=== PATIENT | female | born 1940 | race African-American/Black ===

== ENCOUNTER 2017-07-19 13:29 | Inpatient (IN) | payer MEDICARE, OTHER ==
[~2017-07-19] VITALS: Ht 162.6 cm; Wt 112.9 kg
[2017-07-19 13:48] VITALS: BP 125/59
[2017-07-19] MEDS ORDERED: Sodium Chloride 500ML 500 ML IV ONE (14:01)
[2017-07-19 14:57] LABS: HEMOGLOBIN 13.5 G/DL (12.0-16.0); MEAN CORPUSCULAR VOLUME 82 FL (80-99); PLATELET COUNT 135 K/UL (150-450); RED BLOOD COUNT 5.02 M/UL (4.20-5.40); RED CELL DISTRIBUTION WIDTH 13.2 % (11.6-14.8); WHITE BLOOD COUNT 14.6 K/UL (4.8-10.8)
[2017-07-19 14:58] LABS: ANION GAP 9 mmol/L (5-15); BLOOD UREA NITROGEN 19 mg/dL (7-18); CARBON DIOXIDE 28 MMOL/L (21-32); CHLORIDE 98 MMOL/L (98-107); CREATININE 1.5 MG/DL (0.55-1.30); POTASSIUM 4.4 MMOL/L (3.5-5.1); SODIUM 135 MMOL/L (136-145)
[2017-07-19 15:03] LABS: ALANINE AMINOTRANSFERASE 20 U/L (12-78); ALBUMIN 2.7 G/DL (3.4-5.0); ALBUMIN/GLOBULIN RATIO 0.8 (1.0-2.7); ALKALINE PHOSPHATASE 115 U/L (46-116); ASPARTATE AMINO TRANSFERASE 16 U/L (15-37); BILIRUBIN,TOTAL 0.9 MG/DL (0.2-1.0)
[2017-07-19 15:15] LABS: APPEARANCE,URINE SLIGHTLY CLOUDY; BILIRUBIN, URINE NEGATIVE (NEGATIVE); COLOR,URINE YELLOW; GLUCOSE, URINE (UA) 4+ (NEGATIVE); KETONES,URINE 2+ (NEGATIVE); LEUKOCYTE ESTERASE ,URINE 3+ (NEGATIVE); NITRITE,URINE NEGATIVE (NEGATIVE); PH,URINE 5 (4.5-8.0); PROTEIN,URINE 3+ (NEGATIVE); UROBILINOGEN,URINE 1 MG/DL (0.0-1.0)
[2017-07-19 15:40] VITALS: BP 128/59
--- NOTE | 2017-07-19 16:12 | Emergency Room Report ---
History of Present Illness General Chief Complaint: Generalized Weakness Source: Patient Present Illness HPI 76-year-old female presents to ED for evaluation. Complaining of abdominal pain , weakness for last 4 days. Pain is generalized, 6/10, and nonradiating. Denies chest pain or shortness of breath. Denies fevers or chills. Complaining of dizziness. No other aggravating relieving factors. Denies any other associated symptoms Allergies: Coded Allergies: HYDROMORPHONE (Verified Allergy, Severe, 02/27/15) PENICILLINS (Verified Allergy, Severe, 02/27/15) PROCAINE (Verified Allergy, Severe, 02/27/15) SHELLFISH DERIVED (Verified Allergy, Severe, 02/27/15) Uncoded Allergies: DUST, POLLEN (Allergy, Unknown, 07/19/17) Patient History Past Medical History: DM, HTN, asthma Past Surgical History: none Pertinent Family History: none Social History: Denies: smoking, alcohol use, drug use Now: No Immunizations: UTD Reviewed Nursing Documentation: PMH: Agreed, PSxH: Agreed Nursing Documentation-PMH Hx Hypertension: Yes Hx Asthma: Yes Hx Diabetes: Yes - DM type 2 Review of Systems All Other Systems: negative except mentioned in HPI Physical Exam Vital Signs Date Time Temp Pulse Resp B/P (MAP) Pulse Ox O2 Delivery O2 Flow Rate FiO2 07/19/17 13:38 99.1 116 20 125/70 95 99.1 07/19/17 13:48 Room Air Sp02 EP Interpretation: reviewed, normal General Appearance: no apparent distress, alert, GCS 15, non-toxic Head: normocephalic, atraumatic Eyes: bilateral eye normal inspection, bilateral eye PERRL ENT: hearing grossly normal, normal pharynx, no angioedema, normal voice Neck: full range of motion, supple/symm/no masses Respiratory: chest non-tender, lungs clear, normal breath sounds, speaking full sentences Cardiovascular #1: regular rate, rhythm, no edema Cardiovascular #2: 2+ carotid (R), 2+ carotid (L), 2+ radial (R), 2+ radial (L) , 2+ dorsalis pedis (R), 2+ dorsalis pedis (L) Gastrointestinal: normal bowel sounds, soft, non-distended, no guarding, no rebound, tenderness Rectal: deferred Genitourinary: normal inspection, no CVA tenderness Musculoskeletal: back normal, gait/station normal, normal range of motion, non- tender Neurologic: alert, oriented x3, responsive, motor strength/tone normal, sensory intact, speech normal Psychiatric: judgement/insight normal, memory normal, mood/affect normal, no suicidal/homicidal ideation Reflexes: 3+ bicep (R), 3+ bicep (L), 3+ tricep (R), 3+ tricep (L), 3+ knee (R) , 3+ knee (L) Skin: normal color, no rash, warm/dry, well hydrated Lymphatic: no adenopathy Medical Decision Making Diagnostic Impression: Primary Impression: Dehydration Additional Impressions: Episode of generalized weakness Pyelonephritis ER Course Hospital Course 76-year-old female resents ED complaining of weakness, lower abdominal pain, dizziness Differential diagnoses include: gastritis, dehydration, UTI Clinical course Patient placed on stretcher. After initial history and physical I ordered labs , ivfs, ekg, ct, mesd labs - marked leukocytosis noted, hb/hematocrit stable, cr 1.5, UA grossly positive CT A/P - pyelonephritis findings consistent with pyelonephritis. IV abx given Case discussed with Dr. Apple and he agreed to accept the patient to his service for further care and support Diagnosis - pyelonephritis, dehydration, weakness Admitted to floor in serious condition Labs Test 07/19/17 14:01 07/19/17 14:40 White Blood Count 14.6 K/UL (4.8-10.8) Red Blood Count 5.02 M/UL (4.20-5.40) Hemoglobin 13.5 G/DL (12.0-16.0) Hematocrit 41.0 % (37.0-47.0) Mean Corpuscular Volume 82 FL (80-99) Mean Corpuscular Hemoglobin 26.9 PG (27.0-31.0) Mean Corpuscular Hemoglobin Concent 33.0 G/DL (32.0-36.0) Red Cell Distribution Width 13.2 % (11.6-14.8) Platelet Count 135 K/UL (150-450) Mean Platelet Volume 9.6 FL (6.5-10.1) Neutrophils (%) (Auto) % (45.0-75.0) Lymphocytes (%) (Auto) % (20.0-45.0) Monocytes (%) (Auto) % (1.0-10.0) Eosinophils (%) (Auto) % (0.0-3.0) Basophils (%) (Auto) % (0.0-2.0) Differential Total Cells Counted 100 Neutrophils % (Manual) 85 % (45-75) Lymphocytes % (Manual) 4 % (20-45) Monocytes % (Manual) 8 % (1-10) Eosinophils % (Manual) 0 % (0-3) Basophils % (Manual) 0 % (0-2) Band Neutrophils 3 % (0-8) Platelet Estimate Decreased Platelet Morphology Normal Red Blood Cell Morphology Normal Anisocytosis Sodium Level 135 MMOL/L (136-145) Potassium Level 4.4 MMOL/L (3.5-5.1) Chloride Level 98 MMOL/L (98-107) Carbon Dioxide Level 28 MMOL/L (21-32) Anion Gap 9 mmol/L (5-15) Blood Urea Nitrogen 19 mg/dL (7-18) Creatinine 1.5 MG/DL (0.55-1.30) Estimat Glomerular Filtration Rate mL/min (>60) Glucose Level 351 MG/DL (74-106) Calcium Level 9.0 MG/DL (8.5-10.1) Total Bilirubin 0.9 MG/DL (0.2-1.0) Aspartate Amino Transf (AST/SGOT) 16 U/L (15-37) Alanine Aminotransferase (ALT/SGPT) 20 U/L (12-78) Alkaline Phosphatase 115 U/L (46-116) Total Protein 6.3 G/DL (6.4-8.2) Albumin 2.7 G/DL (3.4-5.0) Globulin 3.6 g/dL Albumin/Globulin Ratio 0.8 (1.0-2.7) Lipase 50 U/L (73-393) Urine Color Yellow Urine Appearance Slightly cloudy Urine pH 5 (4.5-8.0) Urine Specific [place] 1.010 (1.005-1.035) Urine Protein 3+ (NEGATIVE) Urine Glucose (UA) 4+ (NEGATIVE) Urine Ketones 2+ (NEGATIVE) Urine Occult Blood 5+ (NEGATIVE) Urine Nitrite Negative (NEGATIVE) Urine Bilirubin Negative (NEGATIVE) Urine Urobilinogen 1 MG/DL (0.0-1.0) Urine Leukocyte Esterase 3+ (NEGATIVE) Urine RBC 15-20 /HPF (0 - 2) Urine WBC 60-80 /HPF (0 - 2) Urine Squamous Epithelial Cells Few /LPF (NONE/OCC) Urine Amorphous Sediment Moderate /LPF (NONE) Urine Bacteria Moderate /HPF (NONE) EKG Diagnostic Results Rate: tachycardiac Rhythm: NSR ST Segments: no acute changes ASA given to the pt in ED: No Rhythm Strip Diag. Results EP Interpretation: yes Rhythm: NSR, no ectopy CT/MRI/US Diagnostic Results CT/MRI/US Diagnostic Results : Imaging Test Ordered: CT A/P Impression pyelonephritis Last Vital Signs Date Time Temp Pulse Resp B/P (MAP) Pulse Ox O2 Delivery O2 Flow Rate FiO2 07/19/17 13:48 99.1 120 25 125/59 94 Room Air 99.1 Status: improved Disposition: ADMITTED INPATIENT Condition: Serious Referrals: Cecil SHAY,REFERRING (PCP) SOSA STRATTON M.D. Jul 19, 2017 16:12
--- NOTE | 2017-07-19 16:18 | Diagnostic Imaging Report ---
Indication: Abdominal pain Technique: Continuous helical transaxial imaging of the abdomen and pelvis was obtained from the lung bases to the pubic symphysis. No intravenous contrast was administered. Coronal 2-D reformats were also obtained. Automatic Exposure Control was utilized. Total Dose length Product (DLP): 971.[address] Dose Index Volume (CTDIvol): 19.07 mGy Comparison: none Findings: The lung bases are clear. There is perinephric stranding noted bilaterally. There is no hydronephrosis or evidence of renal stones either at the level of the kidney or within the ureter. No abnormal fluid collections are seen. The appendix is normal. There is a small amount of air in the urinary bladder.. Uterus is not seen. Arterial calcifications are present in the aorta. There is no evidence of an aneurysm. There is narrowing of intervertebral discs and accompanying endplate osteophyte formation. Hypertrophied facet joints also demonstrated. There is a small right inguinal hernia containing fat. IMPRESSION: Perinephric stranding nonspecific in nature. Consider pyelonephritis. Please correlate clinically. Small amount of air in the urinary bladder. This is usually associated with Arriaza catheter placement. There is no history of such, urinary tract infection should be considered. A small right inguinal hernia containing fat Atherosclerotic vascular disease Normal appendix Spondylosis. The CT scanner at [facility] is accredited by the [employer] and the scans are performed using dose optimization techniques as appropriate to a performed exam including Automatic Exposure control.
[2017-07-19] MEDS ORDERED: NOVOLIN N100 UNIT/1 SUBQ (16:41)
[2017-07-19] MEDS ORDERED: ATORVASTATIN CA10 MG ORAL (16:41)
[2017-07-19] MEDS ORDERED: NOVOLIN R100 UNIT/1 SUBQ ×2 (16:45)
[2017-07-19 16:59] VITALS: BP 118/55
[2017-07-19] MEDS ORDERED: ASPIRIN EC81 MG ORAL (17:27)
[2017-07-19] MEDS ORDERED: Albuterol/Ipratropium 3ml neb HHN PRN (17:45)
[2017-07-19] MEDS ORDERED: Nitroglycerin Subl 0.4mg tab SL PRN (17:45)
[2017-07-19 17:56] VITALS: BP 125/60
[2017-07-19 18:30] VITALS: BP 156/61
[2017-07-19 20:00] VITALS: BP 155/76
[2017-07-19] MEDS ORDERED: Vancomycin 1 GM in NS 275 ML IVPB SCH (20:00)
[2017-07-19] MEDS ORDERED: Cefepime HCl 2 GM in D5W 110 ML IV SCH (21:00)
[2017-07-19] MEDS: Heparin 5000 units/ml inj SUBQ SCH (21:00)
[2017-07-19] MEDS: NovoLOG Insulin Flexpen SUBQ SCH (21:34)
[2017-07-19 22:05] LABS: APPEARANCE,URINE CLEAR; BILIRUBIN, URINE NEGATIVE (NEGATIVE); GLUCOSE, URINE (UA) 4+ (NEGATIVE); KETONES,URINE 2+ (NEGATIVE); LEUKOCYTE ESTERASE ,URINE 3+ (NEGATIVE); NITRITE,URINE POSITIVE (NEGATIVE); PH,URINE 5 (4.5-8.0); PROTEIN,URINE 3+ (NEGATIVE); UROBILINOGEN,URINE 1 MG/DL (0.0-1.0)
[2017-07-19 22:08] LABS: COLOR,URINE YELLOW
[2017-07-20] VITALS (7 sets, daily range): BP systolic 118–139; BP diastolic 58–83
[2017-07-20] MEDS: NovoLOG Insulin Flexpen SUBQ SCH ×4 (06:31→22:03)
[2017-07-20 06:51] LABS: BASOPHILS % (AUTO) 0.5 % (0.0-2.0); HEMATOCRIT 38.8 % (37.0-47.0); MEAN CORPUSCULAR VOLUME 81 FL (80-99); MONOCYTES % (AUTO) 5.9 % (1.0-10.0); NEUTROPHILS % (AUTO) 81.6 % (45.0-75.0); PLATELET COUNT 138 K/UL (150-450); RED BLOOD COUNT 4.76 M/UL (4.20-5.40); RED CELL DISTRIBUTION WIDTH 13.2 % (11.6-14.8); WHITE BLOOD COUNT 15.8 K/UL (4.8-10.8)
[2017-07-20 07:40] LABS: ALANINE AMINOTRANSFERASE 17 U/L (12-78); ALBUMIN 2.4 G/DL (3.4-5.0); ALBUMIN/GLOBULIN RATIO 0.5 (1.0-2.7); ALKALINE PHOSPHATASE 109 U/L (46-116); ANION GAP 8 mmol/L (5-15); ASPARTATE AMINO TRANSFERASE 11 U/L (15-37); BILIRUBIN,TOTAL 0.8 MG/DL (0.2-1.0); BLOOD UREA NITROGEN 22 mg/dL (7-18); CALCIUM 8.9 MG/DL (8.5-10.1); CARBON DIOXIDE 28 MMOL/L (21-32); CHLORIDE 100 MMOL/L (98-107); CREATININE 1.6 MG/DL (0.55-1.30); POTASSIUM 3.8 MMOL/L (3.5-5.1); SODIUM 136 MMOL/L (136-145)
[2017-07-20] MEDS: Heparin 5000 units/ml inj SUBQ SCH ×2 (08:20→21:00)
[2017-07-20] MEDS: Levofloxacin 250mg/D5W 50ml IVPB SCH (15:50)
--- NOTE | 2017-07-20 17:39 | History and Physical ---
History of Present Illness General Date patient seen: Jul 19, 2017 Reason for Hospitalization: Generalized Weakness Present Illness HPI 76-year-old female with hx of DM presents to ED for evaluation of abdominal pain, weakness for last 4 days. Pain is generalized, 6/10, and nonradiating. Denies chest pain or shortness of breath. Denies fevers or chills. Complaining of dizziness. No other aggravating relieving factors. Denies any other associated symptoms. Pt is admitted for further evaluation. Allergies: Coded Allergies: ACETAMINOPHEN (Verified Allergy, Severe, Shortness of Breath, 07/19/17) HYDROMORPHONE (Verified Allergy, Severe, 02/27/15) PENICILLINS (Verified Allergy, Severe, 02/27/15) PROCAINE (Verified Allergy, Severe, 02/27/15) SHELLFISH DERIVED (Verified Allergy, Severe, 02/27/15) Uncoded Allergies: DUST, POLLEN (Allergy, Unknown, 07/19/17) Medication History Scheduled Atorvastatin Calcium* (Lipitor*), 10 MG ORAL BEDTIME, (Reported) Insulin Regular, Human* (Novolin R*), 7 SUBQ DAILY, (Reported) Insulin Regular, Human* (Novolin R*), 0 SUBQ .SLIDING SCALE, (Reported) Nph, Human Insulin Isophane* (Novolin N*), 20 SUBQ DAILY, (Reported) Scheduled PRN Aspirin Ec* (Aspirin Ec*), 81 MG ORAL BID PRN for For Pain, (Reported) Patient History Healthcare decision maker Resuscitation status Full Code Advanced Directive on File Past Medical/Surgical History Past Medical/Surgical History: (1) Diabetes mellitus Review of Systems Gastrointestinal: Reports: abdominal pain, constipation Physical Exam Lines, tubes and drains: peripheral HEENT: normocephalic, atraumatic Neck: non-tender, supple Respiratory/Chest: chest wall non-tender, lungs clear Breasts: no masses Cardiovascular/Chest: normal peripheral pulses, normal rate Abdomen: normal bowel sounds, non tender, hyperactive bowel sounds Genitourinary/Rectal: normal rectal exam, normal prostate exam Extremities: normal range of motion Skin Exam: normal pigmentation Last 24 Hour Vital Signs Date Time Temp Pulse Resp B/P (MAP) Pulse Ox O2 Delivery O2 Flow Rate FiO2 07/20/17 15:57 100.2 104 19 137/65 95 100.2 07/20/17 12:00 99.3 105 20 139/83 99.3 07/20/17 08:31 97.0 100 19 125/77 94 97.0 07/20/17 04:00 97.7 86 18 124/59 93 Room Air 97.7 07/20/17 00:00 97.7 91 19 131/68 98 Room Air 97.7 07/19/17 20:00 101.5 118 21 155/76 91 Room Air 101.5 07/19/17 18:30 102.2 120 25 156/61 97 Room Air 102.2 07/19/17 18:25 98.2 112 24 125/60 95 Room Air 98.2 07/19/17 17:56 98.2 112 24 125/60 95 Room Air 98.2 Intake and Output 07/19/17 07/20/17 19:00 07:00 Intake Total 275.0 ml Balance 275.0 ml Intake IV Total 275.0 ml # Voids 2 1 Laboratory Tests Test 07/19/17 21:40 07/20/17 05:35 Urine Color Yellow Urine Appearance Clear Urine pH 5 (4.5-8.0) Urine Specific [place] 1.010 (1.005-1.035) Urine Protein 3+ (NEGATIVE) H Urine Glucose (UA) 4+ (NEGATIVE) H Urine Ketones 2+ (NEGATIVE) H Urine Occult Blood 5+ (NEGATIVE) H Urine Nitrite Positive (NEGATIVE) H Urine Bilirubin Negative (NEGATIVE) Urine Urobilinogen 1 MG/DL (0.0-1.0) H Urine Leukocyte Esterase 3+ (NEGATIVE) H Urine RBC 5-10 /HPF (0 - 2) H Urine WBC 2-4 /HPF (0 - 2) Urine Squamous Epithelial Cells Few /LPF (NONE/OCC) Urine Bacteria Few /HPF (NONE) Urine Yeast Few /HPF (NONE) H White Blood Count 15.8 K/UL (4.8-10.8) H Red Blood Count 4.76 M/UL (4.20-5.40) Hemoglobin 13.0 G/DL (12.0-16.0) Hematocrit 38.8 % (37.0-47.0) Mean Corpuscular Volume 81 FL (80-99) Mean Corpuscular Hemoglobin 27.3 PG (27.0-31.0) Mean Corpuscular Hemoglobin Concent 33.5 G/DL (32.0-36.0) Red Cell Distribution Width 13.2 % (11.6-14.8) Platelet Count 138 K/UL (150-450) L Mean Platelet Volume 10.0 FL (6.5-10.1) Neutrophils (%) (Auto) 81.6 % (45.0-75.0) H Lymphocytes (%) (Auto) 12.0 % (20.0-45.0) L Monocytes (%) (Auto) 5.9 % (1.0-10.0) Eosinophils (%) (Auto) 0.0 % (0.0-3.0) Basophils (%) (Auto) 0.5 % (0.0-2.0) Sodium Level 136 MMOL/L (136-145) Potassium Level 3.8 MMOL/L (3.5-5.1) Chloride Level 100 MMOL/L (98-107) Carbon Dioxide Level 28 MMOL/L (21-32) Anion Gap 8 mmol/L (5-15) Blood Urea Nitrogen 22 mg/dL (7-18) H Creatinine 1.6 MG/DL (0.55-1.30) H Estimat Glomerular Filtration Rate mL/min (>60) Glucose Level 318 MG/DL (74-106) H Calcium Level 8.9 MG/DL (8.5-10.1) Total Bilirubin 0.8 MG/DL (0.2-1.0) Aspartate Amino Transf (AST/SGOT) 11 U/L (15-37) L Alanine Aminotransferase (ALT/SGPT) 17 U/L (12-78) Alkaline Phosphatase 109 U/L (46-116) Total Protein 6.8 G/DL (6.4-8.2) Albumin 2.4 G/DL (3.4-5.0) L Globulin 4.4 g/dL Albumin/Globulin Ratio 0.5 (1.0-2.7) L Height (Feet): 5 Height (Inches): 4.00 Weight (Pounds): 249 Medications Current Medications Medications (Trade) Dose Ordered Sig/Gwendolyn Route PRN Reason Start Time Stop Time Status Last Admin Dose Admin Albuterol/ Ipratropium (Albuterol/ Ipratropium) 3 ml Q4H PRN HHN Shortness of Breath 07/19/17 17:45 33/18 17:44 Aspirin (ASA) 325 mg Q6H PRN ORAL FEVER 07/19/17 19:15 08/18/17 19:14 07/20/17 15:24 Dextrose (Dextrose 50%) STAT PRN IV Hypoglycemia 07/19/17 17:45 08/18/17 17:44 Diphenhydramine HCl (Benadryl) 25 mg Q6H PRN ORAL Itching 07/20/17 05:45 08/19/17 05:44 07/20/17 06:34 Heparin Sodium (Porcine) (Heparin 5000 units/ml) 5,000 units EVERY 12 HOURS SUBQ 07/19/17 21:00 08/18/17 20:59 Insulin Aspart (NovoLOG) BEFORE MEALS AND HS SUBQ 07/19/17 21:00 08/18/17 20:59 07/20/17 11:49 Levofloxacin 50 ml @ 50 mls/hr Q24H IVPB 07/20/17 16:00 07/27/17 15:59 07/20/17 15:50 Nitroglycerin (Ntg) 0.4 mg Q5M PRN SL Prn Chest Pain 07/19/17 17:45 08/18/17 17:44 Ondansetron HCl (Zofran) 4 mg Q6H PRN IVP Nausea & Vomiting 07/19/17 17:45 08/18/17 17:44 Polyethylene Glycol (Miralax) 17 gm DAILYPRN PRN ORAL Constipation 07/19/17 17:45 08/18/17 17:44 Temazepam (Restoril) 15 mg HSPRN PRN ORAL Insomnia 07/19/17 17:45 07/26/17 17:44 Vancomycin HCl (Vanco rx to dose) 1 ea DAILY PRN MISC PER RX PROTOCOL 07/19/17 18:00 08/18/17 17:59 Vancomycin HCl 1 gm/Sodium Chloride 275 ml @ 183.708 mls/hr Q24H IVPB 07/20/17 20:00 07/24/17 23:59 Assessment/Plan Problem List: (1) Pyelonephritis ICD Codes: N12 - Tubulo-interstitial nephritis, not specified as acute or chronic SNOMED: 82924680 (2) ATN (acute tubular necrosis) ICD Codes: N17.0 - Acute kidney failure with tubular necrosis SNOMED: 91858113 (3) Diabetes mellitus ICD Codes: E11.9 - Type 2 diabetes mellitus without complications SNOMED: 23587807 (4) Episode of generalized weakness ICD Codes: R53.1 - Weakness SNOMED: 86266146 Assessment/Plan murillo cultures symptomatic treatment check cultures sliding scale Iv abx renal studies TIM MELGAR Jul 20, 2017 17:39
--- NOTE | 2017-07-20 17:41 | Pulmonology Progress Note ---
Assessment/Plan Problems: (1) Pyelonephritis (2) ATN (acute tubular necrosis) (3) Diabetes mellitus (4) Episode of generalized weakness Assessment/Plan check cultures renal studies pending check renal US sliding scale diabetic diet labs in am Subjective ROS Limited/Unobtainable: No Constitutional: Reports: no symptoms Allergies: Coded Allergies: ACETAMINOPHEN (Verified Allergy, Severe, Shortness of Breath, 07/19/17) HYDROMORPHONE (Verified Allergy, Severe, 02/27/15) PENICILLINS (Verified Allergy, Severe, 02/27/15) PROCAINE (Verified Allergy, Severe, 02/27/15) SHELLFISH DERIVED (Verified Allergy, Severe, 02/27/15) Uncoded Allergies: DUST, POLLEN (Allergy, Unknown, 07/19/17) Objective Last 24 Hour Vital Signs Date Time Temp Pulse Resp B/P (MAP) Pulse Ox O2 Delivery O2 Flow Rate FiO2 07/20/17 15:57 100.2 104 19 137/65 95 100.2 07/20/17 12:00 99.3 105 20 139/83 99.3 07/20/17 08:31 97.0 100 19 125/77 94 97.0 07/20/17 04:00 97.7 86 18 124/59 93 Room Air 97.7 07/20/17 00:00 97.7 91 19 131/68 98 Room Air 97.7 07/19/17 20:00 101.5 118 21 155/76 91 Room Air 101.5 07/19/17 18:30 102.2 120 25 156/61 97 Room Air 102.2 07/19/17 18:25 98.2 112 24 125/60 95 Room Air 98.2 07/19/17 17:56 98.2 112 24 125/60 95 Room Air 98.2 Intake and Output 07/19/17 07/20/17 19:00 07:00 Intake Total 275.0 ml Balance 275.0 ml Intake IV Total 275.0 ml # Voids 2 1 General Appearance: WD/WN HEENT: normocephalic, atraumatic Respiratory/Chest: chest wall non-tender, lungs clear Breasts: no masses Cardiovascular: normal peripheral pulses Abdomen: soft, non tender, no organomegaly Genitourinary: normal external genitalia Extremities: no cyanosis Skin: no rash, no ulcers Microbiology Date/Time Source Procedure Growth Status 07/19/17 14:40 Urine,Clean Catch Urine Culture - Preliminary Gram Negative Bacillus 1 Resulted Laboratory Tests 07/19/17 21:40: Urine Color Yellow, Urine Appearance Clear, Urine pH 5, Urine Specific [place] 1.010, Urine Protein 3+H, Urine Glucose (UA) 4+H, Urine Ketones 2+H, Urine Occult Blood 5+H, Urine Nitrite PositiveH, Urine Bilirubin Negative, Urine Urobilinogen 1H, Urine Leukocyte Esterase 3+H, Urine RBC 5-10H, Urine WBC 2-4, Urine Squamous Epithelial Cells Few, Urine Bacteria Few, Urine Yeast FewH 07/20/17 05:35: White Blood Count 15.8H, Red Blood Count 4.76, Hemoglobin 13.0, Hematocrit 38.8 , Mean Corpuscular Volume 81, Mean Corpuscular Hemoglobin 27.3, Mean Corpuscular Hemoglobin Concent 33.5, Red Cell Distribution Width 13.2, Platelet Count 138L, Mean Platelet Volume 10.0, Neutrophils (%) (Auto) 81.6H, Lymphocytes (%) (Auto) 12.0L, Monocytes (%) (Auto) 5.9, Eosinophils (%) (Auto) 0.0, Basophils (%) (Auto) 0.5, Sodium Level 136, Potassium Level 3.8, Chloride Level 100, Carbon Dioxide Level 28, Anion Gap 8, Blood Urea Nitrogen 22H, Creatinine 1.6H, Estimat Glomerular Filtration Rate , Glucose Level 318H, Calcium Level 8.9, Total Bilirubin 0.8, Aspartate Amino Transf (AST/SGOT) 11L, Alanine Aminotransferase (ALT/SGPT) 17, Alkaline Phosphatase 109, Total Protein 6.8, Albumin 2.4L, Globulin 4.4, Albumin/Globulin Ratio 0.5L Current Medications Medications (Trade) Dose Ordered Sig/Gwendolyn Route PRN Reason Start Time Stop Time Status Last Admin Dose Admin Albuterol/ Ipratropium (Albuterol/ Ipratropium) 3 ml Q4H PRN HHN Shortness of Breath 07/19/17 17:45 07/24/17 17:44 Aspirin (ASA) 325 mg Q6H PRN ORAL FEVER 07/19/17 19:15 08/18/17 19:14 07/20/17 15:24 Dextrose (Dextrose 50%) STAT PRN IV Hypoglycemia 07/19/17 17:45 08/18/17 17:44 Diphenhydramine HCl (Benadryl) 25 mg Q6H PRN ORAL Itching 07/20/17 05:45 08/19/17 05:44 07/20/17 06:34 Heparin Sodium (Porcine) (Heparin 5000 units/ml) 5,000 units EVERY 12 HOURS SUBQ 07/19/17 21:00 08/18/17 20:59 Insulin Aspart (NovoLOG) BEFORE MEALS AND HS SUBQ 07/19/17 21:00 08/18/17 20:59 07/20/17 11:49 Levofloxacin 50 ml @ 50 mls/hr Q24H IVPB 07/20/17 16:00 07/27/17 15:59 07/20/17 15:50 Nitroglycerin (Ntg) 0.4 mg Q5M PRN SL Prn Chest Pain 07/19/17 17:45 08/18/17 17:44 Ondansetron HCl (Zofran) 4 mg Q6H PRN IVP Nausea & Vomiting 07/19/17 17:45 08/18/17 17:44 Polyethylene Glycol (Miralax) 17 gm DAILYPRN PRN ORAL Constipation 07/19/17 17:45 08/18/17 17:44 Temazepam (Restoril) 15 mg HSPRN PRN ORAL Insomnia 07/19/17 17:45 07/26/17 17:44 Vancomycin HCl (Vanco rx to dose) 1 ea DAILY PRN MISC PER RX PROTOCOL 07/19/17 18:00 08/18/17 17:59 Vancomycin HCl 1 gm/Sodium Chloride 275 ml @ 183.708 mls/hr Q24H IVPB 07/20/17 20:00 07/24/17 23:59 TIM MELGAR Jul 20, 2017 17:41
[2017-07-20] MEDS ORDERED: LORazepam 1mg tab ORAL PRN (18:30)
--- NOTE | 2017-07-20 18:33 | Cardiology Report ---
APPROVED REPORT EKG Measurement Heart [id number] ID [id number] Sinus tachycardia with premature atrial complexes Otherwise normal ECG
--- NOTE | 2017-07-20 18:35 | Consultation ---
History of Present Illness General Date patient seen: Jul 20, 2017 Chief Complaint: Generalized Weakness Present Illness HPI 76-year-old female presents to ED for evaluation. Complaining of abdominal pain , weakness for last 4 days. the pt pw anxiety and decrease energy.the pt is more worried at night. no si/hi/avh Allergies: Coded Allergies: ACETAMINOPHEN (Verified Allergy, Severe, Shortness of Breath, 07/19/17) HYDROMORPHONE (Verified Allergy, Severe, 02/27/15) PENICILLINS (Verified Allergy, Severe, 02/27/15) PROCAINE (Verified Allergy, Severe, 02/27/15) SHELLFISH DERIVED (Verified Allergy, Severe, 02/27/15) Uncoded Allergies: DUST, POLLEN (Allergy, Unknown, 07/19/17) Medication History Scheduled Atorvastatin Calcium* (Lipitor*), 10 MG ORAL BEDTIME, (Reported) Insulin Regular, Human* (Novolin R*), 7 SUBQ DAILY, (Reported) Insulin Regular, Human* (Novolin R*), 0 SUBQ .SLIDING SCALE, (Reported) Nph, Human Insulin Isophane* (Novolin N*), 20 SUBQ DAILY, (Reported) Scheduled PRN Aspirin Ec* (Aspirin Ec*), 81 MG ORAL BID PRN for For Pain, (Reported) Patient History History Provided By: Patient, Medical Record, PMD Healthcare decision maker Resuscitation status Full Code Advanced Directive on File Past Medical/Surgical History Past Medical/Surgical History: (1) Neck strain (2) UTI (urinary tract infection) (3) Pyelonephritis (4) Dehydration (5) Episode of generalized weakness (6) Diabetes mellitus (7) ATN (acute tubular necrosis) Review of Systems Psychiatric: Reports: prior hx, anxiety, depressed feelings, emotional problems Physical Exam General Appearance: no apparent distress, alert Neurologic: alert, oriented x 3, responsive, depressed affect Last 24 Hour Vital Signs Date Time Temp Pulse Resp B/P (MAP) Pulse Ox O2 Delivery O2 Flow Rate FiO2 07/20/17 15:57 100.2 104 19 137/65 95 100.2 07/20/17 12:00 99.3 105 20 139/83 99.3 07/20/17 08:31 97.0 100 19 125/77 94 97.0 07/20/17 04:00 97.7 86 18 124/59 93 Room Air 97.7 2/27/18 00:00 97.7 91 19 131/68 98 Room Air 97.7 07/19/17 20:00 101.5 118 21 155/76 91 Room Air 101.5 Intake and Output 07/19/17 07/20/17 19:00 07:00 Intake Total 275.0 ml Balance 275.0 ml IV Total 275.0 ml # Voids 2 1 Laboratory Tests Test 07/19/17 21:40 07/20/17 05:35 Urine Color Yellow Urine Appearance Clear Urine pH 5 (4.5-8.0) Urine Specific Bridger 1.010 (1.005-1.035) Urine Protein 3+ (NEGATIVE) H Urine Glucose (UA) 4+ (NEGATIVE) H Urine Ketones 2+ (NEGATIVE) H Urine Occult Blood 5+ (NEGATIVE) H Urine Nitrite Positive (NEGATIVE) H Urine Bilirubin Negative (NEGATIVE) Urine Urobilinogen 1 MG/DL (0.0-1.0) H Urine Leukocyte Esterase 3+ (NEGATIVE) H Urine RBC 5-10 /HPF (0 - 2) H Urine WBC 2-4 /HPF (0 - 2) Urine Squamous Epithelial Cells Few /LPF (NONE/OCC) Urine Bacteria Few /HPF (NONE) Urine Yeast Few /HPF (NONE) H White Blood Count 15.8 K/UL (4.8-10.8) H Red Blood Count 4.76 M/UL (4.20-5.40) Hemoglobin 13.0 G/DL (12.0-16.0) Hematocrit 38.8 % (37.0-47.0) Mean Corpuscular Volume 81 FL (80-99) Mean Corpuscular Hemoglobin 27.3 PG (27.0-31.0) Mean Corpuscular Hemoglobin Concent 33.5 G/DL (32.0-36.0) Red Cell Distribution Width 13.2 % (11.6-14.8) Platelet Count 138 K/UL (150-450) L Mean Platelet Volume 10.0 FL (6.5-10.1) Neutrophils (%) (Auto) 81.6 % (45.0-75.0) H Lymphocytes (%) (Auto) 12.0 % (20.0-45.0) L Monocytes (%) (Auto) 5.9 % (1.0-10.0) Eosinophils (%) (Auto) 0.0 % (0.0-3.0) Basophils (%) (Auto) 0.5 % (0.0-2.0) Sodium Level 136 MMOL/L (136-145) Potassium Level 3.8 MMOL/L (3.5-5.1) Chloride Level 100 MMOL/L (98-107) Carbon Dioxide Level 28 MMOL/L (21-32) Anion Gap 8 mmol/L (5-15) Blood Urea Nitrogen 22 mg/dL (7-18) H Creatinine 1.6 MG/DL (0.55-1.30) H Estimat Glomerular Filtration Rate mL/min (>60) Glucose Level 318 MG/DL (74-106) H Calcium Level 8.9 MG/DL (8.5-10.1) Total Bilirubin 0.8 MG/DL (0.2-1.0) Aspartate Amino Transf (AST/SGOT) 11 U/L (15-37) L Alanine Aminotransferase (ALT/SGPT) 17 U/L (12-78) Alkaline Phosphatase 109 U/L (46-116) Total Protein 6.8 G/DL (6.4-8.2) Albumin 2.4 G/DL (3.4-5.0) L Globulin 4.4 g/dL Albumin/Globulin Ratio 0.5 (1.0-2.7) L Height (Feet): 5 Height (Inches): 4.00 Weight (Pounds): 249 Medications Current Medications Medications (Trade) Dose Ordered Sig/Gwendolyn Route PRN Reason Start Time Stop Time Status Last Admin Dose Admin Albuterol/ Ipratropium (Albuterol/ Ipratropium) 3 ml Q4H PRN HHN Shortness of Breath 07/19/17 17:45 07/24/17 17:44 Aspirin (ASA) 325 mg Q6H PRN ORAL FEVER 07/19/17 19:15 08/18/17 19:14 07/20/17 15:24 Dextrose (Dextrose 50%) STAT PRN IV Hypoglycemia 07/19/17 17:45 08/18/17 17:44 Diphenhydramine HCl (Benadryl) 25 mg Q6H PRN ORAL Itching 07/20/17 05:45 08/19/17 05:44 07/20/17 06:34 Heparin Sodium (Porcine) (Heparin 5000 units/ml) 5,000 units EVERY 12 HOURS SUBQ 07/19/17 21:00 08/18/17 20:59 Insulin Aspart (NovoLOG) BEFORE MEALS AND HS SUBQ 07/19/17 21:00 08/18/17 20:59 07/20/17 17:35 Levofloxacin 50 ml @ 50 mls/hr Q24H IVPB 07/20/17 16:00 07/27/17 15:59 07/20/17 15:50 Nitroglycerin (Ntg) 0.4 mg Q5M PRN SL Prn Chest Pain 07/19/17 17:45 08/18/17 17:44 Ondansetron HCl (Zofran) 4 mg Q6H PRN IVP Nausea & Vomiting 07/19/17 17:45 08/18/17 17:44 Polyethylene Glycol (Miralax) 17 gm DAILYPRN PRN ORAL Constipation 07/19/17 17:45 08/18/17 17:44 Temazepam (Restoril) 15 mg HSPRN PRN ORAL Insomnia 07/19/17 17:45 07/26/17 17:44 Vancomycin HCl (Vanco rx to dose) 1 ea DAILY PRN MISC PER RX PROTOCOL 07/19/17 18:00 08/18/17 17:59 Vancomycin HCl 1 gm/Sodium Chloride 275 ml @ 183.708 mls/hr Q24H IVPB 07/20/17 20:00 07/24/17 23:59 Assessment/Plan Status: stable Assessment/Plan Anxiety d/o ativan 1mg o6hr prn Shira Easton M.D. Jul 20, 2017 18:35
[2017-07-20] MEDS ORDERED: Vancomycin 1 GM in NS 275 ML IVPB SCH (20:00)
--- NOTE | 2017-07-20 21:00 | Consultation ---
DATE OF CONSULTATION: 07/20/2017 HISTORY: The patient is a 76-year-old female, her name is Brittney Licona. The patient has been admitted due to weakness and general weakness and complained of abdominal pain for the last 4 days. The patient during the admission was not able to sleep last night and presented with anxiety. During the evaluation, the patient was very pleasant, cooperative and apparently had difficulty sleeping, worried about her current medical condition, also having abdominal pain last night. The patient does not endorse any depressive symptoms including depressed mood, anhedonia, worthlessness, hopelessness, and decreased energy. PAST PSYCHIATRIC HISTORY: Significant for anxiety disorder. MEDICATIONS: She is not currently on any medications. ALLERGIES: Acetaminophen, dust, pollen, hydromorphone, penicillin, procaine, and shellfish . SUBSTANCE ABUSE HISTORY: No known history of illicit drug use or alcohol. MENTAL STATUS EXAMINATION: The patient is alert and oriented times self, place, and situation she is in. Mood is neutral during the evaluation; however, was anxious last night. Thought process is linear. Thought content, no suicidal or homicidal ideation. No cognitive impairment. Insight and judgment fair. ASSESSMENT: AXIS I Anxiety disorder. AXIS II Deferred. AXIS III As above. AXIS IV Low. AXIS V Global assessment of functioning is 50. PLAN: 1. The patient will be continued on temazepam 50 mg at bedtime. The patient was told to ask for medication if she has remained anxious, also we will start the patient on Ativan p.r.n. 2. If the anxiety persists, the patient may see a psychiatrist and start low-dose of SSRI. Shira Easton M.D. DR: MITESH JOB#: [id number] CC:
[2017-07-21] MEDS: NovoLOG Insulin Flexpen SUBQ SCH ×4 (06:32→21:23)
[2017-07-21 08:09] VITALS: BP 141/80
[2017-07-21 08:12] VITALS: BP 102/64
[2017-07-21] MEDS: Heparin 5000 units/ml inj SUBQ SCH (09:00)
[2017-07-21 12:00] VITALS: BP 109/66
--- NOTE | 2017-07-21 12:54 | Consultation ---
Consult Note Consult Note ID DIC # [id number] JEFF ORDOÑEZ M.D. Jul 21, 2017 12:54
--- NOTE | 2017-07-21 15:15 | General Progress Note ---
Assessment/Plan Status: stable Assessment/Plan Covering IM for Dr Carey: (1) Pyelonephritis (2) ATN (acute tubular necrosis) (3) Diabetes mellitus (4) Episode of generalized weakness Assessment/Plan sliding scale diabetic diet labs in am agree with current management Subjective Allergies: Coded Allergies: ACETAMINOPHEN (Verified Allergy, Severe, Shortness of Breath, 07/19/17) HYDROMORPHONE (Verified Allergy, Severe, 02/27/15) PENICILLINS (Verified Allergy, Severe, 02/27/15) PROCAINE (Verified Allergy, Severe, 02/27/15) SHELLFISH DERIVED (Verified Allergy, Severe, 02/27/15) Uncoded Allergies: DUST, POLLEN (Allergy, Unknown, 07/19/17) Objective Last 24 Hour Vital Signs Date Time Temp Pulse Resp B/P (MAP) Pulse Ox O2 Delivery O2 Flow Rate FiO2 07/21/17 12:00 98.8 88 21 109/66 94 98.8 07/21/17 08:12 97.9 71 18 102/64 93 Nasal Cannula 97.9 07/21/17 08:09 98.6 93 18 141/80 98 Room Air 98.6 07/21/17 08:00 Room Air 07/20/17 23:48 98.2 88 19 118/62 99 Room Air 98.2 07/20/17 20:08 98.2 77 20 118/58 93 Room Air 98.2 07/20/17 15:57 100.2 104 19 137/65 95 100.2 Intake and Output 07/20/17 07/21/17 19:00 07:00 Intake Total 480 ml 515.000 ml Balance 480 ml 515.000 ml Intake Oral 480 ml 240 ml IV Total 275.000 ml # Voids 2 2 Height (Feet): 5 Height (Inches): 4.00 Weight (Pounds): 249 Alivia Peres MD Jul 21, 2017 15:15
[2017-07-21 16:21] VITALS: BP 130/56
[2017-07-21] MEDS: Levofloxacin 250mg/D5W 50ml IVPB SCH ×2 (16:29→16:33)
--- NOTE | 2017-07-21 16:39 | Diagnostic Imaging Report ---
. Indication: Chest pain Technique: One view of the chest Comparison: none Findings: Lungs and pleural spaces are clear. Heart size is upper limits normal Impression: No acute process
--- NOTE | 2017-07-21 17:17 | Progress Note ---
DATE: 07/21/2017 SUBJECTIVE: The patient is stable at baseline. No behavior issues. Still continues to have difficulty swallowing, which is giving her anxiety. The patient has been also complaining of itchiness, which could be related to the anxiety and received Benadryl. MENTAL STATUS EXAMINATION: The patient is alert and oriented times self, place, and situation she is in. Mood is anxious. Affect is constricted. Congruent with mood. Thought process is concrete. Thought content, no suicidal or homicidal ideations. ASSESSMENT: Anxiety disorder. PLAN: 1. We will continue the Ativan 1 mg every 6 hours p.r.n. 2. We will continue to follow. Shira Easton M.D. DR: EDUIN JOB#: [id number] CC:
[2017-07-21 19:19] VITALS: BP 129/59
[2017-07-21] MEDS: Levemir Flexpen SUBQ SCH (21:22)
--- NOTE | 2017-07-21 22:31 | Consultation ---
DATE OF CONSULTATION: 07/21/2017 INFECTIOUS DISEASES CONSULTATION CONSULTING PHYSICIAN: Baudilio Philippe M.D. REFERRING PHYSICIAN: Umu Apple M.D. REASON FOR CONSULTATION: Evaluation of the patient for fever, pneumonia, possible urinary tract infection, antibiotic management. HISTORY OF PRESENT ILLNESS: The patient is a 76-year-old female, who came to the hospital for abdominal pain, cough, and sputum production. The patient was found to be febrile. The patient's UA shows some pyuria, however, the patient does not have any urine symptoms. Infectious Diseases consultation has been requested for further evaluation of the patient's antibiotic management. PAST MEDICAL HISTORY: 1. Hypertension. 2. Asthma. 3. History of hysterectomy. 4. Diabetes. ALLERGIES: Penicillin (severe rash). SOCIAL HISTORY: Negative for alcohol, drug abuse, or smoking. FAMILY HISTORY: No history of flu symptoms in the family. REVIEW OF SYSTEMS: A 10-point review was done and except what is mentioned above has been negative.HEENT: No recent change in vision or hearing. PULMONARY: As mentioned above. CARDIOVASCULAR: No chest pain or palpitation. GASTROINTESTINAL/ABDOMEN: Mild tenderness. No nausea, vomiting, or diarrhea. GENITOURINARY: No dysuria. PHYSICAL EXAMINATION: VITAL SIGNS: Temperature 97 degrees, blood pressure 102/64, pulse 71, respiratory rate 18, and T-max 102.2 degrees. HEENT: No conjunctiva. No icterus. NECK: No lymphadenopathy. CHEST: Coarse breathing sounds. HEART: S1 and S2. ABDOMEN: Soft. Mild epigastric tenderness. No rebound. GENITOURINARY: No flank tenderness. NEUROLOGIC: Awake and alert. LABORATORY AND DIAGNOSTIC DATA: White blood cells 15, hemoglobin 13, and platelets 138. UA, 5 to 10 red blood cells and 2 to 4 white blood cells. BUN 22, creatinine 1.6. Urine culture is growing mixed organisms on the prior culture growing E. coli more than 100,[address] of the abdomen showed perinephric stranding, suggestive of severe pyelonephritis. ASSESSMENT: The patient is a 76-year-old female with: 1. Fever. 2. Leukocytosis. 3. Cough/bronchitis. 4. Urine culture is growing Escherichia coli, probable urinary tract infection. 5. CT scan shows bilateral perinephric stranding? pyelonephritis. PLAN: 1. We will continue the patient on Levaquin day #2, discontinue vancomycin. 2. Monitor CBC. 3. Monitor BMP. 4. Monitor cultures. 5. Monitor chest x-ray. 6. Based on the patient's clinical course and laboratories, we will do further recommendations. Thank you, Dr. Apple, for following me to participate in the care of this patient. I will follow the patient with you during this hospitalization. Baudilio Philippe M.D. DR: Francois JOB#: [id number] CC:
[2017-07-21 23:25] VITALS: BP 133/65
[2017-07-22 03:28] VITALS: BP 108/53
[2017-07-22] MEDS: Nateglinide 60mg tab ORAL SCH ×3 (06:14→17:19)
[2017-07-22] MEDS: NovoLOG Insulin Flexpen SUBQ SCH ×4 (06:15→21:25)
[2017-07-22 08:00] VITALS: BP 119/66
[2017-07-22] MEDS: Miralax 17gm pkt ORAL PRN (09:26)
--- NOTE | 2017-07-22 10:36 | Infectious Diseases Prog Note ---
Assessment/Plan Assessment/Plan ASSESSMENT: The patient is a 76-year-old female with: Fever. Leukocytosis Cough/bronchitis Urine culture: E. coli repeat CX : mixed organisms CT : Bl perinephric stranding, suggestive of pyelonephritis. Hypertension Asthma History of hysterectomy Diabetes PLAN: continue the patient on Levaquin day # 3 / Monitor CBC Monitor BMP Monitor cultures Monitor chest x-ray Subjective Allergies: Coded Allergies: ACETAMINOPHEN (Verified Allergy, Severe, Shortness of Breath, 07/19/17) HYDROMORPHONE (Verified Allergy, Severe, 02/27/15) PENICILLINS (Verified Allergy, Severe, 02/27/15) PROCAINE (Verified Allergy, Severe, 02/27/15) SHELLFISH DERIVED (Verified Allergy, Severe, 02/27/15) Uncoded Allergies: DUST, POLLEN (Allergy, Unknown, 07/19/17) Subjective comfortable Objective Vital Signs Last 24 Hour Vital Signs Date Time Temp Pulse Resp B/P (MAP) Pulse Ox O2 Delivery O2 Flow Rate FiO2 07/22/17 08:00 97.7 82 19 119/66 97 97.7 07/22/17 03:50 Room Air 07/22/17 03:28 98.1 79 20 108/53 95 Room Air 98.1 07/22/17 00:06 Room Air 07/21/17 23:25 98.1 87 20 133/65 95 Room Air 98.1 07/21/17 19:50 Room Air 07/21/17 19:19 98.2 97 20 129/59 94 Room Air 98.2 07/21/17 16:21 98.4 98 20 130/56 97 98.4 07/21/17 16:21 Room Air 07/21/17 12:00 98.8 88 21 109/66 94 98.8 07/21/17 12:00 Room Air Height (Feet): 5 Height (Inches): 4.00 Weight (Pounds): 249 HEENT: atraumatic Respiratory/Chest: no respiratory distress Cardiovascular: regularly irregular Abdomen: no mass Microbiology Date/Time Source Procedure Growth Status 07/20/17 05:40 Blood Blood Culture - Preliminary NO GROWTH AFTER 48 HOURS Resulted 07/20/17 05:35 Blood Blood Culture - Preliminary NO GROWTH AFTER 48 HOURS Resulted 07/19/17 21:40 Urine,Clean Catch Urine Culture - Final Mixed Gram Positive Organism Complete 07/19/17 14:40 Urine,Clean Catch Urine Culture - Final Escherichia Coli Complete Current Medications Medications (Trade) Dose Ordered Sig/Gwendolyn Route PRN Reason Start Time Stop Time Status Last Admin Dose Admin Albuterol/ Ipratropium (Albuterol/ Ipratropium) 3 ml Q4H PRN HHN Shortness of Breath 07/19/17 17:45 07/24/17 17:44 Aspirin (ASA) 325 mg Q6H PRN ORAL FEVER 07/19/17 19:15 08/18/17 19:14 07/21/17 15:47 Dextrose (Dextrose 50%) STAT PRN IV Hypoglycemia 07/21/17 17:45 08/20/17 17:44 Diphenhydramine HCl (Benadryl) 25 mg Q6H PRN ORAL Itching 07/20/17 05:45 08/19/17 05:44 07/20/17 23:44 Insulin Aspart (NovoLOG) BEFORE MEALS AND HS SUBQ 07/19/17 21:00 08/18/17 20:59 07/22/17 06:15 Insulin Detemir (Levemir) 10 units BEDTIME SUBQ 07/21/17 21:00 08/20/17 20:59 07/21/17 21:22 Levofloxacin 50 ml @ 50 mls/hr Q24H IVPB 07/20/17 16:00 07/27/17 15:59 07/21/17 16:33 Lorazepam (Ativan) 1 mg Q6H PRN ORAL For Anxiety 07/20/17 18:30 07/27/17 18:29 07/21/17 05:38 Nateglinide (Starlix) 60 mg TIAC ORAL 07/22/17 06:30 08/21/17 06:29 07/22/17 06:14 Nitroglycerin (Ntg) 0.4 mg Q5M PRN SL Prn Chest Pain 07/19/17 17:45 08/18/17 17:44 Ondansetron HCl (Zofran) 4 mg Q6H PRN IVP Nausea & Vomiting 07/19/17 17:45 08/18/17 17:44 07/22/17 09:26 Pantoprazole (Protonix) 40 mg BID ORAL 07/21/17 09:00 3/30/18 08:59 07/22/17 09:25 Polyethylene Glycol (Miralax) 17 gm DAILYPRN PRN ORAL Constipation 07/19/17 17:45 08/18/17 17:44 07/22/17 09:26 Temazepam (Restoril) 15 mg HSPRN PRN ORAL Insomnia 07/19/17 17:45 07/26/17 17:44 JEFF ORDOÑEZ M.D. Jul 22, 2017 10:36
[2017-07-22 12:00] VITALS: BP 112/54
--- NOTE | 2017-07-22 15:20 | Physician Query ---
--------- THIS DOCUMENT IS A PERMANENT PART OF THE MEDICAL RECORD --------- PLEASE COMPLETE DOCUMENT BEFORE SIGNING Dear Dr. Umu Apple Date: July [employer] Name: Aric OrtezIDALMIS [employer] / CD[employer] Phone # Exercise your independent professional judgment when responding to the query. Questions asked do not imply a particular answer is desired or expected. We greatly appreciate your clarification on this issue. CLINICAL DOCUMENTATION STATES: " Fever & Leukocytosis" documented in the assessment of Dr. Philippe. CLINICAL FINDINGS SHOW: WBC= 14.6, 15.8 Temp= 102.2, 102.2, 101.5, 101.5 AL= 116,120,118,115 RR= 25,24,20 Please clarify if you mean: [] SIRS (Systemic Inflammatory Response Syndrome) [] SIRS w/ Organ Dysfunction [] Sepsis [] Sepsis w/ Organ Dysfunction [] Septic Shock [] Not Applicable [] Other Condition Present on Admission: [] Yes [] No []Clinically Undeterminable Please also document in your Progress Notes and/or Discharge Summary and indicate if the condition was present on admission. Umu Apple MD Date/Time [facility]
--- NOTE | 2017-07-22 15:27 | Pulmonology Progress Note ---
Assessment/Plan Problems: (1) Pyelonephritis (2) ATN (acute tubular necrosis) (3) Diabetes mellitus (4) Episode of generalized weakness Assessment/Plan check cultures improving check renal US sliding scale diabetic diet dc with oral abx Subjective ROS Limited/Unobtainable: No Constitutional: Reports: no symptoms HEENT: Repors: no symptoms Respiratory: Reports: no symptoms Allergies: Coded Allergies: ACETAMINOPHEN (Verified Allergy, Severe, Shortness of Breath, 07/19/17) HYDROMORPHONE (Verified Allergy, Severe, 02/27/15) PENICILLINS (Verified Allergy, Severe, 02/27/15) PROCAINE (Verified Allergy, Severe, 02/27/15) SHELLFISH DERIVED (Verified Allergy, Severe, 02/27/15) Uncoded Allergies: DUST, POLLEN (Allergy, Unknown, 07/19/17) Objective Last 24 Hour Vital Signs Date Time Temp Pulse Resp B/P (MAP) Pulse Ox O2 Delivery O2 Flow Rate FiO2 07/22/17 12:00 97.9 81 19 112/54 92 97.9 07/22/17 08:00 97.7 82 19 119/66 97 97.7 07/22/17 03:50 Room Air 07/22/17 03:28 98.1 79 20 108/53 95 Room Air 98.1 07/22/17 00:06 Room Air 07/21/17 23:25 98.1 87 20 133/65 95 Room Air 98.1 07/21/17 19:50 Room Air 07/21/17 19:19 98.2 97 20 129/59 94 Room Air 98.2 07/21/17 16:21 98.4 98 20 130/56 97 98.4 07/21/17 16:21 Room Air Intake and Output 07/21/17 07/22/17 19:00 07:00 Intake Total 380 ml 120 ml Balance 380 ml 120 ml Intake Oral 330 ml 120 ml IV Total 50 ml # Voids 5 2 General Appearance: WD/WN HEENT: normocephalic, anicteric Respiratory/Chest: chest wall non-tender, lungs clear Breasts: no masses Cardiovascular: normal peripheral pulses Abdomen: normal bowel sounds, no organomegaly Genitourinary: normal external genitalia Extremities: no cyanosis Neurologic/Psychiatric: energy manager II-XII grossly normal, abnormal gait Lymphatic: no neck adenopathy Microbiology Date/Time Source Procedure Growth Status 07/20/17 05:40 Blood Blood Culture - Preliminary NO GROWTH AFTER 48 HOURS Resulted 07/20/17 05:35 Blood Blood Culture - Preliminary NO GROWTH AFTER 48 HOURS Resulted 07/19/17 21:40 Urine,Clean Catch Urine Culture - Final Mixed Gram Positive Organism Complete Current Medications Medications (Trade) Dose Ordered Sig/Gwendolyn Route PRN Reason Start Time Stop Time Status Last Admin Dose Admin Albuterol/ Ipratropium (Albuterol/ Ipratropium) 3 ml Q4H PRN HHN Shortness of Breath 07/19/17 17:45 07/24/17 17:44 Aspirin (ASA) 325 mg Q6H PRN ORAL FEVER 07/19/17 19:15 08/18/17 19:14 07/21/17 15:47 Dextrose (Dextrose 50%) STAT PRN IV Hypoglycemia 07/21/17 17:45 08/20/17 17:44 Diphenhydramine HCl (Benadryl) 25 mg Q6H PRN ORAL Itching 07/20/17 05:45 08/19/17 05:44 07/20/17 23:44 Insulin Aspart (NovoLOG) BEFORE MEALS AND HS SUBQ 07/19/17 21:00 08/18/17 20:59 07/22/17 11:51 Insulin Detemir (Levemir) 10 units BEDTIME SUBQ 07/21/17 21:00 08/20/17 20:59 07/21/17 21:22 Levofloxacin 50 ml @ 50 mls/hr Q24H IVPB 07/20/17 16:00 07/27/17 15:59 07/21/17 16:33 Lorazepam (Ativan) 1 mg Q6H PRN ORAL For Anxiety 07/20/17 18:30 07/27/17 18:29 07/21/17 05:38 Nateglinide (Starlix) 60 mg TIAC ORAL 07/22/17 06:30 08/21/17 06:29 07/22/17 11:40 Nitroglycerin (Ntg) 0.4 mg Q5M PRN SL Prn Chest Pain 07/19/17 17:45 08/18/17 17:44 Ondansetron HCl (Zofran) 4 mg Q6H PRN IVP Nausea & Vomiting 07/19/17 17:45 08/18/17 17:44 07/22/17 09:26 Pantoprazole (Protonix) 40 mg BID ORAL 07/21/17 09:00 08/20/17 08:59 07/22/17 09:25 Polyethylene Glycol (Miralax) 17 gm DAILYPRN PRN ORAL Constipation 07/19/17 17:45 08/18/17 17:44 07/22/17 09:26 Temazepam (Restoril) 15 mg HSPRN PRN ORAL Insomnia 07/19/17 17:45 07/26/17 17:44 TIM MELGAR Jul 22, 2017 15:27
[2017-07-22] MEDS ORDERED: Tubing IV Secondary IV ONE (15:28)
[2017-07-22] MEDS ORDERED: NS 275ml ONE (15:28)
[2017-07-22 16:00] VITALS: BP 111/59
[2017-07-22] MEDS: Levemir Flexpen SUBQ SCH (21:24)
--- NOTE | 2017-07-22 22:23 | General Progress Note ---
Assessment/Plan Problem List: (1) Pyelonephritis ICD Codes: N12 - Tubulo-interstitial nephritis, not specified as acute or chronic SNOMED: 38839917 (2) Diabetes mellitus ICD Codes: E11.9 - Type 2 diabetes mellitus without complications SNOMED: 46454829 (3) ATN (acute tubular necrosis) ICD Codes: N17.0 - Acute kidney failure with tubular necrosis SNOMED: 67530176 Assessment/Plan continue Levemir 10 units qhs add Novolog 6 units ac tid continue NISS Subjective Allergies: Coded Allergies: ACETAMINOPHEN (Verified Allergy, Severe, Shortness of Breath, 07/19/17) HYDROMORPHONE (Verified Allergy, Severe, 02/27/15) PENICILLINS (Verified Allergy, Severe, 02/27/15) PROCAINE (Verified Allergy, Severe, 02/27/15) SHELLFISH DERIVED (Verified Allergy, Severe, 02/27/15) Uncoded Allergies: DUST, POLLEN (Allergy, Unknown, 07/19/17) All Systems: reviewed and negative except above Subjective patient admitted with pyelonephritis diabetes is out of control as OP her diabetes is managed by insulin N/R regimen Objective Last 24 Hour Vital Signs Date Time Temp Pulse Resp B/P (MAP) Pulse Ox O2 Delivery O2 Flow Rate FiO2 07/22/17 16:00 98.2 80 19 111/59 95 98.2 07/22/17 12:00 97.9 81 19 112/54 92 97.9 07/22/17 08:00 97.7 82 19 119/66 97 97.7 07/22/17 03:50 Room Air 07/22/17 03:28 98.1 79 20 108/53 95 Room Air 98.1 07/22/17 00:06 Room Air 07/21/17 23:25 98.1 87 20 133/65 95 Room Air 98.1 Intake and Output 07/21/17 07/22/17 19:00 07:00 Intake Total 380 ml 120 ml Balance 380 ml 120 ml Intake Oral 330 ml 120 ml IV Total 50 ml # Voids 5 2 Height (Feet): 5 Height (Inches): 4.00 Weight (Pounds): 249 General Appearance: no apparent distress Neck: normal alignment Cardiovascular: normal rate Respiratory/Chest: lungs clear Abdomen: normal bowel sounds Pelvis: normal external exam Objective Current Medications Medications (Trade) Dose Ordered Sig/Gwendolyn Route PRN Reason Start Time Stop Time Status Last Admin Dose Admin Albuterol/ Ipratropium (Albuterol/ Ipratropium) 3 ml Q4H PRN HHN Shortness of Breath 07/19/17 17:45 07/24/17 17:44 Aspirin (ASA) 325 mg Q6H PRN ORAL FEVER 07/19/17 19:15 08/18/17 19:14 07/21/17 15:47 Dextrose (Dextrose 50%) STAT PRN IV Hypoglycemia 07/21/17 17:45 08/20/17 17:44 Diphenhydramine HCl (Benadryl) 25 mg Q6H PRN ORAL Itching 07/20/17 05:45 08/19/17 05:44 07/20/17 23:44 Insulin Aspart (NovoLOG) BEFORE MEALS AND HS SUBQ 07/19/17 21:00 08/18/17 20:59 07/22/17 21:25 Insulin Detemir (Levemir) 10 units BEDTIME SUBQ 07/21/17 21:00 08/20/17 20:59 07/22/17 21:24 Levofloxacin 50 ml @ 50 mls/hr Q24H IVPB 07/20/17 16:00 07/27/17 15:59 07/21/17 16:33 Lorazepam (Ativan) 1 mg Q6H PRN ORAL For Anxiety 07/20/17 18:30 07/27/17 18:29 07/21/17 05:38 Nateglinide (Starlix) 60 mg TIAC ORAL 07/22/17 06:30 08/21/17 06:29 07/22/17 17:19 Nitroglycerin (Ntg) 0.4 mg Q5M PRN SL Prn Chest Pain 07/19/17 17:45 08/18/17 17:44 Ondansetron HCl (Zofran) 4 mg Q6H PRN IVP Nausea & Vomiting 07/19/17 17:45 08/18/17 17:44 07/22/17 09:26 Pantoprazole (Protonix) 40 mg BID ORAL 07/21/17 09:00 08/20/17 08:59 07/22/17 18:26 Polyethylene Glycol (Miralax) 17 gm DAILYPRN PRN ORAL Constipation 07/19/17 17:45 3/28/18 17:44 07/22/17 09:26 Temazepam (Restoril) 15 mg HSPRN PRN ORAL Insomnia 07/19/17 17:45 07/26/17 17:44 Item Value Date Time Bedside Blood Glucose 197 mg/dl H 07/22/17 2153 Bedside Blood Glucose 259 mg/dl H 07/22/17 1721 Bedside Blood Glucose 229 mg/dl H 07/22/17 1151 Bedside Blood Glucose 201 mg/dl H 07/22/17 0615 OLIVA ROBISON 1, 2018 22:23
--- NOTE | 2017-07-22 22:45 | Progress Note ---
DATE: 07/22/2017 SUBJECTIVE: The patient is calm in bed, no acute distress, cooperative. Appetite is adequate. MENTAL STATUS EXAMINATION: The patient is alert and oriented x3, complaining of anxiety. Mood is neutral. Affect is constricted. Thought process is linear. Thought content, no suicidal or homicidal ideation. ASSESSMENT: Anxiety disorder. PLAN: We will continue current medications. Provide the patient with supportive therapy and reality orientation. Shira Easton M.D. DR: Vladimir JOB#: [id number] CC:
[2017-07-23] VITALS: BP 135/65
[2017-07-23 04:21] VITALS: BP 109/48
[2017-07-23] MEDS: Nateglinide 60mg tab ORAL SCH ×3 (05:38→16:39)
[2017-07-23] MEDS: NovoLOG Insulin Flexpen SUBQ SCH ×7 (05:39→21:18)
[2017-07-23 08:14] VITALS: BP 95/52
[2017-07-23] MEDS: Miralax 17gm pkt ORAL PRN (09:33)
[2017-07-23 11:31] VITALS: BP 124/61
--- NOTE | 2017-07-23 12:29 | Pulmonology Progress Note ---
Assessment/Plan Assessment/Plan ASSESSMENT probably sepsis ( POA, with fever, tachycardia, leukocytosis, evidence of infection) Pyelonephritis with E coli possible ATN (acute tubular necrosis) possible CRI due to DM/diabetic nehropathy Diabetes mellitus HTN Constipation anxiety disorder asthma bronchitis proteinuria PLAN OF CARE MS floor abx ID follows CT A/P suggestive of pyelo intermittent flank pain - pain management bowel regimen, intensified BS management with Novolog , Levemir and SSI prn endo follows O2 HHN prn no evidence of asthma exacerbation a/tussive prn swallow eval monitor renal parameters, no change, no hydro on CT, probably more likely chrbci RI, possibly due to diabetic nephropathy, noted+ 3 protein renal US GI prophylaxis psych follows psych meds per psych recs dc soon case discussed and evaluated by supervising physician Subjective Allergies: Coded Allergies: ACETAMINOPHEN (Verified Allergy, Severe, Shortness of Breath, 07/19/17) HYDROMORPHONE (Verified Allergy, Severe, 02/27/15) PENICILLINS (Verified Allergy, Severe, 02/27/15) PROCAINE (Verified Allergy, Severe, 02/27/15) SHELLFISH DERIVED (Verified Allergy, Severe, 02/27/15) Uncoded Allergies: DUST, POLLEN (Allergy, Unknown, 07/19/17) Subjective c/o constipation intermittent flank pain labs pending Objective Last 24 Hour Vital Signs Date Time Temp Pulse Resp B/P (MAP) Pulse Ox O2 Delivery O2 Flow Rate FiO2 07/23/17 11:31 97.5 80 20 124/61 95 97.5 07/23/17 08:14 97.7 83 20 95/52 95 97.7 07/23/17 04:21 97.3 67 20 109/48 94 Room Air 97.3 07/23/17 04:21 94 Room Air 07/23/17 00:00 92 Room Air 07/23/17 00:00 98.2 84 17 135/65 98.2 07/22/17 16:00 98.2 80 19 111/59 95 98.2 Intake and Output 07/22/17 07/23/17 19:00 07:00 Intake Total 240 ml Balance 240 ml Intake Oral 240 ml # Voids 2 General Appearance: no acute distress, other - A/A/O x 3 AA female HEENT: normocephalic, atraumatic, anicteric, mucous membranes moist Respiratory/Chest: lungs clear - with moderate air exchange , no respiratory distress, no accessory muscle use Cardiovascular: normal rate, regular rhythm, no JVD Abdomen: normal bowel sounds - obese abdomen , other - mild epigastric tenderness, no rebound, no guarding Extremities: no edema Neurologic/Psychiatric: alert, oriented x 3, responsive Current Medications Medications (Trade) Dose Ordered Sig/Gwendolyn Route PRN Reason Start Time Stop Time Status Last Admin Dose Admin Albuterol/ Ipratropium (Albuterol/ Ipratropium) 3 ml Q4H PRN HHN Shortness of Breath 07/19/17 17:45 07/24/17 17:44 Aspirin (ASA) 325 mg Q6H PRN ORAL FEVER 07/19/17 19:15 08/18/17 19:14 07/21/17 15:47 Dextrose (Dextrose 50%) STAT PRN IV Hypoglycemia 07/21/17 17:45 08/20/17 17:44 Dextrose (Dextrose 50%) STAT PRN IV Hypoglycemia 07/22/17 22:30 08/21/17 22:29 Diphenhydramine HCl (Benadryl) 25 mg Q6H PRN ORAL Itching 07/20/17 05:45 08/19/17 05:44 07/20/17 23:44 Insulin Aspart (NovoLOG) BEFORE MEALS AND HS SUBQ 07/19/17 21:00 08/18/17 20:59 07/23/17 12:17 Insulin Aspart (NovoLOG) 6 units NOVOTIAC SUBQ 07/23/17 06:30 08/22/17 06:29 07/23/17 12:18 Insulin Detemir (Levemir) 10 units BEDTIME SUBQ 07/21/17 21:00 08/20/17 20:59 07/22/17 21:24 Levofloxacin 50 ml @ 50 mls/hr Q24H IVPB 07/20/17 16:00 07/27/17 15:59 07/21/17 16:33 Lorazepam (Ativan) 1 mg Q6H PRN ORAL For Anxiety 07/20/17 18:30 07/27/17 18:29 07/21/17 05:38 Nateglinide (Starlix) 60 mg TIAC ORAL 07/22/17 06:30 08/21/17 06:29 07/23/17 12:15 Nitroglycerin (Ntg) 0.4 mg Q5M PRN SL Prn Chest Pain 07/19/17 17:45 08/18/17 17:44 Ondansetron HCl (Zofran) 4 mg Q6H PRN IVP Nausea & Vomiting 07/19/17 17:45 08/18/17 17:44 07/22/17 09:26 Pantoprazole (Protonix) 40 mg BID ORAL 07/21/17 09:00 08/20/17 08:59 07/23/17 09:12 Polyethylene Glycol (Miralax) 17 gm DAILYPRN PRN ORAL Constipation 07/19/17 17:45 08/18/17 17:44 07/23/17 09:33 Temazepam (Restoril) 15 mg HSPRN PRN ORAL Insomnia 07/19/17 17:45 07/26/17 17:44 Marvin MercerBisi bruce NP Jul 23, 2017 12:29
[2017-07-23] MEDS ORDERED: Lactulose 20gm/30ml UDC ORAL ONE (13:30)
[2017-07-23] MEDS ORDERED: Sennosides 8.6mg ORAL PRN ×2 (13:30→15:00)
[2017-07-23 14:00] LABS: BASOPHILS % (AUTO) 1.3 % (0.0-2.0); EOSINOPHILS % (AUTO) 4.3 % (0.0-3.0); HEMATOCRIT 35.3 % (37.0-47.0); HEMOGLOBIN 11.8 G/DL (12.0-16.0); LYMPHOCYTES % (AUTO) 23.8 % (20.0-45.0); MEAN CORPUSCULAR VOLUME 80 FL (80-99); MONOCYTES % (AUTO) 10.4 % (1.0-10.0); NEUTROPHILS % (AUTO) 60.2 % (45.0-75.0); PLATELET COUNT 175 K/UL (150-450); RED BLOOD COUNT 4.39 M/UL (4.20-5.40); RED CELL DISTRIBUTION WIDTH 13.3 % (11.6-14.8); WHITE BLOOD COUNT 10.4 K/UL (4.8-10.8)
[2017-07-23 14:10] LABS: ANION GAP 3 mmol/L (5-15); BLOOD UREA NITROGEN 17 mg/dL (7-18); CALCIUM 8.5 MG/DL (8.5-10.1); CARBON DIOXIDE 30 MMOL/L (21-32); CHLORIDE 102 MMOL/L (98-107); CREATININE 1.3 MG/DL (0.55-1.30); POTASSIUM 3.3 MMOL/L (3.5-5.1); SODIUM 135 MMOL/L (136-145)
--- NOTE | 2017-07-23 14:11 | Infectious Diseases Prog Note ---
Assessment/Plan Assessment/Plan ASSESSMENT: The patient is a 76-year-old female with: Fever, SP Leukocytosis, SP Cough/bronchitis Urine culture: E. coli repeat CX : mixed organisms CT : Bl perinephric stranding, suggestive of pyelonephritis. Hypertension Asthma History of hysterectomy Diabetes PLAN: continue the patient on Levaquin day # 4 / 7 Monitor CBC Monitor BMP Monitor cultures Monitor chest x-ray Subjective Allergies: Coded Allergies: ACETAMINOPHEN (Verified Allergy, Severe, Shortness of Breath, 07/19/17) HYDROMORPHONE (Verified Allergy, Severe, 02/27/15) PENICILLINS (Verified Allergy, Severe, 02/27/15) PROCAINE (Verified Allergy, Severe, 02/27/15) SHELLFISH DERIVED (Verified Allergy, Severe, 02/27/15) Uncoded Allergies: DUST, POLLEN (Allergy, Unknown, 07/19/17) Subjective comfortable Objective Vital Signs Last 24 Hour Vital Signs Date Time Temp Pulse Resp B/P (MAP) Pulse Ox O2 Delivery O2 Flow Rate FiO2 07/23/17 11:31 97.5 80 20 124/61 95 97.5 07/23/17 08:14 97.7 83 20 95/52 95 97.7 07/23/17 04:21 97.3 67 20 109/48 94 Room Air 97.3 07/23/17 04:21 94 Room Air 07/23/17 00:00 92 Room Air 07/23/17 00:00 98.2 84 17 135/65 98.2 07/22/17 16:00 98.2 80 19 111/59 95 98.2 Height (Feet): 5 Height (Inches): 4.00 Weight (Pounds): 249 HEENT: anicteric Respiratory/Chest: no respiratory distress Cardiovascular: regular rhythm Abdomen: no organomegaly Laboratory Tests Test 07/23/17 13:40 White Blood Count 10.4 K/UL (4.8-10.8) Red Blood Count 4.39 M/UL (4.20-5.40) Hemoglobin 11.8 G/DL (12.0-16.0) L Hematocrit 35.3 % (37.0-47.0) L Mean Corpuscular Volume 80 FL (80-99) Mean Corpuscular Hemoglobin 26.8 PG (27.0-31.0) L Mean Corpuscular Hemoglobin Concent 33.3 G/DL (32.0-36.0) Red Cell Distribution Width 13.3 % (11.6-14.8) Platelet Count 175 K/UL (150-450) Mean Platelet Volume 9.0 FL (6.5-10.1) Neutrophils (%) (Auto) 60.2 % (45.0-75.0) Lymphocytes (%) (Auto) 23.8 % (20.0-45.0) Monocytes (%) (Auto) 10.4 % (1.0-10.0) H Eosinophils (%) (Auto) 4.3 % (0.0-3.0) H Basophils (%) (Auto) 1.3 % (0.0-2.0) Sodium Level Pending Potassium Level Pending Chloride Level Pending Carbon Dioxide Level Pending Blood Urea Nitrogen Pending Creatinine Pending Estimat Glomerular Filtration Rate Pending Glucose Level Pending Calcium Level Pending Current Medications Medications (Trade) Dose Ordered Sig/Gwendolyn Route PRN Reason Start Time Stop Time Status Last Admin Dose Admin Albuterol/ Ipratropium (Albuterol/ Ipratropium) 3 ml Q4H PRN HHN Shortness of Breath 07/19/17 17:45 07/24/17 17:44 Aspirin (ASA) 325 mg Q6H PRN ORAL FEVER 07/19/17 19:15 08/18/17 19:14 07/21/17 15:47 Dextrose (Dextrose 50%) STAT PRN IV Hypoglycemia 07/21/17 17:45 08/20/17 17:44 Dextrose (Dextrose 50%) STAT PRN IV Hypoglycemia 07/22/17 22:30 08/21/17 22:29 Diphenhydramine HCl (Benadryl) 25 mg Q6H PRN ORAL Itching 07/20/17 05:45 08/19/17 05:44 07/20/17 23:44 Insulin Aspart (NovoLOG) BEFORE MEALS AND HS SUBQ 07/19/17 21:00 08/18/17 20:59 07/23/17 12:17 Insulin Aspart (NovoLOG) 6 units NOVOTIAC SUBQ 07/23/17 06:30 08/22/17 06:29 07/23/17 12:18 Insulin Detemir (Levemir) 10 units BEDTIME SUBQ 07/21/17 21:00 08/20/17 20:59 07/22/17 21:24 Levofloxacin 50 ml @ 50 mls/hr Q24H IVPB 07/20/17 16:00 07/27/17 15:59 07/21/17 16:33 Lorazepam (Ativan) 1 mg Q6H PRN ORAL For Anxiety 07/20/17 18:30 07/27/17 18:29 07/21/17 05:38 Nateglinide (Starlix) 60 mg TIAC ORAL 07/22/17 06:30 08/21/17 06:29 07/23/17 12:15 Nitroglycerin (Ntg) 0.4 mg Q5M PRN SL Prn Chest Pain 07/19/17 17:45 08/18/17 17:44 Ondansetron HCl (Zofran) 4 mg Q6H PRN IVP Nausea & Vomiting 07/19/17 17:45 08/18/17 17:44 07/22/17 09:26 Pantoprazole (Protonix) 40 mg BID ORAL 07/21/17 09:00 08/20/17 08:59 07/23/17 09:12 Polyethylene Glycol (Miralax) 17 gm DAILYPRN PRN ORAL Constipation 07/19/17 17:45 08/18/17 17:44 07/23/17 09:33 Sennosides (Senokot) 1 tab DAILY PRN ORAL Constipation 07/23/17 13:30 08/22/17 13:29 Temazepam (Restoril) 15 mg HSPRN PRN ORAL Insomnia 07/19/17 17:45 07/26/17 17:44 JEFF ORDOÑEZ M.D. Jul 23, 2017 14:11
--- NOTE | 2017-07-23 15:18 | Diagnostic Imaging Report ---
Indication: Dysphasia Procedure and findings: Real-time fluoroscopic imaging performed in a lateral projection in conjunction with the speech pathologist evaluation. Variable consistencies of barium given per mouth. Findings: Significant abnormalities of both oral and pharyngeal phases of swallowing are demonstrated. Total fluoroscopic time 210 seconds. No definite penetration or aspiration identified. Abnormal video swallow. Please refer to speech pathology evaluation for more information.
--- NOTE | 2017-07-23 15:55 | General Progress Note ---
Assessment/Plan Problem List: (1) Pyelonephritis ICD Codes: N12 - Tubulo-interstitial nephritis, not specified as acute or chronic SNOMED: 42697095 (2) Diabetes mellitus ICD Codes: E11.9 - Type 2 diabetes mellitus without complications SNOMED: 34181988 (3) ATN (acute tubular necrosis) ICD Codes: N17.0 - Acute kidney failure with tubular necrosis SNOMED: 84502400 Assessment/Plan increase Levemir to 20 units qhs increase Novolog to 12 units ac tid continue Starlix 60 mg ac tid continue NISS Subjective Allergies: Coded Allergies: ACETAMINOPHEN (Verified Allergy, Severe, Shortness of Breath, 07/19/17) HYDROMORPHONE (Verified Allergy, Severe, 02/27/15) PENICILLINS (Verified Allergy, Severe, 02/27/15) PROCAINE (Verified Allergy, Severe, 02/27/15) SHELLFISH DERIVED (Verified Allergy, Severe, 02/27/15) Uncoded Allergies: DUST, POLLEN (Allergy, Unknown, 07/19/17) All Systems: reviewed and negative except above Subjective events noted - interval notes reviewed BG values still elevated Objective Last 24 Hour Vital Signs Date Time Temp Pulse Resp B/P (MAP) Pulse Ox O2 Delivery O2 Flow Rate FiO2 07/23/17 11:31 97.5 80 20 124/61 95 97.5 07/23/17 08:14 97.7 83 20 95/52 95 97.7 07/23/17 04:21 97.3 67 20 109/48 94 Room Air 97.3 07/23/17 04:21 94 Room Air 07/23/17 00:00 92 Room Air 07/23/17 00:00 98.2 84 17 135/65 98.2 07/22/17 16:00 98.2 80 19 111/59 95 98.2 Intake and Output 07/22/17 07/23/17 19:00 07:00 Intake Total 240 ml Balance 240 ml Intake Oral 240 ml # Voids 2 Laboratory Tests 07/23/17 13:40: White Blood Count 10.4, Red Blood Count 4.39, Hemoglobin 11.8L, Hematocrit 35.3L , Mean Corpuscular Volume 80, Mean Corpuscular Hemoglobin 26.8L, Mean Corpuscular Hemoglobin Concent 33.3, Red Cell Distribution Width 13.3, Platelet Count 175, Mean Platelet Volume 9.0, Neutrophils (%) (Auto) 60.2, Lymphocytes (% ) (Auto) 23.8, Monocytes (%) (Auto) 10.4H, Eosinophils (%) (Auto) 4.3H, Basophils (%) (Auto) 1.3, Sodium Level 135L, Potassium Level 3.3L, Chloride Level 102, Carbon Dioxide Level 30, Anion Gap 3L, Blood Urea Nitrogen 17, Creatinine 1.3, Estimat Glomerular Filtration Rate , Glucose Level 243H, Calcium Level 8.5 Height (Feet): 5 Height (Inches): 4.00 Weight (Pounds): 249 Objective Current Medications Medications (Trade) Dose Ordered Sig/Gwendolyn Route PRN Reason Start Time Stop Time Status Last Admin Dose Admin Albuterol/ Ipratropium (Albuterol/ Ipratropium) 3 ml Q4H PRN HHN Shortness of Breath 07/19/17 17:45 07/24/17 17:44 Aspirin (ASA) 325 mg Q6H PRN ORAL FEVER 07/19/17 19:15 08/18/17 19:14 07/21/17 15:47 Dextrose (Dextrose 50%) STAT PRN IV Hypoglycemia 07/21/17 17:45 08/20/17 17:44 Dextrose (Dextrose 50%) STAT PRN IV Hypoglycemia 07/22/17 22:30 08/21/17 22:29 Diphenhydramine HCl (Benadryl) 25 mg Q6H PRN ORAL Itching 07/20/17 05:45 08/19/17 05:44 07/20/17 23:44 Insulin Aspart (NovoLOG) BEFORE MEALS AND HS SUBQ 07/19/17 21:00 08/18/17 20:59 07/23/17 12:17 Insulin Aspart (NovoLOG) 6 units NOVOTIAC SUBQ 07/23/17 06:30 08/22/17 06:29 07/23/17 12:18 Insulin Detemir (Levemir) 10 units BEDTIME SUBQ 07/21/17 21:00 08/20/17 20:59 07/22/17 21:24 Levofloxacin 50 ml @ 50 mls/hr Q24H IVPB 07/20/17 16:00 07/27/17 15:59 07/21/17 16:33 Lorazepam (Ativan) 1 mg Q6H PRN ORAL For Anxiety 07/20/17 18:30 07/27/17 18:29 07/21/17 05:38 Nateglinide (Starlix) 60 mg TIAC ORAL 07/22/17 06:30 08/21/17 06:29 07/23/17 12:15 Nitroglycerin (Ntg) 0.4 mg Q5M PRN SL Prn Chest Pain 07/19/17 17:45 08/18/17 17:44 Ondansetron HCl (Zofran) 4 mg Q6H PRN IVP Nausea & Vomiting 07/19/17 17:45 08/18/17 17:44 07/22/17 09:26 Pantoprazole (Protonix) 40 mg BID ORAL 07/21/17 09:00 08/20/17 08:59 07/23/17 09:12 Polyethylene Glycol (Miralax) 17 gm DAILYPRN PRN ORAL Constipation 07/19/17 17:45 08/18/17 17:44 07/23/17 09:33 Sennosides (Senokot) 1 tab DAILY PRN ORAL Constipation 07/23/17 15:00 08/22/17 14:59 Temazepam (Restoril) 15 mg HSPRN PRN ORAL Insomnia 07/19/17 17:45 07/26/17 17:44 Item Value Date Time Bedside Blood Glucose 238 mg/dl H 07/23/17 1218 Bedside Blood Glucose 322 mg/dl H 07/23/17 0601 Bedside Blood Glucose 197 mg/dl H 07/22/17 2153 Bedside Blood Glucose 259 mg/dl H 07/22/17 1721 Bedside Blood Glucose 229 mg/dl H 07/22/17 1151 OLIVA ROBISON 2, 2018 15:55
[2017-07-23 16:00] VITALS: BP 141/70
[2017-07-23] MEDS: Levofloxacin 250mg/D5W 50ml IVPB SCH (16:25)
--- NOTE | 2017-07-23 16:48 | Consultation ---
Consult Note Consult Note asked to eval for electrolyte imbalance . Assessment/Plan Pyelonephritis with E coli possible ATN (acute tubular necrosis) Previous dehydration Diabetes mellitus / Nephropathy HTN Constipation anxiety disorder asthma bronchitis proteinuria Plan; K and Na supplement per orders IRLANDA LIN Jul 23, 2017 16:48
[2017-07-23] MEDS ORDERED: NS 250 ML IVPB ONE (17:00)
[2017-07-23 20:00] VITALS: BP 118/60
--- NOTE | 2017-07-23 21:00 | Progress Note ---
DATE: 07/23/2017 SUBJECTIVE: The patient is calm, cooperative, in no acute distress. Complained of anxiety and mild depressed mood. Compliant with medication. No behavior issues. MENTAL STATUS EXAMINATION: The patient is alert, oriented times self, place, and situation she is in. Mood is anxious. Affect is constricted, congruent with mood. Thought process is concrete. Thought content, no suicidal or homicidal ideations. ASSESSMENT: 1. Depression. 2. Anxiety. PLAN: 1. We will continue current medications. 2. Provide the patient with supportive therapy and reality orientation. Shira Easton M.D. DR: Romy JOB#: [id number] CC:
[2017-07-23] MEDS: Levemir Flexpen SUBQ SCH (21:19)
[2017-07-24] VITALS: BP 118/52
[2017-07-24 04:00] VITALS: BP 107/49
[2017-07-24] MEDS: Nateglinide 60mg tab ORAL SCH ×3 (05:51→16:58)
[2017-07-24] MEDS: NovoLOG Insulin Flexpen SUBQ SCH ×7 (05:53→21:01)
[2017-07-24 07:27] LABS: BASOPHILS % (AUTO) 0.7 % (0.0-2.0); EOSINOPHILS % (AUTO) 3.5 % (0.0-3.0); HEMATOCRIT 36.9 % (37.0-47.0); HEMOGLOBIN 12.2 G/DL (12.0-16.0); LYMPHOCYTES % (AUTO) 26.7 % (20.0-45.0); MEAN CORPUSCULAR VOLUME 82 FL (80-99); MONOCYTES % (AUTO) 8.6 % (1.0-10.0); NEUTROPHILS % (AUTO) 60.6 % (45.0-75.0); PLATELET COUNT 199 K/UL (150-450); RED BLOOD COUNT 4.51 M/UL (4.20-5.40); RED CELL DISTRIBUTION WIDTH 13.5 % (11.6-14.8); WHITE BLOOD COUNT 11.7 K/UL (4.8-10.8)
[2017-07-24 07:55] LABS: ALANINE AMINOTRANSFERASE 21 U/L (12-78); ALBUMIN 2.3 G/DL (3.4-5.0); ALBUMIN/GLOBULIN RATIO 0.6 (1.0-2.7); ALKALINE PHOSPHATASE 104 U/L (46-116); ANION GAP 5 mmol/L (5-15); ASPARTATE AMINO TRANSFERASE 19 U/L (15-37); BILIRUBIN,TOTAL 0.5 MG/DL (0.2-1.0); BLOOD UREA NITROGEN 14 mg/dL (7-18); CARBON DIOXIDE 31 MMOL/L (21-32); CHLORIDE 107 MMOL/L (98-107); CREATININE 1.3 MG/DL (0.55-1.30); SODIUM 143 MMOL/L (136-145)
[2017-07-24 08:09] LABS: PHOSPHORUS 3.3 MG/DL (2.5-4.9)
[2017-07-24 08:29] VITALS: BP 119/71
--- NOTE | 2017-07-24 08:46 | Pulmonology Progress Note ---
Assessment/Plan Assessment/Plan ASSESSMENT sepsis ( POA, with fever, tachycardia, leukocytosis, evidence of infection) with bacteremia bacteremia with GNR ( likely due to pyelo) Pyelonephritis with E coli possible ATN (acute tubular necrosis) possible CRI due to DM/diabetic nehropathy Diabetes mellitus HTN Constipation anxiety disorder asthma bronchitis proteinuria PLAN OF CARE MS floor abx ID follows CT A/P suggestive of pyelo intermittent flank pain - pain management bowel regimen, intensified BS management with Novolog , Levemir and SSI prn endo follows O2 HHN prn no evidence of asthma exacerbation a/tussive prn monitor renal parameters, no change, no hydro on CT, probably more likely chrbci RI, possibly due to diabetic nephropathy, noted+ 3 protein renal US GI prophylaxis psych follows psych meds per psych recs dc soon case discussed and evaluated by supervising physician Subjective Allergies: Coded Allergies: ACETAMINOPHEN (Verified Allergy, Severe, Shortness of Breath, 07/19/17) HYDROMORPHONE (Verified Allergy, Severe, 02/27/15) PENICILLINS (Verified Allergy, Severe, 02/27/15) PROCAINE (Verified Allergy, Severe, 02/27/15) SHELLFISH DERIVED (Verified Allergy, Severe, 02/27/15) Uncoded Allergies: DUST, POLLEN (Allergy, Unknown, 07/19/17) Subjective mild leukocytosis,afebrile had BM Objective Last 24 Hour Vital Signs Date Time Temp Pulse Resp B/P (MAP) Pulse Ox O2 Delivery O2 Flow Rate FiO2 07/24/17 08:29 97.9 82 20 119/71 100 97.9 07/24/17 04:00 94 Room Air 07/24/17 04:00 98.1 79 18 107/49 94 Room Air 98.1 07/24/17 00:00 95 Room Air 07/24/17 00:00 94 Room Air 07/24/17 00:00 98.1 90 20 118/52 94 Room Air 98.1 07/23/17 20:00 98.4 81 19 118/60 95 Room Air 98.4 07/23/17 16:00 99.1 78 20 141/70 96 99.1 07/23/17 11:31 97.5 80 20 124/61 95 97.5 Intake and Output 07/23/17 07/24/17 19:00 07:00 Intake Total 840 ml Output Total 400 ml Balance 440 ml Intake Oral 840 ml Output Urine Total 400 ml # Voids 6 4 # Bowel Movements 2 2 Objective General Appearance: no acute distress, other - A/A/O x 3 AA female HEENT: normocephalic, atraumatic, anicteric, mucous membranes moist Respiratory/Chest: lungs clear - with moderate air exchange , no respiratory distress, no accessory muscle use Cardiovascular: normal rate, regular rhythm, no JVD Abdomen: normal bowel sounds - obese abdomen , Extremities: no edema Neurologic/Psychiatric: alert, oriented x 3, responsive Laboratory Tests 07/23/17 13:40: White Blood Count 10.4, Red Blood Count 4.39, Hemoglobin 11.8L, Hematocrit 35.3L , Mean Corpuscular Volume 80, Mean Corpuscular Hemoglobin 26.8L, Mean Corpuscular Hemoglobin Concent 33.3, Red Cell Distribution Width 13.3, Platelet Count 175, Mean Platelet Volume 9.0, Neutrophils (%) (Auto) 60.2, Lymphocytes (% ) (Auto) 23.8, Monocytes (%) (Auto) 10.4H, Eosinophils (%) (Auto) 4.3H, Basophils (%) (Auto) 1.3, Sodium Level 135L, Potassium Level 3.3L, Chloride Level 102, Carbon Dioxide Level 30, Anion Gap 3L, Blood Urea Nitrogen 17, Creatinine 1.3, Estimat Glomerular Filtration Rate , Glucose Level 243H, Calcium Level 8.5, C-Reactive Protein, Quantitative 16.2H 07/24/17 05:30: White Blood Count 11.7H, Red Blood Count 4.51, Hemoglobin 12.2, Hematocrit 36.9L , Mean Corpuscular Volume 82, Mean Corpuscular Hemoglobin 27.2, Mean Corpuscular Hemoglobin Concent 33.2, Red Cell Distribution Width 13.5, Platelet Count 199, Mean Platelet Volume 8.3, Neutrophils (%) (Auto) 60.6, Lymphocytes (% ) (Auto) 26.7, Monocytes (%) (Auto) 8.6, Eosinophils (%) (Auto) 3.5H, Basophils (%) (Auto) 0.7, Sodium Level 143, Potassium Level 4.0, Chloride Level 107, Carbon Dioxide Level 31, Anion Gap 5, Blood Urea Nitrogen 14, Creatinine 1.3, Estimat Glomerular Filtration Rate , Glucose Level 162H, Calcium Level 9.0, Hemoglobin A1c 10.6H, Uric Acid 4.7, Phosphorus Level 3.3, Magnesium Level 2.2, Total Bilirubin 0.5, Aspartate Amino Transf (AST/SGOT) 19, Alanine Aminotransferase (ALT/SGPT) 21, Alkaline Phosphatase 104, Pro-B-Type Natriuretic Peptide 224H, Total Protein 6.4, Albumin 2.3L, Globulin 4.1, Albumin /Globulin Ratio 0.6L Current Medications Medications (Trade) Dose Ordered Sig/Gewndolyn Route PRN Reason Start Time Stop Time Status Last Admin Dose Admin Albuterol/ Ipratropium (Albuterol/ Ipratropium) 3 ml Q4H PRN HHN Shortness of Breath 07/19/17 17:45 07/24/17 17:44 Aspirin (ASA) 325 mg Q6H PRN ORAL FEVER 07/19/17 19:15 08/18/17 19:14 07/21/17 15:47 Dextrose (Dextrose 50%) STAT PRN IV Hypoglycemia 07/22/17 22:30 08/21/17 22:29 Diphenhydramine HCl (Benadryl) 25 mg Q6H PRN ORAL Itching 07/20/17 05:45 08/19/17 05:44 07/20/17 23:44 Insulin Aspart (NovoLOG) BEFORE MEALS AND HS SUBQ 07/19/17 21:00 08/18/17 20:59 07/24/17 05:53 Insulin Aspart (NovoLOG) 12 units NOVOTIAC SUBQ 07/23/17 16:50 08/22/17 16:49 07/24/17 05:54 Insulin Detemir (Levemir) 20 units BEDTIME SUBQ 07/23/17 21:00 08/22/17 20:59 07/23/17 21:19 Levofloxacin 50 ml @ 50 mls/hr Q24H IVPB 07/20/17 16:00 07/27/17 15:59 07/23/17 16:25 Lorazepam (Ativan) 1 mg Q6H PRN ORAL For Anxiety 07/20/17 18:30 07/27/17 18:29 07/21/17 05:38 Nateglinide (Starlix) 60 mg TIAC ORAL 07/22/17 06:30 08/21/17 06:29 07/24/17 05:51 Nitroglycerin (Ntg) 0.4 mg Q5M PRN SL Prn Chest Pain 07/19/17 17:45 08/18/17 17:44 Ondansetron HCl (Zofran) 4 mg Q6H PRN IVP Nausea & Vomiting 07/19/17 17:45 08/18/17 17:44 07/23/17 17:44 Pantoprazole (Protonix) 40 mg BID ORAL 07/21/17 09:00 08/20/17 08:59 07/23/17 18:06 Polyethylene Glycol (Miralax) 17 gm DAILYPRN PRN ORAL Constipation 07/19/17 17:45 08/18/17 17:44 07/23/17 09:33 Sennosides (Senokot) 1 tab DAILY PRN ORAL Constipation 07/23/17 15:00 08/22/17 14:59 Temazepam (Restoril) 15 mg HSPRN PRN ORAL Insomnia 07/19/17 17:45 07/26/17 17:44 Bisi Wong NP ([facility]) Jul 24, 2017 08:46
--- NOTE | 2017-07-24 11:17 | Diagnostic Imaging Report ---
Indication:Elevated Bun and Creatinine. Technique: Grayscale and duplex Doppler imaging of the kidneys performed. Comparison: None Findings: The size, contour, and echogenicity of both kidneys are within normal limits. There is no hydronephrosis. The IVC and urinary bladder are unremarkable. Left kidney is 13.4 cm. Right kidney is 11.2 cm in length. IMPRESSION: Negative ultrasound evaluation
[2017-07-24 11:35] VITALS: BP 123/77
--- NOTE | 2017-07-24 12:47 | Nephrology Progress Note ---
Assessment/Plan Problem List: (1) Diabetes mellitus (2) Pyelonephritis (3) Electrolyte disorder Assessment Pyelonephritis with E coli possible ATN (acute tubular necrosis) Previous dehydration Diabetes mellitus / Nephropathy HTN Constipation anxiety disorder asthma bronchitis proteinuria Plan Plan; per ID K and Na supplement per orders Subjective ROS Limited/Unobtainable: No Constitutional: Reports: malaise Objective Objective Last 24 Hour Vital Signs Date Time Temp Pulse Resp B/P (MAP) Pulse Ox O2 Delivery O2 Flow Rate FiO2 07/24/17 11:35 98.1 74 21 123/77 98 98.1 07/24/17 08:29 97.9 82 20 119/71 100 97.9 07/24/17 04:00 94 Room Air 07/24/17 04:00 98.1 79 18 107/49 94 Room Air 98.1 07/24/17 00:00 95 Room Air 07/24/17 00:00 94 Room Air 07/24/17 00:00 98.1 90 20 118/52 94 Room Air 98.1 07/23/17 20:00 98.4 81 19 118/60 95 Room Air 98.4 07/23/17 16:00 99.1 78 20 141/70 96 99.1 Intake and Output 07/23/17 07/24/17 19:00 07:00 Intake Total 840 ml Output Total 400 ml Balance 440 ml Intake Oral 840 ml Output Urine Total 400 ml # Voids 6 4 # Bowel Movements 2 2 Laboratory Tests 07/23/17 13:40: White Blood Count 10.4, Red Blood Count 4.39, Hemoglobin 11.8L, Hematocrit 35.3L , Mean Corpuscular Volume 80, Mean Corpuscular Hemoglobin 26.8L, Mean Corpuscular Hemoglobin Concent 33.3, Red Cell Distribution Width 13.3, Platelet Count 175, Mean Platelet Volume 9.0, Neutrophils (%) (Auto) 60.2, Lymphocytes (% ) (Auto) 23.8, Monocytes (%) (Auto) 10.4H, Eosinophils (%) (Auto) 4.3H, Basophils (%) (Auto) 1.3, Sodium Level 135L, Potassium Level 3.3L, Chloride Level 102, Carbon Dioxide Level 30, Anion Gap 3L, Blood Urea Nitrogen 17, Creatinine 1.3, Estimat Glomerular Filtration Rate , Glucose Level 243H, Calcium Level 8.5, C-Reactive Protein, Quantitative 16.2H 07/24/17 05:30: White Blood Count 11.7H, Red Blood Count 4.51, Hemoglobin 12.2, Hematocrit 36.9L , Mean Corpuscular Volume 82, Mean Corpuscular Hemoglobin 27.2, Mean Corpuscular Hemoglobin Concent 33.2, Red Cell Distribution Width 13.5, Platelet Count 199, Mean Platelet Volume 8.3, Neutrophils (%) (Auto) 60.6, Lymphocytes (% ) (Auto) 26.7, Monocytes (%) (Auto) 8.6, Eosinophils (%) (Auto) 3.5H, Basophils (%) (Auto) 0.7, Sodium Level 143, Potassium Level 4.0, Chloride Level 107, Carbon Dioxide Level 31, Anion Gap 5, Blood Urea Nitrogen 14, Creatinine 1.3, Estimat Glomerular Filtration Rate , Glucose Level 162H, Calcium Level 9.0, Hemoglobin A1c 10.6H, Uric Acid 4.7, Phosphorus Level 3.3, Magnesium Level 2.2, Total Bilirubin 0.5, Aspartate Amino Transf (AST/SGOT) 19, Alanine Aminotransferase (ALT/SGPT) 21, Alkaline Phosphatase 104, Pro-B-Type Natriuretic Peptide 224H, Total Protein 6.4, Albumin 2.3L, Globulin 4.1, Albumin /Globulin Ratio 0.6L Height (Feet): 5 Height (Inches): 4.00 Weight (Pounds): 249 General Appearance: no apparent distress Objective no change IRLANDA LIN Jul 24, 2017 12:47
[2017-07-24 13:16] LABS: CHOLESTEROL 106 MG/DL (< 200); HDL CHOLESTEROL 20 MG/DL (40-60); TRIGLYCERIDES 98 MG/DL (30-150)
[2017-07-24] MEDS: Levofloxacin 250mg/D5W 50ml IVPB SCH (15:32)
[2017-07-24 15:56] VITALS: BP 120/76
[2017-07-24 20:00] VITALS: BP 119/66
[2017-07-24] MEDS: Levemir Flexpen SUBQ SCH (21:00)
[2017-07-25 00:35] VITALS: BP 111/60
[2017-07-25 04:00] VITALS: BP 129/53
[2017-07-25] MEDS: Nateglinide 60mg tab ORAL SCH ×3 (06:11→16:56)
[2017-07-25] MEDS: NovoLOG Insulin Flexpen SUBQ SCH ×7 (06:11→20:59)
--- NOTE | 2017-07-25 07:58 | General Progress Note ---
Assessment/Plan Problem List: (1) Pyelonephritis ICD Codes: N12 - Tubulo-interstitial nephritis, not specified as acute or chronic SNOMED: 90279656 (2) Diabetes mellitus ICD Codes: E11.9 - Type 2 diabetes mellitus without complications SNOMED: 10701822 (3) ATN (acute tubular necrosis) ICD Codes: N17.0 - Acute kidney failure with tubular necrosis SNOMED: 98380916 Assessment/Plan continue Levemir 20 units qhs continue Novolog 12 units ac tid continue Starlix 60 mg ac tid continue NISS Subjective Allergies: Coded Allergies: ACETAMINOPHEN (Verified Allergy, Severe, Shortness of Breath, 07/19/17) HYDROMORPHONE (Verified Allergy, Severe, 02/27/15) PENICILLINS (Verified Allergy, Severe, 02/27/15) PROCAINE (Verified Allergy, Severe, 02/27/15) SHELLFISH DERIVED (Verified Allergy, Severe, 02/27/15) Uncoded Allergies: DUST, POLLEN (Allergy, Unknown, 07/19/17) All Systems: reviewed and negative except above Subjective events noted - interval notes reviewed BG values improved after insulin dose adjustment Objective Last 24 Hour Vital Signs Date Time Temp Pulse Resp B/P (MAP) Pulse Ox O2 Delivery O2 Flow Rate FiO2 07/25/17 04:00 98.1 85 18 129/53 95 Room Air 98.1 07/25/17 00:35 98.1 85 20 111/60 99 98.1 07/24/17 20:00 98.2 83 20 119/66 97 98.2 07/24/17 15:56 97.7 86 20 120/76 100 97.7 07/24/17 11:35 98.1 74 21 123/77 98 98.1 07/24/17 08:29 97.9 82 20 119/71 100 97.9 Intake and Output 07/24/17 07/25/17 19:00 07:00 Intake Total 865 ml 240 ml Balance 865 ml 240 ml Intake Oral 865 ml 240 ml # Voids 2 1 Height (Feet): 5 Height (Inches): 4.00 Weight (Pounds): 249 General Appearance: no apparent distress EENT: pale conjunctivae Neck: normal alignment Cardiovascular: normal rate Respiratory/Chest: lungs clear Abdomen: normal bowel sounds Edema: 1+ Arm (L), 1+ Arm (R), 1+ Leg (L), 1+ Leg (R), 1+ Pedal (L), 1+ Pedal ( R), 1+ Generalized Objective Current Medications Medications (Trade) Dose Ordered Sig/Gwendolyn Route PRN Reason Start Time Stop Time Status Last Admin Dose Admin Aspirin (ASA) 325 mg Q6H PRN ORAL FEVER 07/19/17 19:15 08/18/17 19:14 07/21/17 15:47 Dextrose (Dextrose 50%) STAT PRN IV Hypoglycemia 07/22/17 22:30 08/21/17 22:29 Diphenhydramine HCl (Benadryl) 25 mg Q6H PRN ORAL Itching 07/20/17 05:45 08/19/17 05:44 07/20/17 23:44 Insulin Aspart (NovoLOG) BEFORE MEALS AND HS SUBQ 07/19/17 21:00 08/18/17 20:59 07/25/17 06:11 Insulin Aspart (NovoLOG) 12 units NOVOTIAC SUBQ 07/23/17 16:50 08/22/17 16:49 07/24/17 16:52 Insulin Detemir (Levemir) 20 units BEDTIME SUBQ 07/23/17 21:00 08/22/17 20:59 07/24/17 21:00 Levofloxacin 50 ml @ 50 mls/hr Q24H IVPB 07/20/17 16:00 07/27/17 15:59 07/24/17 15:32 Lorazepam (Ativan) 1 mg Q6H PRN ORAL For Anxiety 07/20/17 18:30 07/27/17 18:29 07/21/17 05:38 Nateglinide (Starlix) 60 mg TIAC ORAL 07/22/17 06:30 08/21/17 06:29 07/25/17 06:11 Nitroglycerin (Ntg) 0.4 mg Q5M PRN SL Prn Chest Pain 07/19/17 17:45 08/18/17 17:44 Ondansetron HCl (Zofran) 4 mg Q6H PRN IVP Nausea & Vomiting 07/19/17 17:45 08/18/17 17:44 07/23/17 17:44 Pantoprazole (Protonix) 40 mg BID ORAL 07/21/17 09:00 08/20/17 08:59 07/24/17 16:58 Polyethylene Glycol (Miralax) 17 gm DAILYPRN PRN ORAL Constipation 07/19/17 17:45 08/18/17 17:44 07/23/17 09:33 Sennosides (Senokot) 1 tab DAILY PRN ORAL Constipation 07/23/17 15:00 08/22/17 14:59 Temazepam (Restoril) 15 mg HSPRN PRN ORAL Insomnia 07/19/17 17:45 07/26/17 17:44 Item Value Date Time Bedside Blood Glucose 187 mg/dl H 07/25/17 0611 Bedside Blood Glucose 168 mg/dl H 07/24/17 2101 Bedside Blood Glucose 199 mg/dl H 07/24/17 1652 Bedside Blood Glucose 159 mg/dl H 07/24/17 1149 OLIVA ROBISON 4, 2018 07:58
[2017-07-25 08:39] LABS: EOSINOPHILS % (AUTO) 2.6 % (0.0-3.0); HEMATOCRIT 38.9 % (37.0-47.0); HEMOGLOBIN 12.8 G/DL (12.0-16.0); LYMPHOCYTES % (AUTO) 29.6 % (20.0-45.0); MEAN CORPUSCULAR VOLUME 82 FL (80-99); MONOCYTES % (AUTO) 7.4 % (1.0-10.0); NEUTROPHILS % (AUTO) 59.3 % (45.0-75.0); PLATELET COUNT 232 K/UL (150-450); RED BLOOD COUNT 4.74 M/UL (4.20-5.40); RED CELL DISTRIBUTION WIDTH 13.6 % (11.6-14.8); WHITE BLOOD COUNT 12.1 K/UL (4.8-10.8)
[2017-07-25 08:41] VITALS: BP 125/81
[2017-07-25 09:26] LABS: ANION GAP 5 mmol/L (5-15); BLOOD UREA NITROGEN 14 mg/dL (7-18); CALCIUM 9.2 MG/DL (8.5-10.1); CARBON DIOXIDE 31 MMOL/L (21-32); CHLORIDE 105 MMOL/L (98-107); CREATININE 1.4 MG/DL (0.55-1.30); SODIUM 141 MMOL/L (136-145)
--- NOTE | 2017-07-25 10:13 | Pulmonology Progress Note ---
Assessment/Plan Assessment/Plan ASSESSMENT sepsis ( POA, with fever, tachycardia, leukocytosis, evidence of infection) with bacteremia bacteremia with E coli( likely due to pyelo) Pyelonephritis with E coli possible ATN (acute tubular necrosis) possible CRI due to DM/diabetic nehropathy Diabetes mellitus HTN Constipation anxiety disorder asthma bronchitis proteinuria PLAN OF CARE MS floor abx ID follows, bl cx+ GNB; urine cx + E coli, repeated bl cx preliminary negative CT A/P suggestive of pyelo intermittent flank pain - pain management bowel regimen, intensified BS management with Novolog , Levemir, Starlix and SSI prn endo follows, HgA1c not at goal, BS regimen optimized as per endo O2 HHN prn no evidence of asthma exacerbation a/tussive prn monitor renal parameters, no change, no hydro on CT, probably more likely chrbci RI, possibly due to diabetic nephropathy, noted+ 3 protein renal US GI prophylaxis psych follows psych meds per psych recs dc plan for am with ID recs re duration of abx therapy ADDENDUM : discussed with ID need total 7 days of abx, last day 3/5 HH for BS management case discussed and evaluated by supervising physician Subjective Allergies: Coded Allergies: ACETAMINOPHEN (Verified Allergy, Severe, Shortness of Breath, 07/19/17) HYDROMORPHONE (Verified Allergy, Severe, 02/27/15) PENICILLINS (Verified Allergy, Severe, 02/27/15) PROCAINE (Verified Allergy, Severe, 02/27/15) SHELLFISH DERIVED (Verified Allergy, Severe, 02/27/15) Uncoded Allergies: DUST, POLLEN (Allergy, Unknown, 07/19/17) Subjective mild leukocytosis,afebrile repeated blood cx prel negative Objective Last 24 Hour Vital Signs Date Time Temp Pulse Resp B/P (MAP) Pulse Ox O2 Delivery O2 Flow Rate FiO2 07/25/17 08:41 98.1 86 18 125/81 98 Room Air 98.1 07/25/17 04:00 98.1 85 18 129/53 95 Room Air 98.1 07/25/17 00:35 98.1 85 20 111/60 99 98.1 07/24/17 20:00 98.2 83 20 119/66 97 98.2 07/24/17 15:56 97.7 86 20 120/76 100 97.7 07/24/17 11:35 98.1 74 21 123/77 98 98.1 Intake and Output 07/24/17 07/25/17 19:00 07:00 Intake Total 865 ml 240 ml Balance 865 ml 240 ml Intake Oral 865 ml 240 ml # Voids 2 1 Objective General Appearance: no acute distress, A/A/O x 3 AA female HEENT: normocephalic, atraumatic, anicteric, mucous membranes moist Respiratory/Chest: lungs clear - with moderate air exchange , no respiratory distress, no accessory muscle use Cardiovascular: normal rate, regular rhythm, no JVD Abdomen: normal bowel sounds - obese abdomen , Extremities: no edema Neurologic/Psychiatric: alert, oriented x 3, responsive Laboratory Tests 07/25/17 06:36: White Blood Count 12.1H, Red Blood Count 4.74, Hemoglobin 12.8, Hematocrit 38.9 , Mean Corpuscular Volume 82, Mean Corpuscular Hemoglobin 27.0, Mean Corpuscular Hemoglobin Concent 32.9, Red Cell Distribution Width 13.6, Platelet Count 232, Mean Platelet Volume 7.4, Neutrophils (%) (Auto) 59.3, Lymphocytes (% ) (Auto) 29.6, Monocytes (%) (Auto) 7.4, Eosinophils (%) (Auto) 2.6, Basophils ( %) (Auto) 1.0, Sodium Level 141, Potassium Level 4.0, Chloride Level 105, Carbon Dioxide Level 31, Anion Gap 5, Blood Urea Nitrogen 14, Creatinine 1.4H, Estimat Glomerular Filtration Rate , Glucose Level 201H, Calcium Level 9.2 Current Medications Medications (Trade) Dose Ordered Sig/Gwendolyn Route PRN Reason Start Time Stop Time Status Last Admin Dose Admin Aspirin (ASA) 325 mg Q6H PRN ORAL FEVER 07/19/17 19:15 08/18/17 19:14 07/21/17 15:47 Dextrose (Dextrose 50%) STAT PRN IV Hypoglycemia 07/22/17 22:30 08/21/17 22:29 Diphenhydramine HCl (Benadryl) 25 mg Q6H PRN ORAL Itching 07/20/17 05:45 08/19/17 05:44 07/20/17 23:44 Insulin Aspart (NovoLOG) BEFORE MEALS AND HS SUBQ 07/19/17 21:00 08/18/17 20:59 07/25/17 06:11 Insulin Aspart (NovoLOG) 12 units NOVOTIAC SUBQ 07/23/17 16:50 08/22/17 16:49 07/25/17 08:09 Insulin Detemir (Levemir) 20 units BEDTIME SUBQ 07/23/17 21:00 08/22/17 20:59 07/24/17 21:00 Levofloxacin 50 ml @ 50 mls/hr Q24H IVPB 07/20/17 16:00 07/27/17 15:59 07/24/17 15:32 Lorazepam (Ativan) 1 mg Q6H PRN ORAL For Anxiety 07/20/17 18:30 07/27/17 18:29 07/21/17 05:38 Nateglinide (Starlix) 60 mg TIAC ORAL 07/22/17 06:30 08/21/17 06:29 07/25/17 06:11 Nitroglycerin (Ntg) 0.4 mg Q5M PRN SL Prn Chest Pain 07/19/17 17:45 08/18/17 17:44 Ondansetron HCl (Zofran) 4 mg Q6H PRN IVP Nausea & Vomiting 07/19/17 17:45 08/18/17 17:44 07/23/17 17:44 Pantoprazole (Protonix) 40 mg BID ORAL 07/21/17 09:00 08/20/17 08:59 07/25/17 08:44 Polyethylene Glycol (Miralax) 17 gm DAILYPRN PRN ORAL Constipation 07/19/17 17:45 08/18/17 17:44 07/23/17 09:33 Sennosides (Senokot) 1 tab DAILY PRN ORAL Constipation 07/23/17 15:00 08/22/17 14:59 Temazepam (Restoril) 15 mg HSPRN PRN ORAL Insomnia 07/19/17 17:45 07/26/17 17:44 Bisi Wong NP (Vanchtein) Jul 25, 2017 10:13
--- NOTE | 2017-07-25 12:43 | Nephrology Progress Note ---
Assessment/Plan Problem List: (1) Diabetes mellitus (2) Pyelonephritis (3) Electrolyte disorder Assessment Pyelonephritis with E coli possible ATN (acute tubular necrosis) Cr 1.4 Previous dehydration Diabetes mellitus / Nephropathy HTN Constipation anxiety disorder asthma bronchitis proteinuria Plan Plan; NS bollous per ID K and Na supplement per orders Subjective ROS Limited/Unobtainable: No Objective Objective Last 24 Hour Vital Signs Date Time Temp Pulse Resp B/P (MAP) Pulse Ox O2 Delivery O2 Flow Rate FiO2 07/25/17 08:41 98.1 86 18 125/81 98 Room Air 98.1 07/25/17 04:00 98.1 85 18 129/53 95 Room Air 98.1 07/25/17 00:35 98.1 85 20 111/60 99 98.1 07/24/17 20:00 98.2 83 20 119/66 97 98.2 07/24/17 15:56 97.7 86 20 120/76 100 97.7 Intake and Output 07/24/17 07/25/17 19:00 07:00 Intake Total 865 ml 240 ml Balance 865 ml 240 ml Intake Oral 865 ml 240 ml # Voids 2 1 Laboratory Tests 07/25/17 06:36: White Blood Count 12.1H, Red Blood Count 4.74, Hemoglobin 12.8, Hematocrit 38.9 , Mean Corpuscular Volume 82, Mean Corpuscular Hemoglobin 27.0, Mean Corpuscular Hemoglobin Concent 32.9, Red Cell Distribution Width 13.6, Platelet Count 232, Mean Platelet Volume 7.4, Neutrophils (%) (Auto) 59.3, Lymphocytes (% ) (Auto) 29.6, Monocytes (%) (Auto) 7.4, Eosinophils (%) (Auto) 2.6, Basophils ( %) (Auto) 1.0, Sodium Level 141, Potassium Level 4.0, Chloride Level 105, Carbon Dioxide Level 31, Anion Gap 5, Blood Urea Nitrogen 14, Creatinine 1.4H, Estimat Glomerular Filtration Rate , Glucose Level 201H, Calcium Level 9.2 Height (Feet): 5 Height (Inches): 4.00 Weight (Pounds): 249 General Appearance: no apparent distress Objective no change IRLANDA LIN 4, 2018 12:43
[2017-07-25] MEDS ORDERED: Sodium Chloride 500ML 500 ML IV ONE (12:45)
--- NOTE | 2017-07-25 12:49 | Infectious Diseases Prog Note ---
Assessment/Plan Assessment/Plan ASSESSMENT: The patient is a 76-year-old female with: Fever, SP Leukocytosis, SP Cough/bronchitis Urine culture: E. coli repeat CX : mixed organisms CT : Bl perinephric stranding, suggestive of pyelonephritis. Hypertension Asthma History of hysterectomy Diabetes PLAN: continue the patient on Levaquin day # 6 / 7 Monitor CBC Monitor BMP Monitor cultures Monitor chest x-ray Subjective Allergies: Coded Allergies: ACETAMINOPHEN (Verified Allergy, Severe, Shortness of Breath, 07/19/17) HYDROMORPHONE (Verified Allergy, Severe, 02/27/15) PENICILLINS (Verified Allergy, Severe, 02/27/15) PROCAINE (Verified Allergy, Severe, 02/27/15) SHELLFISH DERIVED (Verified Allergy, Severe, 02/27/15) Uncoded Allergies: DUST, POLLEN (Allergy, Unknown, 07/19/17) Subjective Afebrile comfortable Objective Vital Signs Last 24 Hour Vital Signs Date Time Temp Pulse Resp B/P (MAP) Pulse Ox O2 Delivery O2 Flow Rate FiO2 07/25/17 08:41 98.1 86 18 125/81 98 Room Air 98.1 07/25/17 04:00 98.1 85 18 129/53 95 Room Air 98.1 07/25/17 00:35 98.1 85 20 111/60 99 98.1 07/24/17 20:00 98.2 83 20 119/66 97 98.2 07/24/17 15:56 97.7 86 20 120/76 100 97.7 Height (Feet): 5 Height (Inches): 4.00 Weight (Pounds): 249 HEENT: anicteric Respiratory/Chest: no respiratory distress Cardiovascular: regularly irregular Abdomen: no organomegaly Laboratory Tests Test 07/25/17 06:36 White Blood Count 12.1 K/UL (4.8-10.8) H Red Blood Count 4.74 M/UL (4.20-5.40) Hemoglobin 12.8 G/DL (12.0-16.0) Hematocrit 38.9 % (37.0-47.0) Mean Corpuscular Volume 82 FL (80-99) Mean Corpuscular Hemoglobin 27.0 PG (27.0-31.0) Mean Corpuscular Hemoglobin Concent 32.9 G/DL (32.0-36.0) Red Cell Distribution Width 13.6 % (11.6-14.8) Platelet Count 232 K/UL (150-450) Mean Platelet Volume 7.4 FL (6.5-10.1) Neutrophils (%) (Auto) 59.3 % (45.0-75.0) Lymphocytes (%) (Auto) 29.6 % (20.0-45.0) Monocytes (%) (Auto) 7.4 % (1.0-10.0) Eosinophils (%) (Auto) 2.6 % (0.0-3.0) Basophils (%) (Auto) 1.0 % (0.0-2.0) Sodium Level 141 MMOL/L (136-145) Potassium Level 4.0 MMOL/L (3.5-5.1) Chloride Level 105 MMOL/L (98-107) Carbon Dioxide Level 31 MMOL/L (21-32) Anion Gap 5 mmol/L (5-15) Blood Urea Nitrogen 14 mg/dL (7-18) Creatinine 1.4 MG/DL (0.55-1.30) H Estimat Glomerular Filtration Rate mL/min (>60) Glucose Level 201 MG/DL (74-106) H Calcium Level 9.2 MG/DL (8.5-10.1) Current Medications Medications (Trade) Dose Ordered Sig/Gwendolyn Route PRN Reason Start Time Stop Time Status Last Admin Dose Admin Aspirin (ASA) 325 mg Q6H PRN ORAL FEVER 07/19/17 19:15 08/18/17 19:14 07/21/17 15:47 Dextrose (Dextrose 50%) STAT PRN IV Hypoglycemia 07/22/17 22:30 08/21/17 22:29 Diphenhydramine HCl (Benadryl) 25 mg Q6H PRN ORAL Itching 07/20/17 05:45 08/19/17 05:44 07/20/17 23:44 Insulin Aspart (NovoLOG) BEFORE MEALS AND HS SUBQ 07/19/17 21:00 08/18/17 20:59 07/25/17 12:23 Insulin Aspart (NovoLOG) 12 units NOVOTIAC SUBQ 07/23/17 16:50 08/22/17 16:49 07/25/17 08:09 Insulin Detemir (Levemir) 20 units BEDTIME SUBQ 07/23/17 21:00 08/22/17 20:59 07/24/17 21:00 Levofloxacin 50 ml @ 50 mls/hr Q24H IVPB 07/20/17 16:00 07/27/17 15:59 07/24/17 15:32 Lorazepam (Ativan) 1 mg Q6H PRN ORAL For Anxiety 07/20/17 18:30 07/27/17 18:29 07/21/17 05:38 Nateglinide (Starlix) 60 mg TIAC ORAL 07/22/17 06:30 08/21/17 06:29 07/25/17 12:18 Nitroglycerin (Ntg) 0.4 mg Q5M PRN SL Prn Chest Pain 07/19/17 17:45 08/18/17 17:44 Ondansetron HCl (Zofran) 4 mg Q6H PRN IVP Nausea & Vomiting 07/19/17 17:45 08/18/17 17:44 07/23/17 17:44 Pantoprazole (Protonix) 40 mg BID ORAL 07/21/17 09:00 08/20/17 08:59 07/25/17 08:44 Polyethylene Glycol (Miralax) 17 gm DAILYPRN PRN ORAL Constipation 07/19/17 17:45 08/18/17 17:44 07/23/17 09:33 Sennosides (Senokot) 1 tab DAILY PRN ORAL Constipation 07/23/17 15:00 08/22/17 14:59 Sodium Chloride 500 ml @ 999 mls/hr Q31M ONCE IV 07/25/17 12:45 07/25/17 13:15 Temazepam (Restoril) 15 mg HSPRN PRN ORAL Insomnia 07/25/17 21:00 08/01/17 20:59 JEFF ORDOÑEZ M.D. Jul 25, 2017 12:49
[2017-07-25 12:54] VITALS: BP 115/52
[2017-07-25] MEDS: Levofloxacin 250mg/D5W 50ml IVPB SCH (16:18)
[2017-07-25 16:21] VITALS: BP 133/52
[2017-07-25 20:06] VITALS: BP 113/55
[2017-07-25] MEDS: Levemir Flexpen SUBQ SCH (20:58)
[2017-07-26 00:34] VITALS: BP 122/55
[2017-07-26 04:11] VITALS: BP 134/70
[2017-07-26] MEDS: Nateglinide 60mg tab ORAL SCH ×2 (06:19→12:24)
[2017-07-26] MEDS: NovoLOG Insulin Flexpen SUBQ SCH ×4 (06:20→12:30)
--- NOTE | 2017-07-26 07:44 | General Progress Note ---
Assessment/Plan Problem List: (1) Pyelonephritis ICD Codes: N12 - Tubulo-interstitial nephritis, not specified as acute or chronic SNOMED: 41984081 (2) Diabetes mellitus ICD Codes: E11.9 - Type 2 diabetes mellitus without complications SNOMED: 76638092 (3) ATN (acute tubular necrosis) ICD Codes: N17.0 - Acute kidney failure with tubular necrosis SNOMED: 36275404 Assessment/Plan continue Levemir 20 units qhs continue Novolog 12 units ac tid continue Starlix 60 mg ac tid continue NISS Subjective Allergies: Coded Allergies: ACETAMINOPHEN (Verified Allergy, Severe, Shortness of Breath, 07/19/17) HYDROMORPHONE (Verified Allergy, Severe, 02/27/15) PENICILLINS (Verified Allergy, Severe, 02/27/15) PROCAINE (Verified Allergy, Severe, 02/27/15) SHELLFISH DERIVED (Verified Allergy, Severe, 02/27/15) Uncoded Allergies: DUST, POLLEN (Allergy, Unknown, 07/19/17) All Systems: reviewed and negative except above Subjective events noted - interval notes reviewed BG values in fair control Objective Last 24 Hour Vital Signs Date Time Temp Pulse Resp B/P (MAP) Pulse Ox O2 Delivery O2 Flow Rate FiO2 07/26/17 04:58 Room Air 07/26/17 04:11 97.7 84 17 134/70 98 97.7 07/26/17 00:34 98.1 79 18 122/55 99 Room Air 98.1 07/25/17 20:06 98.1 83 18 113/55 97 Room Air 98.1 07/25/17 16:21 98.2 78 20 133/52 98 Room Air 98.2 07/25/17 12:54 99.1 73 115/52 98 Room Air 99.1 07/25/17 08:41 98.1 86 18 125/81 98 Room Air 98.1 Intake and Output 07/25/17 07/26/17 19:00 07:00 Intake Total 840 ml 240 ml Balance 840 ml 240 ml Intake Oral 840 ml 240 ml # Voids 2 # Bowel Movements 1 Height (Feet): 5 Height (Inches): 4.00 Weight (Pounds): 249 General Appearance: no apparent distress Neck: normal alignment Cardiovascular: normal rate Respiratory/Chest: lungs clear Abdomen: normal bowel sounds Pelvis: normal external exam Objective Current Medications Medications (Trade) Dose Ordered Sig/Gwendolyn Route PRN Reason Start Time Stop Time Status Last Admin Dose Admin Aspirin (ASA) 325 mg Q6H PRN ORAL FEVER 07/19/17 19:15 08/18/17 19:14 07/21/17 15:47 Dextrose (Dextrose 50%) STAT PRN IV Hypoglycemia 07/22/17 22:30 08/21/17 22:29 Diphenhydramine HCl (Benadryl) 25 mg Q6H PRN ORAL Itching 07/20/17 05:45 08/19/17 05:44 07/20/17 23:44 Insulin Aspart (NovoLOG) BEFORE MEALS AND HS SUBQ 07/19/17 21:00 08/18/17 20:59 07/26/17 06:21 Insulin Aspart (NovoLOG) 12 units NOVOTIAC SUBQ 07/23/17 16:50 08/22/17 16:49 07/26/17 06:20 Insulin Detemir (Levemir) 20 units BEDTIME SUBQ 07/23/17 21:00 08/22/17 20:59 07/25/17 20:58 Levofloxacin 50 ml @ 50 mls/hr Q24H IVPB 07/20/17 16:00 07/27/17 15:59 07/25/17 16:18 Lorazepam (Ativan) 1 mg Q6H PRN ORAL For Anxiety 07/20/17 18:30 07/27/17 18:29 07/21/17 05:38 Nateglinide (Starlix) 60 mg TIAC ORAL 07/22/17 06:30 08/21/17 06:29 07/26/17 06:19 Nitroglycerin (Ntg) 0.4 mg Q5M PRN SL Prn Chest Pain 07/19/17 17:45 08/18/17 17:44 Ondansetron HCl (Zofran) 4 mg Q6H PRN IVP Nausea & Vomiting 07/19/17 17:45 08/18/17 17:44 07/23/17 17:44 Pantoprazole (Protonix) 40 mg BID ORAL 07/21/17 09:00 08/20/17 08:59 07/25/17 18:24 Polyethylene Glycol (Miralax) 17 gm DAILYPRN PRN ORAL Constipation 07/19/17 17:45 08/18/17 17:44 07/23/17 09:33 Sennosides (Senokot) 1 tab DAILY PRN ORAL Constipation 07/23/17 15:00 08/22/17 14:59 Temazepam (Restoril) 15 mg HSPRN PRN ORAL Insomnia 07/25/17 21:00 08/01/17 20:59 Item Value Date Time Bedside Blood Glucose 151 mg/dl H 07/26/17 0621 Bedside Blood Glucose 180 mg/dl H 07/25/17 2059 Bedside Blood Glucose 193 mg/dl H 07/25/17 1703 Bedside Blood Glucose 175 mg/dl H 07/25/17 1223 Bedside Blood Glucose 239 mg/dl H 07/25/17 0809 Bedside Blood Glucose 187 mg/dl H 07/25/17 0611 OLIVA ROBISON 5, 2018 07:44
[2017-07-26 08:09] LABS: BASOPHILS % (AUTO) 1.3 % (0.0-2.0); EOSINOPHILS % (AUTO) 2.3 % (0.0-3.0); HEMATOCRIT 36.3 % (37.0-47.0); HEMOGLOBIN 11.8 G/DL (12.0-16.0); LYMPHOCYTES % (AUTO) 26.5 % (20.0-45.0); MEAN CORPUSCULAR VOLUME 81 FL (80-99); MONOCYTES % (AUTO) 6.3 % (1.0-10.0); NEUTROPHILS % (AUTO) 63.7 % (45.0-75.0); PLATELET COUNT 251 K/UL (150-450); RED BLOOD COUNT 4.45 M/UL (4.20-5.40); RED CELL DISTRIBUTION WIDTH 13.6 % (11.6-14.8); WHITE BLOOD COUNT 10.5 K/UL (4.8-10.8)
[2017-07-26 08:21] VITALS: BP 103/54
[2017-07-26 08:28] LABS: ANION GAP 2 mmol/L (5-15); BLOOD UREA NITROGEN 11 mg/dL (7-18); CALCIUM 8.5 MG/DL (8.5-10.1); CARBON DIOXIDE 32 MMOL/L (21-32); CHLORIDE 109 MMOL/L (98-107); CREATININE 1.1 MG/DL (0.55-1.30); POTASSIUM 4.5 MMOL/L (3.5-5.1); SODIUM 143 MMOL/L (136-145)
[2017-07-26] MEDS ORDERED: LEVEMIR FL100 UNIT/1 SUBQ (08:34)
[2017-07-26] MEDS ORDERED: STARLIX60 MG ORAL (08:34)
[2017-07-26] MEDS ORDERED: NOVOLOG100 UNITS1 SUBQ ×2 (08:34→08:36)
[2017-07-26 12:00] VITALS: BP 118/58
--- NOTE | 2017-07-26 13:00 | Nephrology Progress Note ---
Assessment/Plan Problem List: (1) Diabetes mellitus (2) Pyelonephritis (3) Electrolyte disorder Assessment Pyelonephritis with E coli possible ATN (acute tubular necrosis) Cr now wnl Previous dehydration Diabetes mellitus / Nephropathy HTN Constipation anxiety disorder asthma bronchitis proteinuria Plan Plan; stable from renal stand per ID K and Na supplement per orders Subjective ROS Limited/Unobtainable: No Constitutional: Reports: malaise Objective Objective Last 24 Hour Vital Signs Date Time Temp Pulse Resp B/P (MAP) Pulse Ox O2 Delivery O2 Flow Rate FiO2 07/26/17 08:21 98.2 83 19 103/54 97 Room Air 98.2 07/26/17 04:58 Room Air 07/26/17 04:11 97.7 84 17 134/70 98 97.7 07/26/17 00:34 98.1 79 18 122/55 99 Room Air 98.1 07/25/17 20:06 98.1 83 18 113/55 97 Room Air 98.1 07/25/17 16:21 98.2 78 20 133/52 98 Room Air 98.2 Intake and Output 07/25/17 07/26/17 19:00 07:00 Intake Total 840 ml 240 ml Balance 840 ml 240 ml Intake Oral 840 ml 240 ml # Voids 2 # Bowel Movements 1 Laboratory Tests 07/26/17 06:10: White Blood Count 10.5, Red Blood Count 4.45, Hemoglobin 11.8L, Hematocrit 36.3L , Mean Corpuscular Volume 81, Mean Corpuscular Hemoglobin 26.5L, Mean Corpuscular Hemoglobin Concent 32.6, Red Cell Distribution Width 13.6, Platelet Count 251, Mean Platelet Volume 7.1, Neutrophils (%) (Auto) 63.7, Lymphocytes (% ) (Auto) 26.5, Monocytes (%) (Auto) 6.3, Eosinophils (%) (Auto) 2.3, Basophils ( %) (Auto) 1.3, Sodium Level 143, Potassium Level 4.5, Chloride Level 109H, Carbon Dioxide Level 32, Anion Gap 2L, Blood Urea Nitrogen 11, Creatinine 1.1, Estimat Glomerular Filtration Rate , Glucose Level 150H, Calcium Level 8.5 Height (Feet): 5 Height (Inches): 4.00 Weight (Pounds): 249 General Appearance: no apparent distress Objective no change IRLANDA LIN 5, 2018 13:00
[2017-07-26 13:54] VITALS: BP 152/91
--- NOTE | 2017-07-26 15:37 | Pulmonology Progress Note ---
Assessment/Plan Problems: (1) Pyelonephritis (2) ATN (acute tubular necrosis) (3) Diabetes mellitus (4) Episode of generalized weakness Assessment/Plan check cultures improving check renal US sliding scale diabetic diet dc home today Subjective ROS Limited/Unobtainable: No Constitutional: Reports: no symptoms Respiratory: Reports: no symptoms Allergies: Coded Allergies: ACETAMINOPHEN (Verified Allergy, Severe, Shortness of Breath, 07/19/17) HYDROMORPHONE (Verified Allergy, Severe, 02/27/15) PENICILLINS (Verified Allergy, Severe, 02/27/15) PROCAINE (Verified Allergy, Severe, 02/27/15) SHELLFISH DERIVED (Verified Allergy, Severe, 02/27/15) Uncoded Allergies: DUST, POLLEN (Allergy, Unknown, 07/19/17) Objective Last 24 Hour Vital Signs Date Time Temp Pulse Resp B/P (MAP) Pulse Ox O2 Delivery O2 Flow Rate FiO2 07/26/17 12:00 98.4 75 19 118/58 95 98.4 07/26/17 12:00 Room Air 07/26/17 08:21 98.2 83 19 103/54 97 Room Air 98.2 07/26/17 04:58 Room Air 07/26/17 04:11 97.7 84 17 134/70 98 97.7 07/26/17 00:34 98.1 79 18 122/55 99 Room Air 98.1 07/25/17 20:06 98.1 83 18 113/55 97 Room Air 98.1 07/25/17 16:21 98.2 78 20 133/52 98 Room Air 98.2 Intake and Output 07/25/17 07/26/17 19:00 07:00 Intake Total 840 ml 240 ml Balance 840 ml 240 ml Intake Oral 840 ml 240 ml # Voids 2 # Bowel Movements 1 General Appearance: WD/WN HEENT: normocephalic, atraumatic Respiratory/Chest: chest wall non-tender, normal breath sounds Abdomen: normal bowel sounds, no organomegaly Extremities: no cyanosis, no clubbing Neurologic/Psychiatric: crystal mounter II-XII grossly normal, no motor/sensory deficits Lymphatic: no neck adenopathy Microbiology Date/Time Source Procedure Growth Status 07/24/17 21:30 Sputum Gram Stain - Final Resulted 07/24/17 21:30 Sputum Sputum Culture - Preliminary NORMAL UPPER RESPIRATORY DAVID AT 24 ... Resulted Laboratory Tests 07/26/17 06:10: White Blood Count 10.5, Red Blood Count 4.45, Hemoglobin 11.8L, Hematocrit 36.3L , Mean Corpuscular Volume 81, Mean Corpuscular Hemoglobin 26.5L, Mean Corpuscular Hemoglobin Concent 32.6, Red Cell Distribution Width 13.6, Platelet Count 251, Mean Platelet Volume 7.1, Neutrophils (%) (Auto) 63.7, Lymphocytes (% ) (Auto) 26.5, Monocytes (%) (Auto) 6.3, Eosinophils (%) (Auto) 2.3, Basophils ( %) (Auto) 1.3, Sodium Level 143, Potassium Level 4.5, Chloride Level 109H, Carbon Dioxide Level 32, Anion Gap 2L, Blood Urea Nitrogen 11, Creatinine 1.1, Estimat Glomerular Filtration Rate , Glucose Level 150H, Calcium Level 8.5 Current Medications Medications (Trade) Dose Ordered Sig/Gwendolyn Route PRN Reason Start Time Stop Time Status Last Admin Dose Admin Aspirin (ASA) 325 mg Q6H PRN ORAL FEVER 07/19/17 19:15 08/18/17 19:14 07/21/17 15:47 Dextrose (Dextrose 50%) STAT PRN IV Hypoglycemia 07/22/17 22:30 08/21/17 22:29 Diphenhydramine HCl (Benadryl) 25 mg Q6H PRN ORAL Itching 07/20/17 05:45 08/19/17 05:44 07/20/17 23:44 Insulin Aspart (NovoLOG) BEFORE MEALS AND HS SUBQ 07/19/17 21:00 08/18/17 20:59 07/26/17 12:30 Insulin Aspart (NovoLOG) 12 units NOVOTIAC SUBQ 07/23/17 16:50 08/22/17 16:49 07/26/17 12:29 Insulin Detemir (Levemir) 20 units BEDTIME SUBQ 07/23/17 21:00 08/22/17 20:59 07/25/17 20:58 Levofloxacin 50 ml @ 50 mls/hr Q24H IVPB 07/20/17 16:00 07/27/17 15:59 07/25/17 16:18 Lorazepam (Ativan) 1 mg Q6H PRN ORAL For Anxiety 07/20/17 18:30 07/27/17 18:29 07/21/17 05:38 Nateglinide (Starlix) 60 mg TIAC ORAL 07/22/17 06:30 08/21/17 06:29 07/26/17 12:24 Nitroglycerin (Ntg) 0.4 mg Q5M PRN SL Prn Chest Pain 07/19/17 17:45 08/18/17 17:44 Ondansetron HCl (Zofran) 4 mg Q6H PRN IVP Nausea & Vomiting 07/19/17 17:45 08/18/17 17:44 07/23/17 17:44 Pantoprazole (Protonix) 40 mg BID ORAL 07/21/17 09:00 08/20/17 08:59 07/26/17 08:19 Polyethylene Glycol (Miralax) 17 gm DAILYPRN PRN ORAL Constipation 07/19/17 17:45 08/18/17 17:44 07/23/17 09:33 Sennosides (Senokot) 1 tab DAILY PRN ORAL Constipation 07/23/17 15:00 08/22/17 14:59 Temazepam (Restoril) 15 mg HSPRN PRN ORAL Insomnia 07/25/17 21:00 08/01/17 20:59 TIM MELGAR Jul 26, 2017 15:37
--- NOTE | 2017-07-26 22:24 | General Progress Note ---
Assessment/Plan Status: stable, progressing Assessment/Plan 1. Depression. 2. Anxiety. PLAN: 1. We will continue current medications. 2. Provide the patient with supportive therapy and reality orientation. Subjective Date patient seen: Jul 26, 2017 Neurologic/Psychiatric: Reports: anxiety, depressed, emotional problems Allergies: Coded Allergies: ACETAMINOPHEN (Verified Allergy, Severe, Shortness of Breath, 07/19/17) HYDROMORPHONE (Verified Allergy, Severe, 02/27/15) PENICILLINS (Verified Allergy, Severe, 02/27/15) PROCAINE (Verified Allergy, Severe, 02/27/15) SHELLFISH DERIVED (Verified Allergy, Severe, 02/27/15) Uncoded Allergies: DUST, POLLEN (Allergy, Unknown, 07/19/17) Objective Last 24 Hour Vital Signs Date Time Temp Pulse Resp B/P (MAP) Pulse Ox O2 Delivery O2 Flow Rate FiO2 07/26/17 12:00 98.4 75 19 118/58 95 98.4 07/26/17 12:00 Room Air 07/26/17 08:21 98.2 83 19 103/54 97 Room Air 98.2 07/26/17 04:58 Room Air 07/26/17 04:11 97.7 84 17 134/70 98 97.7 07/26/17 00:34 98.1 79 18 122/55 99 Room Air 98.1 Intake and Output 07/25/17 07/26/17 19:00 07:00 Intake Total 840 ml 240 ml Balance 840 ml 240 ml Intake Oral 840 ml 240 ml # Voids 2 # Bowel Movements 1 Laboratory Tests 07/26/17 06:10: White Blood Count 10.5, Red Blood Count 4.45, Hemoglobin 11.8L, Hematocrit 36.3L , Mean Corpuscular Volume 81, Mean Corpuscular Hemoglobin 26.5L, Mean Corpuscular Hemoglobin Concent 32.6, Red Cell Distribution Width 13.6, Platelet Count 251, Mean Platelet Volume 7.1, Neutrophils (%) (Auto) 63.7, Lymphocytes (% ) (Auto) 26.5, Monocytes (%) (Auto) 6.3, Eosinophils (%) (Auto) 2.3, Basophils ( %) (Auto) 1.3, Sodium Level 143, Potassium Level 4.5, Chloride Level 109H, Carbon Dioxide Level 32, Anion Gap 2L, Blood Urea Nitrogen 11, Creatinine 1.1, Estimat Glomerular Filtration Rate , Glucose Level 150H, Calcium Level 8.5 Height (Feet): 5 Height (Inches): 4.00 Weight (Pounds): 249 General Appearance: no apparent distress, alert Neurologic: alert, oriented x 3, responsive, depressed affect Shira Easton M.D. Jul 26, 2017 22:23
--- NOTE | 2017-07-26 22:25 | General Progress Note ---
Assessment/Plan Problem List: (1) Diabetes mellitus ICD Codes: E11.9 - Type 2 diabetes mellitus without complications SNOMED: 22825774 (2) ATN (acute tubular necrosis) ICD Codes: N17.0 - Acute kidney failure with tubular necrosis SNOMED: 63472339 (3) Neck strain ICD Codes: S16.1XXA - Strain of muscle, fascia and tendon at neck level, initial encounter SNOMED: 919001780 (4) Electrolyte disorder ICD Codes: E87.8 - Other disorders of electrolyte and fluid balance, not elsewhere classified SNOMED: 673770971 Assessment/Plan 1. Depression. 2. Anxiety. PLAN: 1. We will continue current medications. 2. Provide the patient with supportive therapy and reality orientation. Subjective Date patient seen: Jul 25, 2017 Neurologic/Psychiatric: Reports: anxiety, depressed, emotional problems Allergies: Coded Allergies: ACETAMINOPHEN (Verified Allergy, Severe, Shortness of Breath, 07/19/17) HYDROMORPHONE (Verified Allergy, Severe, 02/27/15) PENICILLINS (Verified Allergy, Severe, 02/27/15) PROCAINE (Verified Allergy, Severe, 02/27/15) SHELLFISH DERIVED (Verified Allergy, Severe, 02/27/15) Uncoded Allergies: DUST, POLLEN (Allergy, Unknown, 07/19/17) Objective Last 24 Hour Vital Signs Date Time Temp Pulse Resp B/P (MAP) Pulse Ox O2 Delivery O2 Flow Rate FiO2 07/26/17 12:00 98.4 75 19 118/58 95 98.4 07/26/17 12:00 Room Air 07/26/17 08:21 98.2 83 19 103/54 97 Room Air 98.2 07/26/17 04:58 Room Air 07/26/17 04:11 97.7 84 17 134/70 98 97.7 07/26/17 00:34 98.1 79 18 122/55 99 Room Air 98.1 Intake and Output 07/25/17 07/26/17 19:00 07:00 Intake Total 840 ml 240 ml Balance 840 ml 240 ml Intake Oral 840 ml 240 ml # Voids 2 # Bowel Movements 1 Laboratory Tests 07/26/17 06:10: White Blood Count 10.5, Red Blood Count 4.45, Hemoglobin 11.8L, Hematocrit 36.3L , Mean Corpuscular Volume 81, Mean Corpuscular Hemoglobin 26.5L, Mean Corpuscular Hemoglobin Concent 32.6, Red Cell Distribution Width 13.6, Platelet Count 251, Mean Platelet Volume 7.1, Neutrophils (%) (Auto) 63.7, Lymphocytes (% ) (Auto) 26.5, Monocytes (%) (Auto) 6.3, Eosinophils (%) (Auto) 2.3, Basophils ( %) (Auto) 1.3, Sodium Level 143, Potassium Level 4.5, Chloride Level 109H, Carbon Dioxide Level 32, Anion Gap 2L, Blood Urea Nitrogen 11, Creatinine 1.1, Estimat Glomerular Filtration Rate , Glucose Level 150H, Calcium Level 8.5 Height (Feet): 5 Height (Inches): 4.00 Weight (Pounds): 249 General Appearance: no apparent distress, alert Shira Easton M.D. Jul 26, 2017 22:25
--- NOTE | 2017-07-26 22:25 | Psych Consult Progress Note ---
Psych Consult Progress Note Consult 07/24/17 Vital Signs Last 24 Hour Vital Signs Date Time Temp Pulse Resp B/P (MAP) Pulse Ox O2 Delivery O2 Flow Rate FiO2 07/26/17 12:00 98.4 75 19 118/58 95 98.4 07/26/17 12:00 Room Air 07/26/17 08:21 98.2 83 19 103/54 97 Room Air 98.2 07/26/17 04:58 Room Air 07/26/17 04:11 97.7 84 17 134/70 98 97.7 07/26/17 00:34 98.1 79 18 122/55 99 Room Air 98.1 Labs Laboratory Tests Test 07/26/17 06:10 White Blood Count 10.5 K/UL (4.8-10.8) Red Blood Count 4.45 M/UL (4.20-5.40) Hemoglobin 11.8 G/DL (12.0-16.0) L Hematocrit 36.3 % (37.0-47.0) L Mean Corpuscular Volume 81 FL (80-99) Mean Corpuscular Hemoglobin 26.5 PG (27.0-31.0) L Mean Corpuscular Hemoglobin Concent 32.6 G/DL (32.0-36.0) Red Cell Distribution Width 13.6 % (11.6-14.8) Platelet Count 251 K/UL (150-450) Mean Platelet Volume 7.1 FL (6.5-10.1) Neutrophils (%) (Auto) 63.7 % (45.0-75.0) Lymphocytes (%) (Auto) 26.5 % (20.0-45.0) Monocytes (%) (Auto) 6.3 % (1.0-10.0) Eosinophils (%) (Auto) 2.3 % (0.0-3.0) Basophils (%) (Auto) 1.3 % (0.0-2.0) Sodium Level 143 MMOL/L (136-145) Potassium Level 4.5 MMOL/L (3.5-5.1) Chloride Level 109 MMOL/L (98-107) H Carbon Dioxide Level 32 MMOL/L (21-32) Anion Gap 2 mmol/L (5-15) L Blood Urea Nitrogen 11 mg/dL (7-18) Creatinine 1.1 MG/DL (0.55-1.30) Estimat Glomerular Filtration Rate mL/min (>60) Glucose Level 150 MG/DL (74-106) H Calcium Level 8.5 MG/DL (8.5-10.1) Problems: (1) Diabetes mellitus (2) ATN (acute tubular necrosis) (3) Neck strain Status: Acute (4) Electrolyte disorder Assessment/Plan Assessment/Plan 1. Depression. 2. Anxiety. PLAN: 1. We will continue current medications. 2. Provide the patient with supportive therapy and reality orientation. Shira Easton M.D. Jul 26, 2017 22:25
--- NOTE | 2017-07-29 08:13 | Discharge Summary ---
Discharge Summary Hospital Course Date of Admission Jul 19, 2017 at 16:29 Date of Discharge Jul 26, 2017 at 15:35 Admitting Diagnosis UTI, dehydration HPI Brittney Licona is a 76 year old female who was admitted on Jul 19, 2017 at 16: 29 for Urinary Tract Infection, Dehydration Hospital Course dc summary #[id number] Discharge Medications New Medications: Insulin Aspart (Novolog Flexpen) 100 Unit/1 Ml Insuln.pen 12 UNITS SUBQ NOVOTIAC, #1 EA Insulin Aspart (Novolog Flexpen) 100 Unit/1 Ml Insuln.pen 0 UNITS SUBQ BEFORE MEALS AND HS, #1 EA Insulin Detemir (Levemir Flexpen) 100 Unit/1 Ml Insuln.pen 20 UNITS SUBQ BEDTIME, #1 EA Nateglinide* (Starlix*) 60 Mg Tablet 60 MG ORAL TIAC, #90 TAB Continued Medications: Aspirin Ec* (Aspirin Ec*) 81 Mg Tablet.dr 81 MG ORAL BID PRN for For Pain, TAB Atorvastatin Calcium* (Lipitor*) 10 Mg Tablet 10 MG ORAL BEDTIME, TAB Discharge Condition Upon Discharge: stable Discharge Disposition Patient was discharged to Home (01) Discharge Diagnoses: [facility] ([facility])Bisi NP Jul 29, 2017 08:13
--- NOTE | 2017-07-30 01:00 | Discharge Summary 2 SIG ---
DATE OF ADMISSION: 07/19/2017 DATE OF DISCHARGE: 07/26/2017 REASON FOR ADMISSION: 76-year-old female with past medical history significant for hypertension, asthma, and diabetes, presented to emergency department for evaluation of abdominal pain and weakness for the last four days. The pain was generalized, 6/10, nonradiating. She denied fever or chills. She denied shortness of breath or chest pain, but she did complain of the dizziness and cough. Urinalysis was grossly positive for UTI. The patient showed evidence of dehydration with BUN -19 and creatinine - 1.5. Electrolytes otherwise were stable. Troponin was negative. Lipase-50. LFTs within normal limits. The patient had leukocytosis -14.6. Stable hemoglobin and hematocrit. Fever -102.2 degrees, tachycardic. CT of the abdomen and pelvis, showed perinephric stranding, nonspecific in nature. Consider pyelonephritis. The patient was admitted with diagnoses of probable sepsis, pyelonephritis, dehydration, episode of generalized weakness, diabetes mellitus, and probable acute tubular necrosis. HOSPITAL COURSE: The patient admitted. Nephrology, Infectious Diseases specialist, Endocrinology, and Psychiatry consultation were requested. The patient initially started on the IV fluids and empiric antibiotics. Urine culture grew E. coli. Blood culture grew E.coli. Repeated blood culture on 07/20/2017 were negative. The patient with cough and congestion as well. Sputum culture was negative. CXR did not show any acute cardiopulmonary pathology. Supplemental oxygen and pulmonary toilet provided as needed along with antitussive. Pulse oximetry was stable on room air. No evidence of asthma exacerbation. Repeated urine culture revealed mixed gram positive organisms. The patient completed course of antibiotic while in the hospital and Infectious Diseases doctor cleared for discharge off antibiotics. Leukocytosis resolved, prior to discharge WBC- 10.8. Afebrile.The patient also initially demonstrated elevated inflammatory markers. CRP -16.2. With IV hydration, BUN and creatinine down to normal, BUN down to 11 and creatinine down to 1.1. Pipe Out Worker closely followed. Renal ultrasound revealed normal bilateral kidney echogenicity and no hydronephrosis. Electrolytes were corrected as needed. Nephrotoxics were avoided. The patient also showed +3 protein in the urine. Hemoglobin A1c-10.6, not at goal. Delivery Man optimized regimen for blood sugar management with long-acting Levemir, short-acting premeal NovoLog, Starlix and and sliding scale of insulin as needed. The patient was counseled on the new regimen of anti-glycemic. The patient verbalized understanding. The patient was able to self inject with insulin, previously was using NPH insulin, Pain management was addressed. Bowel regimen was instituted since the patient complained of the constipation. The patient had a bowel movement. GI prophylaxis provided. Psychiatrist followed. Psychiatrist optimized medication for anxiety. Leukocytosis resolved, fever resolved, patient clinically improved. The patient was stable for discharge. FINAL DIAGNOSES: 1. Sepsis with bacteremia with Escherichia coli. 2. Pyelonephritis with Escherichia coli. 3. Dehydration 3. Probable acute tubular necrosis. 4. Possible chronic renal insufficiency due to the diabetes/diabetic nephropathy. 4. Diabetes mellitus, out of control. 5. Hypertension. 6. Constipation. 7. Anxiety disorder. 8. Asthma. 9. Bronchitis. 10. Proteinuria. DISCHARGE MEDICATIONS: See medication reconciliation list. DISCHARGE INSTRUCTIONS: The patient discharged home with home health to follow for blood sugar management. Umu Apple M.D. Bisi MartinezRye Psychiatric Hospital CenterShruti N.PMyron DR: Gary JOB#: [id number] CC: CEE
== END 2017-07-26 15:35 | disposition home or self-care (01) | DRG 871 ==
LOC: EMR 14:50 → 4W 16:29 → EDBEDREQ 17:45 → 4W 22:46
DX: A41.51 Sepsis due to Escherichia coli [E. coli] (principal); N17.0 Acute kidney failure with tubular necrosis; N10 Acute pyelonephritis; E11.22 Type 2 diabetes mellitus with diabetic chronic kidney disease; E86.0 Dehydration; E87.8 Other disorders of electrolyte and fluid balance, not elsewhere classified; J20.9 Acute bronchitis, unspecified; I10 Essential (primary) hypertension; J45.909 Unspecified asthma, uncomplicated; J40 Bronchitis, not specified as acute or chronic; K59.00 Constipation, unspecified; F41.9 Anxiety disorder, unspecified; Z88.8 Allergy status to other drugs, medicaments and biological substances; Z88.6 Allergy status to analgesic agent; Z88.0 Allergy status to penicillin; Z91.013 Allergy to seafood; Z90.710 Acquired absence of both cervix and uterus; S16.1XXA Strain of muscle, fascia and tendon at neck level, initial encounter; X58.XXXA Exposure to other specified factors, initial encounter; R53.1 Weakness; I12.9 Hypertensive chronic kidney disease with stage 1 through stage 4 chronic kidney disease, or unspecified chronic kidney disease; N18.9 Chronic kidney disease, unspecified; E11.21 Type 2 diabetes mellitus with diabetic nephropathy
CPT/HCPCS: 36415; 71045; 74176; 74230; 76770; 80048; 80053; 80061; 81001; 81003; 82962; 83036; 83690; 83735; 83880; 84100; 84443; 84484; 84550; 85007; 85025; 86140; 87040; 87070; 87086; 87181; 87205; 93005; 99285; J1815; J2405; J8499; S5561

== ENCOUNTER 2017-11-25 20:26 | Emergency (ER) | payer MEDICARE, OTHER ==
[~2017-11-25] VITALS: Ht 167.6 cm; Wt 110.7 kg
[~2017-11-25 20:26] MED LIST: ASPIRIN EC81 MG ORAL; ATORVASTATIN CA10 MG ORAL; LEVEMIR FL100 UNIT/1 SUBQ; NOVOLIN N100 UNIT/1 SUBQ; NOVOLIN R100 UNIT/1 SUBQ; NOVOLOG100 UNITS1 SUBQ; STARLIX60 MG ORAL
[2017-11-25 20:48] VITALS: BP 162/76
[2017-11-25] MEDS ORDERED: POLYTRIM OP SOL10 ML OPHTHALM (21:12)
--- NOTE | 2017-11-25 21:13 | Emergency Room Report ---
History of Present Illness General Chief Complaint: Eye Problems Source: Patient Present Illness HPI This is a 77-year-old female with history of diabetes and high blood pressure. She presents with chief complaint of eye discharge. His been on and off for the last 2-3 weeks. No fever chills but no nausea no vomiting. She had blocked tear ducts in the past required surgery. 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 Foreign body sensation. Worse with rubbing her eyes. Better with flushing with water. No other complaint. Allergies: Coded Allergies: ACETAMINOPHEN (Verified Allergy, Severe, Shortness of Breath, 11/25/17) HYDROMORPHONE (Verified Allergy, Severe, 11/25/17) PENICILLINS (Verified Allergy, Severe, 11/25/17) PROCAINE (Verified Allergy, Severe, 11/25/17) SHELLFISH DERIVED (Verified Allergy, Severe, 11/25/17) CODEINE (Verified Allergy, Unknown, 11/25/17) Cantaloupe (Verified Allergy, Unknown, 11/25/17) STRAWBERRY (Verified Allergy, Unknown, 11/25/17) Uncoded Allergies: DUST, POLLEN (Allergy, Unknown, 07/19/17) Patient History Past Medical History: see triage record, old chart reviewed, DM, HTN Past Surgical History: other Pertinent Family History: none Social History: Denies: smoking Last Menstrual Period: unk Now: No Immunizations: other Reviewed Nursing Documentation: PMH: Agreed; PSxH: Agreed Nursing Documentation-PMH Hx Hypertension: Yes Hx Asthma: Yes Hx Diabetes: Yes - DM type 2 Review of Systems Eye: Reports: discharge; Denies: eye pain, blurred vision ENT: Denies: ear pain, nose congestion, throat swelling Respiratory: Denies: cough, shortness of breath Cardiovascular: Denies: chest pain, palpitations Gastrointestinal: Denies: abdominal pain, diarrhea, nausea, vomiting Musculoskeletal: Denies: back pain, joint pain Skin: Denies: rash Neurological: Denies: headache, numbness Endocrine: Denies: increased thirst, increased urine Hematologic/Lymphatic: Denies: easy bruising All Other Systems: negative except mentioned in HPI Physical Exam Vital Signs Date Time Temp Pulse Resp B/P (MAP) Pulse Ox O2 Delivery O2 Flow Rate FiO2 11/25/17 20:32 98.5 100 16 162/76 92 Room Air 98.4 vitals normal except for high blood pressure Sp02 EP Interpretation: reviewed, normal General Appearance: well appearing, no apparent distress, alert Head: normocephalic, atraumatic Eyes: bilateral eye PERRL, bilateral eye EOMI, bilateral eye other - Conjunctival injected. There is discharge mostly on the left side. No foreign body. No corneal abrasion. ENT: hearing grossly normal, normal pharynx Neck: full range of motion, supple, no meningismus Respiratory: chest non-tender, lungs clear, normal breath sounds Cardiovascular #1: regular rate, rhythm, no murmur Gastrointestinal: normal bowel sounds, non tender, no mass, no organomegaly, no bruit, non-distended Musculoskeletal: back normal, gait/station normal, normal range of motion Psychiatric: mood/affect normal Skin: warm/dry Medical Decision Making Diagnostic Impression: Primary Impression: Conjunctivitis Qualified Codes: H10.33 - Unspecified acute conjunctivitis, bilateral ER Course Patient with bilateral conjunctivitis. This may be a viral versus bacterial infection. Could be secondary to blocked tear duct. We'll discharge home with ophthalmology follow-up. Last Vital Signs Date Time Temp Pulse Resp B/P (MAP) Pulse Ox O2 Delivery O2 Flow Rate FiO2 11/25/17 20:48 98.4 100 16 162/76 92 Room Air 98.4 Status: unchanged Disposition: HOME, SELF-CARE Condition: Stable Scripts Polymyxin/Trimethoprim (Polytrim Eye Drops) 10 Ml Drops 2 DROP OPHTHALM THREE TIMES A DAY, #1 EA Instill in affected eye for 7 days Prov: SALENA OCAMPO M.D. 11/25/17 Patient Instructions: Bacterial Conjunctivitis, [id number] Additional Instructions: Clean eyelids and eyelashes with baby shampoo. Try not to rub your eyes. Follow-up with your doctor for referral to see a specialist within a week. Return if worse. SALENA OCAMPO M.D. Nov 25, 2017 21:13
[2017-11-25 21:19] VITALS: BP 162/76
== END 2017-11-25 21:20 | disposition home or self-care (01) ==
LOC: EMR 21:19
DX: H10.13 Acute atopic conjunctivitis, bilateral (principal); I10 Essential (primary) hypertension; E11.9 Type 2 diabetes mellitus without complications; J45.909 Unspecified asthma, uncomplicated; Z88.6 Allergy status to analgesic agent; Z88.5 Allergy status to narcotic agent; Z88.0 Allergy status to penicillin; Z91.013 Allergy to seafood; Z91.018 Allergy to other foods; Z91.048 Other nonmedicinal substance allergy status
CPT/HCPCS: 99283

== ENCOUNTER 2018-03-31 07:51 | Emergency (ER) | payer OTHER ==
[~2018-03-31] VITALS: Ht 162.6 cm; Wt 113.9 kg
[~2018-03-31 07:51] MED LIST changes: +POLYTRIM OP SOL10 ML OPHTHALM
[2018-03-31 08:10] VITALS: BP 146/85
[2018-03-31] MEDS ORDERED: PREDNISONE20 MG ORAL (09:16)
[2018-03-31] MEDS ORDERED: BENADRYL25 M3 PO (09:17)
--- NOTE | 2018-03-31 09:18 | Emergency Room Report ---
History of Present Illness General Chief Complaint: Skin Rash/Abscess Source: Patient Present Illness HPI 77F with multiple allergies c/o itchy/rash all over about a month, worse so finally came in. Has not tried any medicine. There is no new medication/topical/ detergent/pet in her life. No sob, no cp, no coughing, no wheezing. Allergies: Coded Allergies: ACETAMINOPHEN (Verified Allergy, Severe, Shortness of Breath, 11/25/17) HYDROMORPHONE (Verified Allergy, Severe, 11/25/17) PENICILLINS (Verified Allergy, Severe, 11/25/17) PROCAINE (Verified Allergy, Severe, 11/25/17) SHELLFISH DERIVED (Verified Allergy, Severe, 11/25/17) CODEINE (Verified Allergy, Unknown, 11/25/17) Cantaloupe (Verified Allergy, Unknown, 11/25/17) STRAWBERRY (Verified Allergy, Unknown, 11/25/17) Uncoded Allergies: DUST, POLLEN (Allergy, Unknown, 07/19/17) Nursing Documentation-[facility] Past Medical History: No History, Except For Hx Hypertension: Yes Hx Asthma: Yes Hx Diabetes: Yes - DM type 2 Review of Systems Constitutional: Reports: no symptoms Eye: Reports: no symptoms ENT: Reports: no symptoms Respiratory: Reports: no symptoms Cardiovascular: Reports: no symptoms Gastrointestinal: Reports: no symptoms Genitourinary: Reports: no symptoms Musculoskeletal: Reports: no symptoms Skin: Reports: rash Psychiatric: Reports: no symptoms Neurological: Reports: no symptoms Endocrine: Reports: no symptoms Hematologic/Lymphatic: Reports: no symptoms Allergic: Reports: no symptoms All Other Systems: negative except mentioned in HPI Physical Exam Vital Signs Date Time Temp Pulse Resp B/P (MAP) Pulse Ox O2 Delivery O2 Flow Rate FiO2 03/31/18 07:55 98.2 102 19 127/71 97 Room Air Sp02 EP Interpretation: reviewed, normal General Appearance: normal inspection, well appearing, no apparent distress, alert, GCS 15, non-toxic, other - morbid obese Head: normocephalic, atraumatic Eyes: bilateral eye normal inspection, bilateral eye PERRL, bilateral eye EOMI ENT: normal ENT inspection, hearing grossly normal, normal pharynx, no angioedema, normal voice, moist mucus membranes Neck: normal inspection, full range of motion, supple, no meningismus, no bony tend Respiratory: normal inspection, lungs clear, normal breath sounds, no rhonchi, no respiratory distress, no retraction, no accessory muscle use, no wheezing Cardiovascular #1: normal inspection, regular rate, rhythm, no edema Gastrointestinal: normal inspection, normal bowel sounds, non tender, soft, no mass, non-distended Musculoskeletal: gait/station normal, normal range of motion Neurologic: normal inspection, alert, oriented x3, responsive, motor strength/ tone normal Psychiatric: normal inspection, judgement/insight normal, memory normal Suicide Risk Assessment: Suicidal Ideation: No Had intent to initiate attempt: No Pt's plan for suicide attempt: No Has means to complete attempt: No Skin: normal color, warm/dry, other - urticaria extremities Medical Decision Making Diagnostic Impression: Primary Impression: Urticaria ER Course pt.understands to take prednisone for 2-3 days only; remainder is extra b/c likely to recur at some point Last Vital Signs Date Time Temp Pulse Resp B/P (MAP) Pulse Ox O2 Delivery O2 Flow Rate FiO2 03/31/18 08:10 97.8 95 18 146/85 95 Room Air Disposition: HOME, SELF-CARE Scripts Diphenhydramine HCl (Benadryl) 25 Mg Capsule 25 MG PO TID, #30 CAP 2 Refills Prov: Josr Jo M.D. 03/31/18 Prednisone* (PREDNISONE*) 20 Mg Tablet 40 MG ORAL DAILY, #10 TAB Prov: Josr Jo M.D. 03/31/18 Referrals: Cecil SHAYREFERRING (PCP) Patient Instructions: Josr Grace M.D. Mar 31, 2018 09:18
[2018-03-31 09:30] VITALS: BP 122/74
== END 2018-03-31 09:24 | disposition home or self-care (01) ==
LOC: EMR 08:35
DX: L50.9 Urticaria, unspecified (principal); E11.9 Type 2 diabetes mellitus without complications; J45.909 Unspecified asthma, uncomplicated; I10 Essential (primary) hypertension; Z88.6 Allergy status to analgesic agent; Z88.0 Allergy status to penicillin; Z91.013 Allergy to seafood; Z91.018 Allergy to other foods
CPT/HCPCS: 99283; J7512

== ENCOUNTER 2020-05-02 10:31 | Inpatient (IN) | payer MEDICARE, OTHER ==
[~2020-05-02] VITALS: Ht 165.1 cm; Wt 117.9 kg
[~2020-05-02 10:31] MED LIST changes: +BENADRYL25 M3 PO; +PREDNISONE20 MG ORAL
[2020-05-02] MEDS ORDERED: Omnipaque-300 100ml vial INJ PRN (10:45)
[2020-05-02 10:50] VITALS: BP 139/72
[2020-05-02 11:09] LABS: HEMATOCRIT 33.3 % (37.0-47.0); HEMOGLOBIN 10.9 G/DL (12.0-16.0); MEAN CORPUSCULAR VOLUME 76 FL (80-99); PLATELET COUNT 391 K/UL (150-450); RED BLOOD COUNT 4.39 M/UL (4.20-5.40); RED CELL DISTRIBUTION WIDTH 16.8 % (11.6-14.8)
[2020-05-02 11:26] LABS: WHITE BLOOD COUNT 39.3 K/UL (4.8-10.8)
[2020-05-02 11:55] LABS: CALCIUM 7.9 MG/DL (8.5-10.1); CREATININE 4.5 MG/DL (0.55-1.30)
[2020-05-02 11:59] LABS: ALBUMIN/GLOBULIN RATIO 0.5 (1.0-2.7)
[2020-05-02] MEDS ORDERED: Ketorolac 30mg Inj IV ONE (12:00)
[2020-05-02] MEDS ORDERED: Cefepime HCl 1 GM in D5W 55 ML IVPB ONE (13:00)
--- NOTE | 2020-05-02 13:14 | Emergency Room Report ---
History of Present Illness General Chief Complaint: Abdominal Pain Source: Patient Present Illness HPI 79-year-old female with history of diabetes here with lower abdominal pain. Patient says that the abdominal pain has been on and off for the past 10 days but acutely worsened over the past 24 hours. Sharp in nature, located in the suprapubic region and radiates to the bilateral lower quadrants. Also has mild right-sided back pain as well. Has not taken any medications for the pain. She takes insulin for her diabetes but no other medications. Denies headache, vision change, fevers, chills, chest pain, shortness of breath, dysuria. Says that she has had multiple episodes of diarrhea over the past 2 days. Has also felt intermittently nauseous and has vomited several times nonbilious nonbloody. Allergies: Coded Allergies: ACETAMINOPHEN (Verified Allergy, Severe, Shortness of Breath, 11/25/17) HYDROMORPHONE (Verified Allergy, Severe, 11/25/17) PENICILLINS (Verified Allergy, Severe, 11/25/17) PROCAINE (Verified Allergy, Severe, 11/25/17) SHELLFISH DERIVED (Verified Allergy, Severe, 11/25/17) CODEINE (Verified Allergy, Unknown, 11/25/17) Cantaloupe (Verified Allergy, Unknown, 11/25/17) STRAWBERRY (Verified Allergy, Unknown, 11/25/17) Uncoded Allergies: DUST, POLLEN (Allergy, Unknown, 07/19/17) COVID-19 Screening Contact w/high risk pt: No Experienced COVID-19 symptoms?: Yes COVID-19 Testing performed WHISTLE PUNK: No Nursing Documentation-PMH Past Medical History: No History, Except For Hx Hypertension: Yes Hx Asthma: Yes Hx Diabetes: Yes - DM type 2 Review of Systems All Other Systems: negative except mentioned in HPI Physical Exam Vital Signs Date Time Temp Pulse Resp B/P (MAP) Pulse Ox O2 Delivery O2 Flow Rate FiO2 05/02/20 10:37 98.2 97 20 142/75 (97) 95 Room Air 05/02/20 10:50 99 Sp02 EP Interpretation: reviewed, normal General Appearance: no apparent distress, alert, non-toxic Head: normocephalic, atraumatic Eyes: bilateral eye normal inspection, bilateral eye PERRL ENT: hearing grossly normal, normal pharynx, no angioedema, normal voice Neck: full range of motion, supple/symm/no masses Respiratory: chest non-tender, lungs clear, normal breath sounds, speaking full sentences Cardiovascular #1: regular rate, rhythm, no edema Cardiovascular #2: 2+ carotid (R), 2+ carotid (L), 2+ radial (R), 2+ radial (L), 2+ dorsalis pedis (R), 2+ dorsalis pedis (L) Gastrointestinal: normal bowel sounds, soft, non-distended, no rebound, other - Diffuse abdominal tenderness on palpation worse in the lower abdominal quadrants bilaterally. No CVA tenderness Rectal: deferred Genitourinary: normal inspection, no CVA tenderness Musculoskeletal: back normal, normal range of motion, gait/station normal, non- tender Neurologic: alert, motor strength/tone normal, oriented x3, sensory intact, responsive, speech normal Psychiatric: judgement/insight normal, memory normal, mood/affect normal, no suicidal/homicidal ideation Reflexes: 3+ bicep (R), 3+ bicep (L), 3+ tricep (R), 3+ tricep (L), 3+ knee (R), 3+ knee (L) Lymphatic: no adenopathy Medical Decision Making Diagnostic Impression: Primary Impression: UTI (urinary tract infection) Additional Impressions: JARET (acute kidney injury) Sepsis ER Course Total critical care time: Approximately 35 minutes Due to a high probability of clinically significant, life threatening deterioration, the patient required the highest level of preparedness to intervene emergently and I personally spent this critical care time directly and personally managing the patient. This critical care time included obtaining a history, examining the patient, pulse oximetry, ordering and reviewing studies, ordering treatments, evaluating response to treatment and updating management plan as needed, frequent reassessment and discussion with other providers as well as arranging for ultimate disposition. This critical to care time was performed to assess and manage the high probability of life-threatening deterioration that could result in multiorgan failure. This critical care time is separate from the separately billable procedures and treating other patients. Laboratory Tests Test 05/02/20 11:00 05/02/20 13:40 White Blood Count 39.3 K/UL (4.8-10.8) *H Red Blood Count 4.39 M/UL (4.20-5.40) Hemoglobin 10.9 G/DL (12.0-16.0) L Hematocrit 33.3 % (37.0-47.0) L Mean Corpuscular Volume 76 FL (80-99) L Mean Corpuscular Hemoglobin 24.9 PG (27.0-31.0) L Mean Corpuscular Hemoglobin Concent 32.8 G/DL (32.0-36.0) Red Cell Distribution Width 16.8 % (11.6-14.8) H Platelet Count 391 K/UL (150-450) Mean Platelet Volume 6.7 FL (6.5-10.1) Neutrophils (%) (Auto) % (45.0-75.0) Lymphocytes (%) (Auto) % (20.0-45.0) Monocytes (%) (Auto) % (1.0-10.0) Eosinophils (%) (Auto) % (0.0-3.0) Basophils (%) (Auto) % (0.0-2.0) Differential Total Cells Counted 100 Neutrophils % (Manual) 76 % (45-75) H Lymphocytes % (Manual) 18 % (20-45) L Monocytes % (Manual) 3 % (1-10) Eosinophils % (Manual) 0 % (0-3) Basophils % (Manual) 2 % (0-2) Band Neutrophils 1 % (0-8) Platelet Estimate Adequate Platelet Morphology Normal Anisocytosis 1+ Sodium Level 130 MMOL/L (136-145) L Potassium Level 4.0 MMOL/L (3.5-5.1) Chloride Level 95 MMOL/L (98-107) L Carbon Dioxide Level 23 MMOL/L (21-32) Anion Gap 12 mmol/L (5-15) Blood Urea Nitrogen 52 mg/dL (7-18) H Creatinine 4.5 MG/DL (0.55-1.30) H Estimated Glomerular Filtration Rate 11.4 mL/min (>60) Glucose Level 217 MG/DL (74-106) H Calcium Level 7.9 MG/DL (8.5-10.1) L Total Bilirubin 1.0 MG/DL (0.2-1.0) Aspartate Amino Transferase (AST) 22 U/L (15-37) Alanine Aminotransferase (ALT) 17 U/L (12-78) Alkaline Phosphatase 169 U/L (46-116) H Troponin I 0.000 ng/mL (0.000-0.056) Total Protein 5.9 G/DL (6.4-8.2) L Albumin 2.0 G/DL (3.4-5.0) L Globulin 3.9 g/dL Albumin/Globulin Ratio 0.5 (1.0-2.7) L Lipase 190 U/L (73-393) Lactic Acid Level Pending CT abdomen pelvis: IMPRESSION: 1. Hyperdensities along the course of the distal ureter are felt more likely to represent ovarian calcifications as opposed to distal ureteral calculus given lack of associated hydronephrosis. 2. Peripheral patchy ground glass opacities in the visualized lung bases, which are nonspecific and may be related to infectious/inflammatory airways disease but atypical/viral pneumonia should also be considered. 79-year-old female here with lower abdominal pain, nausea, vomiting. Patient appeared dehydrated on physical examination. Patient was unable to provide a urine sample in a timely fashion emergency department. However the small sample that she did give appeared to be thick purulent white fluid. Suspect UTI at this time. Patient given a dose of cefepime. CT abdomen pelvis showed densities at the lung bases. Covid testing currently pending at this time. Patient also given dose of azithromycin. Labs showed evidence of elevated white blood cell count of 39. CMP revealed severe acute kidney injury with BUN 52 and creatinine 4.5. Patient had lab test performed several months ago which showed a normal renal function at that time. Patient given 2 L of IV normal saline in the emergency department. Possible JARET from severe dehydration in the setting of urinary tract infection. Patient to be admitted to telemetry. Signed out to oncoming physician. Last Vital Signs Date Time Temp Pulse Resp B/P (MAP) Pulse Ox O2 Delivery O2 Flow Rate FiO2 05/02/20 10:50 98 19 Room Air 99 05/02/20 10:50 98.2 139/72 98 Referrals: Cecil SHAY,REFERRING (PCP) Mejia He M.D. May 02, 2020 13:14
--- NOTE | 2020-05-02 13:20 | Diagnostic Imaging Report ---
CT ABDOMEN AND PELVIS WITHOUT CONTRAST INDICATION: Abdominal pain TECHNIQUE: Continuous helical transaxial imaging of the abdomen and pelvis was obtained from the lung bases to the pubic symphysis. Coronal 2-D reformats were also obtained. Study obtained in a Siemens sensation [address] Automatic Exposure Control was utilized. Total Dose length Product (DLP): 1310.[address] Dose Index Volume (CTDIvol): 25.7 mGy COMPARISON: CT abdomen and pelvis dated to 07/19/2017 FINDINGS: Lower chest:: Bibasilar subsegmental atelectasis. There are peripheral patchy ground glass opacities. Hepatobiliary:: Unremarkable. Genitourinary:: Uterus is not visualized and may be surgically absent. Redemonstration of bilateral perinephric fat stranding. No hydronephrosis. Urinary bladder is under distended, limiting evaluation. Calcifications are noted in the right ovary along the course of the distal ureter. Adrenals:: Nonspecific bilateral adrenal gland thickening. Pancreas:: Mild pancreatic parenchymal atrophy. Gastrointestinal:: Appendix is normal. No evidence of obstruction. Spleen: : Unremarkable. Peritoneum:: No free air or free fluid. Moderate broad-based fat-containing umbilical hernia. Bones and soft tissues:: There are multilevel discogenic degenerative changes of the visualized spine. IMPRESSION: 1. Hyperdensities along the course of the distal ureter are felt more likely to represent ovarian calcifications as opposed to distal ureteral calculus given lack of associated hydronephrosis. 2. Peripheral patchy ground glass opacities in the visualized lung bases, which are nonspecific and may be related to infectious/inflammatory airways disease but atypical/viral pneumonia should also be considered. The CT scanner at [facility] is accredited by the [employer] and the scans are performed using protocols designed to limit radiation exposure to as low as reasonably achievable to attain images of sufficient resolution adequate for diagnostic evaluation
[2020-05-02 13:26] VITALS: BP 136/75
[2020-05-02] MEDS ORDERED: Albuterol/Ipratropium 3ml neb HHN PRN (14:45)
[2020-05-02] MEDS ORDERED: Miralax 17gm pkt ORAL PRN (14:45)
[2020-05-02 15:08] LABS: APPEARANCE,URINE SLIGHTLY CLOUDY; BILIRUBIN, URINE NEGATIVE (NEGATIVE); GLUCOSE, URINE (UA) NEGATIVE (NEGATIVE); KETONES,URINE NEGATIVE (NEGATIVE); LEUKOCYTE ESTERASE ,URINE 3+ (NEGATIVE); NITRITE,URINE NEGATIVE (NEGATIVE); PH,URINE 5 (4.5-8.0); PROTEIN,URINE 2+ (NEGATIVE); UROBILINOGEN,URINE 1 MG/DL (0.0-1.0)
[2020-05-02 15:15] LABS: COLOR,URINE YELLOW
--- NOTE | 2020-05-02 15:20 | Diagnostic Imaging Report ---
Indication: Reason For Exam: COUGH Technique: Single AP view of the chest. Comparison: Chest radiograph Dated 07/21/2017 Findings: The cardiomediastinal silhouette is unchanged in appearance. Interval increase in left midlung streaky airspace opacity and right mid lung streaky airspace opacity. New right basilar streaky airspace process. No pneumothorax. No pleural effusion. No acute osseous abnormality. IMPRESSION: Left mid lung and right midlung/right basilar airspace opacities which likely represent atelectasis, but pneumonia should be excluded clinically.
[2020-05-02 15:33] VITALS: BP 132/70
[2020-05-02 17:20] VITALS: BP 128/71
[2020-05-02] MEDS: NovoLOG Insulin Flexpen SUBQ SCH (19:01)
[2020-05-02 19:15] VITALS: BP 133/68
[2020-05-02] MEDS ORDERED: Vancomycin 1.5gm/300ml Premix IVPB ONE (20:00)
[2020-05-02] MEDS ORDERED: Cefepime HCl 2 GM in D5W 110 ML IV SCH (21:00)
[2020-05-02 21:30] VITALS: BP 128/65
--- NOTE | 2020-05-02 22:54 | History & Physical ---
History and Physical History & Physicial -[id number] Daron Batres MD May 02, 2020 22:54
[2020-05-03] MEDS ORDERED: Vancomycin 1 GM in D5W 275 ML IV SCH (00:30)
[2020-05-03] MEDS: Heparin 5000 units/ml inj SUBQ SCH ×3 (00:35→20:45)
[2020-05-03] MEDS: NovoLOG Insulin Flexpen SUBQ SCH ×5 (00:59→20:46)
[2020-05-03 08:00] VITALS: BP 131/55
[2020-05-03 08:04] LABS: HEMATOCRIT 27.5 % (37.0-47.0); HEMOGLOBIN 8.9 G/DL (12.0-16.0); MEAN CORPUSCULAR VOLUME 76 FL (80-99); PLATELET COUNT 334 K/UL (150-450); RED BLOOD COUNT 3.61 M/UL (4.20-5.40); RED CELL DISTRIBUTION WIDTH 16.7 % (11.6-14.8)
[2020-05-03 08:19] LABS: ALBUMIN 1.6 G/DL (3.4-5.0); ALBUMIN/GLOBULIN RATIO 0.4 (1.0-2.7); BILIRUBIN,TOTAL 0.6 MG/DL (0.2-1.0); CALCIUM 7.5 MG/DL (8.5-10.1); CREATININE 4.8 MG/DL (0.55-1.30); POTASSIUM 3.6 MMOL/L (3.5-5.1)
[2020-05-03] MEDS ORDERED: Tubing IV Secondary IV ONE (10:02)
[2020-05-03] MEDS ORDERED: NS 275ml ONE (10:02)
--- NOTE | 2020-05-03 10:56 | Consultation ---
Consult Note Consult Note I am asked to evaluate the patient at the request of Dr. Batres for renal failure Patient known to me from admission in 2018 79-year-old female with history of diabetes here with lower abdominal pain. Patient says that the abdominal pain has been on and off for the past 10 days but acutely worsened over the past 24 hours. Sharp in nature, located in the suprapubic region and radiates to the bilateral lower quadrants. Also has mild right-sided back pain as well. Has not taken any medications for the pain. She takes insulin for her diabetes but no other medications. Denies headache, vision change, fevers, chills, chest pain, shortness of breath, dysuria. Says that she has had multiple episodes of diarrhea over the past 2 days. Has also felt intermittently nauseous and has vomited several times nonbilious nonbloody. 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 GENERAL: Patient is awake and responsive, in no acute distress. HEAD AND NECK: Pupils are reactive to light. Extraocular movements are intact. Neck was supple. No JVD. LUNGS: Good air entry. No wheezing or rales. HEART: S1 and S2. Distant heart sounds. No murmur or gallops. ABDOMEN: Soft, nondistended. Tenderness on the suprapubic area on deep palpation, morbid obesity. EXTREMITIES: No cyanosis, clubbing, or edema. NEUROLOGIC: Cranial nerves II through XII are grossly intact. Motor is 5/5 in all the extremities. Gait was not assessed due to patient's status. RECTAL AND GENITOURINARY: Refused and deferred. PSYCHIATRIC: Mood and affect are intact. LABORATORY DATA: On admission, WBC of 39.3, hemoglobin of 10.9, hematocrit 33, platelets 391. Sodium 130, potassium 4.0, chloride 95, bicarb is 23, BUN 52, creatinine 4.5, GFR is 11.4, glucose is 217, lactic acid is 1.5, calcium 7.9, AST of 22, ALT of 17. First troponin 0.00, alkaline phosphate is 169, total protein is 59, lipase is 190. UA is +2 protein, +5 blood, 60 to 80 WBC, moderate bacteria. COVID-19 rapid test is negative. The patient had a CT scan of the abdomen and pelvis done, which noted to have hyperdense along the course of the distal ureters, felt more likely to represent ovarian calcification as opposed to distal ureteral calculi given the lack of associated hydronephrosis, peripheral patchy ground-glass opacity in the visualized lung base, which are nonspecific for related infectious inflammatory airway disease, but atypical viral pneumonia should be considered. . Assessment/Plan Impression: Acute renal failure Diabetes mellitus, diabetic nephropathy Hypoalbuminemia rule out nephrotic syndrome Anemia Sepsis History of hypertension History of anxiety disorder History of asthma/bronchitis Suggestions: Arriaza catheter Kidney ultrasound 2D echocardiogram Urine studies The blood pressure and blood sugar in check Avoid nephrotoxic's Antibiotics Perry Abernathy MD May 03, 2020 10:56
[2020-05-03 11:17] LABS: CREATINE KINASE 26 U/L (26-308)
--- NOTE | 2020-05-03 11:21 | Consultation ---
History of Present Illness General Date patient seen: May 03, 2020 Chief Complaint: Abdominal Pain Present Illness HPI 79-year-old female with history of diabetes, HTN presented to ER with CC of lower abdominal pain, on and off for the past 10 days but acutely worsened over the past 24 hours. Sharp in nature, located in the suprapubic region and radiates to the bilateral lower quadrants. she has had multiple episodes of diarrhea over the past 2 days. Has also felt intermittently nauseous and has vomited several times nonbilious nonbloody. she was found to be in renal failure and is admitted for further management. Allergies: Coded Allergies: ACETAMINOPHEN (Verified Allergy, Severe, Shortness of Breath, 11/25/17) HYDROMORPHONE (Verified Allergy, Severe, 11/25/17) PENICILLINS (Verified Allergy, Severe, 11/25/17) PROCAINE (Verified Allergy, Severe, 11/25/17) SHELLFISH DERIVED (Verified Allergy, Severe, 11/25/17) CODEINE (Verified Allergy, Unknown, 11/25/17) Cantaloupe (Verified Allergy, Unknown, 11/25/17) STRAWBERRY (Verified Allergy, Unknown, 11/25/17) Uncoded Allergies: DUST, POLLEN (Allergy, Unknown, 07/19/17) Medication History Scheduled Diphenhydramine HCl (Benadryl), 25 MG PO TID Insulin Regular, Human* (Novolin R*), 7 SUBQ DAILY, (Reported) Nph, Human Insulin Isophane* (Novolin N*), 20 SUBQ DAILY, (Reported) Polymyxin/Trimethoprim (Polytrim Eye Drops), 2 DROP OPHTHALM THREE TIMES A DAY Prednisone* (Prednisone*), 40 MG ORAL DAILY Scheduled PRN Aspirin Ec* (Aspirin Ec*), 81 MG ORAL BID PRN for For Pain, (Reported) Patient History Healthcare decision maker Resuscitation status Advanced Directive on File Past Medical/Surgical History Past Medical/Surgical History: (1) HTN (hypertension) (2) Diabetes mellitus Review of Systems All Other Systems: negative except mentioned in HPI Physical Exam General Appearance: WD/WN, no apparent distress Lines, tubes and drains: peripheral HEENT: normocephalic, atraumatic Neck: non-tender, normal alignment Respiratory/Chest: chest wall non-tender, lungs clear Breasts: no masses, no discharge Cardiovascular/Chest: normal peripheral pulses, normal rate Abdomen: normal bowel sounds, non tender Genitourinary/Rectal: normal genital exam, normal rectal exam Extremities: normal range of motion, non-tender Skin Exam: normal pigmentation Last 24 Hour Vital Signs Date Time Temp Pulse Resp B/P (MAP) Pulse Ox O2 Delivery O2 Flow Rate FiO2 05/03/20 04:00 82 05/03/20 00:00 81 05/02/20 23:27 Room Air 05/02/20 23:00 98.2 78 18 128/65 98 Room Air 99 05/02/20 23:00 81 05/02/20 21:30 98.2 78 18 128/65 98 Room Air 99 05/02/20 19:15 98.2 82 20 133/68 97 Room Air 05/02/20 17:20 98.2 85 21 128/71 96 Room Air 05/02/20 15:33 98.2 89 18 132/70 98 Room Air 05/02/20 13:46 98.2 05/02/20 13:26 98.2 93 16 136/75 99 Room Air Intake and Output 05/02/20 05/03/20 19:00 07:00 Intake Total 0 ml 120 ml Balance 0 ml 120 ml Intake Oral 0 ml 120 ml # Voids 1 1 # Bowel Movements 2 Laboratory Tests Test 05/02/20 13:40 05/02/20 14:40 05/03/20 06:04 05/03/20 06:35 Lactic Acid Level 1.50 mmol/L (0.4-2.0) Urine Color Yellow Urine Appearance Slightly cloudy Urine pH 5 (4.5-8.0) Urine Specific [place]ston 1.010 (1.005-1.035) Urine Protein 2+ (NEGATIVE) H Urine Glucose (UA) Negative (NEGATIVE) Urine Ketones Negative (NEGATIVE) Urine Blood 5+ (NEGATIVE) H Urine Nitrite Negative (NEGATIVE) Urine Bilirubin Negative (NEGATIVE) Urine Urobilinogen 1 MG/DL (0.0-1.0) H Urine Leukocyte Esterase 3+ (NEGATIVE) H Urine RBC 2-4 /HPF (0 - 2) H Urine WBC 60-80 /HPF (0 - 2) H Urine Squamous Epithelial Cells Few /LPF (NONE/OCC) Urine Bacteria Moderate /HPF (NONE) H POC Whole Blood Glucose 194 MG/DL (74-106) H White Blood Count 32.0 K/UL (4.8-10.8) *H Red Blood Count 3.61 M/UL (4.20-5.40) L Hemoglobin 8.9 G/DL (12.0-16.0) L Hematocrit 27.5 % (37.0-47.0) L Mean Corpuscular Volume 76 FL (80-99) L Mean Corpuscular Hemoglobin 24.8 PG (27.0-31.0) L Mean Corpuscular Hemoglobin Concent 32.5 G/DL (32.0-36.0) Red Cell Distribution Width 16.7 % (11.6-14.8) H Platelet Count 334 K/UL (150-450) Mean Platelet Volume 6.9 FL (6.5-10.1) Neutrophils (%) (Auto) % (45.0-75.0) Lymphocytes (%) (Auto) % (20.0-45.0) Monocytes (%) (Auto) % (1.0-10.0) Eosinophils (%) (Auto) % (0.0-3.0) Basophils (%) (Auto) % (0.0-2.0) Differential Total Cells Counted 100 Neutrophils % (Manual) 77 % (45-75) H Lymphocytes % (Manual) 17 % (20-45) L Monocytes % (Manual) 5 % (1-10) Eosinophils % (Manual) 1 % (0-3) Basophils % (Manual) 0 % (0-2) Band Neutrophils 0 % (0-8) Platelet Estimate Adequate Platelet Morphology Normal Hypochromasia 1+ Anisocytosis 1+ Microcytosis 1+ Sodium Level 131 MMOL/L (136-145) L Potassium Level 3.6 MMOL/L (3.5-5.1) Chloride Level 99 MMOL/L (98-107) Carbon Dioxide Level 22 MMOL/L (21-32) Anion Gap 10 mmol/L (5-15) Blood Urea Nitrogen 58 mg/dL (7-18) H Creatinine 4.8 MG/DL (0.55-1.30) H Estimat Glomerular Filtration Rate 10.7 mL/min (>60) Glucose Level 187 MG/DL (74-106) H Hemoglobin A1c Pending Uric Acid Pending Calcium Level 7.5 MG/DL (8.5-10.1) L Phosphorus Level Pending Magnesium Level Pending Total Bilirubin 0.6 MG/DL (0.2-1.0) Aspartate Amino Transf (AST/SGOT) 15 U/L (15-37) Alanine Aminotransferase (ALT/SGPT) 15 U/L (12-78) Alkaline Phosphatase 138 U/L (46-116) H Total Creatine Kinase Pending Total Protein 5.6 G/DL (6.4-8.2) L Albumin 1.6 G/DL (3.4-5.0) L Globulin 4.0 g/dL Albumin/Globulin Ratio 0.4 (1.0-2.7) L Microbiology Date/Time Source Procedure Growth Status 05/02/20 14:40 Urine,Clean Catch Urine Culture - Preliminary Gram Negative Luis Resulted 05/02/20 13:40 Nasopharynx SARS-CoV-2 RdRp Gene Assay - Final Complete Height (Feet): 5 Height (Inches): 5.00 Weight (Pounds): 260 Medications Current Medications Medications (Trade) Dose Ordered Sig/Gwendolyn Route PRN Reason Start Time Stop Time Status Last Admin Dose Admin Albuterol/ Ipratropium (Albuterol/ Ipratropium) 3 ml Q4H PRN HHN Shortness of Breath 05/02/20 14:45 05/07/20 14:44 Cefepime HCl 1 gm/ Sodium Chloride 55 ml @ 110 mls/hr Q24H IVPB 05/03/20 13:00 05/10/20 12:59 Dextrose (Dextrose 50%) 25 ml Q30M PRN IV Hypoglycemia 05/02/20 14:45 07/31/20 14:44 Dextrose (Dextrose 50%) 50 ml Q30M PRN IV Hypoglycemia 05/02/20 14:45 07/31/20 14:44 Docusate Sodium (Colace) 100 mg THREE TIMES A DAY ORAL 05/03/20 13:00 06/02/20 12:59 Heparin Sodium (Porcine) (Heparin 5000 units/ml) 5,000 units EVERY 12 HOURS SUBQ 05/02/20 21:00 06/16/20 20:59 05/03/20 09:25 Insulin Aspart (NovoLOG) BEFORE MEALS AND HS SUBQ 05/02/20 17:56 07/31/20 17:55 05/03/20 06:10 Iohexol (OMNIPAQUE-300 100ml) 100 ml NOW PRN INJ Radiology Procedure 05/02/20 10:45 05/04/20 10:44 Ondansetron HCl (Zofran) 4 mg Q6H PRN IVP Nausea & Vomiting 05/02/20 14:45 06/01/20 14:44 05/03/20 02:36 Pantoprazole (Protonix) 40 mg EVERY 12 HOURS ORAL 05/03/20 11:00 06/02/20 10:59 Polyethylene Glycol (Miralax) 17 gm DAILYPRN PRN ORAL Constipation 05/02/20 14:45 06/01/20 14:44 Sodium Chloride 1,000 ml @ 50 mls/hr Q20H IV 05/03/20 11:15 06/02/20 11:14 Temazepam (Restoril) 15 mg HSPRN PRN ORAL Insomnia 05/02/20 14:45 05/09/20 14:44 Vancomycin HCl (Vanco pharmacy to dose) 1 ea DAILY PRN MISC PER RX PROTOCOL 05/02/20 18:30 06/01/20 18:29 Assessment/Plan Problem List: (1) Sepsis ICD Codes: A41.9 - Sepsis, unspecified organism SNOMED: 21551603 (2) ATN (acute tubular necrosis) ICD Codes: N17.0 - Acute kidney failure with tubular necrosis SNOMED: 57056150 (3) HTN (hypertension) ICD Codes: I10 - Essential (primary) hypertension SNOMED: 70065630 (4) Diabetes mellitus ICD Codes: E11.9 - Type 2 diabetes mellitus without complications SNOMED: 71845825 (5) JARET (acute kidney injury) ICD Codes: N17.9 - Acute kidney failure, unspecified SNOMED: 43442545, 3381325 (6) Anemia ICD Codes: D64.9 - Anemia, unspecified SNOMED: 888359974 Assessment/Plan: murillo culture iv abx iv fluids renal US nephrology to see sliding scale diabetic diet dvt prophylaxis. Umu Apple MD May 03, 2020 11:21
[2020-05-03 12:00] VITALS: BP 108/58
[2020-05-03 12:06] LABS: LACTATE DEHYDROGENASE 288 U/L (81-234)
[2020-05-03 12:33] LABS: % IRON SATURATION 18 % (15-50); IRON 25 ug/dL (50-175); TOTAL IRON BINDING CAPACITY 139 ug/dL (250-450)
--- NOTE | 2020-05-03 12:44 | Consultation ---
History of Present Illness General Date patient seen: May 03, 2020 Time patient seen: 12:40 Chief Complaint: Abdominal Pain Referring physician: Dr. 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 Pain is sharp, in suprapubic region and radiates to BL lower quadrants. Also w/ R sided back pain. Also w/ diarrhea and N/V recently. In house, pt has been AF, HDS on RA, but w/ leukocytosis to 39, now improving to 32. 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 now feeling slightly improved, just with R lower back pain. ROS neg for fevers/chills, no more diarrhea, no abd pain, no dysuria, no cough or resp complaints. PMH: DM2 on insulin Allergies: Coded Allergies: ACETAMINOPHEN (Verified Allergy, Severe, Shortness of Breath, 11/25/17) HYDROMORPHONE (Verified Allergy, Severe, 11/25/17) PENICILLINS (Verified Allergy, Severe, 11/25/17) PROCAINE (Verified Allergy, Severe, 11/25/17) SHELLFISH DERIVED (Verified Allergy, Severe, 11/25/17) CODEINE (Verified Allergy, Unknown, 11/25/17) Cantaloupe (Verified Allergy, Unknown, 11/25/17) STRAWBERRY (Verified Allergy, Unknown, 11/25/17) Uncoded Allergies: DUST, POLLEN (Allergy, Unknown, 07/19/17) Medication History Scheduled Diphenhydramine HCl (Benadryl), 25 MG PO TID Insulin Regular, Human* (Novolin R*), 7 SUBQ DAILY, (Reported) Nph, Human Insulin Isophane* (Novolin N*), 20 SUBQ DAILY, (Reported) Polymyxin/Trimethoprim (Polytrim Eye Drops), 2 DROP OPHTHALM THREE TIMES A DAY Prednisone* (Prednisone*), 40 MG ORAL DAILY Scheduled PRN Aspirin Ec* (Aspirin Ec*), 81 MG ORAL BID PRN for For Pain, (Reported) Patient History Healthcare decision maker Resuscitation status Advanced Directive on File Review of Systems ROS Narrative 10-point ROS neg except as noted in HPI Physical Exam Physical Exam Narrative Gen: NAD HEENT: NCAT, EOMI, PERRL CV: RRR Pulm: CTAB Abd: Soft, NTND, +R CVAT Ext: No c/c/e Neuro: Awake, alert, interactive Last 24 Hour Vital Signs Date Time Temp Pulse Resp B/P (MAP) Pulse Ox O2 Delivery O2 Flow Rate FiO2 05/03/20 08:00 98.0 81 20 131/55 (80) 98 05/03/20 08:00 81 05/03/20 04:00 82 05/03/20 00:00 81 05/02/20 23:27 Room Air 05/02/20 23:00 98.2 78 18 128/65 98 Room Air 99 05/02/20 23:00 81 05/02/20 21:30 98.2 78 18 128/65 98 Room Air 99 05/02/20 19:15 98.2 82 20 133/68 97 Room Air 05/02/20 17:20 98.2 85 21 128/71 96 Room Air 05/02/20 15:33 98.2 89 18 132/70 98 Room Air 05/02/20 13:46 98.2 05/02/20 13:26 98.2 93 16 136/75 99 Room Air Intake and Output 05/02/20 05/03/20 19:00 07:00 Intake Total 0 ml 120 ml Balance 0 ml 120 ml Intake Oral 0 ml 120 ml # Voids 1 1 # Bowel Movements 2 Laboratory Tests Test 05/02/20 13:40 05/02/20 14:40 05/03/20 06:04 05/03/20 06:35 Lactic Acid Level 1.50 mmol/L (0.4-2.0) Urine Color Yellow Urine Appearance Slightly cloudy Urine pH 5 (4.5-8.0) Urine Specific [place] 1.010 (1.005-1.035) Urine Protein 2+ (NEGATIVE) H Urine Glucose (UA) Negative (NEGATIVE) Urine Ketones Negative (NEGATIVE) Urine Blood 5+ (NEGATIVE) H Urine Nitrite Negative (NEGATIVE) Urine Bilirubin Negative (NEGATIVE) Urine Urobilinogen 1 MG/DL (0.0-1.0) H Urine Leukocyte Esterase 3+ (NEGATIVE) H Urine RBC 2-4 /HPF (0 - 2) H Urine WBC 60-80 /HPF (0 - 2) H Urine Squamous Epithelial Cells Few /LPF (NONE/OCC) Urine Bacteria Moderate /HPF (NONE) H POC Whole Blood Glucose 194 MG/DL (74-106) H White Blood Count 32.0 K/UL (4.8-10.8) *H Red Blood Count 3.61 M/UL (4.20-5.40) L Hemoglobin 8.9 G/DL (12.0-16.0) L Hematocrit 27.5 % (37.0-47.0) L Mean Corpuscular Volume 76 FL (80-99) L Mean Corpuscular Hemoglobin 24.8 PG (27.0-31.0) L Mean Corpuscular Hemoglobin Concent 32.5 G/DL (32.0-36.0) Red Cell Distribution Width 16.7 % (11.6-14.8) H Platelet Count 334 K/UL (150-450) Mean Platelet Volume 6.9 FL (6.5-10.1) Neutrophils (%) (Auto) % (45.0-75.0) Lymphocytes (%) (Auto) % (20.0-45.0) Monocytes (%) (Auto) % (1.0-10.0) Eosinophils (%) (Auto) % (0.0-3.0) Basophils (%) (Auto) % (0.0-2.0) Differential Total Cells Counted 100 Neutrophils % (Manual) 77 % (45-75) H Lymphocytes % (Manual) 17 % (20-45) L Monocytes % (Manual) 5 % (1-10) Eosinophils % (Manual) 1 % (0-3) Basophils % (Manual) 0 % (0-2) Band Neutrophils 0 % (0-8) Platelet Estimate Adequate Platelet Morphology Normal Hypochromasia 1+ Anisocytosis 1+ Microcytosis 1+ Erythrocyte Sedimentation Rate Pending Reticulocyte Count Pending Sodium Level 131 MMOL/L (136-145) L Potassium Level 3.6 MMOL/L (3.5-5.1) Chloride Level 99 MMOL/L (98-107) Carbon Dioxide Level 22 MMOL/L (21-32) Anion Gap 10 mmol/L (5-15) Blood Urea Nitrogen 58 mg/dL (7-18) H Creatinine 4.8 MG/DL (0.55-1.30) H Estimat Glomerular Filtration Rate 10.7 mL/min (>60) Glucose Level 187 MG/DL (74-106) H Hemoglobin A1c 8.2 % (4.3-6.0) H Uric Acid 9.4 MG/DL (2.6-7.2) H Calcium Level 7.5 MG/DL (8.5-10.1) L Phosphorus Level 4.0 MG/DL (2.5-4.9) Magnesium Level 2.5 MG/DL (1.8-2.4) H Iron Level 25 ug/dL (50-175) L Total Iron Binding Capacity 139 ug/dL (250-450) L Percent Iron Saturation 18 % (15-50) Unsaturated Iron Binding 114 ug/dL (112-346) Total Bilirubin 0.6 MG/DL (0.2-1.0) Aspartate Amino Transf (AST/SGOT) 15 U/L (15-37) Alanine Aminotransferase (ALT/SGPT) 15 U/L (12-78) Alkaline Phosphatase 138 U/L (46-116) H Lactate Dehydrogenase 288 U/L (81-234) H Total Creatine Kinase 26 U/L (26-308) Total Protein 5.6 G/DL (6.4-8.2) L Albumin 1.6 G/DL (3.4-5.0) L Globulin 4.0 g/dL Albumin/Globulin Ratio 0.4 (1.0-2.7) L Carcinoembryonic Antigen Pending Vitamin B12 Level 1061 PG/ML (193-986) H Folate 7.4 NG/ML (8.6-58.9) L Microbiology Date/Time Source Procedure Growth Status 05/02/20 14:40 Urine,Clean Catch Urine Culture - Preliminary Gram Negative Luis Resulted 05/02/20 13:40 Nasopharynx SARS-CoV-2 RdRp Gene Assay - Final Complete Height (Feet): 5 Height (Inches): 5.00 Weight (Pounds): 260 Medications Current Medications Medications (Trade) Dose Ordered Sig/Gwendolyn Route PRN Reason Start Time Stop Time Status Last Admin Dose Admin Albuterol/ Ipratropium (Albuterol/ Ipratropium) 3 ml Q4H PRN HHN Shortness of Breath 05/02/20 14:45 05/07/20 14:44 Cefepime HCl 1 gm/ Sodium Chloride 55 ml @ 110 mls/hr Q24H IVPB 05/03/20 13:00 05/10/20 12:59 Dextrose (Dextrose 50%) 25 ml Q30M PRN IV Hypoglycemia 05/02/20 14:45 07/31/20 14:44 Dextrose (Dextrose 50%) 50 ml Q30M PRN IV Hypoglycemia 05/02/20 14:45 07/31/20 14:44 Docusate Sodium (Colace) 100 mg THREE TIMES A DAY ORAL 05/03/20 13:00 06/02/20 12:59 Heparin Sodium (Porcine) (Heparin 5000 units/ml) 5,000 units EVERY 12 HOURS SUBQ 05/02/20 21:00 06/16/20 20:59 05/03/20 09:25 Insulin Aspart (NovoLOG) BEFORE MEALS AND HS SUBQ 05/02/20 17:56 07/31/20 17:55 05/03/20 11:57 Iohexol (OMNIPAQUE-300 100ml) 100 ml NOW PRN INJ Radiology Procedure 05/02/20 10:45 05/04/20 10:44 Ondansetron HCl (Zofran) 4 mg Q6H PRN IVP Nausea & Vomiting 05/02/20 14:45 06/01/20 14:44 05/03/20 02:36 Pantoprazole (Protonix) 40 mg EVERY 12 HOURS ORAL 05/03/20 11:00 06/02/20 10:59 05/03/20 11:56 Polyethylene Glycol (Miralax) 17 gm DAILYPRN PRN ORAL Constipation 05/02/20 14:45 06/01/20 14:44 Sodium Chloride 1,000 ml @ 50 mls/hr Q20H IV 05/03/20 11:15 06/02/20 11:14 05/03/20 11:56 Temazepam (Restoril) 15 mg HSPRN PRN ORAL Insomnia 05/02/20 14:45 05/09/20 14:44 Vancomycin HCl ([facility] pharmacy to dose) 1 ea DAILY PRN MISC PER RX PROTOCOL 05/02/20 18:30 06/01/20 18:29 Assessment/Plan Assessment/Plan: 79yo F with: Afebrile Leukocytosis to 39, improving Abd pain UTI, R CVAT, ?Pyelo 05/02 BCx p UCx >100k GNRs COVID rapid test neg Resp cx p CXR: Left mid lung and right midlung/right basilar airspace opacities which likely represent atelectasis, but pneumonia should be excluded clinically. CT A/P: 1. Hyperdensities along the course of the distal ureter are felt more likely to represent ovarian calcifications as opposed to distal ureteral calculus given lack of associated hydronephrosis. 2. Peripheral patchy ground glass opacities in the visualized lung bases, which are nonspecific and may be related to infectious/inflammatory airways disease but atypical/viral pneumonia should also be considered. JARET vs CKD, Cr 4.8 DM2 on insulin Allergy to PCN - causes anaphylaxis Plan: Cont empiric vanco/cefepime #2 COVID PCR given pna on imaging, though low s/f this, rapid test neg Renal US f/u results C.dif if ongoing diarrhea F/u BCx F/u Ucx +GNRs F/u resp cx Monitor CBC/CMP Monitor temp curve, hemodynamics Monitor resp status D/w RN Thank you for this consult. [facility] will continue to follow. Mala Enrique M.D. May 03, 2020 12:44
[2020-05-03] MEDS: Cefepime HCl 1 GM in NS 55 ML IVPB SCH (13:20)
[2020-05-03] MEDS: Docusate 100mg cap ORAL SCH ×2 (13:20→17:21)
--- NOTE | 2020-05-03 14:01 | Internal Med Progress Note ---
Subjective Physician Name Daron Batres Attending Physician Daron Batres MD Current Medications Medications (Trade) Dose Ordered Sig/Gwendolyn Route PRN Reason Start Time Stop Time Status Last Admin Dose Admin Albuterol/ Ipratropium (Albuterol/ Ipratropium) 3 ml Q4H PRN HHN Shortness of Breath 05/02/20 14:45 05/07/20 14:44 Cefepime HCl 1 gm/ Sodium Chloride 55 ml @ 110 mls/hr Q24H IVPB 05/03/20 13:00 05/10/20 12:59 05/03/20 13:20 Dextrose (Dextrose 50%) 25 ml Q30M PRN IV Hypoglycemia 05/02/20 14:45 07/31/20 14:44 Dextrose (Dextrose 50%) 50 ml Q30M PRN IV Hypoglycemia 05/02/20 14:45 07/31/20 14:44 Docusate Sodium (Colace) 100 mg THREE TIMES A DAY ORAL 05/03/20 13:00 06/02/20 12:59 05/03/20 13:20 Heparin Sodium (Porcine) (Heparin 5000 units/ml) 5,000 units EVERY 12 HOURS SUBQ 05/02/20 21:00 06/16/20 20:59 05/03/20 09:25 Insulin Aspart (NovoLOG) BEFORE MEALS AND HS SUBQ 05/02/20 17:56 07/31/20 17:55 05/03/20 11:57 Iohexol (OMNIPAQUE-300 100ml) 100 ml NOW PRN INJ Radiology Procedure 05/02/20 10:45 05/04/20 10:44 Ondansetron HCl (Zofran) 4 mg Q6H PRN IVP Nausea & Vomiting 05/02/20 14:45 06/01/20 14:44 05/03/20 02:36 Pantoprazole (Protonix) 40 mg EVERY 12 HOURS ORAL 05/03/20 11:00 06/02/20 10:59 05/03/20 11:56 Polyethylene Glycol (Miralax) 17 gm DAILYPRN PRN ORAL Constipation 05/02/20 14:45 06/01/20 14:44 Sodium Chloride 1,000 ml @ 50 mls/hr Q20H IV 05/03/20 11:15 06/02/20 11:14 05/03/20 11:56 Temazepam (Restoril) 15 mg HSPRN PRN ORAL Insomnia 05/02/20 14:45 05/09/20 14:44 Vancomycin HCl ([facility] pharmacy to dose) 1 ea DAILY PRN MISC PER RX PROTOCOL 05/02/20 18:30 06/01/20 18:29 Allergies: Coded Allergies: ACETAMINOPHEN (Verified Allergy, Severe, Shortness of Breath, 11/25/17) HYDROMORPHONE (Verified Allergy, Severe, 11/25/17) PENICILLINS (Verified Allergy, Severe, 11/25/17) PROCAINE (Verified Allergy, Severe, 11/25/17) SHELLFISH DERIVED (Verified Allergy, Severe, 11/25/17) CODEINE (Verified Allergy, Unknown, 11/25/17) Cantaloupe (Verified Allergy, Unknown, 11/25/17) STRAWBERRY (Verified Allergy, Unknown, 11/25/17) Uncoded Allergies: DUST, POLLEN (Allergy, Unknown, 07/19/17) Subjective awake, alert, responsive, denies any chest pain or shortness of breath, denies any nausea or vomiting, WBC 32.0. Objective Last Vital Signs Date Time Temp Pulse Resp B/P (MAP) Pulse Ox O2 Delivery O2 Flow Rate FiO2 05/03/20 12:00 79 05/03/20 09:00 Room Air 05/03/20 08:00 98.0 20 131/55 (80) 98 05/02/20 23:00 99 Laboratory Tests Test 05/02/20 14:40 05/03/20 06:04 05/03/20 06:35 Urine Color Yellow Urine Appearance Slightly cloudy Urine pH 5 (4.5-8.0) Urine Specific [place] 1.010 (1.005-1.035) Urine Protein 2+ (NEGATIVE) H Urine Glucose (UA) Negative (NEGATIVE) Urine Ketones Negative (NEGATIVE) Urine Blood 5+ (NEGATIVE) H Urine Nitrite Negative (NEGATIVE) Urine Bilirubin Negative (NEGATIVE) Urine Urobilinogen 1 MG/DL (0.0-1.0) H Urine Leukocyte Esterase 3+ (NEGATIVE) H Urine RBC 2-4 /HPF (0 - 2) H Urine WBC 60-80 /HPF (0 - 2) H Urine Squamous Epithelial Cells Few /LPF (NONE/OCC) Urine Bacteria Moderate /HPF (NONE) H POC Whole Blood Glucose 194 MG/DL (74-106) H White Blood Count 32.0 K/UL (4.8-10.8) *H Red Blood Count 3.61 M/UL (4.20-5.40) L Hemoglobin 8.9 G/DL (12.0-16.0) L Hematocrit 27.5 % (37.0-47.0) L Mean Corpuscular Volume 76 FL (80-99) L Mean Corpuscular Hemoglobin 24.8 PG (27.0-31.0) L Mean Corpuscular Hemoglobin Concent 32.5 G/DL (32.0-36.0) Red Cell Distribution Width 16.7 % (11.6-14.8) H Platelet Count 334 K/UL (150-450) Mean Platelet Volume 6.9 FL (6.5-10.1) Neutrophils (%) (Auto) % (45.0-75.0) Lymphocytes (%) (Auto) % (20.0-45.0) Monocytes (%) (Auto) % (1.0-10.0) Eosinophils (%) (Auto) % (0.0-3.0) Basophils (%) (Auto) % (0.0-2.0) Differential Total Cells Counted 100 Neutrophils % (Manual) 77 % (45-75) H Lymphocytes % (Manual) 17 % (20-45) L Monocytes % (Manual) 5 % (1-10) Eosinophils % (Manual) 1 % (0-3) Basophils % (Manual) 0 % (0-2) Band Neutrophils 0 % (0-8) Platelet Estimate Adequate Platelet Morphology Normal Hypochromasia 1+ Anisocytosis 1+ Microcytosis 1+ Erythrocyte Sedimentation Rate 81 MM/HR (0-30) H Reticulocyte Count Pending Sodium Level 131 MMOL/L (136-145) L Potassium Level 3.6 MMOL/L (3.5-5.1) Chloride Level 99 MMOL/L (98-107) Carbon Dioxide Level 22 MMOL/L (21-32) Anion Gap 10 mmol/L (5-15) Blood Urea Nitrogen 58 mg/dL (7-18) H Creatinine 4.8 MG/DL (0.55-1.30) H Estimat Glomerular Filtration Rate 10.7 mL/min (>60) Glucose Level 187 MG/DL (74-106) H Hemoglobin A1c 8.2 % (4.3-6.0) H Uric Acid 9.4 MG/DL (2.6-7.2) H Calcium Level 7.5 MG/DL (8.5-10.1) L Phosphorus Level 4.0 MG/DL (2.5-4.9) Magnesium Level 2.5 MG/DL (1.8-2.4) H Iron Level 25 ug/dL (50-175) L Total Iron Binding Capacity 139 ug/dL (250-450) L Percent Iron Saturation 18 % (15-50) Unsaturated Iron Binding 114 ug/dL (112-346) Total Bilirubin 0.6 MG/DL (0.2-1.0) Aspartate Amino Transf (AST/SGOT) 15 U/L (15-37) Alanine Aminotransferase (ALT/SGPT) 15 U/L (12-78) Alkaline Phosphatase 138 U/L (46-116) H Lactate Dehydrogenase 288 U/L (81-234) H Total Creatine Kinase 26 U/L (26-308) Total Protein 5.6 G/DL (6.4-8.2) L Albumin 1.6 G/DL (3.4-5.0) L Globulin 4.0 g/dL Albumin/Globulin Ratio 0.4 (1.0-2.7) L Carcinoembryonic Antigen Pending Vitamin B12 Level 1061 PG/ML (193-986) H Folate 7.4 NG/ML (8.6-58.9) L Microbiology Date/Time Source Procedure Growth Status 05/02/20 14:40 Urine,Clean Catch Urine Culture - Preliminary Gram Negative Luis Resulted 05/02/20 13:40 Nasopharynx SARS-CoV-2 RdRp Gene Assay - Final Complete Intake and Output 05/02/20 05/03/20 19:00 07:00 Intake Total 0 ml 120 ml Balance 0 ml 120 ml Intake Oral 0 ml 120 ml # Voids 1 1 # Bowel Movements 2 Objective General: No acute distress, awake and alert HEENT: NCAT, sclera anicteric, PERRL, EOMI. Neck: Supple, no significant jugular venous distention, Lungs: Good inspiratory effort, no accessory muscle use, clear to auscultation bilaterally, no Wheeze or Rales. Heart: Regular rate and rhythm, normal S1/S2, no murmurs/gallops Abdomen: soft, decreased lower quadrant tenderness, nondistended. Normoactive bowel sounds, morbid obesity. / Rectal: Refused and deferred. Extremities: No Cyanosis , clubbing or edema. Neuro: A&O x 3, Able to move all extremities Skin: warm, no rashes or lesions Psych: Normal mood and affect Assessment/Plan Assessment/Plan sepsis secondary to gram-negative luis UTI Acute kidney injury on chronic kidney disease Dehydration Morbid obesity Anemia of chronic disease Diabetic type II Hyperalbuminemia Anxiety disorder. Plan: Monitor blood culture and laboratory Antibiotics: Vancomycin and cefepime IV Follow up with renal ultrasound CODE STATUS: FULL CODE DVT prophylaxis: Heparin subcu PT mobility. Follow-up with infection disease, pulmonary critical care, and nephrology consultations. Daron Batres MD May 03, 2020 14:01
[2020-05-03 16:00] VITALS: BP 118/60
--- NOTE | 2020-05-03 16:31 | Diagnostic Imaging Report ---
RENAL ULTRASOUND - COMPLETE INDICATION: Renal failure. TECHNIQUE: Multiplanar ultrasound examination of the abdomen with greyscale and doppler imaging. COMPARISON: None FINDINGS: Right kidney: The kidneys are normal in size and echogenicity. There is no hydronephrosis.. Left kidney: The kidneys are normal in size and echogenicity. There is no hydronephrosis. Bladder: Grossly unremarkable. IMPRESSION: No hydronephrosis or nephrolithiasis.
--- NOTE | 2020-05-03 19:23 | General Progress Note ---
Advance Care Planning Advance Care Planning Advance Care Planning Internal Medicine Hospitalist Advanced Care Planning Note Date of Discussion: A [id number] discussion with the patient regarding the patient's advanced care planning took place during this hospitalization on the above date. The discussion included the explanation and discussion of advance directives and associated forms/documents, as well as the patient's current code status. We also discussed at length the patient's medical conditions (both acute and chronic), general prognosis, treatment options, and goals of care. The following summarizes the discussion: Advance Care Planning/Goals of Care: - Will attempt to fill out an AD and/or POLST with the patient prior to discharge, if not already completed - Continue current evaluation and management of any acute and chronic medical issues - Will continue to support the patient/family - Will continue to discuss both short- and long-term goals of care DPOA-HC/Surrogate Decision Maker: None currently appointed Code Status: Full Code Advanced Care Planning Forms/Documents Completed: Deferred until later encounter/visit A total of less than 30 minutes was spent on this discussion, including counseling, answering questions, and completing, if any, pertinent advanced care planning forms/documents. Time of note may not reflect time of encounter. Daron Batres MD May 03, 2020 19:23
[2020-05-03 20:00] VITALS: BP 116/58
[2020-05-04] VITALS: BP 131/59
--- NOTE | 2020-05-04 01:45 | History and Physical Report ---
DATE OF ADMISSION: 05/02/2020 CHIEF COMPLAINT: Lower abdominal pain associated with nausea and vomiting. HISTORY OF PRESENT ILLNESS: This is an 79-year-old very delightful female with past medical history significant for diabetes type 2, chronic kidney disease, tubal ligation, and tonsillectomy who presented to the emergency department complaining about lower abdominal pain on and off over past 10 days associated with nausea and vomiting and decreased appetite. She got progressively worsened over the past 24 hours. The pain was sharp in nature, located mostly in the suprapubic area, radiated to the bilateral lower quadrant, and she has been having multiple episodes of diarrhea over the past 2 days. She feels nauseous and had multiple episodes of vomiting, nonbilious, nonbloody. Shortly after initial evaluation in the emergency department, the patient was admitted to the hospital with sepsis secondary to urinary tract infection as well as acute kidney injury on chronic renal insufficiency with dehydration. PAST MEDICAL HISTORY AND PAST SURGICAL HISTORY: As above. History of diabetes type 2, chronic kidney disease, tubal ligation, and tonsillectomy. MEDICATIONS AT HOME: Please refer to medication reconciliation. ALLERGIES: To acetaminophen, hydromorphone, penicillin, procainamide, shellfish, codeine, strawberry, dust, and pollen. SOCIAL HISTORY: Patient denies any smoking, alcohol, or drugs. She is a ex-smoker, quit about 35 years ago. FAMILY HISTORY: Mother with stomach cancer as well as esophagus disease. REVIEW OF SYSTEMS: Mostly as above. Denies any dysuria, frequency, or hematuria. Denies any hemoptysis or hematochezia. Complaining about nausea and vomiting. Denies any bright red blood per rectum. Denies any loss of consciousness. Denies any fall or head trauma. PHYSICAL EXAMINATION: VITAL SIGNS: On admission, temperature 98.2, pulse of 97, respiratory rate 20, blood pressure 142/75. GENERAL: Patient is awake and responsive, in no acute distress. HEAD AND NECK: Pupils are reactive to light. Extraocular movements are intact. Neck was supple. No JVD. LUNGS: Good air entry. No wheezing or rales. HEART: S1 and S2. Distant heart sounds. No murmur or gallops. ABDOMEN: Soft, nondistended. Tenderness on the suprapubic area on deep palpation, morbid obesity. EXTREMITIES: No cyanosis, clubbing, or edema. NEUROLOGIC: Cranial nerves II through XII are grossly intact. Motor is 5/5 in all the extremities. Gait was not assessed due to patient's status. RECTAL AND GENITOURINARY: Refused and deferred. PSYCHIATRIC: Mood and affect are intact. LABORATORY DATA: On admission, WBC of 39.3, hemoglobin of 10.9, hematocrit 33, platelets 391. Sodium 130, potassium 4.0, chloride 95, bicarb is 23, BUN 52, creatinine 4.5, GFR is 11.4, glucose is 217, lactic acid is 1.5, calcium 7.9, AST of 22, ALT of 17. First troponin 0.00, alkaline phosphate is 169, total protein is 59, lipase is 190. UA is +2 protein, +5 blood, 60 to 80 WBC, moderate bacteria. COVID-19 rapid test is negative. The patient had a CT scan of the abdomen and pelvis done, which noted to have hyperdense along the course of the distal ureters, felt more likely to represent ovarian calcification as opposed to distal ureteral calculi given the lack of associated hydronephrosis, peripheral patchy ground-glass opacity in the visualized lung base, which are nonspecific for related infectious inflammatory airway disease, but atypical viral pneumonia should be considered. ASSESSMENT: 1. Sepsis secondary to urinary tract infection. 2. Dehydration. 3. Acute kidney injury on chronic renal insufficiency. 4. Morbid obesity. 5. Diabetes type 2. 6. Hypoalbuminemia. 7. Anxiety disorder. 8. Anemia of chronic disease. PLAN: Admit the patient to monitor unit. Start the patient on broad-spectrum antibiotic with vancomycin and cefepime. Follow up laboratory as well as culture. Discussed case with Dr. Apple, Pulmonary, Critical Care as well as from Infectious Disease, and Dr. Perry Abernathy from Nephrology. Follow up with ultrasound of kidneys. Code status is Full code. DVT prophylaxis, heparin subcutaneous. Monitor blood glucose level closely. Daron Batres M.D. DR: LESLEY/michelle JOB#: [id number] CC:
[2020-05-04 04:00] VITALS: BP 124/65
[2020-05-04 04:45] LABS: HEMATOCRIT 27.3 % (37.0-47.0); HEMOGLOBIN 9.3 G/DL (12.0-16.0); MEAN CORPUSCULAR VOLUME 75 FL (80-99); PLATELET COUNT 364 K/UL (150-450); RED BLOOD COUNT 3.62 M/UL (4.20-5.40); RED CELL DISTRIBUTION WIDTH 17.7 % (11.6-14.8)
[2020-05-04 04:48] LABS: INR 1.1 (0.9-1.1)
[2020-05-04 04:55] LABS: WHITE BLOOD COUNT 25.5 K/UL (4.8-10.8)
[2020-05-04 04:59] LABS: ALBUMIN 1.6 G/DL (3.4-5.0); ALBUMIN/GLOBULIN RATIO 0.5 (1.0-2.7); ANION GAP 12 mmol/L (5-15); BLOOD UREA NITROGEN 63 mg/dL (7-18); CALCIUM 7.1 MG/DL (8.5-10.1); CARBON DIOXIDE 21 MMOL/L (21-32); CHLORIDE 101 MMOL/L (98-107); CREATININE 5.4 MG/DL (0.55-1.30); GAMMA GLUTAMYL TRANSPEPTIDASE 85 U/L (5-85); POTASSIUM 4.3 MMOL/L (3.5-5.1); SODIUM 133 MMOL/L (136-145)
[2020-05-04 05:50] LABS: % IRON SATURATION 12 % (15-50); IRON 18 ug/dL (50-175); TOTAL IRON BINDING CAPACITY 153 ug/dL (250-450)
[2020-05-04 06:03] LABS: ALANINE AMINOTRANSFERASE 13 U/L (12-78); ALKALINE PHOSPHATASE 135 U/L (46-116); CHOLESTEROL 100 MG/DL (< 200); FERRITIN 503 NG/ML (8-388); PHOSPHORUS 4.7 MG/DL (2.5-4.9)
[2020-05-04] MEDS: NovoLOG Insulin Flexpen SUBQ SCH ×4 (06:20→20:18)
[2020-05-04 06:49] LABS: ASPARTATE AMINO TRANSFERASE 18 U/L (15-37); BILIRUBIN,TOTAL 0.5 MG/DL (0.2-1.0); CREATINE KINASE 26 U/L (26-308); HDL CHOLESTEROL 16 MG/DL (40-60); TRIGLYCERIDES 123 MG/DL (30-150)
[2020-05-04] MEDS: Docusate 100mg cap ORAL SCH ×4 (08:46→18:00)
[2020-05-04] MEDS: Heparin 5000 units/ml inj SUBQ SCH ×2 (08:47→20:17)
--- NOTE | 2020-05-04 11:57 | Nephrology Progress Note ---
Assessment/Plan Problem List: (1) JARET (acute kidney injury) (2) Diabetic nephropathy (3) Anemia (4) Morbid obesity Assessment Acute renal failure Diabetes mellitus, diabetic nephropathy Hypoalbuminemia rule out nephrotic syndrome Anemia Sepsis History of hypertension History of anxiety disorder History of asthma/bronchitis Plan May 04: Labs reviewed. Discussed with RN. Serum creatinine higher. Patient requires hemodialysis treatment for acute renal failure. Kidney ultrasound reviewed. Continue to monitor renal parameters and avoid nephrotoxic's. Patient consented for placement of temporary dialysis catheter May 03: Arriaza catheter Kidney ultrasound 2D echocardiogram Urine studies The blood pressure and blood sugar in check Avoid nephrotoxic's Antibiotics Subjective ROS Limited/Unobtainable: No Constitutional: Reports: malaise Objective Objective Last 24 Hour Vital Signs Date Time Temp Pulse Resp B/P (MAP) Pulse Ox O2 Delivery O2 Flow Rate FiO2 05/04/20 09:00 Room Air 05/04/20 08:00 75 05/04/20 04:00 80 05/04/20 04:00 97.7 85 20 124/65 (84) 98 05/04/20 00:00 88 05/04/20 00:00 97.5 85 18 131/59 (83) 99 05/03/20 21:00 Room Air 05/03/20 20:00 85 05/03/20 20:00 98.8 86 18 116/58 (77) 99 05/03/20 16:00 83 05/03/20 16:00 98.3 87 20 118/60 (79) 99 05/03/20 12:00 97.6 76 20 108/58 (75) 97 05/03/20 12:00 79 Intake and Output 05/03/20 05/04/20 19:00 07:00 Intake Total 653.33 ml 240 ml Output Total 600 ml 1300 ml Balance 53.33 ml -1060 ml Intake Oral 400 ml 240 ml IV Total 253.33 ml Output Urine Total 600 ml 1300 ml # Bowel Movements 1 1 Current Medications Medications (Trade) Dose Ordered Sig/Gwendolyn Route PRN Reason Start Time Stop Time Status Last Admin Dose Admin Albuterol/ Ipratropium (Albuterol/ Ipratropium) 3 ml Q4H PRN HHN Shortness of Breath 05/02/20 14:45 05/07/20 14:44 Cefepime HCl 1 gm/ Sodium Chloride 55 ml @ 110 mls/hr Q24H IVPB 05/03/20 13:00 05/10/20 12:59 05/03/20 13:20 Dextrose (Dextrose 50%) 25 ml Q30M PRN IV Hypoglycemia 05/02/20 14:45 07/31/20 14:44 Dextrose (Dextrose 50%) 50 ml Q30M PRN IV Hypoglycemia 05/02/20 14:45 07/31/20 14:44 Docusate Sodium (Colace) 100 mg THREE TIMES A DAY ORAL 05/03/20 13:00 06/02/20 12:59 05/04/20 08:46 Heparin Sodium (Porcine) (Heparin 5000 units/ml) 5,000 units EVERY 12 HOURS SUBQ 05/02/20 21:00 06/16/20 20:59 05/04/20 08:47 Insulin Aspart (NovoLOG) BEFORE MEALS AND HS SUBQ 05/02/20 17:56 07/31/20 17:55 05/04/20 06:20 Ondansetron HCl (Zofran) 4 mg Q6H PRN IVP Nausea & Vomiting 05/02/20 14:45 06/01/20 14:44 05/03/20 02:36 Pantoprazole (Protonix) 40 mg EVERY 12 HOURS ORAL 05/03/20 11:00 06/02/20 10:59 05/04/20 08:46 Polyethylene Glycol (Miralax) 17 gm DAILYPRN PRN ORAL Constipation 05/02/20 14:45 06/01/20 14:44 Sodium Chloride 1,000 ml @ 50 mls/hr Q20H IV 05/03/20 11:15 06/02/20 11:14 05/04/20 06:20 Temazepam (Restoril) 15 mg HSPRN PRN ORAL Insomnia 05/02/20 14:45 05/09/20 14:44 Vancomycin HCl 300 ml @ 150 mls/hr ONCE ONCE IVPB 05/04/20 12:00 05/04/20 13:59 Vancomycin HCl ([facility]anco pharmacy to dose) 1 ea DAILY PRN MISC PER RX PROTOCOL 05/02/20 18:30 06/01/20 18:29 Laboratory Tests 05/03/20 16:35: POC Whole Blood Glucose 158H 05/04/20 04:00: White Blood Count 25.5*H, Red Blood Count 3.62L, Hemoglobin 9.3L, Hematocrit 27.3L, Mean Corpuscular Volume 75L, Mean Corpuscular Hemoglobin 25.6L, Mean Corpuscular Hemoglobin Concent 34.0, Red Cell Distribution Width 17.7H, Platelet Count 364, Mean Platelet Volume 6.8, Neutrophils (%) (Auto) , Lymphocytes (%) (Auto) , Monocytes (%) (Auto) , Eosinophils (%) (Auto) , Basophils (%) (Auto) , Differential Total Cells Counted 100, Neutrophils % (Manual) 74, Lymphocytes % (Manual) 20, Monocytes % (Manual) 3, Eosinophils % (Manual) 3, Basophils % (Manual) 0, Band Neutrophils 0, Platelet Estimate Adequate, Platelet Morphology Normal, Hypochromasia 1+, Anisocytosis 1+, Microcytosis 1+, Prothrombin Time 11.8H, Prothromb Time International Ratio 1.1, Activated Partial Thromboplast Time 28, Sodium Level 133L, Potassium Level 4.3, Chloride Level 101, Carbon Dioxide Level 21, Anion Gap 12, Blood Urea Nitrogen 63H, Creatinine 5.4H, Estimat Glomerular Filtration Rate 9.2, Glucose Level 220H, Uric Acid 9.6H, Calcium Level 7.1L, Phosphorus Level 4.7, Magnesium Level 2.4, Iron Level 18L, Total Iron Binding Capacity 153L, Percent Iron Saturation 12L, Unsaturated Iron Binding 135, Ferritin 503H, Total Bilirubin 0.5, Gamma Glutamyl Transpeptidase 85, Aspartate Amino Transf (AST/SGOT) 18, Alanine Aminotransferase (ALT/SGPT) 13, Alkaline Phosphatase 135H, Total Creatine Kinase 26, C-Reactive Protein, Quantitative 20.7H, Pro-B-Type Natriuretic Peptide 823H, Total Protein 4.9L, Albumin 1.6L, Globulin 3.3, Albumin/Globulin Ratio 0.5L, Triglycerides Level 123, Cholesterol Level 100, LDL Cholesterol 59, HDL Cholesterol 16L, Cholesterol/HDL Ratio 6.3H, Vitamin B12 Level 1074H, Folate 13.1, Thyroid Stimulating Hormone (TSH) 1.017, Random Vancomycin Level 12.0 05/04/20 11:17: Urine Random Sodium 22 Height (Feet): 5 Height (Inches): 5.00 Weight (Pounds): 260 General Appearance: no apparent distress Respiratory/Chest: decreased breath sounds Abdomen: distended Fouladian,Perry MD May 04, 2020 11:57
[2020-05-04] MEDS ORDERED: Vancomycin 1.5gm/300ml Premix IVPB ONE (12:00)
--- NOTE | 2020-05-04 12:54 | Pulmonology Progress Note ---
Subjective ROS Limited/Unobtainable: No Allergies: Coded Allergies: ACETAMINOPHEN (Verified Allergy, Severe, Shortness of Breath, 11/25/17) HYDROMORPHONE (Verified Allergy, Severe, 11/25/17) PENICILLINS (Verified Allergy, Severe, 11/25/17) PROCAINE (Verified Allergy, Severe, 11/25/17) SHELLFISH DERIVED (Verified Allergy, Severe, 11/25/17) CODEINE (Verified Allergy, Unknown, 11/25/17) Cantaloupe (Verified Allergy, Unknown, 11/25/17) STRAWBERRY (Verified Allergy, Unknown, 11/25/17) Uncoded Allergies: DUST, POLLEN (Allergy, Unknown, 07/19/17) Objective Last 24 Hour Vital Signs Date Time Temp Pulse Resp B/P (MAP) Pulse Ox O2 Delivery O2 Flow Rate FiO2 05/04/20 09:00 Room Air 05/04/20 08:00 75 05/04/20 04:00 80 05/04/20 04:00 97.7 85 20 124/65 (84) 98 05/04/20 00:00 88 05/04/20 00:00 97.5 85 18 131/59 (83) 99 05/03/20 21:00 Room Air 05/03/20 20:00 85 05/03/20 20:00 98.8 86 18 116/58 (77) 99 05/03/20 16:00 83 05/03/20 16:00 98.3 87 20 118/60 (79) 99 Intake and Output 05/03/20 05/04/20 19:00 07:00 Intake Total 653.33 ml 240 ml Output Total 600 ml 1300 ml Balance 53.33 ml -1060 ml Intake Oral 400 ml 240 ml IV Total 253.33 ml Output Urine Total 600 ml 1300 ml # Bowel Movements 1 1 General Appearance: WD/WN, no acute distress HEENT: atraumatic, anicteric Respiratory: chest wall non-tender, lungs clear, normal breath sounds Cardiovascular: normal peripheral pulses, normal rate Abdomen: normal bowel sounds, soft, non tender Genitourinary: normal external genitalia Extremities: no clubbing 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 Microbiology Date/Time Source Procedure Growth Status 05/03/20 15:36 Nasopharynx Coronavirus COVID-19 PCR ([facility]) - Final Complete 05/02/20 14:40 Urine,Clean Catch Urine Culture - Preliminary Gram Negative Luis Resulted 05/02/20 13:40 Nasopharynx SARS-CoV-2 RdRp Gene Assay - Final Complete 05/02/20 13:10 Blood Blood Culture - Preliminary NO GROWTH AFTER 24 HOURS Resulted 05/02/20 12:55 Blood Blood Culture - Preliminary Resulted Laboratory Tests 05/03/20 16:35: POC Whole Blood Glucose 158H 05/04/20 04:00: White Blood Count 25.5*H, Red Blood Count 3.62L, Hemoglobin 9.3L, Hematocrit 27.3L, Mean Corpuscular Volume 75L, Mean Corpuscular Hemoglobin 25.6L, Mean Corpuscular Hemoglobin Concent 34.0, Red Cell Distribution Width 17.7H, Platelet Count 364, Mean Platelet Volume 6.8, Neutrophils (%) (Auto) , Lymphocytes (%) (Auto) , Monocytes (%) (Auto) , Eosinophils (%) (Auto) , Basophils (%) (Auto) , Differential Total Cells Counted 100, Neutrophils % (Manual) 74, Lymphocytes % (Manual) 20, Monocytes % (Manual) 3, Eosinophils % (Manual) 3, Basophils % (Manual) 0, Band Neutrophils 0, Platelet Estimate Adequate, Platelet Morphology Normal, Hypochromasia 1+, Anisocytosis 1+, Microcytosis 1+, Prothrombin Time 11.8H, Prothromb Time International Ratio 1.1, Activated Partial Thromboplast Time 28, Sodium Level 133L, Potassium Level 4.3, Chloride Level 101, Carbon Dioxide Level 21, Anion Gap 12, Blood Urea Nitrogen 63H, Creatinine 5.4H, Estimat Glomerular Filtration Rate 9.2, Glucose Level 220H, Uric Acid 9.6H, Calcium Level 7.1L, Phosphorus Level 4.7, Magnesium Level 2.4, Iron Level 18L, Total Iron Binding Capacity 153L, Percent Iron Saturation 12L, Unsaturated Iron Binding 135, Ferritin 503H, Total Bilirubin 0.5, Gamma Glutamyl Transpeptidase 85, Aspartate Amino Transf (AST/SGOT) 18, Alanine Aminotransferase (ALT/SGPT) 13, Alkaline Phosphatase 135H, Total Creatine Kinase 26, C-Reactive Protein, Quantitative 20.7H, Pro-B-Type Natriuretic Peptide 823H, Total Protein 4.9L, Albumin 1.6L, Globulin 3.3, Albumin/Globulin Ratio 0.5L, Triglycerides Level 123, Cholesterol Level 100, LDL Cholesterol 59, HDL Cholesterol 16L, Cholesterol/HDL Ratio 6.3H, Vitamin B12 Level 1074H, Folate 13.1, Thyroid Stimulating Hormone (TSH) 1.017, Random Vancomycin Level 12.0 05/04/20 11:17: Urine Random Sodium 22 05/04/20 12:14: POC Whole Blood Glucose 223H Current Medications Medications (Trade) Dose Ordered Sig/Gwendolyn Route PRN Reason Start Time Stop Time Status Last Admin Dose Admin Albuterol/ Ipratropium (Albuterol/ Ipratropium) 3 ml Q4H PRN HHN Shortness of Breath 05/02/20 14:45 05/07/20 14:44 Cefepime HCl 1 gm/ Sodium Chloride 55 ml @ 110 mls/hr Q24H IVPB 05/03/20 13:00 05/10/20 12:59 05/03/20 13:20 Dextrose (Dextrose 50%) 25 ml Q30M PRN IV Hypoglycemia 05/02/20 14:45 07/31/20 14:44 Dextrose (Dextrose 50%) 50 ml Q30M PRN IV Hypoglycemia 05/02/20 14:45 07/31/20 14:44 Docusate Sodium (Colace) 100 mg THREE TIMES A DAY ORAL 05/03/20 13:00 06/02/20 12:59 05/04/20 08:46 Docusate Sodium (Colace) 100 mg TWICE A DAY ORAL 05/04/20 18:00 06/03/20 17:59 Heparin Sodium (Porcine) (Heparin 5000 units/ml) 5,000 units EVERY 12 HOURS SUBQ 05/02/20 21:00 06/16/20 20:59 05/04/20 08:47 Insulin Aspart (NovoLOG) BEFORE MEALS AND HS SUBQ 05/02/20 17:56 07/31/20 17:55 05/04/20 12:39 Ondansetron HCl (Zofran) 4 mg Q6H PRN IVP Nausea & Vomiting 05/02/20 14:45 06/01/20 14:44 05/03/20 02:36 Pantoprazole (Protonix) 40 mg EVERY 12 HOURS ORAL 05/03/20 11:00 06/02/20 10:59 05/04/20 08:46 Polyethylene Glycol (Miralax) 17 gm DAILYPRN PRN ORAL Constipation 05/02/20 14:45 06/01/20 14:44 Temazepam (Restoril) 15 mg HSPRN PRN ORAL Insomnia 05/02/20 14:45 05/09/20 14:44 Vancomycin HCl 300 ml @ 150 mls/hr ONCE ONCE IVPB 05/04/20 12:00 05/04/20 13:59 05/04/20 12:27 Vancomycin HCl ([facility]anco pharmacy to dose) 1 ea DAILY PRN MISC PER RX PROTOCOL 05/02/20 18:30 06/01/20 18:29 Assessment/Plan Problems: (1) Sepsis (2) ATN (acute tubular necrosis) (3) HTN (hypertension) (4) Diabetes mellitus (5) JARET (acute kidney injury) (6) Anemia (7) Bacteremia (8) Morbid obesity Assessment/Plan all reviewed murillo culture iv abx iv fluids renal US nephrology to see sliding scale diabetic diet dvt prophylaxis. Umu Apple MD May 04, 2020 12:54
[2020-05-04] MEDS: Cefepime HCl 1 GM in NS 55 ML IVPB SCH (14:13)
--- NOTE | 2020-05-04 17:33 | Internal Med Progress Note ---
Subjective Date of Service: May 04, 2020 Physician Name MagaliGarett Attending Physician Daron Batres MD Current Medications Medications (Trade) Dose Ordered Sig/Gwendolyn Route PRN Reason Start Time Stop Time Status Last Admin Dose Admin Albuterol/ Ipratropium (Albuterol/ Ipratropium) 3 ml Q4H PRN HHN Shortness of Breath 05/02/20 14:45 05/07/20 14:44 Cefepime HCl 1 gm/ Sodium Chloride 55 ml @ 110 mls/hr Q24H IVPB 05/03/20 13:00 05/10/20 12:59 05/04/20 14:13 Dextrose (Dextrose 50%) 25 ml Q30M PRN IV Hypoglycemia 05/02/20 14:45 07/31/20 14:44 Dextrose (Dextrose 50%) 50 ml Q30M PRN IV Hypoglycemia 05/02/20 14:45 07/31/20 14:44 Docusate Sodium (Colace) 100 mg THREE TIMES A DAY ORAL 05/03/20 13:00 06/02/20 12:59 05/04/20 14:13 Docusate Sodium (Colace) 100 mg TWICE A DAY ORAL 05/04/20 18:00 06/03/20 17:59 Heparin Sodium (Porcine) (Heparin 5000 units/ml) 5,000 units EVERY 12 HOURS SUBQ 05/02/20 21:00 06/16/20 20:59 05/04/20 08:47 Insulin Aspart (NovoLOG) BEFORE MEALS AND HS SUBQ 05/02/20 17:56 07/31/20 17:55 05/04/20 17:25 Ondansetron HCl (Zofran) 4 mg Q6H PRN IVP Nausea & Vomiting 05/02/20 14:45 06/01/20 14:44 05/03/20 02:36 Pantoprazole (Protonix) 40 mg EVERY 12 HOURS ORAL 05/03/20 11:00 06/02/20 10:59 05/04/20 08:46 Polyethylene Glycol (Miralax) 17 gm DAILYPRN PRN ORAL Constipation 05/02/20 14:45 06/01/20 14:44 Temazepam (Restoril) 15 mg HSPRN PRN ORAL Insomnia 05/02/20 14:45 05/09/20 14:44 Vancomycin HCl ([facility] pharmacy to dose) 1 ea DAILY PRN MISC PER RX PROTOCOL 05/02/20 18:30 06/01/20 18:29 Allergies: Coded Allergies: ACETAMINOPHEN (Verified Allergy, Severe, Shortness of Breath, 11/25/17) HYDROMORPHONE (Verified Allergy, Severe, 11/25/17) PENICILLINS (Verified Allergy, Severe, 11/25/17) PROCAINE (Verified Allergy, Severe, 11/25/17) SHELLFISH DERIVED (Verified Allergy, Severe, 11/25/17) CODEINE (Verified Allergy, Unknown, 11/25/17) Cantaloupe (Verified Allergy, Unknown, 11/25/17) STRAWBERRY (Verified Allergy, Unknown, 11/25/17) Uncoded Allergies: DUST, POLLEN (Allergy, Unknown, 07/19/17) ROS Limited/Unobtainable: Yes Subjective Patient admitted with hypotension and dehydration. Now UTI and Sepsis. Cover for Int Med-Dr Batres Objective Last Vital Signs Date Time Temp Pulse Resp B/P (MAP) Pulse Ox O2 Delivery O2 Flow Rate FiO2 05/04/20 12:00 94 05/04/20 09:00 Room Air 05/04/20 04:00 97.7 20 124/65 (84) 98 05/02/20 23:00 99 Laboratory Tests Test 05/04/20 04:00 05/04/20 11:17 05/04/20 12:14 05/04/20 17:02 White Blood Count 25.5 K/UL (4.8-10.8) *H Red Blood Count 3.62 M/UL (4.20-5.40) L Hemoglobin 9.3 G/DL (12.0-16.0) L Hematocrit 27.3 % (37.0-47.0) L Mean Corpuscular Volume 75 FL (80-99) L Mean Corpuscular Hemoglobin 25.6 PG (27.0-31.0) L Mean Corpuscular Hemoglobin Concent 34.0 G/DL (32.0-36.0) Red Cell Distribution Width 17.7 % (11.6-14.8) H Platelet Count 364 K/UL (150-450) Mean Platelet Volume 6.8 FL (6.5-10.1) Neutrophils (%) (Auto) % (45.0-75.0) Lymphocytes (%) (Auto) % (20.0-45.0) Monocytes (%) (Auto) % (1.0-10.0) Eosinophils (%) (Auto) % (0.0-3.0) Basophils (%) (Auto) % (0.0-2.0) Differential Total Cells Counted 100 Neutrophils % (Manual) 74 % (45-75) Lymphocytes % (Manual) 20 % (20-45) Monocytes % (Manual) 3 % (1-10) Eosinophils % (Manual) 3 % (0-3) Basophils % (Manual) 0 % (0-2) Band Neutrophils 0 % (0-8) Platelet Estimate Adequate Platelet Morphology Normal Hypochromasia 1+ Anisocytosis 1+ Microcytosis 1+ Prothrombin Time 11.8 SEC (9.30-11.50) H Prothromb Time International Ratio 1.1 (0.9-1.1) Activated Partial Thromboplast Time 28 SEC (23-33) Sodium Level 133 MMOL/L (136-145) L Potassium Level 4.3 MMOL/L (3.5-5.1) Chloride Level 101 MMOL/L (98-107) Carbon Dioxide Level 21 MMOL/L (21-32) Anion Gap 12 mmol/L (5-15) Blood Urea Nitrogen 63 mg/dL (7-18) H Creatinine 5.4 MG/DL (0.55-1.30) H Estimat Glomerular Filtration Rate 9.2 mL/min (>60) Glucose Level 220 MG/DL (74-106) H Uric Acid 9.6 MG/DL (2.6-7.2) H Calcium Level 7.1 MG/DL (8.5-10.1) L Phosphorus Level 4.7 MG/DL (2.5-4.9) Magnesium Level 2.4 MG/DL (1.8-2.4) Iron Level 18 ug/dL (50-175) L Total Iron Binding Capacity 153 ug/dL (250-450) L Percent Iron Saturation 12 % (15-50) L Unsaturated Iron Binding 135 ug/dL (112-346) Ferritin 503 NG/ML (8-388) H Total Bilirubin 0.5 MG/DL (0.2-1.0) Gamma Glutamyl Transpeptidase 85 U/L (5-85) Aspartate Amino Transf (AST/SGOT) 18 U/L (15-37) Alanine Aminotransferase (ALT/SGPT) 13 U/L (12-78) Alkaline Phosphatase 135 U/L (46-116) H Total Creatine Kinase 26 U/L (26-308) C-Reactive Protein, Quantitative 20.7 mg/dL (0.00-0.90) H Pro-B-Type Natriuretic Peptide 823 pg/mL (0-125) H Total Protein 4.9 G/DL (6.4-8.2) L Albumin 1.6 G/DL (3.4-5.0) L Globulin 3.3 g/dL Albumin/Globulin Ratio 0.5 (1.0-2.7) L Triglycerides Level 123 MG/DL (30-150) Cholesterol Level 100 MG/DL (< 200) LDL Cholesterol 59 mg/dL (<100) HDL Cholesterol 16 MG/DL (40-60) L Cholesterol/HDL Ratio 6.3 (3.3-4.4) H Vitamin B12 Level 1074 PG/ML (193-986) H Folate 13.1 NG/ML (8.6-58.9) Thyroid Stimulating Hormone (TSH) 1.017 uiU/mL (0.358-3.740) Random Vancomycin Level 12.0 ug/mL Urine Random Sodium 22 mmol/L (20-110) POC Whole Blood Glucose 223 MG/DL (74-106) H 208 MG/DL (74-106) H Microbiology Date/Time Source Procedure Growth Status 05/03/20 15:36 Nasopharynx Coronavirus COVID-19 PCR ([facility]) - Final Complete 05/02/20 14:40 Urine,Clean Catch Urine Culture - Preliminary Gram Negative Luis Resulted 05/02/20 13:40 Nasopharynx SARS-CoV-2 RdRp Gene Assay - Final Complete 05/02/20 13:10 Blood Blood Culture - Preliminary NO GROWTH AFTER 24 HOURS Resulted 05/02/20 12:55 Blood Blood Culture - Preliminary Resulted Intake and Output 05/03/20 05/04/20 19:00 07:00 Intake Total 653.33 ml 240 ml Output Total 600 ml 1300 ml Balance 53.33 ml -1060 ml Intake Oral 400 ml 240 ml IV Total 253.33 ml Output Urine Total 600 ml 1300 ml # Bowel Movements 1 1 Objective PHYSICAL EXAMINATION: GENERAL: Patient is awake and responsive, in no acute distress. HEAD AND NECK: Pupils are reactive to light. Extraocular movements are intact. Neck was supple. No JVD. LUNGS: Good air entry. No wheezing or rales. HEART: S1 and S2. Distant heart sounds. No murmur or gallops. ABDOMEN: Soft, nondistended. Tenderness on the suprapubic area on deep palpation, morbid obesity. EXTREMITIES: No cyanosis, clubbing, or edema. NEUROLOGIC: Cranial nerves II through XII are grossly intact. Motor is 5/5 in all the extremities. Gait was not assessed due to patient's status. RECTAL AND GENITOURINARY: Refused and deferred. PSYCHIATRIC: Mood and affect are intact. Assessment/Plan Assessment/Plan ASSESSMENT: 1. Sepsis secondary. 2. Dehydration. 3. Acute kidney injury on chronic renal insufficiency. 4. Morbid obesity. 5. Diabetes type 2. 6. Hypoalbuminemia. 7. Anxiety disorder. 8. Anemia of chronic disease. 9. Urinary tract infection=gram neg luis PLAN: Admit the patient to monitor unit. Start the patient on broad-spectrum antibiotic with vancomycin and cefepime. Follow up laboratory as well as culture. Discussed case with Dr. Apple, Pulmonary, Critical Care as well as Dr. Enrique from Infectious Disease, and Dr. Perry Abernathy from Nephrology. Follow up with ultrasound of kidneys. Code status is Full code. DVT prophylaxis, heparin subcutaneous. Monitor blood glucose level closely. Garett De Los Santos MD May 04, 2020 17:33
--- NOTE | 2020-05-04 17:50 | Operative Note - PDOC ---
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 no prior HD. needs access. consent obtained from patient Description of Procedure patient made comfortable at the bedside. right groin prepped and draped in standard surgical fashion. anatomy identified. local anesthetic infiltrated. right femoral vein cannulated without complication. good venous flow noted. guidewire placed over needle and needle removed. small skin incision made and dilators used. catheter placed over guidewire and guidewire removed. all ports flushed and aspirated well. dressings applied after line sutured in placed. patient tolerated well. okay to use for HD bri Edgardo Saavedra May 04, 2020 17:50
[2020-05-05] MEDS: NovoLOG Insulin Flexpen SUBQ SCH ×4 (06:32→20:24)
[2020-05-05 08:00] VITALS: BP 136/75
[2020-05-05] MEDS: Docusate 100mg cap ORAL SCH ×5 (08:39→18:00)
[2020-05-05] MEDS: Heparin 5000 units/ml inj SUBQ SCH ×2 (08:47→20:23)
[2020-05-05 09:40] LABS: HEMOGLOBIN 9.1 G/DL (12.0-16.0); MEAN CORPUSCULAR VOLUME 75 FL (80-99); PLATELET COUNT 334 K/UL (150-450); RED BLOOD COUNT 3.58 M/UL (4.20-5.40); RED CELL DISTRIBUTION WIDTH 18.6 % (11.6-14.8); WHITE BLOOD COUNT 21.7 K/UL (4.8-10.8)
[2020-05-05 10:12] LABS: ALANINE AMINOTRANSFERASE 13 U/L (12-78); ALBUMIN 1.6 G/DL (3.4-5.0); ALBUMIN/GLOBULIN RATIO 0.4 (1.0-2.7); ALKALINE PHOSPHATASE 126 U/L (46-116); ANION GAP 13 mmol/L (5-15); ASPARTATE AMINO TRANSFERASE 19 U/L (15-37); BILIRUBIN,TOTAL 0.6 MG/DL (0.2-1.0); BLOOD UREA NITROGEN 66 mg/dL (7-18); CALCIUM 7.7 MG/DL (8.5-10.1); CARBON DIOXIDE 20 MMOL/L (21-32); CHLORIDE 101 MMOL/L (98-107); CREATINE KINASE 18 U/L (26-308); PHOSPHORUS 4.6 MG/DL (2.5-4.9); POTASSIUM 4.2 MMOL/L (3.5-5.1); SODIUM 134 MMOL/L (136-145)
--- NOTE | 2020-05-05 10:26 | Consultation ---
History of Present Illness General Date patient seen: May 05, 2020 Reason for Hospitalization: Abdominal Pain Present Illness HPI 79F admitted for abdominal pain cramping generalized pain with worsening renal function currently s/p temp hd cath insertion still c/o abd pain. surgery asked to evaluate. patient seen, chart reviewed, patient examined. no n/v/f/c. tolerating diet. feels constipated. pain cramping 4/10 generalized without radiation. +flatus. elevated lft's Allergies: Coded Allergies: ACETAMINOPHEN (Verified Allergy, Severe, Shortness of Breath, 11/25/17) HYDROMORPHONE (Verified Allergy, Severe, 11/25/17) PENICILLINS (Verified Allergy, Severe, 11/25/17) PROCAINE (Verified Allergy, Severe, 11/25/17) SHELLFISH DERIVED (Verified Allergy, Severe, 11/25/17) CODEINE (Verified Allergy, Unknown, 11/25/17) Cantaloupe (Verified Allergy, Unknown, 11/25/17) STRAWBERRY (Verified Allergy, Unknown, 11/25/17) Uncoded Allergies: DUST, POLLEN (Allergy, Unknown, 07/19/17) COVID-19 Screening Contact w/high risk pt: No Experienced COVID-19 symptoms?: Yes Coronavirus symptoms experienc: Nausea/Vomiting Medication History Scheduled Diphenhydramine HCl (Benadryl), 25 MG PO TID Insulin Regular, Human* (Novolin R*), 7 SUBQ DAILY, (Reported) Nph, Human Insulin Isophane* (Novolin N*), 20 SUBQ DAILY, (Reported) Polymyxin/Trimethoprim (Polytrim Eye Drops), 2 DROP OPHTHALM THREE TIMES A DAY Prednisone* (Prednisone*), 40 MG ORAL DAILY Scheduled PRN Aspirin Ec* (Aspirin Ec*), 81 MG ORAL BID PRN for For Pain, (Reported) Patient History History Provided By: Patient, Medical Record, PMD Healthcare decision maker Resuscitation status Advanced Directive on File Past Medical/Surgical History Past Medical/Surgical History: (1) Neck strain (2) Electrolyte disorder (3) Rash and other nonspecific skin eruption (4) UTI (urinary tract infection) (5) Diabetes mellitus (6) HTN (hypertension) (7) Sepsis (8) ATN (acute tubular necrosis) (9) JARET (acute kidney injury) (10) Anemia (11) Diabetic nephropathy (12) Morbid obesity (13) Bacteremia Review of Systems Review of Symptoms General ROS: no weight loss or fever Psychological ROS: no depression or mood changes, no memory loss Ophthalmic ROS: no visual changes or eye irritation ENT ROS: no nasal congestion, hearing loss, dizziness Allergy and Immunology ROS: no allergic symptoms or urticaria Hematological and Lymphatic ROS: no swollen glands, unusual bleeding or bruising Endocrine ROS: no polyuria, polydipsia, weight changes, temperature intolerance Respiratory ROS: no cough, shortness of breath, or wheezing Cardiovascular ROS: no chest pain or dyspnea on exertion Gastrointestinal ROS: + abdominal pain, bright red blood in stool. Musculoskeletal ROS: no myalgias or arthralgias Neurological ROS: no TIA or stroke symptoms Dermatological ROS: no new or changing skin lesions, rashes or pruritis Physical Exam Physical Exam General appearance: alert, cooperative, no distress, appears stated age Head: Normocephalic, without obvious abnormality, atraumatic Eyes: conjunctivae/corneas clear. PERRL, EOM's intact. Fundi benign Throat: Lips, mucosa, and tongue normal. Teeth and gums normal Neck: supple, symmetrical, trachea midline, no adenopathy, thyroid: not enlarged, symmetric, no tenderness/mass/nodules, no carotid bruit and no JVD Lungs: clear to auscultation bilaterally Heart: regular rate and rhythm, S1, S2 normal, no murmur, click, rub or gallop Abdomen: soft, non-tender. Bowel sounds normal. No masses, no organomegaly Extremities: extremities normal, atraumatic, no cyanosis or edema Pulses: 2+ and symmetric Skin: Skin color, texture, turgor normal. No rashes or lesions Neurologic: Grossly normal Last 24 Hour Vital Signs Date Time Temp Pulse Resp B/P (MAP) Pulse Ox O2 Delivery O2 Flow Rate FiO2 05/05/20 09:00 Room Air 05/05/20 04:00 77 05/05/20 00:00 79 05/04/20 21:00 Room Air 05/04/20 20:00 85 05/04/20 16:00 83 05/04/20 12:00 94 Intake and Output 05/04/20 05/05/20 19:00 07:00 Intake Total 250 ml Output Total 700 ml 900 ml Balance -450 ml -900 ml Intake Oral 250 ml Output Urine Total 700 ml 900 ml # Bowel Movements 1 1 Laboratory Tests Test 05/04/20 11:17 05/04/20 12:14 05/04/20 17:02 05/05/20 06:50 Urine Random Sodium 22 mmol/L (20-110) POC Whole Blood Glucose 223 MG/DL (74-106) H 208 MG/DL (74-106) H White Blood Count 21.7 K/UL (4.8-10.8) H Red Blood Count 3.58 M/UL (4.20-5.40) L Hemoglobin 9.1 G/DL (12.0-16.0) L Hematocrit 27.0 % (37.0-47.0) L Mean Corpuscular Volume 75 FL (80-99) L Mean Corpuscular Hemoglobin 25.3 PG (27.0-31.0) L Mean Corpuscular Hemoglobin Concent 33.6 G/DL (32.0-36.0) Red Cell Distribution Width 18.6 % (11.6-14.8) H Platelet Count 334 K/UL (150-450) Mean Platelet Volume 6.0 FL (6.5-10.1) L Neutrophils (%) (Auto) % (45.0-75.0) Lymphocytes (%) (Auto) % (20.0-45.0) Monocytes (%) (Auto) % (1.0-10.0) Eosinophils (%) (Auto) % (0.0-3.0) Basophils (%) (Auto) % (0.0-2.0) Neutrophils % (Manual) Pending Lymphocytes % (Manual) Pending Platelet Estimate Pending Platelet Morphology Pending Sodium Level 134 MMOL/L (136-145) L Potassium Level 4.2 MMOL/L (3.5-5.1) Chloride Level 101 MMOL/L (98-107) Carbon Dioxide Level 20 MMOL/L (21-32) L Anion Gap 13 mmol/L (5-15) Blood Urea Nitrogen 66 mg/dL (7-18) H Creatinine 6.0 MG/DL (0.55-1.30) H Estimat Glomerular Filtration Rate 8.2 mL/min (>60) Glucose Level 173 MG/DL (74-106) H Uric Acid 9.5 MG/DL (2.6-7.2) H Calcium Level 7.7 MG/DL (8.5-10.1) L Phosphorus Level 4.6 MG/DL (2.5-4.9) Magnesium Level 2.5 MG/DL (1.8-2.4) H Total Bilirubin 0.6 MG/DL (0.2-1.0) Aspartate Amino Transf (AST/SGOT) 19 U/L (15-37) Alanine Aminotransferase (ALT/SGPT) 13 U/L (12-78) Alkaline Phosphatase 126 U/L (46-116) H Total Creatine Kinase 18 U/L (26-308) L Total Protein 5.8 G/DL (6.4-8.2) L Albumin 1.6 G/DL (3.4-5.0) L Globulin 4.2 g/dL Albumin/Globulin Ratio 0.4 (1.0-2.7) L Height (Feet): 5 Height (Inches): 5.00 Weight (Pounds): 260 Medications Current Medications Medications (Trade) Dose Ordered Sig/Gwendolyn Route PRN Reason Start Time Stop Time Status Last Admin Dose Admin Albuterol/ Ipratropium (Albuterol/ Ipratropium) 3 ml Q4H PRN HHN Shortness of Breath 05/02/20 14:45 05/07/20 14:44 Cefepime HCl 1 gm/ Sodium Chloride 55 ml @ 110 mls/hr Q24H IVPB 05/03/20 13:00 05/10/20 12:59 05/04/20 14:13 Dextrose (Dextrose 50%) 25 ml Q30M PRN IV Hypoglycemia 05/02/20 14:45 07/31/20 14:44 Dextrose (Dextrose 50%) 50 ml Q30M PRN IV Hypoglycemia 05/02/20 14:45 07/31/20 14:44 Docusate Sodium (Colace) 100 mg THREE TIMES A DAY ORAL 05/03/20 13:00 06/02/20 12:59 05/05/20 08:39 Docusate Sodium (Colace) 100 mg TWICE A DAY ORAL 05/04/20 18:00 06/03/20 17:59 05/05/20 08:40 Heparin Sodium (Porcine) (Heparin 5000 units/ml) 5,000 units EVERY 12 HOURS SUBQ 05/02/20 21:00 06/16/20 20:59 05/05/20 08:47 Insulin Aspart (NovoLOG) BEFORE MEALS AND HS SUBQ 05/02/20 17:56 07/31/20 17:55 05/05/20 06:32 Ondansetron HCl (Zofran) 4 mg Q6H PRN IVP Nausea & Vomiting 05/02/20 14:45 06/01/20 14:44 05/05/20 02:11 Pantoprazole (Protonix) 40 mg EVERY 12 HOURS ORAL 05/03/20 11:00 06/02/20 10:59 05/05/20 08:39 Polyethylene Glycol (Miralax) 17 gm DAILYPRN PRN ORAL Constipation 05/02/20 14:45 06/01/20 14:44 Temazepam (Restoril) 15 mg HSPRN PRN ORAL Insomnia 05/02/20 14:45 05/09/20 14:44 Vancomycin HCl (Vanco pharmacy to dose) 1 ea DAILY PRN MISC PER RX PROTOCOL 05/02/20 18:30 06/01/20 18:29 Assessment/Plan Problem List: (1) Abdominal pain Assessment & Plan: leukocytosis anemia ct noted cramping pain likely constipated ct reviewed exam fairly benign okay for diet bowel regimen will follow with exam and recs Lower chest:: Bibasilar subsegmental atelectasis. There are peripheral patchy ground glass opacities. Hepatobiliary:: Unremarkable. Genitourinary:: Uterus is not visualized and may be surgically absent. Redemonstration of bilateral perinephric fat stranding. No hydronephrosis. Urinary bladder is under distended, limiting evaluation. Calcifications are noted in the right ovary along the course of the distal ureter. Adrenals:: Nonspecific bilateral adrenal gland thickening. Pancreas:: Mild pancreatic parenchymal atrophy. Gastrointestinal:: Appendix is normal. No evidence of obstruction. Spleen: : Unremarkable. Peritoneum:: No free air or free fluid. Moderate broad-based fat-containing umbilical hernia. Bones and soft tissues:: There are multilevel discogenic degenerative changes of the visualized spine. IMPRESSION: 1. Hyperdensities along the course of the distal ureter are felt more likely to represent ovarian calcifications as opposed to distal ureteral calculus given lack of associated hydronephrosis. 2. Peripheral patchy ground glass opacities in the visualized lung bases, which are nonspecific and may be related to infectious/inflammatory airways disease but atypical/viral pneumonia should also be considered. ICD Codes: R10.9 - Unspecified abdominal pain SNOMED: 83383684 (2) UTI (urinary tract infection) ICD Codes: N39.0 - Urinary tract infection, site not specified SNOMED: 77635128 (3) Diabetes mellitus ICD Codes: E11.9 - Type 2 diabetes mellitus without complications SNOMED: 57426577 (4) HTN (hypertension) ICD Codes: I10 - Essential (primary) hypertension SNOMED: 31984235 (5) Sepsis ICD Codes: A41.9 - Sepsis, unspecified organism SNOMED: 01459372 (6) ATN (acute tubular necrosis) ICD Codes: N17.0 - Acute kidney failure with tubular necrosis SNOMED: 10637518 (7) JARET (acute kidney injury) ICD Codes: N17.9 - Acute kidney failure, unspecified SNOMED: 41554623, 7168622 (8) Anemia ICD Codes: D64.9 - Anemia, unspecified SNOMED: 496108484 (9) Diabetic nephropathy ICD Codes: E11.21 - Type 2 diabetes mellitus with diabetic nephropathy SNOMED: 48626112, 829535871 (10) Morbid obesity ICD Codes: E66.01 - Morbid (severe) obesity due to excess calories SNOMED: 718812080 (11) Bacteremia ICD Codes: R78.81 - Bacteremia SNOMED: 3116327 (12) Rash and other nonspecific skin eruption ICD Codes: R21 - Rash and other nonspecific skin eruption SNOMED: 678458800, 991316658 (13) Electrolyte disorder ICD Codes: E87.8 - Other disorders of electrolyte and fluid balance, not elsewhere classified SNOMED: 516816115 (14) Neck strain ICD Codes: S16.1XXA - Strain of muscle, fascia and tendon at neck level, initial encounter SNOMED: 174896493 Edgardo Saavedra May 05, 2020 10:26
--- NOTE | 2020-05-05 11:36 | Infectious Diseases Prog Note ---
Assessment/Plan 79yo F with: +ve blood cx : ? Contaminant - 05/02 BCx : 1/2 GPC Afebrile Leukocytosis to 39, improving Abd pain UTI, R CVAT, ?Pyelo 05/02 BCx p UCx >100k GNRs COVID rapid test neg , COVID PCR: neg Resp cx p CXR: Left mid lung and right midlung/right basilar airspace opacities which likely represent atelectasis, but pneumonia should be excluded clinically. CT A/P: 1. Hyperdensities along the course of the distal ureter are felt more likely to represent ovarian calcifications as opposed to distal ureteral calculus given lack of associated hydronephrosis. 2. Peripheral patchy ground g lass opacities in the visualized lung bases, which are nonspecific and may be related to infectious/inflammatory airways disease but atypical/viral pneumonia should also be considered. JARET vs CKD, Cr 4.8 DM2 on insulin Allergy to PCN - causes anaphylaxis Plan: Cont cefepime # 4 Change vanco # 4 to Dapto ( in the setting of ? JARET) Renal US f/u results C.dif if ongoing diarrhea F/u BCx ( Rpt) F/u resp cx Monitor CBC/CMP Monitor temp curve, hemodynamics Monitor resp status HD as per Nephro D/w RN Thank you for this consult. [facility] will continue to follow. Subjective Allergies: Coded Allergies: ACETAMINOPHEN (Verified Allergy, Severe, Shortness of Breath, 11/25/17) HYDROMORPHONE (Verified Allergy, Severe, 11/25/17) PENICILLINS (Verified Allergy, Severe, 11/25/17) PROCAINE (Verified Allergy, Severe, 11/25/17) SHELLFISH DERIVED (Verified Allergy, Severe, 11/25/17) CODEINE (Verified Allergy, Unknown, 11/25/17) Cantaloupe (Verified Allergy, Unknown, 11/25/17) STRAWBERRY (Verified Allergy, Unknown, 11/25/17) Uncoded Allergies: DUST, POLLEN (Allergy, Unknown, 07/19/17) Afebrile started on HD Objective Last 24 Hour Vital Signs Date Time Temp Pulse Resp B/P (MAP) Pulse Ox O2 Delivery O2 Flow Rate FiO2 05/05/20 09:00 Room Air 05/05/20 08:00 75 05/05/20 04:00 77 05/05/20 00:00 79 05/04/20 21:00 Room Air 05/04/20 20:00 85 05/04/20 16:00 83 05/04/20 12:00 94 Height (Feet): 5 Height (Inches): 5.00 Weight (Pounds): 260 HEENT: atraumatic Respiratory/Chest: normal breath sounds Cardiovascular: regular rhythm Microbiology Date/Time Source Procedure Growth Status 05/03/20 15:36 Nasopharynx Coronavirus COVID-19 PCR (CH[facility]STIE) - Final Complete 05/02/20 14:40 Urine,Clean Catch Urine Culture - Final Escherichia Coli Complete 05/02/20 13:40 Nasopharynx SARS-CoV-2 RdRp Gene Assay - Final Complete 05/02/20 13:10 Blood Blood Culture - Preliminary NO GROWTH AFTER 24 HOURS Resulted 05/02/20 12:55 Blood Blood Culture - Preliminary Gram Positive Cocci Resulted Laboratory Tests Test 05/04/20 12:14 05/04/20 17:02 05/05/20 06:50 05/05/20 11:16 POC Whole Blood Glucose 223 MG/DL (74-106) H 208 MG/DL (74-106) H Pending White Blood Count 21.7 K/UL (4.8-10.8) H Red Blood Count 3.58 M/UL (4.20-5.40) L Hemoglobin 9.1 G/DL (12.0-16.0) L Hematocrit 27.0 % (37.0-47.0) L Mean Corpuscular Volume 75 FL (80-99) L Mean Corpuscular Hemoglobin 25.3 PG (27.0-31.0) L Mean Corpuscular Hemoglobin Concent 33.6 G/DL (32.0-36.0) Red Cell Distribution Width 18.6 % (11.6-14.8) H Platelet Count 334 K/UL (150-450) Mean Platelet Volume 6.0 FL (6.5-10.1) L Neutrophils (%) (Auto) % (45.0-75.0) Lymphocytes (%) (Auto) % (20.0-45.0) Monocytes (%) (Auto) % (1.0-10.0) Eosinophils (%) (Auto) % (0.0-3.0) Basophils (%) (Auto) % (0.0-2.0) Differential Total Cells Counted 100 Neutrophils % (Manual) 73 % (45-75) Lymphocytes % (Manual) 17 % (20-45) L Monocytes % (Manual) 9 % (1-10) Eosinophils % (Manual) 1 % (0-3) Basophils % (Manual) 0 % (0-2) Band Neutrophils 0 % (0-8) Platelet Estimate Adequate Platelet Morphology Normal Hypochromasia 1+ Anisocytosis 1+ Microcytosis 1+ Sodium Level 134 MMOL/L (136-145) L Potassium Level 4.2 MMOL/L (3.5-5.1) Chloride Level 101 MMOL/L (98-107) Carbon Dioxide Level 20 MMOL/L (21-32) L Anion Gap 13 mmol/L (5-15) Blood Urea Nitrogen 66 mg/dL (7-18) H Creatinine 6.0 MG/DL (0.55-1.30) H Estimat Glomerular Filtration Rate 8.2 mL/min (>60) Glucose Level 173 MG/DL (74-106) H Uric Acid 9.5 MG/DL (2.6-7.2) H Calcium Level 7.7 MG/DL (8.5-10.1) L Phosphorus Level 4.6 MG/DL (2.5-4.9) Magnesium Level 2.5 MG/DL (1.8-2.4) H Total Bilirubin 0.6 MG/DL (0.2-1.0) Aspartate Amino Transf (AST/SGOT) 19 U/L (15-37) Alanine Aminotransferase (ALT/SGPT) 13 U/L (12-78) Alkaline Phosphatase 126 U/L (46-116) H Total Creatine Kinase 18 U/L (26-308) L Total Protein 5.8 G/DL (6.4-8.2) L Albumin 1.6 G/DL (3.4-5.0) L Globulin 4.2 g/dL Albumin/Globulin Ratio 0.4 (1.0-2.7) L Hepatitis B Surface Antigen Pending Current Medications Medications (Trade) Dose Ordered Sig/Gwendolyn Route PRN Reason Start Time Stop Time Status Last Admin Dose Admin Albuterol/ Ipratropium (Albuterol/ Ipratropium) 3 ml Q4H PRN HHN Shortness of Breath 05/02/20 14:45 05/07/20 14:44 Cefepime HCl 1 gm/ Sodium Chloride 55 ml @ 110 mls/hr Q24H IVPB 05/03/20 13:00 05/10/20 12:59 05/04/20 14:13 Chlorhexidine Gluconate (Niki-Hex 2%) 1 applic DAILY@2000 TOPIC 05/05/20 20:00 08/03/20 19:59 Dextrose (Dextrose 50%) 25 ml Q30M PRN IV Hypoglycemia 05/02/20 14:45 07/31/20 14:44 Dextrose (Dextrose 50%) 50 ml Q30M PRN IV Hypoglycemia 05/02/20 14:45 07/31/20 14:44 Docusate Sodium (Colace) 100 mg THREE TIMES A DAY ORAL 05/03/20 13:00 06/02/20 12:59 05/05/20 08:39 Docusate Sodium (Colace) 100 mg TWICE A DAY ORAL 05/04/20 18:00 06/03/20 17:59 05/05/20 08:40 Heparin Sodium (Porcine) (Heparin 5000 units/ml) 5,000 units EVERY 12 HOURS SUBQ 05/02/20 21:00 06/16/20 20:59 05/05/20 08:47 Insulin Aspart (NovoLOG) BEFORE MEALS AND HS SUBQ 05/02/20 17:56 07/31/20 17:55 05/05/20 06:32 Ondansetron HCl (Zofran) 4 mg Q6H PRN IVP Nausea & Vomiting 05/02/20 14:45 06/01/20 14:44 05/05/20 02:11 Pantoprazole (Protonix) 40 mg EVERY 12 HOURS ORAL 05/03/20 11:00 06/02/20 10:59 05/05/20 08:39 Polyethylene Glycol (Miralax) 17 gm DAILYPRN PRN ORAL Constipation 05/02/20 14:45 06/01/20 14:44 Temazepam (Restoril) 15 mg HSPRN PRN ORAL Insomnia 05/02/20 14:45 05/09/20 14:44 Vancomycin HCl (Vanco pharmacy to dose) 1 ea DAILY PRN MISC PER RX PROTOCOL 05/02/20 18:30 06/01/20 18:29 Baudilio Philippe MD May 05, 2020:36
[2020-05-05 12:00] VITALS: BP 143/83
[2020-05-05] MEDS: Cefepime 500mg in D5W 55ml IV SCH (13:54)
[2020-05-05] MEDS ORDERED: DAPTOmycin 700 MG in NS 55 ML IV SCH (14:00)
--- NOTE | 2020-05-05 14:04 | Pulmonology Progress Note ---
Subjective ROS Limited/Unobtainable: No Interval Events: getting dialyzed Allergies: Coded Allergies: ACETAMINOPHEN (Verified Allergy, Severe, Shortness of Breath, 11/25/17) HYDROMORPHONE (Verified Allergy, Severe, 11/25/17) PENICILLINS (Verified Allergy, Severe, 11/25/17) PROCAINE (Verified Allergy, Severe, 11/25/17) SHELLFISH DERIVED (Verified Allergy, Severe, 11/25/17) CODEINE (Verified Allergy, Unknown, 11/25/17) Cantaloupe (Verified Allergy, Unknown, 11/25/17) STRAWBERRY (Verified Allergy, Unknown, 11/25/17) Uncoded Allergies: DUST, POLLEN (Allergy, Unknown, 07/19/17) Objective Last 24 Hour Vital Signs Date Time Temp Pulse Resp B/P (MAP) Pulse Ox O2 Delivery O2 Flow Rate FiO2 05/05/20 12:00 97.5 81 18 143/83 (103) 98 05/05/20 12:00 79 05/05/20 09:00 Room Air 05/05/20 08:00 98.2 89 18 136/75 (95) 99 05/05/20 08:00 75 05/05/20 04:00 77 05/05/20 00:00 79 05/04/20 21:00 Room Air 05/04/20 20:00 85 05/04/20 16:00 83 Intake and Output 05/04/20 05/05/20 19:00 07:00 Intake Total 250 ml Output Total 700 ml 900 ml Balance -450 ml -900 ml Intake Oral 250 ml Output Urine Total 700 ml 900 ml # Bowel Movements 1 1 General Appearance: WD/WN, no acute distress HEENT: atraumatic, anicteric Respiratory: chest wall non-tender, lungs clear, normal breath sounds Cardiovascular: normal peripheral pulses, normal rate Abdomen: normal bowel sounds, soft, non tender Genitourinary: normal external genitalia Extremities: no clubbing Neurologic: market risk analyst II-XII grossly normal Microbiology Date/Time Source Procedure Growth Status 05/03/20 15:36 Nasopharynx Coronavirus COVID-19 PCR ([facility]IE) - Final Complete 05/02/20 14:40 Urine,Clean Catch Urine Culture - Final Escherichia Coli Complete Laboratory Tests 05/04/20 17:02: POC Whole Blood Glucose 208H 05/05/20 06:50: White Blood Count 21.7H, Red Blood Count 3.58L, Hemoglobin 9.1L, Hematocrit 27.0L, Mean Corpuscular Volume 75L, Mean Corpuscular Hemoglobin 25.3L, Mean Corpuscular Hemoglobin Concent 33.6, Red Cell Distribution Width 18.6H, Platelet Count 334, Mean Platelet Volume 6.0L, Neutrophils (%) (Auto) , Lymphocytes (%) (Auto) , Monocytes (%) (Auto) , Eosinophils (%) (Auto) , Basophils (%) (Auto) , Differential Total Cells Counted 100, Neutrophils % (Manual) 73, Lymphocytes % (Manual) 17L, Monocytes % (Manual) 9, Eosinophils % (Manual) 1, Basophils % (Manual) 0, Band Neutrophils 0, Platelet Estimate Adequate, Platelet Morphology Normal, Hypochromasia 1+, Anisocytosis 1+, Microcytosis 1+, Sodium Level 134L, Potassium Level 4.2, Chloride Level 101, Carbon Dioxide Level 20L, Anion Gap 13, Blood Urea Nitrogen 66H, Creatinine 6.0H, Estimat Glomerular Filtration Rate 8.2, Glucose Level 173H, Uric Acid 9.5H, Calcium Level 7.7L, Phosphorus Level 4.6, Magnesium Level 2.5H, Total Bilirubin 0.6, Aspartate Amino Transf (AST/SGOT) 19, Alanine Aminotransferase (ALT/SGPT) 13, Alkaline Phosphatase 126H , Total Creatine Kinase 18L, Total Protein 5.8L, Albumin 1.6L, Globulin 4.2, Albumin/Globulin Ratio 0.4L, Hepatitis B Surface Antigen [Pending] 05/05/20 11:16: POC Whole Blood Glucose [Pending] Current Medications Medications (Trade) Dose Ordered Sig/Gwendolyn Route PRN Reason Start Time Stop Time Status Last Admin Dose Admin Albuterol/ Ipratropium (Albuterol/ Ipratropium) 3 ml Q4H PRN HHN Shortness of Breath 05/02/20 14:45 05/07/20 14:44 Cefepime HCl 500 mg/Dextrose 55 ml @ 110 mls/hr Q24H IV 05/05/20 13:00 05/12/20 12:59 05/05/20 13:54 Chlorhexidine Gluconate (Niki-Hex 2%) 1 applic DAILY@1999 TOPIC 05/05/20 20:00 08/03/20 19:59 Daptomycin 700 mg/ Sodium Chloride 55 ml @ 100 mls/hr Q48H IV 05/05/20 14:00 05/12/20 13:59 Dextrose (Dextrose 50%) 25 ml Q30M PRN IV Hypoglycemia 05/02/20 14:45 07/31/20 14:44 Dextrose (Dextrose 50%) 50 ml Q30M PRN IV Hypoglycemia 05/02/20 14:45 07/31/20 14:44 Docusate Sodium (Colace) 100 mg THREE TIMES A DAY ORAL 05/03/20 13:00 06/02/20 12:59 05/05/20 08:39 Docusate Sodium (Colace) 100 mg TWICE A DAY ORAL 05/04/20 18:00 06/03/20 17:59 05/05/20 08:40 Heparin Sodium (Porcine) (Heparin 5000 units/ml) 5,000 units EVERY 12 HOURS SUBQ 05/02/20 21:00 06/16/20 20:59 05/05/20 08:47 Insulin Aspart (NovoLOG) BEFORE MEALS AND HS SUBQ 05/02/20 17:56 07/31/20 17:55 05/05/20 06:32 Ondansetron HCl (Zofran) 4 mg Q6H PRN IVP Nausea & Vomiting 05/02/20 14:45 06/01/20 14:44 05/05/20 02:11 Pantoprazole (Protonix) 40 mg EVERY 12 HOURS ORAL 05/03/20 11:00 06/02/20 10:59 05/05/20 08:39 Polyethylene Glycol (Miralax) 17 gm DAILYPRN PRN ORAL Constipation 05/02/20 14:45 06/01/20 14:44 Temazepam (Restoril) 15 mg HSPRN PRN ORAL Insomnia 05/02/20 14:45 05/09/20 14:44 Assessment/Plan Problems: (1) Sepsis (2) ATN (acute tubular necrosis) (3) HTN (hypertension) (4) Diabetes mellitus (5) JARET (acute kidney injury) (6) Anemia (7) Bacteremia (8) Morbid obesity Assessment/Plan getting dialyzed all reviewed murillo culture nephrology to follow sliding scale diabetic diet dvt prophylaxis. Umu Apple MD May 05, 2020 14:04
--- NOTE | 2020-05-05 14:05 | Internal Med Progress Note ---
Subjective Date of Service: May 05, 2020 Physician Name Garett De Los Santos Attending Physician Daron Batres MD Current Medications Medications (Trade) Dose Ordered Sig/Gwendolyn Route PRN Reason Start Time Stop Time Status Last Admin Dose Admin Albuterol/ Ipratropium (Albuterol/ Ipratropium) 3 ml Q4H PRN HHN Shortness of Breath 05/02/20 14:45 05/07/20 14:44 Cefepime HCl 500 mg/Dextrose 55 ml @ 110 mls/hr Q24H IV 05/05/20 13:00 05/12/20 12:59 05/05/20 13:54 Chlorhexidine Gluconate (Niki-Hex 2%) 1 applic DAILY@2000 TOPIC 05/05/20 20:00 08/03/20 19:59 Daptomycin 700 mg/ Sodium Chloride 55 ml @ 100 mls/hr Q48H IV 05/05/20 14:00 05/12/20 13:59 Dextrose (Dextrose 50%) 25 ml Q30M PRN IV Hypoglycemia 05/02/20 14:45 07/31/20 14:44 Dextrose (Dextrose 50%) 50 ml Q30M PRN IV Hypoglycemia 05/02/20 14:45 07/31/20 14:44 Docusate Sodium (Colace) 100 mg THREE TIMES A DAY ORAL 05/03/20 13:00 06/02/20 12:59 05/05/20 08:39 Docusate Sodium (Colace) 100 mg TWICE A DAY ORAL 05/04/20 18:00 06/03/20 17:59 05/05/20 08:40 Heparin Sodium (Porcine) (Heparin 5000 units/ml) 5,000 units EVERY 12 HOURS SUBQ 05/02/20 21:00 06/16/20 20:59 05/05/20 08:47 Insulin Aspart (NovoLOG) BEFORE MEALS AND HS SUBQ 05/02/20 17:56 07/31/20 17:55 05/05/20 06:32 Ondansetron HCl (Zofran) 4 mg Q6H PRN IVP Nausea & Vomiting 05/02/20 14:45 06/01/20 14:44 05/05/20 02:11 Pantoprazole (Protonix) 40 mg EVERY 12 HOURS ORAL 05/03/20 11:00 06/02/20 10:59 05/05/20 08:39 Polyethylene Glycol (Miralax) 17 gm DAILYPRN PRN ORAL Constipation 05/02/20 14:45 06/01/20 14:44 Temazepam (Restoril) 15 mg HSPRN PRN ORAL Insomnia 05/02/20 14:45 05/09/20 14:44 Allergies: Coded Allergies: ACETAMINOPHEN (Verified Allergy, Severe, Shortness of Breath, 11/25/17) HYDROMORPHONE (Verified Allergy, Severe, 11/25/17) PENICILLINS (Verified Allergy, Severe, 11/25/17) PROCAINE (Verified Allergy, Severe, 11/25/17) SHELLFISH DERIVED (Verified Allergy, Severe, 11/25/17) CODEINE (Verified Allergy, Unknown, 11/25/17) Cantaloupe (Verified Allergy, Unknown, 11/25/17) STRAWBERRY (Verified Allergy, Unknown, 11/25/17) Uncoded Allergies: DUST, POLLEN (Allergy, Unknown, 07/19/17) ROS Limited/Unobtainable: Yes Subjective Patient admitted with hypotension and dehydration. Now UTI and Sepsis. Cover for Int Med-Dr Batres Objective Last Vital Signs Date Time Temp Pulse Resp B/P (MAP) Pulse Ox O2 Delivery O2 Flow Rate FiO2 05/05/20 12:00 97.5 81 18 143/83 (103) 98 05/05/20 09:00 Room Air 05/02/20 23:00 99 Laboratory Tests Test 05/04/20 17:02 05/05/20 06:50 05/05/20 11:16 POC Whole Blood Glucose 208 MG/DL (74-106) H Pending White Blood Count 21.7 K/UL (4.8-10.8) H Red Blood Count 3.58 M/UL (4.20-5.40) L Hemoglobin 9.1 G/DL (12.0-16.0) L Hematocrit 27.0 % (37.0-47.0) L Mean Corpuscular Volume 75 FL (80-99) L Mean Corpuscular Hemoglobin 25.3 PG (27.0-31.0) L Mean Corpuscular Hemoglobin Concent 33.6 G/DL (32.0-36.0) Red Cell Distribution Width 18.6 % (11.6-14.8) H Platelet Count 334 K/UL (150-450) Mean Platelet Volume 6.0 FL (6.5-10.1) L Neutrophils (%) (Auto) % (45.0-75.0) Lymphocytes (%) (Auto) % (20.0-45.0) Monocytes (%) (Auto) % (1.0-10.0) Eosinophils (%) (Auto) % (0.0-3.0) Basophils (%) (Auto) % (0.0-2.0) Differential Total Cells Counted 100 Neutrophils % (Manual) 73 % (45-75) Lymphocytes % (Manual) 17 % (20-45) L Monocytes % (Manual) 9 % (1-10) Eosinophils % (Manual) 1 % (0-3) Basophils % (Manual) 0 % (0-2) Band Neutrophils 0 % (0-8) Platelet Estimate Adequate Platelet Morphology Normal Hypochromasia 1+ Anisocytosis 1+ Microcytosis 1+ Sodium Level 134 MMOL/L (136-145) L Potassium Level 4.2 MMOL/L (3.5-5.1) Chloride Level 101 MMOL/L (98-107) Carbon Dioxide Level 20 MMOL/L (21-32) L Anion Gap 13 mmol/L (5-15) Blood Urea Nitrogen 66 mg/dL (7-18) H Creatinine 6.0 MG/DL (0.55-1.30) H Estimat Glomerular Filtration Rate 8.2 mL/min (>60) Glucose Level 173 MG/DL (74-106) H Uric Acid 9.5 MG/DL (2.6-7.2) H Calcium Level 7.7 MG/DL (8.5-10.1) L Phosphorus Level 4.6 MG/DL (2.5-4.9) Magnesium Level 2.5 MG/DL (1.8-2.4) H Total Bilirubin 0.6 MG/DL (0.2-1.0) Aspartate Amino Transf (AST/SGOT) 19 U/L (15-37) Alanine Aminotransferase (ALT/SGPT) 13 U/L (12-78) Alkaline Phosphatase 126 U/L (46-116) H Total Creatine Kinase 18 U/L (26-308) L Total Protein 5.8 G/DL (6.4-8.2) L Albumin 1.6 G/DL (3.4-5.0) L Globulin 4.2 g/dL Albumin/Globulin Ratio 0.4 (1.0-2.7) L Hepatitis B Surface Antigen Pending Microbiology Date/Time Source Procedure Growth Status 05/03/20 15:36 Nasopharynx Coronavirus COVID-19 PCR ([facility]) - Final Complete 05/02/20 14:40 Urine,Clean Catch Urine Culture - Final Escherichia Coli Complete Intake and Output 05/04/20 05/05/20 19:00 07:00 Intake Total 250 ml Output Total 700 ml 900 ml Balance -450 ml -900 ml Intake Oral 250 ml Output Urine Total 700 ml 900 ml # Bowel Movements 1 1 Objective PHYSICAL EXAMINATION: GENERAL: Patient is awake and responsive, in no acute distress. HEAD AND NECK: Pupils are reactive to light. Extraocular movements are intact. Neck was supple. No JVD. LUNGS: Good air entry. No wheezing or rales. HEART: S1 and S2. Distant heart sounds. No murmur or gallops. ABDOMEN: Soft, nondistended. Tenderness on the suprapubic area on deep palpation, morbid obesity. EXTREMITIES: No cyanosis, clubbing, or edema. NEUROLOGIC: Cranial nerves II through XII are grossly intact. Motor is 5/5 in all the extremities. Gait was not assessed due to patient's status. RECTAL AND GENITOURINARY: Refused and deferred. PSYCHIATRIC: Mood and affect are intact. Assessment/Plan Assessment/Plan ASSESSMENT: 1. Sepsis = gram pos cocci 2. Dehydration. 3. Acute kidney injury on chronic renal insufficiency. 4. Morbid obesity. 5. Diabetes type 2. 6. Hypoalbuminemia. 7. Anxiety disorder. 8. Anemia of chronic disease. 9. Urinary tract infection=E. Coli PLAN: 1. Admit the patient to monitor unit. 2. ABX=vancomycin, daptomycin and cefepime. 3. Dr. Apple=Pulmonary, Critical Care 4. Dr. Enrique = Infectious Disease 5. Dr. Perry Abernathy = Nephrology. Renal ultrasound of=WNL 6. Code status is Full code. 7. DVT prophylaxis= heparin subcutaneous. Garett De Los Santos MD May 05, 2020 14:04
[2020-05-05] MEDS ORDERED: Cathflo Alteplase 2mg Inj INJ ONE (15:00)
[2020-05-05 16:00] VITALS: BP 112/58
--- NOTE | 2020-05-05 18:12 | Nephrology Progress Note ---
Assessment/Plan Problem List: (1) JARET (acute kidney injury) (2) Diabetic nephropathy (3) Anemia (4) Morbid obesity Assessment Acute renal failure Diabetes mellitus, diabetic nephropathy Hypoalbuminemia rule out nephrotic syndrome Anemia Sepsis History of hypertension History of anxiety disorder History of asthma/bronchitis Plan May 05: Patient seen this morning during dialysis. Tolerating well. Continue to monitor renal parameters. May 04: Labs reviewed. Discussed with RN. Serum creatinine higher. Patient requires hemodialysis treatment for acute renal failure. Kidney ultrasound reviewed. Continue to monitor renal parameters and avoid nephrotoxic's. Patient consented for placement of temporary dialysis catheter May 03: Arriaza catheter Kidney ultrasound 2D echocardiogram Urine studies The blood pressure and blood sugar in check Avoid nephrotoxic's Antibiotics Subjective ROS Limited/Unobtainable: No Constitutional: Reports: malaise Objective Objective Last 24 Hour Vital Signs Date Time Temp Pulse Resp B/P (MAP) Pulse Ox O2 Delivery O2 Flow Rate FiO2 05/05/20 16:00 98.1 83 17 112/58 (76) 100 05/05/20 16:00 84 05/05/20 12:00 97.5 81 18 143/83 (103) 98 05/05/20 12:00 79 05/05/20 09:00 Room Air 05/05/20 08:00 98.2 89 18 136/75 (95) 99 05/05/20 08:00 75 05/05/20 04:00 77 05/05/20 00:00 79 05/04/20 21:00 Room Air 05/04/20 20:00 85 Intake and Output 05/04/20 05/05/20 19:00 07:00 Intake Total 250 ml Output Total 700 ml 900 ml Balance -450 ml -900 ml Intake Oral 250 ml Output Urine Total 700 ml 900 ml # Bowel Movements 1 1 Current Medications Medications (Trade) Dose Ordered Sig/Gwendolyn Route PRN Reason Start Time Stop Time Status Last Admin Dose Admin Albuterol/ Ipratropium (Albuterol/ Ipratropium) 3 ml Q4H PRN HHN Shortness of Breath 05/02/20 14:45 05/07/20 14:44 Cefepime HCl 500 mg/Dextrose 55 ml @ 110 mls/hr Q24H IV 05/05/20 13:00 05/12/20 12:59 05/05/20 13:54 Chlorhexidine Gluconate (Niki-Hex 2%) 1 applic DAILY@2000 TOPIC 05/05/20 20:00 08/03/20 19:59 Daptomycin 700 mg/ Sodium Chloride 55 ml @ 100 mls/hr Q48H IV 05/05/20 14:00 05/12/20 13:59 05/05/20 14:59 Dextrose (Dextrose 50%) 25 ml Q30M PRN IV Hypoglycemia 05/02/20 14:45 07/31/20 14:44 Dextrose (Dextrose 50%) 50 ml Q30M PRN IV Hypoglycemia 05/02/20 14:45 07/31/20 14:44 Docusate Sodium (Colace) 100 mg THREE TIMES A DAY ORAL 05/03/20 13:00 06/02/20 12:59 05/05/20 08:39 Docusate Sodium (Colace) 100 mg TWICE A DAY ORAL 05/04/20 18:00 06/03/20 17:59 05/05/20 08:40 Heparin Sodium (Porcine) (Heparin 5000 units/ml) 5,000 units EVERY 12 HOURS SUBQ 05/02/20 21:00 06/16/20 20:59 05/05/20 08:47 Insulin Aspart (NovoLOG) BEFORE MEALS AND HS SUBQ 05/02/20 17:56 07/31/20 17:55 05/05/20 17:09 Ondansetron HCl (Zofran) 4 mg Q6H PRN IVP Nausea & Vomiting 05/02/20 14:45 06/01/20 14:44 05/05/20 02:11 Pantoprazole (Protonix) 40 mg EVERY 12 HOURS ORAL 05/03/20 11:00 06/02/20 10:59 05/05/20 08:39 Polyethylene Glycol (Miralax) 17 gm DAILYPRN PRN ORAL Constipation 05/02/20 14:45 06/01/20 14:44 Temazepam (Restoril) 15 mg HSPRN PRN ORAL Insomnia 05/02/20 14:45 05/09/20 14:44 Laboratory Tests 05/05/20 06:50: White Blood Count 21.7H, Red Blood Count 3.58L, Hemoglobin 9.1L, Hematocrit 27.0L, Mean Corpuscular Volume 75L, Mean Corpuscular Hemoglobin 25.3L, Mean Corpuscular Hemoglobin Concent 33.6, Red Cell Distribution Width 18.6H, Platelet Count 334, Mean Platelet Volume 6.0L, Neutrophils (%) (Auto) , Lymphocytes (%) (Auto) , Monocytes (%) (Auto) , Eosinophils (%) (Auto) , Basophils (%) (Auto) , Differential Total Cells Counted 100, Neutrophils % (Manual) 73, Lymphocytes % (Manual) 17L, Monocytes % (Manual) 9, Eosinophils % (Manual) 1, Basophils % (Manual) 0, Band Neutrophils 0, Platelet Estimate Adequate, Platelet Morphology Normal, Hypochromasia 1+, Anisocytosis 1+, Microcytosis 1+, Sodium Level 134L, Potassium Level 4.2, Chloride Level 101, Carbon Dioxide Level 20L, Anion Gap 13, Blood Urea Nitrogen 66H, Creatinine 6.0H, Estimat Glomerular Filtration Rate 8.2, Glucose Level 173H, Uric Acid 9.5H, Calcium Level 7.7L, Phosphorus Level 4.6, Magnesium Level 2.5H, Total Bilirubin 0.6, Aspartate Amino Transf (AST/SGOT) 19, Alanine Aminotransferase (ALT/SGPT) 13, Alkaline Phosphatase 126H , Total Creatine Kinase 18L, Total Protein 5.8L, Albumin 1.6L, Globulin 4.2, Albumin/Globulin Ratio 0.4L, Hepatitis B Surface Antigen [Pending] 05/05/20 11:16: POC Whole Blood Glucose [Pending] 05/05/20 16:20: POC Whole Blood Glucose 175H Height (Feet): 5 Height (Inches): 5.00 Weight (Pounds): 260 Cardiovascular: normal rate Respiratory/Chest: decreased breath sounds Abdomen: soft Perry Abernathy MD May 05, 2020 18:12
[2020-05-05 20:00] VITALS: BP 112/44
[2020-05-05] MEDS: Dyna-Hex 2% Top Sol 2oz TOPIC SCH (20:24)
[2020-05-06] VITALS: BP 114/55
[2020-05-06 04:00] VITALS: BP 110/49
[2020-05-06] MEDS: NovoLOG Insulin Flexpen SUBQ SCH ×4 (06:14→20:59)
[2020-05-06 08:00] VITALS: BP 152/59
--- NOTE | 2020-05-06 08:02 | Infectious Diseases Prog Note ---
Assessment/Plan 79yo F with: Afebrile Leukocytosis to 39, improving Abd pain UTI, R CVAT, ?Pyelo Staph epi bacteremia, likely contaminant 05/02 BCx /2 +Staph epi, likely skin contaminant UCx >100k E.coli, murillo-S COVID rapid test neg, COVID PCR neg Resp cx p CXR: Left mid lung and right midlung/right basilar airspace opacities which likely represent atelectasis, but pneumonia should be excluded clinically. CT A/P: 1. Hyperdensities along the course of the distal ureter are felt more likely to represent ovarian calcifications as opposed to distal ureteral calculus given lack of associated hydronephrosis. 2. Peripheral patchy ground glass opacities in the visualized lung bases, which are nonspecific and may be related to infectious/inflammatory airways disease but atypical/viral pneumonia should also be considered. 05/03 Renal US: Unremarkable JARET vs CKD, Cr 4.8 - worsening DM2 on insulin Allergy to PCN - causes anaphylaxis Plan: Cont cefepime #5 for UTI/?pyelo, can narrow abx to CTX if WBC improving Stop dapto #1 Trend WBC F/u resp cx 05/06 SP dapto #1 05/05 SP vanco #4 Monitor CBC/CMP Monitor temp curve, hemodynamics Monitor resp status HD as per Nephro D/w RN Thank you for this consult. [facility] will continue to follow. Subjective Allergies: Coded Allergies: ACETAMINOPHEN (Verified Allergy, Severe, Shortness of Breath, 11/25/17) HYDROMORPHONE (Verified Allergy, Severe, 11/25/17) PENICILLINS (Verified Allergy, Severe, 11/25/17) PROCAINE (Verified Allergy, Severe, 11/25/17) SHELLFISH DERIVED (Verified Allergy, Severe, 11/25/17) CODEINE (Verified Allergy, Unknown, 11/25/17) Cantaloupe (Verified Allergy, Unknown, 11/25/17) STRAWBERRY (Verified Allergy, Unknown, 11/25/17) Uncoded Allergies: DUST, POLLEN (Allergy, Unknown, 07/19/17) AF On RA WBC improving to 20 and Cr down to 4.8 Reports allergies and mild cough, but back pain is improved since admission. No other complaints Objective Last 24 Hour Vital Signs Date Time Temp Pulse Resp B/P (MAP) Pulse Ox O2 Delivery O2 Flow Rate FiO2 12/14/20 04:00 97.7 88 19 110/49 (69) 96 05/06/20 04:00 87 05/06/20 00:00 97.9 81 19 114/55 (74) 96 05/06/20 00:00 87 05/05/20 21:00 Room Air 05/05/20 20:00 98.1 85 19 112/44 (66) 96 05/05/20 20:00 103 05/05/20 16:00 98.1 83 17 112/58 (76) 100 05/05/20 16:00 84 05/05/20 12:00 97.5 81 18 143/83 (103) 98 05/05/20 12:00 79 05/05/20 09:00 Room Air Height (Feet): 5 Height (Inches): 5.00 Weight (Pounds): 260 Gen: NAD in bed HEENT: NCAT, EOMI, PERRL CV: RRR Pulm: CTAB Abd: Soft, NTND Ext: No c/c/e Neuro: Awake, alert, interactive Microbiology Date/Time Source Procedure Growth Status 05/03/20 15:36 Nasopharynx Coronavirus COVID-19 PCR ([facility]) - Final Complete Laboratory Tests Test 05/05/20 11:16 05/05/20 16:20 05/05/20 20:13 05/05/20 22:00 POC Whole Blood Glucose Pending 175 MG/DL (74-106) H Pending Stool Occult Blood Pending Current Medications Medications (Trade) Dose Ordered Sig/Gwendolyn Route PRN Reason Start Time Stop Time Status Last Admin Dose Admin Albuterol/ Ipratropium (Albuterol/ Ipratropium) 3 ml Q4H PRN HHN Shortness of Breath 05/02/20 14:45 05/07/20 14:44 Cefepime HCl 500 mg/Dextrose 55 ml @ 110 mls/hr Q24H IV 05/05/20 13:00 05/12/20 12:59 05/05/20 13:54 Chlorhexidine Gluconate (Niki-Hex 2%) 1 applic DAILY@2000 TOPIC 05/05/20 20:00 08/03/20 19:59 05/05/20 20:24 Daptomycin 700 mg/ Sodium Chloride 55 ml @ 100 mls/hr Q48H IV 05/05/20 14:00 05/12/20 13:59 05/05/20 14:59 Dextrose (Dextrose 50%) 25 ml Q30M PRN IV Hypoglycemia 05/02/20 14:45 07/31/20 14:44 Dextrose (Dextrose 50%) 50 ml Q30M PRN IV Hypoglycemia 05/02/20 14:45 07/31/20 14:44 Docusate Sodium (Colace) 100 mg THREE TIMES A DAY ORAL 05/03/20 13:00 06/02/20 12:59 05/05/20 08:39 Docusate Sodium (Colace) 100 mg TWICE A DAY ORAL 05/04/20 18:00 06/03/20 17:59 05/05/20 08:40 Heparin Sodium (Porcine) (Heparin 5000 units/ml) 5,000 units EVERY 12 HOURS SUBQ 05/02/20 21:00 06/16/20 20:59 05/05/20 20:23 Insulin Aspart (NovoLOG) BEFORE MEALS AND HS SUBQ 05/02/20 17:56 07/31/20 17:55 05/06/20 06:14 Ondansetron HCl (Zofran) 4 mg Q6H PRN IVP Nausea & Vomiting 05/02/20 14:45 06/01/20 14:44 05/05/20 02:11 Pantoprazole (Protonix) 40 mg EVERY 12 HOURS ORAL 05/03/20 11:00 06/02/20 10:59 05/05/20 20:24 Polyethylene Glycol (Miralax) 17 gm DAILYPRN PRN ORAL Constipation 05/02/20 14:45 06/01/20 14:44 Temazepam (Restoril) 15 mg HSPRN PRN ORAL Insomnia 05/02/20 14:45 05/09/20 14:44 Mala Enrique M.D. May 06, 2020 08:02
[2020-05-06 08:31] LABS: HEMATOCRIT 25.7 % (37.0-47.0); HEMOGLOBIN 8.7 G/DL (12.0-16.0); MEAN CORPUSCULAR VOLUME 75 FL (80-99); PLATELET COUNT 282 K/UL (150-450); RED BLOOD COUNT 3.42 M/UL (4.20-5.40); RED CELL DISTRIBUTION WIDTH 16.6 % (11.6-14.8)
[2020-05-06] MEDS: Docusate 100mg cap ORAL SCH ×6 (09:00→17:39)
[2020-05-06] MEDS: Heparin 5000 units/ml inj SUBQ SCH ×2 (09:04→20:58)
[2020-05-06 09:08] LABS: ALBUMIN 1.7 G/DL (3.4-5.0); ALBUMIN/GLOBULIN RATIO 0.5 (1.0-2.7); BILIRUBIN,TOTAL 0.6 MG/DL (0.2-1.0); CALCIUM 7.7 MG/DL (8.5-10.1); CREATININE 4.8 MG/DL (0.55-1.30); POTASSIUM 4.4 MMOL/L (3.5-5.1)
[2020-05-06 09:39] LABS: PHOSPHORUS 4.7 MG/DL (2.5-4.9)
[2020-05-06 12:00] VITALS: BP 125/52
[2020-05-06] MEDS: Cefepime 500mg in D5W 55ml IV SCH (13:40)
[2020-05-06] MEDS ORDERED: Lidocaine 1% Plain 30 ml INJ SCH (14:00)
[2020-05-06] MEDS ORDERED: Heparin1,000 units/500ml Premix(Conc:2 units/ml) IV SCH (14:30)
[2020-05-06] MEDS ORDERED: Albuterol/Ipratropium 3ml neb HHN PRN (15:03)
--- NOTE | 2020-05-06 15:59 | Surgery Progress Note ---
Surgery Progress Note Subjective Procedure Performed right femoral temporary hemodialysis line insertion Additional Comments received HD yesterday labs noted slightly improved doing well planned IJ cath HD placement Objective Last 24 Hour Vital Signs Date Time Temp Pulse Resp B/P (MAP) Pulse Ox O2 Delivery O2 Flow Rate FiO2 05/06/20 12:00 88 05/06/20 12:00 97.6 18 125/52 (76) 99 05/06/20 09:00 Room Air 05/06/20 08:00 84 05/06/20 08:00 97.9 18 152/59 (90) 98 05/06/20 04:00 97.7 88 19 110/49 (69) 96 05/06/20 04:00 87 05/06/20 00:00 97.9 81 19 114/55 (74) 96 05/06/20 00:00 87 05/05/20 21:00 Room Air 05/05/20 20:00 98.1 85 19 112/44 (66) 96 05/05/20 20:00 103 05/05/20 16:00 98.1 83 17 112/58 (76) 100 05/05/20 16:00 84 I&O Intake and Output 05/05/20 05/06/20 19:00 07:00 Intake Total 480 ml Output Total 1000 ml 900 ml Balance -1000 ml -420 ml Intake Oral 480 ml Output Urine Total 900 ml Hemodialysis UF 1000 ml # Voids 1 # Bowel Movements 2 Dressing: saturated Cardiovascular: RSR Respiratory: decreased breath sounds Abdomen: non-tender, present bowel sounds Extremities: no edema, no tenderness, no cyanosis Laboratory Tests Test 05/05/20 16:20 05/05/20 20:13 05/05/20 22:00 05/06/20 06:32 POC Whole Blood Glucose 175 MG/DL (74-106) H Pending Stool Occult Blood Negative (NEGATIVE) White Blood Count 20.0 K/UL (4.8-10.8) H Red Blood Count 3.42 M/UL (4.20-5.40) L Hemoglobin 8.7 G/DL (12.0-16.0) L Hematocrit 25.7 % (37.0-47.0) L Mean Corpuscular Volume 75 FL (80-99) L Mean Corpuscular Hemoglobin 25.5 PG (27.0-31.0) L Mean Corpuscular Hemoglobin Concent 33.9 G/DL (32.0-36.0) Red Cell Distribution Width 16.6 % (11.6-14.8) H Platelet Count 282 K/UL (150-450) Mean Platelet Volume 6.0 FL (6.5-10.1) L Neutrophils (%) (Auto) % (45.0-75.0) Lymphocytes (%) (Auto) % (20.0-45.0) Monocytes (%) (Auto) % (1.0-10.0) Eosinophils (%) (Auto) % (0.0-3.0) Basophils (%) (Auto) % (0.0-2.0) Differential Total Cells Counted 100 Neutrophils % (Manual) 79 % (45-75) H Lymphocytes % (Manual) 13 % (20-45) L Monocytes % (Manual) 8 % (1-10) Eosinophils % (Manual) 0 % (0-3) Basophils % (Manual) 0 % (0-2) Band Neutrophils 0 % (0-8) Platelet Estimate Adequate Platelet Morphology Normal Hypochromasia 1+ Anisocytosis 1+ Microcytosis 1+ Erythrocyte Sedimentation Rate 91 MM/HR (0-30) H Prothrombin Time 11.4 SEC (9.30-11.50) Prothromb Time International Ratio 1.0 (0.9-1.1) Activated Partial Thromboplast Time 30 SEC (23-33) Sodium Level 140 MMOL/L (136-145) Potassium Level 4.4 MMOL/L (3.5-5.1) Chloride Level 104 MMOL/L (98-107) Carbon Dioxide Level 23 MMOL/L (21-32) Anion Gap 13 mmol/L (5-15) Blood Urea Nitrogen 49 mg/dL (7-18) H Creatinine 4.8 MG/DL (0.55-1.30) H Estimat Glomerular Filtration Rate 10.7 mL/min (>60) Glucose Level 153 MG/DL (74-106) H Lactic Acid Level 0.90 mmol/L (0.4-2.0) Calcium Level 7.7 MG/DL (8.5-10.1) L Phosphorus Level 4.7 MG/DL (2.5-4.9) Magnesium Level 2.3 MG/DL (1.8-2.4) Total Bilirubin 0.6 MG/DL (0.2-1.0) Aspartate Amino Transf (AST/SGOT) 23 U/L (15-37) Alanine Aminotransferase (ALT/SGPT) 19 U/L (12-78) Alkaline Phosphatase 123 U/L (46-116) H C-Reactive Protein, Quantitative 20.4 mg/dL (0.00-0.90) H Total Protein 5.0 G/DL (6.4-8.2) L Albumin 1.7 G/DL (3.4-5.0) L Globulin 3.3 g/dL Albumin/Globulin Ratio 0.5 (1.0-2.7) L Amylase Level 61 U/L (25-115) Lipase 252 U/L (73-393) Test 05/06/20 11:31 POC Whole Blood Glucose 174 MG/DL (74-106) H Plan Problems: (1) Abdominal pain Assessment & Plan: leukocytosis anemia ct noted cramping pain likely constipated ct reviewed exam fairly benign okay for diet bowel regimen will follow with exam and recs Lower chest:: Bibasilar subsegmental atelectasis. There are peripheral patchy ground glass opacities. Hepatobiliary:: Unremarkable. Genitourinary:: Uterus is not visualized and may be surgically absent. Redemonstration of bilateral perinephric fat stranding. No hydronephrosis. Urinary bladder is under distended, limiting evaluation. Calcifications are noted in the right ovary along the course of the distal ureter. Adrenals:: Nonspecific bilateral adrenal gland thickening. Pancreas:: Mild pancreatic parenchymal atrophy. Gastrointestinal:: Appendix is normal. No evidence of obstruction. Spleen: : Unremarkable. Peritoneum:: No free air or free fluid. Moderate broad-based fat-containing umbilical hernia. Bones and soft tissues:: There are multilevel discogenic degenerative changes of the visualized spine. IMPRESSION: 1. Hyperdensities along the course of the distal ureter are felt more likely to represent ovarian calcifications as opposed to distal ureteral calculus given lack of associated hydronephrosis. 2. Peripheral patchy ground glass opacities in the visualized lung bases, which are nonspecific and may be related to infectious/inflammatory airways disease but atypical/viral pneumonia should also be considered. (2) UTI (urinary tract infection) (3) Diabetes mellitus (4) HTN (hypertension) (5) Sepsis (6) ATN (acute tubular necrosis) (7) JARET (acute kidney injury) (8) Anemia (9) Diabetic nephropathy (10) Morbid obesity (11) Bacteremia (12) Rash and other nonspecific skin eruption (13) Electrolyte disorder (14) Neck strain Edgardo Saavedra May 06, 2020 15:59
[2020-05-06 16:00] VITALS: BP 126/46
--- NOTE | 2020-05-06 16:15 | Pre-Procedure Note/Attestation ---
Pre-Procedure Note/Attestation Complete Prior to Procedure Planned Procedure: not applicable Procedure Narrative: malu Indications for Procedure Pre-Operative Diagnosis: renal failure Attestation I attest that I discussed the nature of the procedure; its benefits; risks and complications; and alternatives (and the risks and benefits of such alternatives), prior to the procedure, with the patient (or the patient's legal outbound call center representative). I attest that, if there was a reasonable possibility of needing a blood tra nsfusion, the patient (or the patient's legal outbound call center representative) was given the [facility] standardized written summary, pursuant to the Elijah Jacoby Blood Safety Act ([place] Health and Safety Code # 1645, as amended). I attest that I re-evaluated the patient just prior to the surgery and that there has been no change in the patient's H&P, except as documented below: Willian Velasquez MD May 06, 2020 16:15
--- NOTE | 2020-05-06 16:16 | Brief Operative Note ---
Immediate Post Operative Note Operative Note Pre-op Diagnosis: renal failure Procedure: malu LYLESV Post-op Diagnosis: same as pre-op Anesthesia: local Specimen: none Complications: none Fluids: none Implant(s) used?: No Willian Velasquez MD May 06, 2020 16:16
--- NOTE | 2020-05-06 16:23 | Diagnostic Imaging Report ---
Indication: Reason For Exam: ABN LABS Technique: Procedure performed at bedside. Procedural timeout performed. Total sterile technique, including sterile probe cover and sterile gel, sterile gloves, hand hygiene, hat, mask, sterile gown, large sterile drape, and preparation with 2% chlorhexidine utilized. Local anesthesia with 1% lidocaine. Ultrasound reveals patent compressible right internal jugular vein. Under real-time ultrasound guidance with real-time visualization of the entry into the vein, puncture right internal jugular vein using 21-gauge needle, passage 0.018 guidewire, insertion 4 Angolan introducer, passage 0.035 guidewire, over which was passed serial dilators and then a 13 Angolan 15 cm triple-lumen temporary dialysis catheter. Guidewire was removed. Catheter ports were aspirated and flushed. The catheter was fixed to the skin. Patient tolerated procedure well. A chest x-ray was obtained, documents catheter tip position at the cavoatrial junction. Comparison: none Findings: As above Impression: Successful bedside placement of right transjugular temporary dialysis catheter, as described.
--- NOTE | 2020-05-06 17:27 | Pulmonology Progress Note ---
Subjective ROS Limited/Unobtainable: No Interval Events: getting dialyzed Allergies: Coded Allergies: ACETAMINOPHEN (Verified Allergy, Severe, Shortness of Breath, 11/25/17) HYDROMORPHONE (Verified Allergy, Severe, 11/25/17) PENICILLINS (Verified Allergy, Severe, 11/25/17) PROCAINE (Verified Allergy, Severe, 11/25/17) SHELLFISH DERIVED (Verified Allergy, Severe, 11/25/17) CODEINE (Verified Allergy, Unknown, 11/25/17) Cantaloupe (Verified Allergy, Unknown, 11/25/17) STRAWBERRY (Verified Allergy, Unknown, 11/25/17) Uncoded Allergies: DUST, POLLEN (Allergy, Unknown, 07/19/17) Objective Last 24 Hour Vital Signs Date Time Temp Pulse Resp B/P (MAP) Pulse Ox O2 Delivery O2 Flow Rate FiO2 05/06/20 16:00 86 05/06/20 16:00 98.0 16 126/46 (72) 97 05/06/20 12:00 88 05/06/20 12:00 97.6 18 125/52 (76) 99 05/06/20 09:00 Room Air 05/06/20 08:00 84 05/06/20 08:00 97.9 18 152/59 (90) 98 05/06/20 04:00 97.7 88 19 110/49 (69) 96 05/06/20 04:00 87 05/06/20 00:00 97.9 81 19 114/55 (74) 96 05/06/20 00:00 87 05/05/20 21:00 Room Air 05/05/20 20:00 98.1 85 19 112/44 (66) 96 05/05/20 20:00 103 Intake and Output 05/05/20 05/06/20 19:00 07:00 Intake Total 480 ml Output Total 1000 ml 900 ml Balance -1000 ml -420 ml Intake Oral 480 ml Output Urine Total 900 ml Hemodialysis UF 1000 ml # Voids 1 # Bowel Movements 2 General Appearance: WD/WN, no acute distress HEENT: atraumatic, anicteric Respiratory: chest wall non-tender, lungs clear, normal breath sounds Cardiovascular: normal peripheral pulses, normal rate Abdomen: normal bowel sounds, soft, non tender Genitourinary: normal external genitalia Extremities: no clubbing 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 Laboratory Tests 05/05/20 20:13: POC Whole Blood Glucose [Pending] 05/05/20 22:00: Stool Occult Blood Negative 05/06/20 06:32: White Blood Count 20.0H, Red Blood Count 3.42L, Hemoglobin 8.7L, Hematocrit 25.7L, Mean Corpuscular Volume 75L, Mean Corpuscular Hemoglobin 25.5L, Mean Corpuscular Hemoglobin Concent 33.9, Red Cell Distribution Width 16.6H, Platelet Count 282, Mean Platelet Volume 6.0L, Neutrophils (%) (Auto) , Lymphocytes (%) (Auto) , Monocytes (%) (Auto) , Eosinophils (%) (Auto) , Basophils (%) (Auto) , Differential Total Cells Counted 100, Neutrophils % (Manual) 79H, Lymphocytes % (Manual) 13L, Monocytes % (Manual) 8, Eosinophils % (Manual) 0, Basophils % (Manual) 0, Band Neutrophils 0, Platelet Estimate Adequate, Platelet Morphology Normal, Hypochromasia 1+, Anisocytosis 1+, Microcytosis 1+, Erythrocyte Sedimentation Rate 91H, Prothrombin Time 11.4, Prothromb Time International Ratio 1.0, Activated Partial Thromboplast Time 30, Sodium Level 140, Potassium Level 4.4, Chloride Level 104, Carbon Dioxide Level 23, Anion Gap 13, Blood Urea Nitrogen 49H, Creatinine 4.8H, Estimat Glomerular Filtration Rate 10.7, Glucose Level 153H, Lactic Acid Level 0.90, Calcium Level 7.7L, Phosphorus Level 4.7, Magnesium Level 2.3, Total Bilirubin 0.6, Aspartate Amino Transf (AST/SGOT) 23, Alanine Aminotransferase (ALT/SGPT) 19, Alkaline Phosphatase 123H, C-Reactive Protein, Quantitative 20.4H, Total Protein 5.0L, Albumin 1.7L, Globulin 3.3, Albumin/Globulin Ratio 0.5L, Amylase Level 61, Lipase 252 05/06/20 11:31: POC Whole Blood Glucose 174H 05/06/20 16:35: POC Whole Blood Glucose 217H Current Medications Medications (Trade) Dose Ordered Sig/Gwendolyn Route PRN Reason Start Time Stop Time Status Last Admin Dose Admin Albuterol/ Ipratropium (Albuterol/ Ipratropium) 3 ml Q4H PRN HHN Shortness of Breath 05/06/20 15:03 05/11/20 15:02 Cefepime HCl 500 mg/Dextrose 55 ml @ 110 mls/hr Q24H IV 05/05/20 13:00 05/12/20 12:59 05/06/20 13:40 Chlorhexidine Gluconate (Niki-Hex 2%) 1 applic DAILY@2000 TOPIC 05/05/20 20:00 08/03/20 19:59 05/05/20 20:24 Dextrose (Dextrose 50%) 25 ml Q30M PRN IV Hypoglycemia 05/02/20 14:45 07/31/20 14:44 Dextrose (Dextrose 50%) 50 ml Q30M PRN IV Hypoglycemia 05/02/20 14:45 07/31/20 14:44 Docusate Sodium (Colace) 100 mg THREE TIMES A DAY ORAL 05/03/20 13:00 06/02/20 12:59 05/05/20 08:39 Docusate Sodium (Colace) 100 mg TWICE A DAY ORAL 05/04/20 18:00 06/03/20 17:59 05/05/20 08:40 Heparin Sodium (Porcine) (Heparin 5000 units/ml) 5,000 units EVERY 12 HOURS SUBQ 05/02/20 21:00 06/16/20 20:59 05/06/20 09:04 Insulin Aspart (NovoLOG) BEFORE MEALS AND HS SUBQ 05/02/20 17:56 07/31/20 17:55 05/06/20 17:01 Lidocaine HCl (Xylocaine 1% 30ml) 30 ml ONCE INJ 05/06/20 14:00 05/06/20 18:00 Ondansetron HCl (Zofran) 4 mg Q6H PRN IVP Nausea & Vomiting 05/02/20 14:45 06/01/20 14:44 05/05/20 02:11 Pantoprazole (Protonix) 40 mg EVERY 12 HOURS ORAL 05/03/20 11:00 06/02/20 10:59 05/06/20 09:03 Polyethylene Glycol (Miralax) 17 gm DAILYPRN PRN ORAL Constipation 05/02/20 14:45 06/01/20 14:44 Temazepam (Restoril) 15 mg HSPRN PRN ORAL Insomnia 05/02/20 14:45 05/09/20 14:44 Assessment/Plan Problems: (1) Sepsis (2) ATN (acute tubular necrosis) (3) HTN (hypertension) (4) Diabetes mellitus (5) JARET (acute kidney injury) (6) Anemia (7) Bacteremia (8) Morbid obesity Assessment/Plan doing better all reviewed murillo culture nephrology to follow sliding scale diabetic diet dvt prophylaxis. Umu Apple MD May 06, 2020 17:27
--- NOTE | 2020-05-06 18:45 | Internal Med Progress Note ---
Subjective Date of Service: May 06, 2020 Physician Name MagaliGarett Attending Physician Daron Batres MD Current Medications Medications (Trade) Dose Ordered Sig/Gwendolyn Route PRN Reason Start Time Stop Time Status Last Admin Dose Admin Albuterol/ Ipratropium (Albuterol/ Ipratropium) 3 ml Q4H PRN HHN Shortness of Breath 05/06/20 15:03 05/11/20 15:02 Cefepime HCl 500 mg/Dextrose 55 ml @ 110 mls/hr Q24H IV 05/05/20 13:00 05/12/20 12:59 05/06/20 13:40 Chlorhexidine Gluconate (Niki-Hex 2%) 1 applic DAILY@2000 TOPIC 05/05/20 20:00 08/03/20 19:59 05/05/20 20:24 Dextrose (Dextrose 50%) 25 ml Q30M PRN IV Hypoglycemia 05/02/20 14:45 07/31/20 14:44 Dextrose (Dextrose 50%) 50 ml Q30M PRN IV Hypoglycemia 05/02/20 14:45 07/31/20 14:44 Docusate Sodium (Colace) 100 mg THREE TIMES A DAY ORAL 05/03/20 13:00 06/02/20 12:59 05/05/20 08:39 Docusate Sodium (Colace) 100 mg TWICE A DAY ORAL 05/04/20 18:00 06/03/20 17:59 05/05/20 08:40 Heparin Sodium (Porcine) (Heparin 5000 units/ml) 5,000 units EVERY 12 HOURS SUBQ 05/02/20 21:00 06/16/20 20:59 05/06/20 09:04 Insulin Aspart (NovoLOG) BEFORE MEALS AND HS SUBQ 05/02/20 17:56 07/31/20 17:55 05/06/20 17:01 Ondansetron HCl (Zofran) 4 mg Q6H PRN IVP Nausea & Vomiting 05/02/20 14:45 06/01/20 14:44 05/05/20 02:11 Pantoprazole (Protonix) 40 mg EVERY 12 HOURS ORAL 05/03/20 11:00 06/02/20 10:59 05/06/20 09:03 Polyethylene Glycol (Miralax) 17 gm DAILYPRN PRN ORAL Constipation 05/02/20 14:45 06/01/20 14:44 Temazepam (Restoril) 15 mg HSPRN PRN ORAL Insomnia 05/02/20 14:45 05/09/20 14:44 Allergies: Coded Allergies: ACETAMINOPHEN (Verified Allergy, Severe, Shortness of Breath, 11/25/17) HYDROMORPHONE (Verified Allergy, Severe, 11/25/17) PENICILLINS (Verified Allergy, Severe, 11/25/17) PROCAINE (Verified Allergy, Severe, 11/25/17) SHELLFISH DERIVED (Verified Allergy, Severe, 11/25/17) CODEINE (Verified Allergy, Unknown, 11/25/17) Cantaloupe (Verified Allergy, Unknown, 11/25/17) STRAWBERRY (Verified Allergy, Unknown, 11/25/17) Uncoded Allergies: DUST, POLLEN (Allergy, Unknown, 07/19/17) ROS Limited/Unobtainable: Yes Subjective Patient admitted with hypotension and dehydration. Now UTI and Sepsis. Cover for Int Med-Dr Batres Objective Last Vital Signs Date Time Temp Pulse Resp B/P (MAP) Pulse Ox O2 Delivery O2 Flow Rate FiO2 05/06/20 16:00 86 05/06/20 16:00 98.0 16 126/46 (72) 97 05/06/20 09:00 Room Air 05/02/20 23:00 99 Laboratory Tests Test 05/05/20 20:13 05/05/20 22:00 05/06/20 06:32 05/06/20 11:31 POC Whole Blood Glucose Pending 174 MG/DL (74-106) H Stool Occult Blood Negative (NEGATIVE) White Blood Count 20.0 K/UL (4.8-10.8) H Red Blood Count 3.42 M/UL (4.20-5.40) L Hemoglobin 8.7 G/DL (12.0-16.0) L Hematocrit 25.7 % (37.0-47.0) L Mean Corpuscular Volume 75 FL (80-99) L Mean Corpuscular Hemoglobin 25.5 PG (27.0-31.0) L Mean Corpuscular Hemoglobin Concent 33.9 G/DL (32.0-36.0) Red Cell Distribution Width 16.6 % (11.6-14.8) H Platelet Count 282 K/UL (150-450) Mean Platelet Volume 6.0 FL (6.5-10.1) L Neutrophils (%) (Auto) % (45.0-75.0) Lymphocytes (%) (Auto) % (20.0-45.0) Monocytes (%) (Auto) % (1.0-10.0) Eosinophils (%) (Auto) % (0.0-3.0) Basophils (%) (Auto) % (0.0-2.0) Differential Total Cells Counted 100 Neutrophils % (Manual) 79 % (45-75) H Lymphocytes % (Manual) 13 % (20-45) L Monocytes % (Manual) 8 % (1-10) Eosinophils % (Manual) 0 % (0-3) Basophils % (Manual) 0 % (0-2) Band Neutrophils 0 % (0-8) Platelet Estimate Adequate Platelet Morphology Normal Hypochromasia 1+ Anisocytosis 1+ Microcytosis 1+ Erythrocyte Sedimentation Rate 91 MM/HR (0-30) H Prothrombin Time 11.4 SEC (9.30-11.50) Prothromb Time International Ratio 1.0 (0.9-1.1) Activated Partial Thromboplast Time 30 SEC (23-33) Sodium Level 140 MMOL/L (136-145) Potassium Level 4.4 MMOL/L (3.5-5.1) Chloride Level 104 MMOL/L (98-107) Carbon Dioxide Level 23 MMOL/L (21-32) Anion Gap 13 mmol/L (5-15) Blood Urea Nitrogen 49 mg/dL (7-18) H Creatinine 4.8 MG/DL (0.55-1.30) H Estimat Glomerular Filtration Rate 10.7 mL/min (>60) Glucose Level 153 MG/DL (74-106) H Lactic Acid Level 0.90 mmol/L (0.4-2.0) Calcium Level 7.7 MG/DL (8.5-10.1) L Phosphorus Level 4.7 MG/DL (2.5-4.9) Magnesium Level 2.3 MG/DL (1.8-2.4) Total Bilirubin 0.6 MG/DL (0.2-1.0) Aspartate Amino Transf (AST/SGOT) 23 U/L (15-37) Alanine Aminotransferase (ALT/SGPT) 19 U/L (12-78) Alkaline Phosphatase 123 U/L (46-116) H C-Reactive Protein, Quantitative 20.4 mg/dL (0.00-0.90) H Total Protein 5.0 G/DL (6.4-8.2) L Albumin 1.7 G/DL (3.4-5.0) L Globulin 3.3 g/dL Albumin/Globulin Ratio 0.5 (1.0-2.7) L Amylase Level 61 U/L (25-115) Lipase 252 U/L (73-393) Test 05/06/20 16:35 POC Whole Blood Glucose 217 MG/DL (74-106) H Intake and Output 05/05/20 05/06/20 19:00 07:00 Intake Total 480 ml Output Total 1000 ml 900 ml Balance -1000 ml -420 ml Intake Oral 480 ml Output Urine Total 900 ml Hemodialysis UF 1000 ml # Voids 1 # Bowel Movements 2 Objective PHYSICAL EXAMINATION: GENERAL: Patient is awake and responsive, in no acute distress. HEAD AND NECK: Pupils are reactive to light. Extraocular movements are intact. Neck was supple. No JVD. LUNGS: Good air entry. No wheezing or rales. HEART: S1 and S2. Distant heart sounds. No murmur or gallops. ABDOMEN: Soft, nondistended. Tenderness on the suprapubic area on deep palpation, morbid obesity. EXTREMITIES: No cyanosis, clubbing, or edema. NEUROLOGIC: Cranial nerves II through XII are grossly intact. Motor is 5/5 in all the extremities. Gait was not assessed due to patient's status. RECTAL AND GENITOURINARY: Refused and deferred. PSYCHIATRIC: Mood and affect are intact. Assessment/Plan Assessment/Plan ASSESSMENT: 1. Sepsis = Staph epi 2. Dehydration. 3. Acute renal failure. 4. Morbid obesity. 5. Diabetes type 2. 6. Hypoalbuminemia. 7. Anxiety disorder. 8. Anemia of chronic disease. 9. Urinary tract infection=E. Coli PLAN: 1. Admit the patient to monitor unit. 2. ABX=daptomycin and cefepime. 3. Dr. Apple=Pulmonary, Critical Care 4. Dr. Enrique = Infectious Disease 5. Dr. Perry Abernathy = Nephrology. Renal ultrasound of=WNL 6. Code status is Full code. 7. DVT prophylaxis= heparin subcutaneous. 8. Hemodialysis 05/05/20 Garett De Los Santos MD May 06, 2020 18:45
[2020-05-06 20:00] VITALS: BP 124/66
[2020-05-06] MEDS: Dyna-Hex 2% Top Sol 2oz TOPIC SCH (20:57)
[2020-05-07] VITALS: BP 156/64
[2020-05-07 04:00] VITALS: BP 144/80
[2020-05-07] MEDS: NovoLOG Insulin Flexpen SUBQ SCH ×4 (06:03→20:34)
[2020-05-07 07:14] LABS: EOSINOPHILS % (AUTO) 1.9 % (0.0-3.0); HEMATOCRIT 26.2 % (37.0-47.0); HEMOGLOBIN 8.6 G/DL (12.0-16.0); LYMPHOCYTES % (AUTO) 29.7 % (20.0-45.0); MEAN CORPUSCULAR VOLUME 78 FL (80-99); MONOCYTES % (AUTO) 6.8 % (1.0-10.0); NEUTROPHILS % (AUTO) 60.5 % (45.0-75.0); PLATELET COUNT 254 K/UL (150-450); RED BLOOD COUNT 3.37 M/UL (4.20-5.40); RED CELL DISTRIBUTION WIDTH 17.1 % (11.6-14.8); WHITE BLOOD COUNT 13.2 K/UL (4.8-10.8)
--- NOTE | 2020-05-07 07:20 | Infectious Diseases Prog Note ---
Assessment/Plan 79yo F with: Afebrile Leukocytosis to 39, improving Abd pain UTI, R CVAT, ?Pyelo Staph epi bacteremia, likely contaminant 05/02 BCx 1/2 +Staph epi, likely skin contaminant UCx >100k E.coli, murillo-S COVID rapid test neg, COVID PCR neg Resp cx p CXR: Left mid lung and right midlung/right basilar airspace opacities which likely represent atelectasis, but pneumonia should be excluded clinically. CT A/P: 1. Hyperdensities along the course of the distal ureter are felt more likely to represent ovarian calcifications as opposed to distal ureteral calculus given lack of associated hydronephrosis. 2. Peripheral patchy ground glass opacities in the visualized lung bases, which are nonspecific and may be related to infectious/inflammatory airways disease but atypical/viral pneumonia should also be considered. 05/03 Renal US: Unremarkable 05/05 BCx NTD JARET vs CKD, Cr 4.8 - worsening DM2 on insulin Allergy to PCN - causes anaphylaxis Plan: Stop cefepime #6 for UTI/?pyelo Narrow abx to CTX 2g IV daily #1 for UTI/pyelo (abx day #7/14) Trend WBC 05/07 SP cefepime #6 05/06 SP dapto #1 05/05 SP vanco #4 Monitor CBC/CMP Monitor temp curve, hemodynamics Monitor resp status HD as per Nephro D/w RN Thank you for this consult. [facility] will continue to follow. Subjective Allergies: Coded Allergies: ACETAMINOPHEN (Verified Allergy, Severe, Shortness of Breath, 11/25/17) HYDROMORPHONE (Verified Allergy, Severe, 11/25/17) PENICILLINS (Verified Allergy, Severe, 11/25/17) PROCAINE (Verified Allergy, Severe, 11/25/17) SHELLFISH DERIVED (Verified Allergy, Severe, 11/25/17) CODEINE (Verified Allergy, Unknown, 11/25/17) Cantaloupe (Verified Allergy, Unknown, 11/25/17) STRAWBERRY (Verified Allergy, Unknown, 11/25/17) Uncoded Allergies: DUST, POLLEN (Allergy, Unknown, 07/19/17) AF On RA NAD Feeling about the same, overall OK WBC 13, improving Objective Last 24 Hour Vital Signs Date Time Temp Pulse Resp B/P (MAP) Pulse Ox O2 Delivery O2 Flow Rate FiO2 05/07/20 04:00 90 05/07/20 04:00 98.9 22 144/80 (101) 95 05/07/20 00:00 87 05/07/20 00:00 98.9 20 156/64 (94) 98 05/06/20 21:00 Room Air 05/06/20 20:00 99.2 22 124/66 (85) 94 05/06/20 20:00 87 05/06/20 16:00 86 05/06/20 16:00 98.0 16 126/46 (72) 97 05/06/20 12:00 88 05/06/20 12:00 97.6 18 125/52 (76) 99 05/06/20 09:00 Room Air 05/06/20 08:00 84 05/06/20 08:00 97.9 18 152/59 (90) 98 Height (Feet): 5 Height (Inches): 5.00 Weight (Pounds): 260 Gen: NAD in bed HEENT: NCAT, EOMI, PERRL CV: RRR Pulm: CTAB Abd: Soft, NTND Ext: No c/c/e Neuro: Awake, alert, interactive Lines: R IJ and R fem HD cath Microbiology Date/Time Source Procedure Growth Status 05/05/20 13:05 Blood Blood Culture - Preliminary NO GROWTH AFTER 24 HOURS Resulted 05/05/20 12:57 Blood Blood Culture - Preliminary NO GROWTH AFTER 24 HOURS Resulted Laboratory Tests Test 05/06/20 11:31 05/06/20 16:35 05/07/20 05:55 POC Whole Blood Glucose 174 MG/DL (74-106) H 217 MG/DL (74-106) H White Blood Count Pending Red Blood Count Pending Hemoglobin Pending Hematocrit Pending Mean Corpuscular Volume Pending Mean Corpuscular Hemoglobin Pending Mean Corpuscular Hemoglobin Concent Pending Red Cell Distribution Width Pending Platelet Count Pending Mean Platelet Volume Pending Neutrophils (%) (Auto) Pending Lymphocytes (%) (Auto) Pending Monocytes (%) (Auto) Pending Eosinophils (%) (Auto) Pending Basophils (%) (Auto) Pending Sodium Level Pending Potassium Level Pending Chloride Level Pending Carbon Dioxide Level Pending Blood Urea Nitrogen Pending Creatinine Pending Estimat Glomerular Filtration Rate Pending Glucose Level Pending Calcium Level Pending Phosphorus Level Pending Magnesium Level Pending Total Bilirubin Pending Aspartate Amino Transf (AST/SGOT) Pending Alanine Aminotransferase (ALT/SGPT) Pending Alkaline Phosphatase Pending Total Protein Pending Albumin Pending Globulin Pending Hepatitis B Surface Antigen Pending Hepatitis B Surface Antibody, Quant Pending Hepatitis C Antibody Pending Current Medications Medications (Trade) Dose Ordered Sig/Gwendolyn Route PRN Reason Start Time Stop Time Status Last Admin Dose Admin Albuterol/ Ipratropium (Albuterol/ Ipratropium) 3 ml Q4H PRN HHN Shortness of Breath 05/06/20 15:03 05/11/20 15:02 Cefepime HCl 500 mg/Dextrose 55 ml @ 110 mls/hr Q24H IV 05/05/20 13:00 05/12/20 12:59 05/06/20 13:40 Chlorhexidine Gluconate (Niki-Hex 2%) 1 applic DAILY@2000 TOPIC 05/05/20 20:00 08/03/20 19:59 05/06/20 20:57 Dextrose (Dextrose 50%) 25 ml Q30M PRN IV Hypoglycemia 05/02/20 14:45 07/31/20 14:44 Dextrose (Dextrose 50%) 50 ml Q30M PRN IV Hypoglycemia 05/02/20 14:45 07/31/20 14:44 Docusate Sodium (Colace) 100 mg THREE TIMES A DAY ORAL 05/03/20 13:00 06/02/20 12:59 05/05/20 08:39 Docusate Sodium (Colace) 100 mg TWICE A DAY ORAL 05/04/20 18:00 06/03/20 17:59 05/05/20 08:40 Heparin Sodium (Porcine) (Heparin 5000 units/ml) 5,000 units EVERY 12 HOURS SUBQ 05/02/20 21:00 06/16/20 20:59 05/06/20 20:58 Insulin Aspart (NovoLOG) BEFORE MEALS AND HS SUBQ 05/02/20 17:56 07/31/20 17:55 05/07/20 06:03 Ondansetron HCl (Zofran) 4 mg Q6H PRN IVP Nausea & Vomiting 05/02/20 14:45 06/01/20 14:44 05/05/20 02:11 Pantoprazole (Protonix) 40 mg EVERY 12 HOURS ORAL 05/03/20 11:00 06/02/20 10:59 05/06/20 20:57 Polyethylene Glycol (Miralax) 17 gm DAILYPRN PRN ORAL Constipation 05/02/20 14:45 06/01/20 14:44 Temazepam (Restoril) 15 mg HSPRN PRN ORAL Insomnia 05/02/20 14:45 05/09/20 14:44 Mala Enrique M.D. May 07, 2020 07:20
[2020-05-07 08:00] VITALS: BP 120/88
[2020-05-07 08:30] LABS: ALBUMIN 1.8 G/DL (3.4-5.0); ALBUMIN/GLOBULIN RATIO 0.5 (1.0-2.7); BILIRUBIN,TOTAL 0.5 MG/DL (0.2-1.0); CALCIUM 7.9 MG/DL (8.5-10.1); CREATININE 5.4 MG/DL (0.55-1.30); PHOSPHORUS 4.2 MG/DL (2.5-4.9); POTASSIUM 4.3 MMOL/L (3.5-5.1)
[2020-05-07] MEDS: Docusate 100mg cap ORAL SCH ×5 (08:44→17:45)
[2020-05-07] MEDS: Heparin 5000 units/ml inj SUBQ SCH ×2 (08:45→20:32)
--- NOTE | 2020-05-07 11:16 | Pulmonology Progress Note ---
Subjective ROS Limited/Unobtainable: Yes Interval Events: getting dialyzed HEENT: Repors: no symptoms Respiratory: Reports: no symptoms Allergies: Coded Allergies: ACETAMINOPHEN (Verified Allergy, Severe, Shortness of Breath, 11/25/17) HYDROMORPHONE (Verified Allergy, Severe, 11/25/17) PENICILLINS (Verified Allergy, Severe, 11/25/17) PROCAINE (Verified Allergy, Severe, 11/25/17) SHELLFISH DERIVED (Verified Allergy, Severe, 11/25/17) CODEINE (Verified Allergy, Unknown, 11/25/17) Cantaloupe (Verified Allergy, Unknown, 11/25/17) STRAWBERRY (Verified Allergy, Unknown, 11/25/17) Uncoded Allergies: DUST, POLLEN (Allergy, Unknown, 07/19/17) Objective Last 24 Hour Vital Signs Date Time Temp Pulse Resp B/P (MAP) Pulse Ox O2 Delivery O2 Flow Rate FiO2 05/07/20 08:00 90 05/07/20 08:00 98.3 16 120/88 (99) 100 05/07/20 04:00 90 05/07/20 04:00 98.9 22 144/80 (101) 95 05/07/20 00:00 87 05/07/20 00:00 98.9 20 156/64 (94) 98 05/06/20 21:00 Room Air 05/06/20 20:00 99.2 22 124/66 (85) 94 05/06/20 20:00 87 05/06/20 16:00 86 05/06/20 16:00 98.0 16 126/46 (72) 97 05/06/20 12:00 88 05/06/20 12:00 97.6 18 125/52 (76) 99 Intake and Output 05/06/20 05/07/20 19:00 07:00 Intake Total 1484 ml 400 ml Output Total 1600 ml 900 ml Balance -116 ml -500 ml Intake Oral 1374 ml 400 ml IV Total 110 ml Output Urine Total 1600 ml 900 ml General Appearance: WD/WN, no acute distress HEENT: atraumatic, anicteric Respiratory: chest wall non-tender, lungs clear, normal breath sounds Cardiovascular: normal peripheral pulses, normal rate Abdomen: normal bowel sounds, soft, non tender Genitourinary: normal external genitalia Extremities: no clubbing 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, normal mood/affect Lymphatic: no neck adenopathy Microbiology Date/Time Source Procedure Growth Status 05/05/20 13:05 Blood Blood Culture - Preliminary NO GROWTH AFTER 24 HOURS Resulted 05/05/20 12:57 Blood Blood Culture - Preliminary NO GROWTH AFTER 24 HOURS Resulted Laboratory Tests 05/06/20 11:31: POC Whole Blood Glucose 174H 05/06/20 16:35: POC Whole Blood Glucose 217H 05/07/20 05:55: White Blood Count 13.2H, Red Blood Count 3.37L, Hemoglobin 8.6L, Hematocrit 26.2L, Mean Corpuscular Volume 78L, Mean Corpuscular Hemoglobin 25.6L, Mean Corpuscular Hemoglobin Concent 32.9, Red Cell Distribution Width 17.1H, Platelet Count 254, Mean Platelet Volume 6.4L, Neutrophils (%) (Auto) 60.5, Lymphocytes (%) (Auto) 29.7, Monocytes (%) (Auto) 6.8, Eosinophils (%) (Auto) 1.9, Basophils (%) (Auto) 1.0, Sodium Level 138, Potassium Level 4.3, Chloride Level 103, Carbon Dioxide Level 24, Anion Gap 12, Blood Urea Nitrogen 48H, Creatinine 5.4H, Estimat Glomerular Filtration Rate 9.2, Glucose Level 169H, Calcium Level 7.9L, Phosphorus Level 4.2, Magnesium Level 2.3, Total Bilirubin 0.5, Aspartate Amino Transf (AST/SGOT) 28, Alanine Aminotransferase (ALT/SGPT) 19, Alkaline Phosphatase 114, Total Protein 5.7L, Albumin 1.8L, Globulin 3.9, Albu min/Globulin Ratio 0.5L, Hepatitis B Surface Antigen [Pending], Hepatitis B Surface Antibody, Quant [Pending], Hepatitis C Antibody [Pending] Current Medications Medications (Trade) Dose Ordered Sig/Gwendolyn Route PRN Reason Start Time Stop Time Status Last Admin Dose Admin Albuterol/ Ipratropium (Albuterol/ Ipratropium) 3 ml Q4H PRN HHN Shortness of Breath 05/06/20 15:03 05/11/20 15:02 Cefepime HCl 500 mg/Dextrose 55 ml @ 110 mls/hr Q24H IV 05/05/20 13:00 05/12/20 12:59 05/06/20 13:40 Chlorhexidine Gluconate (Niki-Hex 2%) 1 applic DAILY@1999 TOPIC 05/05/20 20:00 08/03/20 19:59 05/06/20 20:57 Dextrose (Dextrose 50%) 25 ml Q30M PRN IV Hypoglycemia 05/02/20 14:45 07/31/20 14:44 Dextrose (Dextrose 50%) 50 ml Q30M PRN IV Hypoglycemia 05/02/20 14:45 07/31/20 14:44 Docusate Sodium (Colace) 100 mg THREE TIMES A DAY ORAL 05/03/20 13:00 06/02/20 12:59 05/05/20 08:39 Docusate Sodium (Colace) 100 mg TWICE A DAY ORAL 05/04/20 18:00 06/03/20 17:59 05/05/20 08:40 Heparin Sodium (Porcine) (Heparin 5000 units/ml) 5,000 units EVERY 12 HOURS SUBQ 05/02/20 21:00 06/16/20 20:59 05/06/20 20:58 Insulin Aspart (NovoLOG) BEFORE MEALS AND HS SUBQ 05/02/20 17:56 07/31/20 17:55 05/07/20 06:03 Ondansetron HCl (Zofran) 4 mg Q6H PRN IVP Nausea & Vomiting 05/02/20 14:45 06/01/20 14:44 05/05/20 02:11 Pantoprazole (Protonix) 40 mg EVERY 12 HOURS ORAL 05/03/20 11:00 06/02/20 10:59 05/07/20 08:44 Polyethylene Glycol (Miralax) 17 gm DAILYPRN PRN ORAL Constipation 05/02/20 14:45 06/01/20 14:44 Temazepam (Restoril) 15 mg HSPRN PRN ORAL Insomnia 05/02/20 14:45 05/09/20 14:44 Assessment/Plan Problems: (1) Sepsis (2) ATN (acute tubular necrosis) (3) HTN (hypertension) (4) Diabetes mellitus (5) JARET (acute kidney injury) (6) Anemia (7) Bacteremia (8) Morbid obesity Assessment/Plan wbc lower HD today doing better all reviewed murillo culture nephrology to follow sliding scale diabetic diet dvt prophylaxis. Umu Apple MD May 07, 2020 11:16
--- NOTE | 2020-05-07 11:49 | Nephrology Progress Note ---
Assessment/Plan Problem List: (1) JARET (acute kidney injury) (2) Diabetic nephropathy (3) Anemia (4) Morbid obesity Assessment Acute renal failure Diabetes mellitus, diabetic nephropathy Hypoalbuminemia rule out nephrotic syndrome Anemia Sepsis History of hypertension History of anxiety disorder History of asthma/bronchitis Plan May 07: Due for dialysis today. Labs reviewed. Medication list reviewed. Continue per consultants. Epogen and iron ordered for anemia. May 06: Dialysis catheter is being replaced from the groin to the subclavian area today. We will attend dialysis tomorrow. Continue per consultants. May 05: Patient seen this morning during dialysis. Tolerating well. Continue to monitor renal parameters. May 04: Labs reviewed. Discussed with RN. Serum creatinine higher. Patient requires hemodialysis treatment for acute renal failure. Kidney ultrasound reviewed. Continue to monitor renal parameters and avoid nephrotoxic's. Patient consented for placement of temporary dialysis catheter May 03: Arriaza catheter Kidney ultrasound 2D echocardiogram Urine studies The blood pressure and blood sugar in check Avoid nephrotoxic's Antibiotics Subjective ROS Limited/Unobtainable: No Constitutional: Reports: malaise Objective Objective Last 24 Hour Vital Signs Date Time Temp Pulse Resp B/P (MAP) Pulse Ox O2 Delivery O2 Flow Rate FiO2 05/07/20 08:00 90 05/07/20 08:00 98.3 16 120/88 (99) 100 05/07/20 04:00 90 05/07/20 04:00 98.9 22 144/80 (101) 95 05/07/20 00:00 87 05/07/20 00:00 98.9 20 156/64 (94) 98 05/06/20 21:00 Room Air 05/06/20 20:00 99.2 22 124/66 (85) 94 05/06/20 20:00 87 05/06/20 16:00 86 05/06/20 16:00 98.0 16 126/46 (72) 97 05/06/20 12:00 88 05/06/20 12:00 97.6 18 125/52 (76) 99 Intake and Output 05/06/20 05/07/20 19:00 07:00 Intake Total 1484 ml 400 ml Output Total 1600 ml 900 ml Balance -116 ml -500 ml Intake Oral 1374 ml 400 ml IV Total 110 ml Output Urine Total 1600 ml 900 ml Current Medications Medications (Trade) Dose Ordered Sig/Gwendolyn Route PRN Reason Start Time Stop Time Status Last Admin Dose Admin Albuterol/ Ipratropium (Albuterol/ Ipratropium) 3 ml Q4H PRN HHN Shortness of Breath 05/06/20 15:03 05/11/20 15:02 Cefepime HCl 500 mg/Dextrose 55 ml @ 110 mls/hr Q24H IV 05/05/20 13:00 05/12/20 12:59 05/06/20 13:40 Chlorhexidine Gluconate (Niki-Hex 2%) 1 applic DAILY@2000 TOPIC 05/05/20 20:00 08/03/20 19:59 05/06/20 20:57 Dextrose (Dextrose 50%) 25 ml Q30M PRN IV Hypoglycemia 05/02/20 14:45 07/31/20 14:44 Dextrose (Dextrose 50%) 50 ml Q30M PRN IV Hypoglycemia 05/02/20 14:45 07/31/20 14:44 Docusate Sodium (Colace) 100 mg THREE TIMES A DAY ORAL 05/03/20 13:00 06/02/20 12:59 05/05/20 08:39 Docusate Sodium (Colace) 100 mg TWICE A DAY ORAL 05/04/20 18:00 06/03/20 17:59 05/05/20 08:40 Heparin Sodium (Porcine) (Heparin 5000 units/ml) 5,000 units EVERY 12 HOURS SUBQ 05/02/20 21:00 06/16/20 20:59 05/06/20 20:58 Insulin Aspart (NovoLOG) BEFORE MEALS AND HS SUBQ 05/02/20 17:56 07/31/20 17:55 05/07/20 06:03 Ondansetron HCl (Zofran) 4 mg Q6H PRN IVP Nausea & Vomiting 05/02/20 14:45 06/01/20 14:44 05/05/20 02:11 Pantoprazole (Protonix) 40 mg EVERY 12 HOURS ORAL 05/03/20 11:00 06/02/20 10:59 05/07/20 08:44 Polyethylene Glycol (Miralax) 17 gm DAILYPRN PRN ORAL Constipation 05/02/20 14:45 06/01/20 14:44 Temazepam (Restoril) 15 mg HSPRN PRN ORAL Insomnia 05/02/20 14:45 05/09/20 14:44 Laboratory Tests 05/06/20 16:35: POC Whole Blood Glucose 217H 05/07/20 05:55: White Blood Count 13.2H, Red Blood Count 3.37L, Hemoglobin 8.6L, Hematocrit 26.2L, Mean Corpuscular Volume 78L, Mean Corpuscular Hemoglobin 25.6L, Mean Corpuscular Hemoglobin Concent 32.9, Red Cell Distribution Width 17.1H, Platelet Count 254, Mean Platelet Volume 6.4L, Neutrophils (%) (Auto) 60.5, Lymphocytes (%) (Auto) 29.7, Monocytes (%) (Auto) 6.8, Eosinophils (%) (Auto) 1.9, Basophils (%) (Auto) 1.0, Sodium Level 138, Potassium Level 4.3, Chloride Level 103, Carbon Dioxide Level 24, Anion Gap 12, Blood Urea Nitrogen 48H, Creatinine 5.4H, Estimat Glomerular Filtration Rate 9.2, Glucose Level 169H, Calcium Level 7.9L, Phosphorus Level 4.2, Magnesium Level 2.3, Total Bilirubin 0.5, Aspartate Amino Transf (AST/SGOT) 28, Alanine Aminotransferase (ALT/SGPT) 19, Alkaline Phosphatase 114, Total Protein 5.7L, Albumin 1.8L, Globulin 3.9, Albumin/Globulin Ratio 0.5L, Hepatitis B Surface Antigen [Pending], Hepatitis B Surface Antibody, Quant [Pending], Hepatitis C Antibody [Pending] Height (Feet): 5 Height (Inches): 5.00 Weight (Pounds): 260 General Appearance: no apparent distress Cardiovascular: tachycardia - Rate early 90s Respiratory/Chest: decreased breath sounds Abdomen: soft Perry Abernathy MD May 07, 2020 11:49
[2020-05-07 12:00] VITALS: BP 156/67
--- NOTE | 2020-05-07 13:15 | Surgery Progress Note ---
Surgery Progress Note Subjective Procedure Performed right femoral temporary hemodialysis line insertion Additional Comments right IJ temp hd cath place plan to remove right fem once used for HD complete no n/v comfortable Objective Last 24 Hour Vital Signs Date Time Temp Pulse Resp B/P (MAP) Pulse Ox O2 Delivery O2 Flow Rate FiO2 05/07/20 12:00 98.4 16 156/67 (96) 98 05/07/20 09:00 Room Air 05/07/20 08:00 90 05/07/20 08:00 98.3 16 120/88 (99) 100 05/07/20 04:00 90 05/07/20 04:00 98.9 22 144/80 (101) 95 05/07/20 00:00 87 05/07/20 00:00 98.9 20 156/64 (94) 98 05/06/20 21:00 Room Air 05/06/20 20:00 99.2 22 124/66 (85) 94 05/06/20 20:00 87 05/06/20 16:00 86 05/06/20 16:00 98.0 16 126/46 (72) 97 I&O Intake and Output 05/06/20 05/07/20 19:00 07:00 Intake Total 1484 ml 400 ml Output Total 1600 ml 900 ml Balance -116 ml -500 ml Intake Oral 1374 ml 400 ml IV Total 110 ml Output Urine Total 1600 ml 900 ml Dressing: saturated Cardiovascular: RSR Respiratory: decreased breath sounds Abdomen: non-tender, present bowel sounds Extremities: no edema, no tenderness, no cyanosis Laboratory Tests Test 05/06/20 16:35 05/07/20 05:55 05/07/20 11:58 POC Whole Blood Glucose 217 MG/DL (74-106) H 156 MG/DL (74-106) H White Blood Count 13.2 K/UL (4.8-10.8) H Red Blood Count 3.37 M/UL (4.20-5.40) L Hemoglobin 8.6 G/DL (12.0-16.0) L Hematocrit 26.2 % (37.0-47.0) L Mean Corpuscular Volume 78 FL (80-99) L Mean Corpuscular Hemoglobin 25.6 PG (27.0-31.0) L Mean Corpuscular Hemoglobin Concent 32.9 G/DL (32.0-36.0) Red Cell Distribution Width 17.1 % (11.6-14.8) H Platelet Count 254 K/UL (150-450) Mean Platelet Volume 6.4 FL (6.5-10.1) L Neutrophils (%) (Auto) 60.5 % (45.0-75.0) Lymphocytes (%) (Auto) 29.7 % (20.0-45.0) Monocytes (%) (Auto) 6.8 % (1.0-10.0) Eosinophils (%) (Auto) 1.9 % (0.0-3.0) Basophils (%) (Auto) 1.0 % (0.0-2.0) Sodium Level 138 MMOL/L (136-145) Potassium Level 4.3 MMOL/L (3.5-5.1) Chloride Level 103 MMOL/L (98-107) Carbon Dioxide Level 24 MMOL/L (21-32) Anion Gap 12 mmol/L (5-15) Blood Urea Nitrogen 48 mg/dL (7-18) H Creatinine 5.4 MG/DL (0.55-1.30) H Estimat Glomerular Filtration Rate 9.2 mL/min (>60) Glucose Level 169 MG/DL (74-106) H Calcium Level 7.9 MG/DL (8.5-10.1) L Phosphorus Level 4.2 MG/DL (2.5-4.9) Magnesium Level 2.3 MG/DL (1.8-2.4) Total Bilirubin 0.5 MG/DL (0.2-1.0) Aspartate Amino Transf (AST/SGOT) 28 U/L (15-37) Alanine Aminotransferase (ALT/SGPT) 19 U/L (12-78) Alkaline Phosphatase 114 U/L (46-116) Total Protein 5.7 G/DL (6.4-8.2) L Albumin 1.8 G/DL (3.4-5.0) L Globulin 3.9 g/dL Albumin/Globulin Ratio 0.5 (1.0-2.7) L Hepatitis B Surface Antigen Pending Hepatitis B Surface Antibody, Quant Pending Hepatitis C Antibody Pending Plan Problems: (1) Abdominal pain Assessment & Plan: leukocytosis anemia ct noted cramping pain likely constipated ct reviewed exam fairly benign okay for diet bowel regimen will follow with exam and recs Lower chest:: Bibasilar subsegmental atelectasis. There are peripheral patchy ground glass opacities. Hepatobiliary:: Unremarkable. Genitourinary:: Uterus is not visualized and may be surgically absent. Redemonstration of bilateral perinephric fat stranding. No hydronephrosis. Urinary bladder is under distended, limiting evaluation. Calcifications are noted in the right ovary along the course of the distal ureter. Adrenals:: Nonspecific bilateral adrenal gland thickening. Pancreas:: Mild pancreatic parenchymal atrophy. Gastrointestinal:: Appendix is normal. No evidence of obstruction. Spleen: : Unremarkable. Peritoneum:: No free air or free fluid. Moderate broad-based fat-containing umbilical hernia. Bones and soft tissues:: There are multilevel discogenic degenerative changes of the visualized spine. IMPRESSION: 1. Hyperdensities along the course of the distal ureter are felt more likely to represent ovarian calcifications as opposed to distal ureteral calculus given lack of associated hydronephrosis. 2. Peripheral patchy ground glass opacities in the visualized lung bases, which are nonspecific and may be related to infectious/inflammatory airways disease but atypical/viral pneumonia should also be considered. (2) UTI (urinary tract infection) (3) Diabetes mellitus (4) HTN (hypertension) (5) Sepsis (6) ATN (acute tubular necrosis) (7) JARET (acute kidney injury) (8) Anemia (9) Diabetic nephropathy (10) Morbid obesity (11) Bacteremia (12) Rash and other nonspecific skin eruption (13) Electrolyte disorder (14) Neck strain Edgardo Saavedra May 07, 2020 13:15
[2020-05-07] MEDS: cefTRIAXone 2 GM in D5W 55 ML IVPB SCH (14:19)
[2020-05-07] MEDS ORDERED: Iron Sucrose 200 MG in NS 110 ML IVPB SCH (15:00)
[2020-05-07 16:00] VITALS: BP 140/65
--- NOTE | 2020-05-07 17:24 | Internal Med Progress Note ---
Subjective Date of Service: May 07, 2020 Physician Name MagaliGarett Attending Physician Daron Batres MD Current Medications Medications (Trade) Dose Ordered Sig/Gwendolyn Route PRN Reason Start Time Stop Time Status Last Admin Dose Admin Albuterol/ Ipratropium (Albuterol/ Ipratropium) 3 ml Q4H PRN HHN Shortness of Breath 05/06/20 15:03 05/11/20 15:02 Ceftriaxone Sodium 2 gm/ Dextrose 55 ml @ 110 mls/hr Q24H IVPB 05/07/20 14:00 05/14/20 13:59 05/07/20 14:19 Chlorhexidine Gluconate (Niki-Hex 2%) 1 applic DAILY@2000 TOPIC 05/05/20 20:00 08/03/20 19:59 05/06/20 20:57 Dextrose (Dextrose 50%) 25 ml Q30M PRN IV Hypoglycemia 05/02/20 14:45 07/31/20 14:44 Dextrose (Dextrose 50%) 50 ml Q30M PRN IV Hypoglycemia 05/02/20 14:45 07/31/20 14:44 Docusate Sodium (Colace) 100 mg THREE TIMES A DAY ORAL 05/03/20 13:00 06/02/20 12:59 05/05/20 08:39 Docusate Sodium (Colace) 100 mg TWICE A DAY ORAL 05/04/20 18:00 06/03/20 17:59 05/05/20 08:40 Epoetin Nicholas (Epoetin Nicholas(ESRD on dialysis)) 10,000 unit WED-WED-WED SUBQ 05/08/20 21:00 08/06/20 20:59 Heparin Sodium (Porcine) (Heparin 5000 units/ml) 5,000 units EVERY 12 HOURS SUBQ 05/02/20 21:00 06/16/20 20:59 05/06/20 20:58 Insulin Aspart (NovoLOG) BEFORE MEALS AND HS SUBQ 05/02/20 17:56 07/31/20 17:55 05/07/20 17:11 Ondansetron HCl (Zofran) 4 mg Q6H PRN IVP Nausea & Vomiting 05/02/20 14:45 06/01/20 14:44 05/05/20 02:11 Pantoprazole (Protonix) 40 mg EVERY 12 HOURS ORAL 05/03/20 11:00 06/02/20 10:59 05/07/20 08:44 Polyethylene Glycol (Miralax) 17 gm DAILYPRN PRN ORAL Constipation 05/02/20 14:45 06/01/20 14:44 Temazepam (Restoril) 15 mg HSPRN PRN ORAL Insomnia 05/02/20 14:45 05/09/20 14:44 Allergies: Coded Allergies: ACETAMINOPHEN (Verified Allergy, Severe, Shortness of Breath, 11/25/17) HYDROMORPHONE (Verified Allergy, Severe, 11/25/17) PENICILLINS (Verified Allergy, Severe, 11/25/17) PROCAINE (Verified Allergy, Severe, 11/25/17) SHELLFISH DERIVED (Verified Allergy, Severe, 11/25/17) CODEINE (Verified Allergy, Unknown, 11/25/17) Cantaloupe (Verified Allergy, Unknown, 11/25/17) STRAWBERRY (Verified Allergy, Unknown, 11/25/17) Uncoded Allergies: DUST, POLLEN (Allergy, Unknown, 07/19/17) ROS Limited/Unobtainable: No Constitutional: Reports: no symptoms HEENT: Reports: no symptoms Cardiovascular: Reports: no symptoms Respiratory: Reports: no symptoms Gastrointestinal/Abdominal: Reports: no symptoms Genitourinary: Reports: no symptoms Neurologic/Psychiatric: Reports: no symptoms Subjective Patient admitted with hypotension and dehydration. Now UTI and Sepsis. Cover for Int Stanley-Dr Batres Objective Last Vital Signs Date Time Temp Pulse Resp B/P (MAP) Pulse Ox O2 Delivery O2 Flow Rate FiO2 05/07/20 16:00 98.1 17 140/65 (90) 96 05/07/20 15:45 87 05/07/20 09:00 Room Air 05/02/20 23:00 99 Laboratory Tests Test 05/07/20 05:55 05/07/20 11:58 05/07/20 17:03 White Blood Count 13.2 K/UL (4.8-10.8) H Red Blood Count 3.37 M/UL (4.20-5.40) L Hemoglobin 8.6 G/DL (12.0-16.0) L Hematocrit 26.2 % (37.0-47.0) L Mean Corpuscular Volume 78 FL (80-99) L Mean Corpuscular Hemoglobin 25.6 PG (27.0-31.0) L Mean Corpuscular Hemoglobin Concent 32.9 G/DL (32.0-36.0) Red Cell Distribution Width 17.1 % (11.6-14.8) H Platelet Count 254 K/UL (150-450) Mean Platelet Volume 6.4 FL (6.5-10.1) L Neutrophils (%) (Auto) 60.5 % (45.0-75.0) Lymphocytes (%) (Auto) 29.7 % (20.0-45.0) Monocytes (%) (Auto) 6.8 % (1.0-10.0) Eosinophils (%) (Auto) 1.9 % (0.0-3.0) Basophils (%) (Auto) 1.0 % (0.0-2.0) Sodium Level 138 MMOL/L (136-145) Potassium Level 4.3 MMOL/L (3.5-5.1) Chloride Level 103 MMOL/L (98-107) Carbon Dioxide Level 24 MMOL/L (21-32) Anion Gap 12 mmol/L (5-15) Blood Urea Nitrogen 48 mg/dL (7-18) H Creatinine 5.4 MG/DL (0.55-1.30) H Estimat Glomerular Filtration Rate 9.2 mL/min (>60) Glucose Level 169 MG/DL (74-106) H Calcium Level 7.9 MG/DL (8.5-10.1) L Phosphorus Level 4.2 MG/DL (2.5-4.9) Magnesium Level 2.3 MG/DL (1.8-2.4) Total Bilirubin 0.5 MG/DL (0.2-1.0) Aspartate Amino Transf (AST/SGOT) 28 U/L (15-37) Alanine Aminotransferase (ALT/SGPT) 19 U/L (12-78) Alkaline Phosphatase 114 U/L (46-116) Total Protein 5.7 G/DL (6.4-8.2) L Albumin 1.8 G/DL (3.4-5.0) L Globulin 3.9 g/dL Albumin/Globulin Ratio 0.5 (1.0-2.7) L Hepatitis B Surface Antigen Pending Hepatitis B Surface Antibody, Quant Pending Hepatitis C Antibody Pending POC Whole Blood Glucose 156 MG/DL (74-106) H 167 MG/DL (74-106) H Microbiology Date/Time Source Procedure Growth Status 05/05/20 13:05 Blood Blood Culture - Preliminary NO GROWTH AFTER 24 HOURS Resulted 05/05/20 12:57 Blood Blood Culture - Preliminary NO GROWTH AFTER 24 HOURS Resulted Intake and Output 0 05/06/20 05/07/20 19:00 07:00 Intake Total 1484 ml 400 ml Output Total 1600 ml 900 ml Balance -116 ml -500 ml Intake Oral 1374 ml 400 ml IV Total 110 ml Output Urine Total 1600 ml 900 ml Objective PHYSICAL EXAMINATION: GENERAL: Patient is awake and responsive, in no acute distress. HEAD AND NECK: Pupils are reactive to light. Extraocular movements are intact. Neck was supple. No JVD. LUNGS: Good air entry. No wheezing or rales. HEART: S1 and S2. Distant heart sounds. No murmur or gallops. ABDOMEN: Soft, nondistended. Tenderness on the suprapubic area on deep palpation, morbid obesity. EXTREMITIES: No cyanosis, clubbing, or edema. NEUROLOGIC: Cranial nerves II through XII are grossly intact. Motor is 5/5 in all the extremities. Gait was not assessed due to patient's status. RECTAL AND GENITOURINARY: Refused and deferred. PSYCHIATRIC: Mood and affect are intact. Assessment/Plan Assessment/Plan ASSESSMENT: 1. Sepsis = Staph epi 2. Dehydration. 3. Acute renal failure. 4. Morbid obesity. 5. Diabetes type 2. 6. Hypoalbuminemia. 7. Anxiety disorder. 8. Anemia of chronic disease. 9. Urinary tract infection=E. Coli PLAN: 1. Admit the patient to monitor unit. 2. ABX=ceftriaxone 3. Dr. Apple=Pulmonary, Critical Care 4. Dr. Enrique = Infectious Disease 5. Dr. Perry Abernathy = Nephrology. Renal ultrasound of=WNL 6. Code status is Full code. 7. DVT prophylaxis= heparin subcutaneous. 8. Hemodialysis 05/07/20 Garett De Los Santos MD May 07, 2020 17:24
[2020-05-07 20:00] VITALS: BP 145/65
[2020-05-07] MEDS: Dyna-Hex 2% Top Sol 2oz TOPIC SCH (20:31)
[2020-05-07] MEDS ORDERED: Tubing IV Secondary IV ONE (22:30)
[2020-05-08] VITALS (7 sets, daily range): BP systolic 117–142; BP diastolic 55–78
[2020-05-08] MEDS: NovoLOG Insulin Flexpen SUBQ SCH ×4 (05:40→20:32)
--- NOTE | 2020-05-08 08:02 | Infectious Diseases Prog Note ---
Assessment/Plan 79yo F with: Afebrile Leukocytosis to 39, improving Abd pain UTI, R CVAT, ?Pyelo Staph epi bacteremia, likely contaminant 05/02 BCx 1/2 +Staph epi, likely skin contaminant UCx >100k E.coli, murillo-S COVID rapid test neg, COVID PCR neg Resp cx p CXR: Left mid lung and right midlung/right basilar airspace opacities which likely represent atelectasis, but pneumonia should be excluded clinically. CT A/P: 1. Hyperdensities along the course of the distal ureter are felt more likely to represent ovarian calcifications as opposed to distal ureteral calculus given lack of associated hydronephrosis. 2. Peripheral patchy ground glass opacities in the visualized lung bases, which are nonspecific and may be related to infectious/inflammatory airways disease but atypical/viral pneumonia should also be considered. 05/03 Renal US: Unremarkable 05/05 BCx NTD JARET vs CKD, Cr 4.8 - worsening DM2 on insulin Allergy to PCN - causes anaphylaxis Plan: Cont CTX 2g IV daily #2 for UTI/pyelo (abx day #01/04) On d/c can change to levofloxacin 250mg PO daily to complete rest of course Remove R fem HD cath BETHANY, infection risk Trend WBC 05/07 SP cefepime #6 05/06 SP dapto #1 05/05 SP vanco #4 Monitor CBC/CMP Monitor temp curve, hemodynamics Monitor resp status HD as per Nephro D/w RN Thank you for this consult. [facility] will continue to follow. Subjective Allergies: Coded Allergies: ACETAMINOPHEN (Verified Allergy, Severe, Shortness of Breath, 11/25/17) HYDROMORPHONE (Verified Allergy, Severe, 11/25/17) PENICILLINS (Verified Allergy, Severe, 11/25/17) PROCAINE (Verified Allergy, Severe, 11/25/17) SHELLFISH DERIVED (Verified Allergy, Severe, 11/25/17) CODEINE (Verified Allergy, Unknown, 11/25/17) Cantaloupe (Verified Allergy, Unknown, 11/25/17) STRAWBERRY (Verified Allergy, Unknown, 11/25/17) Uncoded Allergies: DUST, POLLEN (Allergy, Unknown, 07/19/17) AF On RA NAD WBC 11, improving Still has [address] Feeling fine Objective Last 24 Hour Vital Signs Date Time Temp Pulse Resp B/P (MAP) Pulse Ox O2 Delivery O2 Flow Rate FiO2 05/08/20 04:00 93 05/08/20 04:00 98.1 81 20 135/61 (85) 94 05/08/20 00:00 89 05/08/20 00:00 98.5 20 140/57 (84) 94 05/07/20 21:00 Room Air 05/07/20 20:00 82 05/07/20 20:00 97.4 24 145/65 (91) 92 05/07/20 16:00 98.1 17 140/65 (90) 96 05/07/20 15:45 87 05/07/20 12:00 89 05/07/20 12:00 98.4 16 156/67 (96) 98 05/07/20 09:00 Room Air Height (Feet): 5 Height (Inches): 5.00 Weight (Pounds): 260 Gen: NAD in bed HEENT: NCAT, EOMI, PERRL CV: RRR Pulm: CTAB Abd: Soft, NTND Ext: No c/c/e Neuro: Awake, alert, interactive Lines: R IJ and R fem HD cath Microbiology Date/Time Source Procedure Growth Status 05/05/20 13:05 Blood Blood Culture - Preliminary NO GROWTH AFTER 24 HOURS Resulted 05/05/20 12:57 Blood Blood Culture - Preliminary NO GROWTH AFTER 24 HOURS Resulted Laboratory Tests Test 05/07/20 11:58 05/07/20 17:03 POC Whole Blood Glucose 156 MG/DL (74-106) H 167 MG/DL (74-106) H Current Medications Medications (Trade) Dose Ordered Sig/Gwendolyn Route PRN Reason Start Time Stop Time Status Last Admin Dose Admin Albuterol/ Ipratropium (Albuterol/ Ipratropium) 3 ml Q4H PRN HHN Shortness of Breath 05/06/20 15:03 05/11/20 15:02 Ceftriaxone Sodium 2 gm/ Dextrose 55 ml @ 110 mls/hr Q24H IVPB 05/07/20 14:00 05/14/20 13:59 05/07/20 14:19 Chlorhexidine Gluconate (Niki-Hex 2%) 1 applic DAILY@1999 TOPIC 05/05/20 20:00 08/03/20 19:59 05/07/20 20:31 Dextrose (Dextrose 50%) 25 ml Q30M PRN IV Hypoglycemia 05/02/20 14:45 07/31/20 14:44 Dextrose (Dextrose 50%) 50 ml Q30M PRN IV Hypoglycemia 05/02/20 14:45 07/31/20 14:44 Docusate Sodium (Colace) 100 mg TWICE A DAY ORAL 05/04/20 18:00 06/03/20 17:59 05/05/20 08:40 Epoetin Nicholas (Epoetin Nicholas(ESRD on dialysis)) 10,000 unit WED-WED-WED SUBQ 05/08/20 21:00 08/06/20 20:59 Heparin Sodium (Porcine) (Heparin 5000 units/ml) 5,000 units EVERY 12 HOURS SUBQ 05/02/20 21:00 06/16/20 20:59 05/07/20 20:32 Insulin Aspart (NovoLOG) BEFORE MEALS AND HS SUBQ 05/02/20 17:56 07/31/20 17:55 05/08/20 05:40 Ondansetron HCl (Zofran) 4 mg Q6H PRN IVP Nausea & Vomiting 05/02/20 14:45 06/01/20 14:44 05/05/20 02:11 Pantoprazole (Protonix) 40 mg EVERY 12 HOURS ORAL 05/03/20 11:00 06/02/20 10:59 05/07/20 20:31 Polyethylene Glycol (Miralax) 17 gm DAILYPRN PRN ORAL Constipation 05/02/20 14:45 06/01/20 14:44 Temazepam (Restoril) 15 mg HSPRN PRN ORAL Insomnia 05/02/20 14:45 05/09/20 14:44 Mala Enrique M.D. May 08, 2020 08:02
[2020-05-08] MEDS: Docusate 100mg cap ORAL SCH ×3 (08:03→17:13)
[2020-05-08] MEDS: Heparin 5000 units/ml inj SUBQ SCH ×2 (08:04→20:23)
[2020-05-08 08:58] LABS: BASOPHILS % (AUTO) 1.4 % (0.0-2.0); EOSINOPHILS % (AUTO) 1.6 % (0.0-3.0); HEMATOCRIT 28.2 % (37.0-47.0); HEMOGLOBIN 9.3 G/DL (12.0-16.0); LYMPHOCYTES % (AUTO) 38.3 % (20.0-45.0); MEAN CORPUSCULAR VOLUME 77 FL (80-99); MONOCYTES % (AUTO) 5.4 % (1.0-10.0); NEUTROPHILS % (AUTO) 53.4 % (45.0-75.0); PLATELET COUNT 203 K/UL (150-450); RED BLOOD COUNT 3.65 M/UL (4.20-5.40); RED CELL DISTRIBUTION WIDTH 17.1 % (11.6-14.8); WHITE BLOOD COUNT 11.5 K/UL (4.8-10.8)
[2020-05-08 09:11] LABS: CALCIUM 8.3 MG/DL (8.5-10.1); POTASSIUM 4.4 MMOL/L (3.5-5.1)
--- NOTE | 2020-05-08 11:43 | Pulmonology Progress Note ---
Subjective ROS Limited/Unobtainable: No Interval Events: getting dialyzed HEENT: Repors: no symptoms Respiratory: Reports: no symptoms Allergies: Coded Allergies: ACETAMINOPHEN (Verified Allergy, Severe, Shortness of Breath, 11/25/17) HYDROMORPHONE (Verified Allergy, Severe, 11/25/17) PENICILLINS (Verified Allergy, Severe, 11/25/17) PROCAINE (Verified Allergy, Severe, 11/25/17) SHELLFISH DERIVED (Verified Allergy, Severe, 11/25/17) CODEINE (Verified Allergy, Unknown, 11/25/17) Cantaloupe (Verified Allergy, Unknown, 11/25/17) STRAWBERRY (Verified Allergy, Unknown, 11/25/17) Uncoded Allergies: DUST, POLLEN (Allergy, Unknown, 07/19/17) Objective Last 24 Hour Vital Signs Date Time Temp Pulse Resp B/P (MAP) Pulse Ox O2 Delivery O2 Flow Rate FiO2 05/08/20 09:00 Room Air 05/08/20 08:00 93 05/08/20 08:00 97.8 84 20 142/65 (90) 95 05/08/20 04:00 93 05/08/20 04:00 98.1 81 20 135/61 (85) 94 05/08/20 00:00 89 05/08/20 00:00 98.5 20 140/57 (84) 94 05/07/20 21:00 Room Air 05/07/20 20:00 82 05/07/20 20:00 97.4 24 145/65 (91) 92 05/07/20 16:00 98.1 17 140/65 (90) 96 05/07/20 15:45 87 05/07/20 12:00 89 05/07/20 12:00 98.4 16 156/67 (96) 98 Intake and Output 05/07/20 05/08/20 19:00 07:00 Intake Total 240 ml 600 ml Output Total 400 ml 1450 ml Balance -160 ml -850 ml Intake Oral 120 ml 600 ml IV Total 120 ml Output Urine Total 400 ml 1450 ml # Bowel Movements 1 General Appearance: WD/WN, no acute distress HEENT: atraumatic, anicteric Respiratory: chest wall non-tender, lungs clear, normal breath sounds Cardiovascular: normal peripheral pulses, normal rate Abdomen: normal bowel sounds, soft, non tender Genitourinary: normal external genitalia Extremities: no clubbing Neurologic: treatment supervisor II-XII grossly normal, normal mood/affect Lymphatic: no neck adenopathy Microbiology Date/Time Source Procedure Growth Status 05/05/20 13:05 Blood Blood Culture - Preliminary NO GROWTH AFTER 24 HOURS Resulted 05/05/20 12:57 Blood Blood Culture - Preliminary NO GROWTH AFTER 24 HOURS Resulted Laboratory Tests 05/07/20 11:58: POC Whole Blood Glucose 156H 05/07/20 17:03: POC Whole Blood Glucose 167H 05/08/20 07:50: White Blood Count 11.5H, Red Blood Count 3.65L, Hemoglobin 9.3L, Hematocrit 28.2L, Mean Corpuscular Volume 77L, Mean Corpuscular Hemoglobin 25.6L, Mean Corpuscular Hemoglobin Concent 33.1, Red Cell Distribution Width 17.1H, Platelet Count 203, Mean Platelet Volume 6.2L, Neutrophils (%) (Auto) 53.4, Lymphocytes (%) (Auto) 38.3, Monocytes (%) (Auto) 5.4, Eosinophils (%) (Auto) 1.6, Basophils (%) (Auto) 1.4, Sodium Level 142, Potassium Level 4.4, Chloride Level 108H, Carbon Dioxide Level 26, Anion Gap 8, Blood Urea Nitrogen 32H, Creatinine 4.0H, Estimat Glomerular Filtration Rate 13.1, Glucose Level 146H, Calcium Level 8.3L Current Medications Medications (Trade) Dose Ordered Sig/Gwendolyn Route PRN Reason Start Time Stop Time Status Last Admin Dose Admin Albuterol/ Ipratropium (Albuterol/ Ipratropium) 3 ml Q4H PRN HHN Shortness of Breath 05/06/20 15:03 05/11/20 15:02 Ceftriaxone Sodium 2 gm/ Dextrose 55 ml @ 110 mls/hr Q24H IVPB 05/07/20 14:00 05/14/20 13:59 05/07/20 14:19 Chlorhexidine Gluconate (Niki-Hex 2%) 1 applic DAILY@1999 TOPIC 05/05/20 20:00 08/03/20 19:59 05/07/20 20:31 Dextrose (Dextrose 50%) 25 ml Q30M PRN IV Hypoglycemia 05/02/20 14:45 07/31/20 14:44 Dextrose (Dextrose 50%) 50 ml Q30M PRN IV Hypoglycemia 05/02/20 14:45 07/31/20 14:44 Docusate Sodium (Colace) 100 mg TWICE A DAY ORAL 05/04/20 18:00 06/03/20 17:59 05/05/20 08:40 Epoetin Nicholas (Epoetin Nicholas(ESRD on dialysis)) 10,000 unit WED-WED-WED SUBQ 05/08/20 21:00 08/06/20 20:59 Heparin Sodium (Porcine) (Heparin 5000 units/ml) 5,000 units EVERY 12 HOURS SUBQ 05/02/20 21:00 06/16/20 20:59 05/08/20 08:04 Insulin Aspart (NovoLOG) BEFORE MEALS AND HS SUBQ 05/02/20 17:56 07/31/20 17:55 05/08/20 05:40 Ondansetron HCl (Zofran) 4 mg Q6H PRN IVP Nausea & Vomiting 05/02/20 14:45 06/01/20 14:44 05/05/20 02:11 Pantoprazole (Protonix) 40 mg EVERY 12 HOURS ORAL 05/03/20 11:00 06/02/20 10:59 05/08/20 08:04 Polyethylene Glycol (Miralax) 17 gm DAILYPRN PRN ORAL Constipation 05/02/20 14:45 06/01/20 14:44 Temazepam (Restoril) 15 mg HSPRN PRN ORAL Insomnia 05/02/20 14:45 05/09/20 14:44 Assessment/Plan Problems: (1) Sepsis (2) ATN (acute tubular necrosis) (3) JARET (acute kidney injury) (4) HTN (hypertension) (5) Diabetes mellitus (6) Anemia (7) Bacteremia (8) Morbid obesity Assessment/Plan wbc lower remove femoral line today doing better all reviewed murillo culture, on Ceftriaxone nephrology to follow sliding scale diabetic diet dvt prophylaxis. Umu Apple MD May 08, 2020 11:43
--- NOTE | 2020-05-08 11:52 | Internal Med Progress Note ---
Subjective Date of Service: May 08, 2020 Physician Name MagaliGarett Attending Physician Daron Batres MD Current Medications Medications (Trade) Dose Ordered Sig/Gwendolyn Route PRN Reason Start Time Stop Time Status Last Admin Dose Admin Albuterol/ Ipratropium (Albuterol/ Ipratropium) 3 ml Q4H PRN HHN Shortness of Breath 05/06/20 15:03 05/11/20 15:02 Ceftriaxone Sodium 2 gm/ Dextrose 55 ml @ 110 mls/hr Q24H IVPB 05/07/20 14:00 05/14/20 13:59 05/07/20 14:19 Chlorhexidine Gluconate (Niki-Hex 2%) 1 applic DAILY@2000 TOPIC 05/05/20 20:00 08/03/20 19:59 05/07/20 20:31 Dextrose (Dextrose 50%) 25 ml Q30M PRN IV Hypoglycemia 05/02/20 14:45 07/31/20 14:44 Dextrose (Dextrose 50%) 50 ml Q30M PRN IV Hypoglycemia 05/02/20 14:45 07/31/20 14:44 Docusate Sodium (Colace) 100 mg TWICE A DAY ORAL 05/04/20 18:00 06/03/20 17:59 05/05/20 08:40 Epoetin Nicholas (Epoetin Nicholas(ESRD on dialysis)) 10,000 unit WED-WED-WED SUBQ 05/08/20 21:00 08/06/20 20:59 Heparin Sodium (Porcine) (Heparin 5000 units/ml) 5,000 units EVERY 12 HOURS SUBQ 05/02/20 21:00 06/16/20 20:59 05/08/20 08:04 Insulin Aspart (NovoLOG) BEFORE MEALS AND HS SUBQ 05/02/20 17:56 07/31/20 17:55 05/08/20 05:40 Ondansetron HCl (Zofran) 4 mg Q6H PRN IVP Nausea & Vomiting 05/02/20 14:45 06/01/20 14:44 05/05/20 02:11 Pantoprazole (Protonix) 40 mg EVERY 12 HOURS ORAL 05/03/20 11:00 06/02/20 10:59 05/08/20 08:04 Polyethylene Glycol (Miralax) 17 gm DAILYPRN PRN ORAL Constipation 05/02/20 14:45 06/01/20 14:44 Temazepam (Restoril) 15 mg HSPRN PRN ORAL Insomnia 05/02/20 14:45 05/09/20 14:44 Allergies: Coded Allergies: ACETAMINOPHEN (Verified Allergy, Severe, Shortness of Breath, 11/25/17) HYDROMORPHONE (Verified Allergy, Severe, 11/25/17) PENICILLINS (Verified Allergy, Severe, 11/25/17) PROCAINE (Verified Allergy, Severe, 11/25/17) SHELLFISH DERIVED (Verified Allergy, Severe, 11/25/17) CODEINE (Verified Allergy, Unknown, 11/25/17) Cantaloupe (Verified Allergy, Unknown, 11/25/17) STRAWBERRY (Verified Allergy, Unknown, 11/25/17) Uncoded Allergies: DUST, POLLEN (Allergy, Unknown, 07/19/17) ROS Limited/Unobtainable: Yes Subjective Patient admitted with hypotension and dehydration. Now UTI and Sepsis. Cover for Int Med-Dr Batres Objective Last Vital Signs Date Time Temp Pulse Resp B/P (MAP) Pulse Ox O2 Delivery O2 Flow Rate FiO2 05/08/20 09:00 Room Air 05/08/20 08:00 93 05/08/20 08:00 97.8 20 142/65 (90) 95 05/02/20 23:00 99 Laboratory Tests Test 05/07/20 11:58 05/07/20 17:03 05/08/20 07:50 POC Whole Blood Glucose 156 MG/DL (74-106) H 167 MG/DL (74-106) H White Blood Count 11.5 K/UL (4.8-10.8) H Red Blood Count 3.65 M/UL (4.20-5.40) L Hemoglobin 9.3 G/DL (12.0-16.0) L Hematocrit 28.2 % (37.0-47.0) L Mean Corpuscular Volume 77 FL (80-99) L Mean Corpuscular Hemoglobin 25.6 PG (27.0-31.0) L Mean Corpuscular Hemoglobin Concent 33.1 G/DL (32.0-36.0) Red Cell Distribution Width 17.1 % (11.6-14.8) H Platelet Count 203 K/UL (150-450) Mean Platelet Volume 6.2 FL (6.5-10.1) L Neutrophils (%) (Auto) 53.4 % (45.0-75.0) Lymphocytes (%) (Auto) 38.3 % (20.0-45.0) Monocytes (%) (Auto) 5.4 % (1.0-10.0) Eosinophils (%) (Auto) 1.6 % (0.0-3.0) Basophils (%) (Auto) 1.4 % (0.0-2.0) Sodium Level 142 MMOL/L (136-145) Potassium Level 4.4 MMOL/L (3.5-5.1) Chloride Level 108 MMOL/L (98-107) H Carbon Dioxide Level 26 MMOL/L (21-32) Anion Gap 8 mmol/L (5-15) Blood Urea Nitrogen 32 mg/dL (7-18) H Creatinine 4.0 MG/DL (0.55-1.30) H Estimat Glomerular Filtration Rate 13.1 mL/min (>60) Glucose Level 146 MG/DL (74-106) H Calcium Level 8.3 MG/DL (8.5-10.1) L Microbiology Date/Time Source Procedure Growth Status 05/05/20 13:05 Blood Blood Culture - Preliminary NO GROWTH AFTER 24 HOURS Resulted 05/05/20 12:57 Blood Blood Culture - Preliminary NO GROWTH AFTER 24 HOURS Resulted Intake and Output 05/07/20 05/08/20 19:00 07:00 Intake Total 240 ml 600 ml Output Total 400 ml 1450 ml Balance -160 ml -850 ml Intake Oral 120 ml 600 ml IV Total 120 ml Output Urine Total 400 ml 1450 ml # Bowel Movements 1 Objective PHYSICAL EXAMINATION: GENERAL: Patient is awake and responsive, in no acute distress. HEAD AND NECK: Pupils are reactive to light. Extraocular movements are intact. Neck was supple. No JVD. LUNGS: Good air entry. No wheezing or rales. HEART: S1 and S2. Distant heart sounds. No murmur or gallops. ABDOMEN: Soft, nondistended. Tenderness on the suprapubic area on deep palpation, morbid obesity. EXTREMITIES: No cyanosis, clubbing, or edema. NEUROLOGIC: Cranial nerves II through XII are grossly intact. Motor is 5/5 in all the extremities. Gait was not assessed due to patient's status. RECTAL AND GENITOURINARY: Refused and deferred. PSYCHIATRIC: Mood and affect are intact. Assessment/Plan Assessment/Plan ASSESSMENT: 1. Sepsis = Staph epi 2. Dehydration. 3. Acute renal failure. 4. Morbid obesity. 5. Diabetes type 2. 6. Hypoalbuminemia. 7. Anxiety disorder. 8. Anemia of chronic disease. 9. Urinary tract infection=E. Coli PLAN: 1. Admit the patient to monitor unit. 2. ABX=ceftriaxone 3. Dr. Apple=Pulmonary, Critical Care 4. Dr. Enrique = Infectious Disease 5. Dr. Perry Abernathy = Nephrology. Renal ultrasound of=WNL 6. Code status is Full code. 7. DVT prophylaxis= heparin subcutaneous. 8. Hemodialysis 05/07/20 Garett De Los Santos MD May 08, 2020 11:52
[2020-05-08] MEDS: cefTRIAXone 2 GM in D5W 55 ML IVPB SCH (14:04)
--- NOTE | 2020-05-08 14:53 | Surgery Progress Note ---
Surgery Progress Note Subjective Procedure Performed right femoral temporary hemodialysis line insertion Additional Comments right temp hd fem line removed pressure held hemostatsis noted dressings applied Objective Last 24 Hour Vital Signs Date Time Temp Pulse Resp B/P (MAP) Pulse Ox O2 Delivery O2 Flow Rate FiO2 05/08/20 12:00 84 05/08/20 12:00 98.5 91 20 117/59 (78) 96 05/08/20 09:00 Room Air 05/08/20 08:00 93 05/08/20 08:00 97.8 84 20 142/65 (90) 95 05/08/20 04:00 93 05/08/20 04:00 98.1 81 20 135/61 (85) 94 05/08/20 00:00 89 05/08/20 00:00 98.5 20 140/57 (84) 94 05/07/20 21:00 Room Air 05/07/20 20:00 82 05/07/20 20:00 97.4 24 145/65 (91) 92 05/07/20 16:00 98.1 17 140/65 (90) 96 05/07/20 15:45 87 I&O Intake and Output 05/07/20 05/08/20 18:59 06:59 Intake Total 240 ml 600 ml Output Total 400 ml 1450 ml Balance -160 ml -850 ml Intake Oral 120 ml 600 ml IV Total 120 ml Output Urine Total 400 ml 1450 ml # Bowel Movements 1 Dressing: dry Wound: clean Cardiovascular: RSR Respiratory: clear Abdomen: soft, non-tender, present bowel sounds Extremities: no edema, no tenderness, no cyanosis Laboratory Tests Test 05/07/20 17:03 05/08/20 07:50 POC Whole Blood Glucose 167 MG/DL (74-106) H White Blood Count 11.5 K/UL (4.8-10.8) H Red Blood Count 3.65 M/UL (4.20-5.40) L Hemoglobin 9.3 G/DL (12.0-16.0) L Hematocrit 28.2 % (37.0-47.0) L Mean Corpuscular Volume 77 FL (80-99) L Mean Corpuscular Hemoglobin 25.6 PG (27.0-31.0) L Mean Corpuscular Hemoglobin Concent 33.1 G/DL (32.0-36.0) Red Cell Distribution Width 17.1 % (11.6-14.8) H Platelet Count 203 K/UL (150-450) Mean Platelet Volume 6.2 FL (6.5-10.1) L Neutrophils (%) (Auto) 53.4 % (45.0-75.0) Lymphocytes (%) (Auto) 38.3 % (20.0-45.0) Monocytes (%) (Auto) 5.4 % (1.0-10.0) Eosinophils (%) (Auto) 1.6 % (0.0-3.0) Basophils (%) (Auto) 1.4 % (0.0-2.0) Sodium Level 142 MMOL/L (136-145) Potassium Level 4.4 MMOL/L (3.5-5.1) Chloride Level 108 MMOL/L (98-107) H Carbon Dioxide Level 26 MMOL/L (21-32) Anion Gap 8 mmol/L (5-15) Blood Urea Nitrogen 32 mg/dL (7-18) H Creatinine 4.0 MG/DL (0.55-1.30) H Estimat Glomerular Filtration Rate 13.1 mL/min (>60) Glucose Level 146 MG/DL (74-106) H Calcium Level 8.3 MG/DL (8.5-10.1) L Plan Problems: (1) Abdominal pain Assessment & Plan: leukocytosis anemia ct noted cramping pain likely constipated ct reviewed exam fairly benign okay for diet bowel regimen will follow with exam and recs Lower chest:: Bibasilar subsegmental atelectasis. There are peripheral patchy ground glass opacities. Hepatobiliary:: Unremarkable. Genitourinary:: Uterus is not visualized and may be surgically absent. Redemonstration of bilateral perinephric fat stranding. No hydronephrosis. Urinary bladder is under distended, limiting evaluation. Calcifications are noted in the right ovary along the course of the distal ureter. Adrenals:: Nonspecific bilateral adrenal gland thickening. Pancreas:: Mild pancreatic parenchymal atrophy. Gastrointestinal:: Appendix is normal. No evidence of obstruction. Spleen: : Unremarkable. Peritoneum:: No free air or free fluid. Moderate broad-based fat-containing umbilical hernia. Bones and soft tissues:: There are multilevel discogenic degenerative changes of the visualized spine. IMPRESSION: 1. Hyperdensities along the course of the distal ureter are felt more likely to represent ovarian calcifications as opposed to distal ureteral calculus given lack of associated hydronephrosis. 2. Peripheral patchy ground glass opacities in the visualized lung bases, which are nonspecific and may be related to infectious/inflammatory airways disease but atypical/viral pneumonia should also be considered. (2) UTI (urinary tract infection) (3) Diabetes mellitus (4) HTN (hypertension) (5) Sepsis (6) ATN (acute tubular necrosis) (7) JARET (acute kidney injury) (8) Anemia (9) Diabetic nephropathy (10) Morbid obesity (11) Bacteremia (12) Rash and other nonspecific skin eruption (13) Electrolyte disorder (14) Neck strain Edgardo Saavedra May 08, 2020 14:52
--- NOTE | 2020-05-08 17:51 | Nephrology Progress Note ---
Assessment/Plan Problem List: (1) JARET (acute kidney injury) (2) Diabetic nephropathy (3) Anemia (4) Morbid obesity Assessment Acute renal failure Diabetes mellitus, diabetic nephropathy Hypoalbuminemia rule out nephrotic syndrome Anemia Sepsis History of hypertension History of anxiety disorder History of asthma/bronchitis Plan May 08: Dialyzed yesterday. Due for dialysis tomorrow. Discussed with nurse case manager. Will arrange for placement of tunneled catheter, and placement to an outpatient dialysis unit. Per orders. May 07: Due for dialysis today. Labs reviewed. Medication list reviewed. Continue per consultants. Epogen and iron ordered for anemia. May 06: Dialysis catheter is being replaced from the groin to the subclavian area today. We will attend dialysis tomorrow. Continue per consultants. May 05: Patient seen this morning during dialysis. Tolerating well. Continue to monitor renal parameters. May 04: Labs reviewed. Discussed with RN. Serum creatinine higher. Patient requires hemodialysis treatment for acute renal failure. Kidney ultrasound reviewed. Continue to monitor renal parameters and avoid nephrotoxic's. Patient consented for placement of temporary dialysis catheter May 03: Arriaza catheter Kidney ultrasound 2D echocardiogram Urine studies The blood pressure and blood sugar in check Avoid nephrotoxic's Antibiotics Subjective ROS Limited/Unobtainable: No Constitutional: Reports: malaise Objective Objective Last 24 Hour Vital Signs Date Time Temp Pulse Resp B/P (MAP) Pulse Ox O2 Delivery O2 Flow Rate FiO2 05/08/20 16:00 98.8 85 20 139/55 (83) 95 05/08/20 16:00 89 05/08/20 12:00 84 05/08/20 12:00 98.5 91 20 117/59 (78) 96 05/08/20 09:00 Room Air 05/08/20 08:00 93 05/08/20 08:00 97.8 84 20 142/65 (90) 95 05/08/20 04:00 93 05/08/20 04:00 98.1 81 20 135/61 (85) 94 05/08/20 00:00 89 05/08/20 00:00 98.5 20 140/57 (84) 94 05/07/20 21:00 Room Air 05/07/20 20:00 82 05/07/20 20:00 97.4 24 145/65 (91) 92 Intake and Output 05/07/20 05/08/20 18:59 06:59 Intake Total 240 ml 600 ml Output Total 400 ml 2450 ml Balance -160 ml -1850 ml Intake Oral 120 ml 600 ml IV Total 120 ml Output Urine Total 400 ml 1450 ml Hemodialysis UF 1000 ml # Bowel Movements 1 Current Medications Medications (Trade) Dose Ordered Sig/Gwendolyn Route PRN Reason Start Time Stop Time Status Last Admin Dose Admin Albuterol/ Ipratropium (Albuterol/ Ipratropium) 3 ml Q4H PRN HHN Shortness of Breath 05/06/20 15:03 05/11/20 15:02 Ceftriaxone Sodium 2 gm/ Dextrose 55 ml @ 110 mls/hr Q24H IVPB 05/07/20 14:00 05/14/20 13:59 05/08/20 14:04 Chlorhexidine Gluconate (Niki-Hex 2%) 1 applic DAILY@1999 TOPIC 05/05/20 20:00 08/03/20 19:59 05/07/20 20:31 Dextrose (Dextrose 50%) 25 ml Q30M PRN IV Hypoglycemia 05/02/20 14:45 07/31/20 14:44 Dextrose (Dextrose 50%) 50 ml Q30M PRN IV Hypoglycemia 05/02/20 14:45 07/31/20 14:44 Docusate Sodium (Colace) 100 mg TWICE A DAY ORAL 05/04/20 18:00 06/03/20 17:59 05/05/20 08:40 Epoetin Nicholas (Epoetin Nicholas(ESRD on dialysis)) 10,000 unit WED-WED-WED SUBQ 05/08/20 21:00 08/06/20 20:59 Heparin Sodium (Porcine) (Heparin 5000 units/ml) 5,000 units EVERY 12 HOURS SUBQ 05/02/20 21:00 06/16/20 20:59 05/08/20 08:04 Insulin Aspart (NovoLOG) BEFORE MEALS AND HS SUBQ 05/02/20 17:56 07/31/20 17:55 05/08/20 16:48 Ondansetron HCl (Zofran) 4 mg Q6H PRN IVP Nausea & Vomiting 05/02/20 14:45 06/01/20 14:44 05/05/20 02:11 Pantoprazole (Protonix) 40 mg EVERY 12 HOURS ORAL 05/03/20 11:00 06/02/20 10:59 05/08/20 08:04 Polyethylene Glycol (Miralax) 17 gm DAILYPRN PRN ORAL Constipation 05/02/20 14:45 06/01/20 14:44 Temazepam (Restoril) 15 mg HSPRN PRN ORAL Insomnia 05/02/20 14:45 05/13/20 14:44 Laboratory Tests 05/08/20 07:50: White Blood Count 11.5H, Red Blood Count 3.65L, Hemoglobin 9.3L, Hematocrit 28.2L, Mean Corpuscular Volume 77L, Mean Corpuscular Hemoglobin 25.6L, Mean Corpuscular Hemoglobin Concent 33.1, Red Cell Distribution Width 17.1H, Platelet Count 203, Mean Platelet Volume 6.2L, Neutrophils (%) (Auto) 53.4, Lymphocytes (%) (Auto) 38.3, Monocytes (%) (Auto) 5.4, Eosinophils (%) (Auto) 1.6, Basophils (%) (Auto) 1.4, Sodium Level 142, Potassium Level 4.4, Chloride Level 108H, Carbon Dioxide Level 26, Anion Gap 8, Blood Urea Nitrogen 32H, Creatinine 4.0H, Estimat Glomerular Filtration Rate 13.1, Glucose Level 146H, Calcium Level 8.3L Height (Feet): 5 Height (Inches): 5.00 Weight (Pounds): 260 Cardiovascular: normal rate Respiratory/Chest: decreased breath sounds Abdomen: soft Perry Abernathy MD May 08, 2020 17:51
[2020-05-08] MEDS: Dyna-Hex 2% Top Sol 2oz TOPIC SCH (20:28)
[2020-05-08] MEDS: Epoetin Alfa-EPBX(ESRD on dialysis)10,000 unit/ml vial SUBQ SCH (20:28)
[2020-05-09 04:00] VITALS: BP 147/72
[2020-05-09] MEDS: NovoLOG Insulin Flexpen SUBQ SCH ×4 (06:11→21:30)
[2020-05-09 08:00] VITALS: BP 153/71
--- NOTE | 2020-05-09 08:00 | Infectious Diseases Prog Note ---
Assessment/Plan 79yo F with: Afebrile Leukocytosis to 39, improving Abd pain UTI, R CVAT, ?Pyelo Staph epi bacteremia, likely contaminant 05/02 BCx 1/2 +Staph epi, likely skin contaminant UCx >100k E.coli, murillo-S COVID rapid test neg, COVID PCR neg Resp cx p CXR: Left mid lung and right midlung/right basilar airspace opacities which likely represent atelectasis, but pneumonia should be excluded clinically. CT A/P: 1. Hyperdensities along the course of the distal ureter are felt more likely to represent ovarian calcifications as opposed to distal ureteral calculus given lack of associated hydronephrosis. 2. Peripheral patchy ground glass opacities in the visualized lung bases, which are nonspecific and may be related to infectious/inflammatory airways disease but atypical/viral pneumonia should also be considered. 05/03 Renal US: Unremarkable 05/05 BCx NTD JARET vs CKD, Cr 4.8 - worsening DM2 on insulin Allergy to PCN - causes anaphylaxis Plan: Cont CTX 2g IV daily #3 for UTI/pyelo (abx day #02/04) On d/c can change to levofloxacin 250mg PO daily to complete rest of course Trend WBC 05/07 SP cefepime #6 05/06 SP dapto #1 05/05 SP vanco #4 Monitor CBC/CMP Monitor temp curve, hemodynamics Monitor resp status HD as per Nephro D/w RN Thank you for this consult. [facility] will continue to follow. Subjective Allergies: Coded Allergies: ACETAMINOPHEN (Verified Allergy, Severe, Shortness of Breath, 11/25/17) HYDROMORPHONE (Verified Allergy, Severe, 11/25/17) PENICILLINS (Verified Allergy, Severe, 11/25/17) PROCAINE (Verified Allergy, Severe, 11/25/17) SHELLFISH DERIVED (Verified Allergy, Severe, 11/25/17) CODEINE (Verified Allergy, Unknown, 11/25/17) Cantaloupe (Verified Allergy, Unknown, 11/25/17) STRAWBERRY (Verified Allergy, Unknown, 11/25/17) Uncoded Allergies: DUST, POLLEN (Allergy, Unknown, 07/19/17) AF On RA NAD Doing well R fem HD cath removed, but lots of itching from dressing/tape Objective Last 24 Hour Vital Signs Date Time Temp Pulse Resp B/P (MAP) Pulse Ox O2 Delivery O2 Flow Rate FiO2 05/09/20 04:00 97.3 94 20 147/72 (97) 95 05/08/20 23:43 97.3 83 20 137/78 (97) 97 05/08/20 21:00 Room Air 05/08/20 20:00 98.6 86 20 128/57 (80) 97 05/08/20 20:00 84 05/08/20 16:00 98.8 85 20 139/55 (83) 95 05/08/20 16:00 89 05/08/20 12:00 84 05/08/20 12:00 98.5 91 20 117/59 (78) 96 05/08/20 09:00 Room Air Height (Feet): 5 Height (Inches): 5.00 Weight (Pounds): 260 Gen: NAD in bed HEENT: NCAT, EOMI, PERRL CV: RRR Pulm: CTAB Abd: Soft, NTND Ext: No c/c/e Neuro: Awake, alert, interactive Lines: R IJ Laboratory Tests Test 05/08/20 20:16 05/09/20 06:06 POC Whole Blood Glucose Pending 147 MG/DL (74-106) H Current Medications Medications (Trade) Dose Ordered Sig/Gwendolyn Route PRN Reason Start Time Stop Time Status Last Admin Dose Admin Albuterol/ Ipratropium (Albuterol/ Ipratropium) 3 ml Q4H PRN HHN Shortness of Breath 05/06/20 15:03 05/11/20 15:02 Ceftriaxone Sodium 2 gm/ Dextrose 55 ml @ 110 mls/hr Q24H IVPB 05/07/20 14:00 05/14/20 13:59 05/08/20 14:04 Chlorhexidine Gluconate (Niki-Hex 2%) 1 applic DAILY@1999 TOPIC 05/05/20 20:00 08/03/20 19:59 05/08/20 20:28 Dextrose (Dextrose 50%) 25 ml Q30M PRN IV Hypoglycemia 05/02/20 14:45 07/31/20 14:44 Dextrose (Dextrose 50%) 50 ml Q30M PRN IV Hypoglycemia 05/02/20 14:45 07/31/20 14:44 Docusate Sodium (Colace) 100 mg TWICE A DAY ORAL 05/04/20 18:00 06/03/20 17:59 05/05/20 08:40 Epoetin Nicholas (Epoetin Nicholas(ESRD on dialysis)) 10,000 unit WED-WED-WED SUBQ 05/08/20 21:00 08/06/20 20:59 05/08/20 20:28 Heparin Sodium (Porcine) (Heparin 5000 units/ml) 5,000 units EVERY 12 HOURS SUBQ 05/02/20 21:00 06/16/20 20:59 05/08/20 08:04 Insulin Aspart (NovoLOG) BEFORE MEALS AND HS SUBQ 05/02/20 17:56 07/31/20 17:55 05/09/20 06:11 Ondansetron HCl (Zofran) 4 mg Q6H PRN IVP Nausea & Vomiting 05/02/20 14:45 06/01/20 14:44 05/05/20 02:11 Pantoprazole (Protonix) 40 mg EVERY 12 HOURS ORAL 05/03/20 11:00 06/02/20 10:59 05/08/20 20:28 Polyethylene Glycol (Miralax) 17 gm DAILYPRN PRN ORAL Constipation 05/02/20 14:45 06/01/20 14:44 Temazepam (Restoril) 15 mg HSPRN PRN ORAL Insomnia 05/02/20 14:45 05/13/20 14:44 Mala Enrique M.D. May 09, 2020 08:00
[2020-05-09] MEDS: Docusate 100mg cap ORAL SCH ×2 (08:34→17:37)
[2020-05-09] MEDS: Heparin 5000 units/ml inj SUBQ SCH ×2 (08:35→21:29)
[2020-05-09 08:45] LABS: ALBUMIN 1.9 G/DL (3.4-5.0); ALBUMIN/GLOBULIN RATIO 0.6 (1.0-2.7); BILIRUBIN,TOTAL 0.3 MG/DL (0.2-1.0); CALCIUM 7.6 MG/DL (8.5-10.1); CREATININE 4.4 MG/DL (0.55-1.30); PHOSPHORUS 4.1 MG/DL (2.5-4.9); POTASSIUM 4.9 MMOL/L (3.5-5.1)
--- NOTE | 2020-05-09 10:31 | Pulmonology Progress Note ---
Subjective ROS Limited/Unobtainable: No Interval Events: getting dialyzed HEENT: Repors: no symptoms Respiratory: Reports: no symptoms Allergies: Coded Allergies: ACETAMINOPHEN (Verified Allergy, Severe, Shortness of Breath, 11/25/17) HYDROMORPHONE (Verified Allergy, Severe, 11/25/17) PENICILLINS (Verified Allergy, Severe, 11/25/17) PROCAINE (Verified Allergy, Severe, 11/25/17) SHELLFISH DERIVED (Verified Allergy, Severe, 11/25/17) CODEINE (Verified Allergy, Unknown, 11/25/17) Cantaloupe (Verified Allergy, Unknown, 11/25/17) STRAWBERRY (Verified Allergy, Unknown, 11/25/17) Uncoded Allergies: DUST, POLLEN (Allergy, Unknown, 07/19/17) Objective Last 24 Hour Vital Signs Date Time Temp Pulse Resp B/P (MAP) Pulse Ox O2 Delivery O2 Flow Rate FiO2 05/09/20 08:00 98.2 83 20 153/71 (98) 96 05/09/20 04:00 97.3 94 20 147/72 (97) 95 05/08/20 23:43 97.3 83 20 137/78 (97) 97 05/08/20 21:00 Room Air 05/08/20 20:00 98.6 86 20 128/57 (80) 97 05/08/20 20:00 84 05/08/20 16:00 98.8 85 20 139/55 (83) 95 05/08/20 16:00 89 05/08/20 12:00 84 05/08/20 12:00 98.5 91 20 117/59 (78) 96 Intake and Output 05/08/20 05/09/20 19:00 07:00 Intake Total 1100 ml 120 ml Output Total 1200 ml 500 ml Balance -100 ml -380 ml Intake Oral 1100 ml 120 ml Output Urine Total 1200 ml 500 ml General Appearance: WD/WN, no acute distress HEENT: atraumatic, anicteric Respiratory: chest wall non-tender, lungs clear, normal breath sounds Cardiovascular: normal peripheral pulses, normal rate Abdomen: normal bowel sounds, soft, non tender Genitourinary: normal external genitalia Extremities: no clubbing Neurologic: hat measurer II-XII grossly normal, normal mood/affect Lymphatic: no neck adenopathy Laboratory Tests 05/08/20 20:16: POC Whole Blood Glucose [Pending] 05/09/20 05:48: Sodium Level 140, Potassium Level 4.9, Chloride Level 108H, Carbon Dioxide Level 25, Anion Gap 7, Blood Urea Nitrogen 35H, Creatinine 4.4H, Estimat Glomerular Filtration Rate 11.6, Glucose Level 135H, Calcium Level 7.6L, Phosphorus Level 4.1, Magnesium Level 2.1, Total Bilirubin 0.3, Aspartate Amino Transf (AST/SGOT) 38H, Alanine Aminotransferase (ALT/SGPT) 26, Alkaline Phosphatase 94, C- Reactive Protein, Quantitative 12.1H, Total Protein 5.3L, Albumin 1.9L, Globulin 3.4, Albumin/Globulin Ratio 0.6L 05/09/20 06:06: POC Whole Blood Glucose 147H Current Medications Medications (Trade) Dose Ordered Sig/Gwendolyn Route PRN Reason Start Time Stop Time Status Last Admin Dose Admin Albuterol/ Ipratropium (Albuterol/ Ipratropium) 3 ml Q4H PRN HHN Shortness of Breath 05/06/20 15:03 05/11/20 15:02 Ceftriaxone Sodium 2 gm/ Dextrose 55 ml @ 110 mls/hr Q24H IVPB 05/07/20 14:00 05/14/20 13:59 05/08/20 14:04 Chlorhexidine Gluconate (Niki-Hex 2%) 1 applic DAILY@2000 TOPIC 05/05/20 20:00 08/03/20 19:59 05/08/20 20:28 Dextrose (Dextrose 50%) 25 ml Q30M PRN IV Hypoglycemia 05/02/20 14:45 07/31/20 14:44 Dextrose (Dextrose 50%) 50 ml Q30M PRN IV Hypoglycemia 05/02/20 14:45 07/31/20 14:44 Docusate Sodium (Colace) 100 mg TWICE A DAY ORAL 05/04/20 18:00 06/03/20 17:59 05/05/20 08:40 Epoetin Nicholas (Epoetin Nicholas(ESRD on dialysis)) 10,000 unit MON-WED-WED SUBQ 05/08/20 21:00 08/06/20 20:59 05/08/20 20:28 Heparin Sodium (Porcine) (Heparin 5000 units/ml) 5,000 units EVERY 12 HOURS SUBQ 05/02/20 21:00 06/16/20 20:59 05/08/20 08:04 Insulin Aspart (NovoLOG) BEFORE MEALS AND HS SUBQ 05/02/20 17:56 07/31/20 17:55 05/09/20 06:11 Ondansetron HCl (Zofran) 4 mg Q6H PRN IVP Nausea & Vomiting 05/02/20 14:45 06/01/20 14:44 05/05/20 02:11 Pantoprazole (Protonix) 40 mg EVERY 12 HOURS ORAL 05/03/20 11:00 06/02/20 10:59 05/09/20 08:37 Polyethylene Glycol (Miralax) 17 gm DAILYPRN PRN ORAL Constipation 05/02/20 14:45 06/01/20 14:44 Temazepam (Restoril) 15 mg HSPRN PRN ORAL Insomnia 05/02/20 14:45 05/13/20 14:44 Assessment/Plan Problems: (1) Sepsis (2) ATN (acute tubular necrosis) (3) JARET (acute kidney injury) (4) HTN (hypertension) (5) Diabetes mellitus (6) Anemia (7) Bacteremia (8) Morbid obesity Assessment/Plan wbc lower again removed femoral yesterday doing better all reviewed murillo culture, on Ceftriaxone nephrology to follow sliding scale diabetic diet dvt prophylaxis. dc planning in progress Umu Apple MD May 09, 2020 10:31
[2020-05-09 12:00] VITALS: BP 159/75
[2020-05-09] MEDS: cefTRIAXone 2 GM in D5W 55 ML IVPB SCH (13:57)
--- NOTE | 2020-05-09 14:44 | Internal Med Progress Note ---
Subjective Physician Name Daron Batres Attending Physician Daron Batres MD Current Medications Medications (Trade) Dose Ordered Sig/Gwendolyn Route PRN Reason Start Time Stop Time Status Last Admin Dose Admin Albuterol/ Ipratropium (Albuterol/ Ipratropium) 3 ml Q4H PRN HHN Shortness of Breath 05/06/20 15:03 05/11/20 15:02 Ceftriaxone Sodium 2 gm/ Dextrose 55 ml @ 110 mls/hr Q24H IVPB 05/07/20 14:00 05/14/20 13:59 05/09/20 13:57 Chlorhexidine Gluconate (Niki-Hex 2%) 1 applic DAILY@2000 TOPIC 05/05/20 20:00 08/03/20 19:59 05/08/20 20:28 Dextrose (Dextrose 50%) 25 ml Q30M PRN IV Hypoglycemia 05/02/20 14:45 07/31/20 14:44 Dextrose (Dextrose 50%) 50 ml Q30M PRN IV Hypoglycemia 05/02/20 14:45 07/31/20 14:44 Docusate Sodium (Colace) 100 mg TWICE A DAY ORAL 05/04/20 18:00 06/03/20 17:59 05/05/20 08:40 Epoetin Nicholas (Epoetin Nicholas(ESRD on dialysis)) 10,000 unit WED-WED-WED SUBQ 05/08/20 21:00 08/06/20 20:59 05/08/20 20:28 Heparin Sodium (Porcine) (Heparin 5000 units/ml) 5,000 units EVERY 12 HOURS SUBQ 05/02/20 21:00 06/16/20 20:59 05/08/20 08:04 Insulin Aspart (NovoLOG) BEFORE MEALS AND HS SUBQ 05/02/20 17:56 07/31/20 17:55 05/09/20 06:11 Ondansetron HCl (Zofran) 4 mg Q6H PRN IVP Nausea & Vomiting 05/02/20 14:45 06/01/20 14:44 05/05/20 02:11 Pantoprazole (Protonix) 40 mg EVERY 12 HOURS ORAL 05/03/20 11:00 06/02/20 10:59 05/09/20 08:37 Polyethylene Glycol (Miralax) 17 gm DAILYPRN PRN ORAL Constipation 05/02/20 14:45 06/01/20 14:44 Temazepam (Restoril) 15 mg HSPRN PRN ORAL Insomnia 05/02/20 14:45 05/13/20 14:44 Allergies: Coded Allergies: ACETAMINOPHEN (Verified Allergy, Severe, Shortness of Breath, 11/25/17) HYDROMORPHONE (Verified Allergy, Severe, 11/25/17) PENICILLINS (Verified Allergy, Severe, 11/25/17) PROCAINE (Verified Allergy, Severe, 11/25/17) SHELLFISH DERIVED (Verified Allergy, Severe, 11/25/17) CODEINE (Verified Allergy, Unknown, 11/25/17) Cantaloupe (Verified Allergy, Unknown, 11/25/17) STRAWBERRY (Verified Allergy, Unknown, 11/25/17) Uncoded Allergies: DUST, POLLEN (Allergy, Unknown, 07/19/17) Subjective awake, alert, responsive, denies any chest pain or shortness of breath, denies any nausea or vomiting, WBC 12.4. Objective Last Vital Signs Date Time Temp Pulse Resp B/P (MAP) Pulse Ox O2 Delivery O2 Flow Rate FiO2 05/09/20 12:00 98.8 89 20 159/75 (103) 96 05/09/20 09:00 Room Air 05/02/20 23:00 99 Laboratory Tests Test 05/08/20 20:16 05/09/20 05:48 05/09/20 06:06 05/09/20 11:14 POC Whole Blood Glucose Pending 147 MG/DL (74-106) H 134 MG/DL (74-106) H Sodium Level 140 MMOL/L (136-145) Potassium Level 4.9 MMOL/L (3.5-5.1) Chloride Level 108 MMOL/L (98-107) H Carbon Dioxide Level 25 MMOL/L (21-32) Anion Gap 7 mmol/L (5-15) Blood Urea Nitrogen 35 mg/dL (7-18) H Creatinine 4.4 MG/DL (0.55-1.30) H Estimat Glomerular Filtration Rate 11.6 mL/min (>60) Glucose Level 135 MG/DL (74-106) H Calcium Level 7.6 MG/DL (8.5-10.1) L Phosphorus Level 4.1 MG/DL (2.5-4.9) Magnesium Level 2.1 MG/DL (1.8-2.4) Total Bilirubin 0.3 MG/DL (0.2-1.0) Aspartate Amino Transf (AST/SGOT) 38 U/L (15-37) H Alanine Aminotransferase (ALT/SGPT) 26 U/L (12-78) Alkaline Phosphatase 94 U/L (46-116) C-Reactive Protein, Quantitative 12.1 mg/dL (0.00-0.90) H Total Protein 5.3 G/DL (6.4-8.2) L Albumin 1.9 G/DL (3.4-5.0) L Globulin 3.4 g/dL Albumin/Globulin Ratio 0.6 (1.0-2.7) L Intake and Output 05/08/20 05/09/20 19:00 07:00 Intake Total 1100 ml 120 ml Output Total 1200 ml 500 ml Balance -100 ml -380 ml Intake Oral 1100 ml 120 ml Output Urine Total 1200 ml 500 ml Objective General: No acute distress, awake and alert HEENT: NCAT, sclera anicteric, PERRL, EOMI. right IJ dialysis catheter. Neck: Supple, no significant jugular venous distention, Lungs: Good inspiratory effort, no accessory muscle use, clear to auscultation bilaterally, no Wheeze or Rales. Heart: Regular rate and rhythm, normal S1/S2, no murmurs/gallops Abdomen: soft, decreased lower quadrant tenderness, nondistended. Normoactive bowel sounds, morbid obesity. / Rectal: Refused and deferred. Extremities: No Cyanosis or clubbing , right greater than left lower extremity edema. Neuro: A&O x 3, Able to move all extremities Skin: warm, no rashes or lesions Psych: Normal mood and affect Assessment/Plan Assessment/Plan sepsis secondary to E. coli UTI Acute kidney injury on chronic kidney disease on hemodialysis Dehydration Morbid obesity Anemia of chronic disease Diabetic type II Hyperalbuminemia Anxiety disorder. Plan: Monitor blood culture and laboratory Antibiotics: Rocephin IV Follow up with renal ultrasound CODE STATUS: FULL CODE DVT prophylaxis: Heparin subcu PT mobility. hemodialysis yesterday. DC planning in AM Home with home health. Daron Batres MD May 09, 2020 14:44
--- NOTE | 2020-05-09 15:34 | Nephrology Progress Note ---
Assessment/Plan Problem List: (1) JARET (acute kidney injury) (2) Diabetic nephropathy (3) Anemia (4) Morbid obesity Assessment Acute renal failure Diabetes mellitus, diabetic nephropathy Hypoalbuminemia rule out nephrotic syndrome Anemia Sepsis History of hypertension History of anxiety disorder History of asthma/bronchitis Plan May 09: Currently on dialysis. Tolerating well. Due for placement of tunneled catheter. Hepatitis panel pending. Outpatient dialysis placement in process. Continue per consultants. May 08: Dialyzed yesterday. Due for dialysis tomorrow. Discussed with case liner. Will arrange for placement of tunneled catheter, and placement to an outpatient dialysis unit. Per orders. May 07: Due for dialysis today. Labs reviewed. Medication list reviewed. Continue per consultants. Epogen and iron ordered for anemia. May 06: Dialysis catheter is being replaced from the groin to the subclavia n area today. We will attend dialysis tomorrow. Continue per consultants. May 05: Patient seen this morning during dialysis. Tolerating well. Continue to monitor renal parameters. May 04: Labs reviewed. Discussed with RN. Serum creatinine higher. Patient requires hemodialysis treatment for acute renal failure. Kidney ultrasound reviewed. Continue to monitor renal parameters and avoid nephrotoxic's. Patient consented for placement of temporary dialysis catheter May 03: Arriaza catheter Kidney ultrasound 2D echocardiogram Urine studies The blood pressure and blood sugar in check Avoid nephrotoxic's Antibiotics Subjective ROS Limited/Unobtainable: No Constitutional: Reports: malaise Objective Objective Last 24 Hour Vital Signs Date Time Temp Pulse Resp B/P (MAP) Pulse Ox O2 Delivery O2 Flow Rate FiO2 05/09/20 12:00 98.8 89 20 159/75 (103) 96 05/09/20 09:00 Room Air 05/09/20 08:00 98.2 83 20 153/71 (98) 96 05/09/20 04:00 97.3 94 20 147/72 (97) 95 05/08/20 23:43 97.3 83 20 137/78 (97) 97 05/08/20 21:00 Room Air 05/08/20 20:00 98.6 86 20 128/57 (80) 97 05/08/20 20:00 84 05/08/20 16:00 98.8 85 20 139/55 (83) 95 05/08/20 16:00 89 Intake and Output 05/08/20 05/09/20 19:00 07:00 Intake Total 1100 ml 120 ml Output Total 1200 ml 500 ml Balance -100 ml -380 ml Intake Oral 1100 ml 120 ml Output Urine Total 1200 ml 500 ml Current Medications Medications (Trade) Dose Ordered Sig/Gwendolyn Route PRN Reason Start Time Stop Time Status Last Admin Dose Admin Albuterol/ Ipratropium (Albuterol/ Ipratropium) 3 ml Q4H PRN HHN Shortness of Breath 05/06/20 15:03 05/11/20 15:02 Ceftriaxone Sodium 2 gm/ Dextrose 55 ml @ 110 mls/hr Q24H IVPB 05/07/20 14:00 05/14/20 13:59 05/09/20 13:57 Chlorhexidine Gluconate (Niki-Hex 2%) 1 applic DAILY@1999 TOPIC 05/05/20 20:00 08/03/20 19:59 05/08/20 20:28 Dextrose (Dextrose 50%) 25 ml Q30M PRN IV Hypoglycemia 05/02/20 14:45 07/31/20 14:44 Dextrose (Dextrose 50%) 50 ml Q30M PRN IV Hypoglycemia 05/02/20 14:45 07/31/20 14:44 Docusate Sodium (Colace) 100 mg TWICE A DAY ORAL 05/04/20 18:00 06/03/20 17:59 05/05/20 08:40 Epoetin Nicholas (Epoetin Nicholas(ESRD on dialysis)) 10,000 unit MON-WED-WED SUBQ 05/08/20 21:00 08/06/20 20:59 05/08/20 20:28 Heparin Sodium (Porcine) (Heparin 5000 units/ml) 5,000 units EVERY 12 HOURS SUBQ 05/02/20 21:00 06/16/20 20:59 05/08/20 08:04 Insulin Aspart (NovoLOG) BEFORE MEALS AND HS SUBQ 05/02/20 17:56 07/31/20 17:55 05/09/20 06:11 Ondansetron HCl (Zofran) 4 mg Q6H PRN IVP Nausea & Vomiting 05/02/20 14:45 06/01/20 14:44 05/05/20 02:11 Pantoprazole (Protonix) 40 mg EVERY 12 HOURS ORAL 05/03/20 11:00 06/02/20 10:59 05/09/20 08:37 Polyethylene Glycol (Miralax) 17 gm DAILYPRN PRN ORAL Constipation 05/02/20 14:45 06/01/20 14:44 Temazepam (Restoril) 15 mg HSPRN PRN ORAL Insomnia 05/02/20 14:45 05/13/20 14:44 Laboratory Tests 05/08/20 20:16: POC Whole Blood Glucose [Pending] 05/09/20 05:48: Sodium Level 140, Potassium Level 4.9, Chloride Level 108H, Carbon Dioxide Level 25, Anion Gap 7, Blood Urea Nitrogen 35H, Creatinine 4.4H, Estimat Glomerular Filtration Rate 11.6, Glucose Level 135H, Calcium Level 7.6L, Phosphorus Level 4.1, Magnesium Level 2.1, Total Bilirubin 0.3, Aspartate Amino Transf (AST/SGOT) 38H, Alanine Aminotransferase (ALT/SGPT) 26, Alkaline Phosphatase 94, C- Reactive Protein, Quantitative 12.1H, Total Protein 5.3L, Albumin 1.9L, Globulin 3.4, Albumin/Globulin Ratio 0.6L 05/09/20 06:06: POC Whole Blood Glucose 147H 05/09/20 11:14: POC Whole Blood Glucose 134H Height (Feet): 5 Height (Inches): 5.00 Weight (Pounds): 260 General Appearance: no apparent distress Cardiovascular: normal rate Respiratory/Chest: decreased breath sounds Abdomen: soft Perry Abernathy MD May 09, 2020 15:34
--- NOTE | 2020-05-09 15:38 | Surgery Progress Note ---
Surgery Progress Note Subjective Procedure Performed right femoral temporary hemodialysis line insertion Symptoms: improved, tolerating diet, passing flatus Additional Comments tunneled cath tomorrow plan d/c outpatient HD Objective Last 24 Hour Vital Signs Date Time Temp Pulse Resp B/P (MAP) Pulse Ox O2 Delivery O2 Flow Rate FiO2 05/09/20 12:00 98.8 89 20 159/75 (103) 96 05/09/20 09:00 Room Air 05/09/20 08:00 98.2 83 20 153/71 (98) 96 05/09/20 04:00 97.3 94 20 147/72 (97) 95 05/08/20 23:43 97.3 83 20 137/78 (97) 97 05/08/20 21:00 Room Air 05/08/20 20:00 98.6 86 20 128/57 (80) 97 05/08/20 20:00 84 05/08/20 16:00 98.8 85 20 139/55 (83) 95 05/08/20 16:00 89 I&O l Intake and Output 05/08/20 05/09/20 19:00 07:00 Intake Total 1100 ml 120 ml Output Total 1200 ml 500 ml Balance -100 ml -380 ml Intake Oral 1100 ml 120 ml Output Urine Total 1200 ml 500 ml Dressing: saturated Cardiovascular: RSR Respiratory: decreased breath sounds Abdomen: non-tender, present bowel sounds Extremities: no edema, no tenderness, no cyanosis Laboratory Tests Test 05/08/20 20:16 05/09/20 05:48 05/09/20 06:06 05/09/20 11:14 POC Whole Blood Glucose Pending 147 MG/DL (74-106) H 134 MG/DL (74-106) H Sodium Level 140 MMOL/L (136-145) Potassium Level 4.9 MMOL/L (3.5-5.1) Chloride Level 108 MMOL/L (98-107) H Carbon Dioxide Level 25 MMOL/L (21-32) Anion Gap 7 mmol/L (5-15) Blood Urea Nitrogen 35 mg/dL (7-18) H Creatinine 4.4 MG/DL (0.55-1.30) H Estimat Glomerular Filtration Rate 11.6 mL/min (>60) Glucose Level 135 MG/DL (74-106) H Calcium Level 7.6 MG/DL (8.5-10.1) L Phosphorus Level 4.1 MG/DL (2.5-4.9) Magnesium Level 2.1 MG/DL (1.8-2.4) Total Bilirubin 0.3 MG/DL (0.2-1.0) Aspartate Amino Transf (AST/SGOT) 38 U/L (15-37) H Alanine Aminotransferase (ALT/SGPT) 26 U/L (12-78) Alkaline Phosphatase 94 U/L (46-116) C-Reactive Protein, Quantitative 12.1 mg/dL (0.00-0.90) H Total Protein 5.3 G/DL (6.4-8.2) L Albumin 1.9 G/DL (3.4-5.0) L Globulin 3.4 g/dL Albumin/Globulin Ratio 0.6 (1.0-2.7) L Plan Problems: (1) Abdominal pain Assessment & Plan: leukocytosis anemia ct noted cramping pain likely constipated ct reviewed exam fairly benign okay for diet bowel regimen will follow with exam and recs Lower chest:: Bibasilar subsegmental atelectasis. There are peripheral patchy gr ound glass opacities. Hepatobiliary:: Unremarkable. Genitourinary:: Uterus is not visualized and may be surgically absent. Redemonstration of bilateral perinephric fat stranding. No hydronephrosis. Urinary bladder is under distended, limiting evaluation. Calcifications are noted in the right ovary along the course of the distal ureter. Adrenals:: Nonspecific bilateral adrenal gland thickening. Pancreas:: Mild pancreatic parenchymal atrophy. Gastrointestinal:: Appendix is normal. No evidence of obstruction. Spleen: : Unremarkable. Peritoneum:: No free air or free fluid. Moderate broad-based fat-containing umbilical hernia. Bones and soft tissues:: There are multilevel discogenic degenerative changes of the visualized spine. IMPRESSION: 1. Hyperdensities along the course of the distal ureter are felt more likely to represent ovarian calcifications as opposed to distal ureteral calculus given lack of associated hydronephrosis. 2. Peripheral patchy ground glass opacities in the visualized lung bases, which are nonspecific and may be related to infectious/inflammatory airways disease but atypical/viral pneumonia should also be considered. (2) UTI (urinary tract infection) (3) Diabetes mellitus (4) HTN (hypertension) (5) Sepsis (6) ATN (acute tubular necrosis) (7) JARET (acute kidney injury) (8) Anemia (9) Diabetic nephropathy (10) Morbid obesity (11) Bacteremia (12) Rash and other nonspecific skin eruption (13) Electrolyte disorder (14) Neck strain Edgardo Saavedra May 09, 2020 15:38
[2020-05-09 16:00] VITALS: BP 151/71
[2020-05-09 17:16] LABS: BASOPHILS % (AUTO) 2.8 % (0.0-2.0); EOSINOPHILS % (AUTO) 1.8 % (0.0-3.0); HEMATOCRIT 27.9 % (37.0-47.0); HEMOGLOBIN 9.1 G/DL (12.0-16.0); LYMPHOCYTES % (AUTO) 29.3 % (20.0-45.0); MEAN CORPUSCULAR VOLUME 77 FL (80-99); MONOCYTES % (AUTO) 4.9 % (1.0-10.0); NEUTROPHILS % (AUTO) 61.3 % (45.0-75.0); PLATELET COUNT 155 K/UL (150-450); RED BLOOD COUNT 3.61 M/UL (4.20-5.40); RED CELL DISTRIBUTION WIDTH 17.8 % (11.6-14.8); WHITE BLOOD COUNT 12.4 K/UL (4.8-10.8)
[2020-05-09 20:00] VITALS: BP 120/71
[2020-05-09] MEDS: Dyna-Hex 2% Top Sol 2oz TOPIC SCH (21:28)
[2020-05-10] VITALS (9 sets, daily range): BP systolic 129–143; BP diastolic 52–80
[2020-05-10 05:35] LABS: BASOPHILS % (AUTO) 1.8 % (0.0-2.0); EOSINOPHILS % (AUTO) 1.7 % (0.0-3.0); HEMATOCRIT 26.8 % (37.0-47.0); HEMOGLOBIN 8.7 G/DL (12.0-16.0); MEAN CORPUSCULAR VOLUME 78 FL (80-99); MONOCYTES % (AUTO) 4.9 % (1.0-10.0); NEUTROPHILS % (AUTO) 50.5 % (45.0-75.0); PLATELET COUNT 136 K/UL (150-450); RED BLOOD COUNT 3.44 M/UL (4.20-5.40); WHITE BLOOD COUNT 9.9 K/UL (4.8-10.8)
[2020-05-10 05:53] LABS: ALBUMIN 1.9 G/DL (3.4-5.0); ALBUMIN/GLOBULIN RATIO 0.5 (1.0-2.7); BILIRUBIN,TOTAL 0.3 MG/DL (0.2-1.0); CALCIUM 8.1 MG/DL (8.5-10.1); CREATININE 4.3 MG/DL (0.55-1.30); PHOSPHORUS 3.8 MG/DL (2.5-4.9); POTASSIUM 4.5 MMOL/L (3.5-5.1)
[2020-05-10] MEDS: NovoLOG Insulin Flexpen SUBQ SCH ×4 (06:25→21:51)
[2020-05-10] MEDS ORDERED: Lidocaine 2% 20mg/ml/Epi 0.005mg/ml 20ml vial INJ PRN (08:00)
[2020-05-10] MEDS ORDERED: Heparin1,000 units/500ml Premix(Conc:2 units/ml) IV PRN (08:00)
--- NOTE | 2020-05-10 08:14 | Infectious Diseases Prog Note ---
Assessment/Plan 79yo F with: Afebrile Leukocytosis to 39, improving Abd pain UTI, R CVAT, ?Pyelo Staph epi bacteremia, likely contaminant 05/02 BCx 1/2 +Staph epi, likely skin contaminant UCx >100k E.coli, murillo-S COVID rapid test neg, COVID PCR neg Resp cx p CXR: Left mid lung and right midlung/right basilar airspace opacities which likely represent atelectasis, but pneumonia should be excluded clinically. CT A/P: 1. Hyperdensities along the course of the distal ureter are felt more likely to represent ovarian calcifications as opposed to distal ureteral calculus given lack of associated hydronephrosis. 2. Peripheral patchy ground glass opacities in the visualized lung bases, which are nonspecific and may be related to infectious/inflammatory airways disease but atypical/viral pneumonia should also be considered. 05/03 Renal US: Unremarkable 05/05 BCx NTD JARET vs CKD, Cr 4.8 - worsening DM2 on insulin Allergy to PCN - causes anaphylaxis Plan: Cont CTX 2g IV daily #08/29 for UTI/pyelo (abx day #03/06) On d/c can change to levofloxacin 250mg PO daily to complete rest of course Trend WBC 05/07 SP cefepime #6 05/06 SP dapto #1 05/05 SP vanco #4 Monitor CBC/CMP Monitor temp curve, hemodynamics Monitor resp status HD as per Nephro D/w RN Thank you for this consult. [facility] will continue to follow. Subjective Allergies: Coded Allergies: ACETAMINOPHEN (Verified Allergy, Severe, Shortness of Breath, 11/25/17) HYDROMORPHONE (Verified Allergy, Severe, 11/25/17) PENICILLINS (Verified Allergy, Severe, 11/25/17) PROCAINE (Verified Allergy, Severe, 11/25/17) SHELLFISH DERIVED (Verified Allergy, Severe, 11/25/17) CODEINE (Verified Allergy, Unknown, 11/25/17) Cantaloupe (Verified Allergy, Unknown, 11/25/17) STRAWBERRY (Verified Allergy, Unknown, 11/25/17) Uncoded Allergies: DUST, POLLEN (Allergy, Unknown, 07/19/17) AF On RA NAD, going for Permacath this afternoon WBC improved to 9.9 Objective Last 24 Hour Vital Signs Date Time Temp Pulse Resp B/P (MAP) Pulse Ox O2 Delivery O2 Flow Rate FiO2 05/10/20 04:00 98.0 82 20 141/65 (90) 96 05/10/20 00:00 98.7 82 22 136/77 (96) 97 05/09/20 21:00 Room Air 05/09/20 20:00 98.2 90 20 120/71 (87) 96 05/09/20 16:00 97.9 85 20 151/71 (97) 96 05/09/20 12:00 98.8 89 20 159/75 (103) 96 05/09/20 09:00 Room Air Height (Feet): 5 Height (Inches): 5.00 Weight (Pounds): 260 Gen: NAD in bed HEENT: NCAT, EOMI, PERRL CV: RRR Pulm: CTAB Abd: Soft, NTND Ext: No c/c/e Neuro: Awake, alert, interactive Lines: R IJ Laboratory Tests Test 05/09/20 11:14 05/09/20 16:39 05/09/20 16:40 05/09/20 20:57 POC Whole Blood Glucose 134 MG/DL (74-106) H 171 MG/DL (74-106) H 172 MG/DL (74-106) H White Blood Count 12.4 K/UL (4.8-10.8) H Red Blood Count 3.61 M/UL (4.20-5.40) L Hemoglobin 9.1 G/DL (12.0-16.0) L Hematocrit 27.9 % (37.0-47.0) L Mean Corpuscular Volume 77 FL (80-99) L Mean Corpuscular Hemoglobin 25.3 PG (27.0-31.0) L Mean Corpuscular Hemoglobin Concent 32.8 G/DL (32.0-36.0) Red Cell Distribution Width 17.8 % (11.6-14.8) H Platelet Count 155 K/UL (150-450) Mean Platelet Volume 6.6 FL (6.5-10.1) Neutrophils (%) (Auto) 61.3 % (45.0-75.0) Lymphocytes (%) (Auto) 29.3 % (20.0-45.0) Monocytes (%) (Auto) 4.9 % (1.0-10.0) Eosinophils (%) (Auto) 1.8 % (0.0-3.0) Basophils (%) (Auto) 2.8 % (0.0-2.0) H Erythrocyte Sedimentation Rate 82 MM/HR (0-30) H Test 05/10/20 05:01 05/10/20 06:21 White Blood Count 9.9 K/UL (4.8-10.8) Red Blood Count 3.44 M/UL (4.20-5.40) L Hemoglobin 8.7 G/DL (12.0-16.0) L Hematocrit 26.8 % (37.0-47.0) L Mean Corpuscular Volume 78 FL (80-99) L Mean Corpuscular Hemoglobin 25.3 PG (27.0-31.0) L Mean Corpuscular Hemoglobin Concent 32.4 G/DL (32.0-36.0) Red Cell Distribution Width 17.0 % (11.6-14.8) H Platelet Count 136 K/UL (150-450) L Mean Platelet Volume 6.5 FL (6.5-10.1) Neutrophils (%) (Auto) 50.5 % (45.0-75.0) Lymphocytes (%) (Auto) 41.0 % (20.0-45.0) Monocytes (%) (Auto) 4.9 % (1.0-10.0) Eosinophils (%) (Auto) 1.7 % (0.0-3.0) Basophils (%) (Auto) 1.8 % (0.0-2.0) Prothrombin Time 11.4 SEC (9.30-11.50) Prothromb Time International Ratio 1.0 (0.9-1.1) Activated Partial Thromboplast Time 26 SEC (23-33) Sodium Level 141 MMOL/L (136-145) Potassium Level 4.5 MMOL/L (3.5-5.1) Chloride Level 107 MMOL/L (98-107) Carbon Dioxide Level 29 MMOL/L (21-32) Anion Gap 5 mmol/L (5-15) Blood Urea Nitrogen 34 mg/dL (7-18) H Creatinine 4.3 MG/DL (0.55-1.30) H Estimat Glomerular Filtration Rate 12.0 mL/min (>60) Glucose Level 161 MG/DL (74-106) H Calcium Level 8.1 MG/DL (8.5-10.1) L Phosphorus Level 3.8 MG/DL (2.5-4.9) Total Bilirubin 0.3 MG/DL (0.2-1.0) Aspartate Amino Transf (AST/SGOT) 30 U/L (15-37) Alanine Aminotransferase (ALT/SGPT) 22 U/L (12-78) Alkaline Phosphatase 89 U/L (46-116) Total Protein 5.9 G/DL (6.4-8.2) L Albumin 1.9 G/DL (3.4-5.0) L Globulin 4.0 g/dL Albumin/Globulin Ratio 0.5 (1.0-2.7) L POC Whole Blood Glucose 141 MG/DL (74-106) H Current Medications Medications (Trade) Dose Ordered Sig/Gwendolyn Route PRN Reason Start Time Stop Time Status Last Admin Dose Admin Albuterol/ Ipratropium (Albuterol/ Ipratropium) 3 ml Q4H PRN HHN Shortness of Breath 05/06/20 15:03 05/11/20 15:02 Ceftriaxone Sodium 2 gm/ Dextrose 55 ml @ 110 mls/hr Q24H IVPB 05/07/20 14:00 05/14/20 13:59 05/09/20 13:57 Chlorhexidine Gluconate (Niki-Hex 2%) 1 applic DAILY@2000 TOPIC 05/05/20 20:00 08/03/20 19:59 05/09/20 21:28 Dextrose (Dextrose 50%) 25 ml Q30M PRN IV Hypoglycemia 05/02/20 14:45 07/31/20 14:44 Dextrose (Dextrose 50%) 50 ml Q30M PRN IV Hypoglycemia 05/02/20 14:45 07/31/20 14:44 Docusate Sodium (Colace) 100 mg TWICE A DAY ORAL 05/04/20 18:00 06/03/20 17:59 05/05/20 08:40 Epoetin Nicholas (Epoetin Nicholas(ESRD on dialysis)) 10,000 unit WED-WED-WED SUBQ 05/08/20 21:00 08/06/20 20:59 05/08/20 20:28 Heparin Sodium (Porcine) (Heparin 5000 units/ml) 5,000 units EVERY 12 HOURS SUBQ 05/02/20 21:00 06/16/20 20:59 05/09/20 21:29 Heparin Sodium/ Sodium Chloride (Heparin 1000 units/500ml Premix) 1,000 unit ONCE PRN IV radiology procedure 05/10/20 08:00 05/12/20 07:59 Insulin Aspart (NovoLOG) BEFORE MEALS AND HS SUBQ 05/02/20 17:56 07/31/20 17:55 05/10/20 06:25 Lidocaine/ Epinephrine (Lidocaine 2%/ Epi 20ml) 40 ml ONCE PRN INJ radiology procedure 05/10/20 08:00 05/12/20 07:59 Ondansetron HCl (Zofran) 4 mg Q6H PRN IVP Nausea & Vomiting 05/02/20 14:45 06/01/20 14:44 05/10/20 04:30 Pantoprazole (Protonix) 40 mg EVERY 12 HOURS ORAL 05/03/20 11:00 06/02/20 10:59 05/09/20 21:29 Polyethylene Glycol (Miralax) 17 gm DAILYPRN PRN ORAL Constipation 05/02/20 14:45 06/01/20 14:44 Temazepam (Restoril) 15 mg HSPRN PRN ORAL Insomnia 05/02/20 14:45 05/13/20 14:44 Mala Enrique M.D. May 10, 2020 08:14
[2020-05-10] MEDS: Heparin 5000 units/ml inj SUBQ SCH ×2 (08:47→21:00)
[2020-05-10] MEDS: Docusate 100mg cap ORAL SCH ×2 (08:47→17:09)
--- NOTE | 2020-05-10 11:37 | Pulmonology Progress Note ---
Subjective ROS Limited/Unobtainable: No Interval Events: getting dialyzed HEENT: Repors: no symptoms Respiratory: Reports: no symptoms Allergies: Coded Allergies: ACETAMINOPHEN (Verified Allergy, Severe, Shortness of Breath, 11/25/17) HYDROMORPHONE (Verified Allergy, Severe, 11/25/17) PENICILLINS (Verified Allergy, Severe, 11/25/17) PROCAINE (Verified Allergy, Severe, 11/25/17) SHELLFISH DERIVED (Verified Allergy, Severe, 11/25/17) CODEINE (Verified Allergy, Unknown, 11/25/17) Cantaloupe (Verified Allergy, Unknown, 11/25/17) STRAWBERRY (Verified Allergy, Unknown, 11/25/17) Uncoded Allergies: DUST, POLLEN (Allergy, Unknown, 07/19/17) Objective Last 24 Hour Vital Signs Date Time Temp Pulse Resp B/P (MAP) Pulse Ox O2 Delivery O2 Flow Rate FiO2 05/10/20 09:00 Room Air 05/10/20 08:00 98.0 86 16 136/80 (98) 95 05/10/20 04:00 98.0 82 20 141/65 (90) 96 05/10/20 00:00 98.7 82 22 136/77 (96) 97 05/09/20 21:00 Room Air 05/09/20 20:00 98.2 90 20 120/71 (87) 96 05/09/20 16:00 97.9 85 20 151/71 (97) 96 05/09/20 12:00 98.8 89 20 159/75 (103) 96 Intake and Output 05/09/20 05/10/20 19:00 07:00 Intake Total 800 ml 240 ml Output Total 3200 ml 500 ml Balance -2400 ml -260 ml Intake Oral 800 ml 240 ml Output Urine Total 700 ml 500 ml Hemodialysis UF 2500 ml # Bowel Movements 1 General Appearance: WD/WN, no acute distress HEENT: atraumatic, anicteric Respiratory: chest wall non-tender, lungs clear, normal breath sounds Cardiovascular: normal peripheral pulses, normal rate Abdomen: normal bowel sounds, soft, non tender Genitourinary: normal external genitalia Extremities: no clubbing Neurologic: radar tester II-XII grossly normal, normal mood/affect Lymphatic: no neck adenopathy Laboratory Tests 05/09/20 16:39: POC Whole Blood Glucose 171H 05/09/20 16:40: White Blood Count 12.4H, Red Blood Count 3.61L, Hemoglobin 9.1L, Hematocrit 27.9L, Mean Corpuscular Volume 77L, Mean Corpuscular Hemoglobin 25.3L, Mean Corpuscular Hemoglobin Concent 32.8, Red Cell Distribution Width 17.8H, Platelet Count 155, Mean Platelet Volume 6.6, Neutrophils (%) (Auto) 61.3, Lymphocytes (%) (Auto) 29.3, Monocytes (%) (Auto) 4.9, Eosinophils (%) (Auto) 1.8, Basophils (%) (Auto) 2.8H, Erythrocyte Sedimentation Rate 82H 05/09/20 20:57: POC Whole Blood Glucose 172H 05/10/20 05:01: White Blood Count 9.9, Red Blood Count 3.44L, Hemoglobin 8.7L, Hematocrit 26.8L, Mean Corpuscular Volume 78L, Mean Corpuscular Hemoglobin 25.3L, Mean Corpuscular Hemoglobin Concent 32.4, Red Cell Distribution Width 17.0H, Platelet Count 136L, Mean Platelet Volume 6.5, Neutrophils (%) (Auto) 50.5, Lymphocytes (%) (Auto) 41.0, Monocytes (%) (Auto) 4.9, Eosinophils (%) (Auto) 1.7, Basophils (%) (Auto) 1.8, Prothrombin Time 11.4, Prothromb Time International Ratio 1.0, Activated Partial Thromboplast Time 26, Sodium Level 141, Potassium Level 4.5, Chloride Level 107, Carbon Dioxide Level 29, Anion Gap 5, Blood Urea Nitrogen 34H, Creatinine 4.3H, Estimat Glomerular Filtration Rate 12.0, Glucose Level 161H, Calcium Level 8.1L, Phosphorus Level 3.8, Total Bilirubin 0.3, Aspartate Amino Transf (AST/SGOT) 30, Alanine Aminotransferase (ALT/SGPT) 22, Alkaline Phosphatase 89, Total Protein 5.9L, Albumin 1.9L, Globulin 4.0, Albumin/Globulin Ratio 0.5L 05/10/20 06:21: POC Whole Blood Glucose 141H Current Medications Medications (Trade) Dose Ordered Sig/Gwendolyn Route PRN Reason Start Time Stop Time Status Last Admin Dose Admin Albuterol/ Ipratropium (Albuterol/ Ipratropium) 3 ml Q4H PRN HHN Shortness of Breath 05/06/20 15:03 05/11/20 15:02 Ceftriaxone Sodium 2 gm/ Dextrose 55 ml @ 110 mls/hr Q24H IVPB 05/07/20 14:00 05/14/20 13:59 05/09/20 13:57 Chlorhexidine Gluconate (Niki-Hex 2%) 1 applic DAILY@2000 TOPIC 05/05/20 20:00 08/03/20 19:59 05/09/20 21:28 Dextrose (Dextrose 50%) 25 ml Q30M PRN IV Hypoglycemia 05/02/20 14:45 07/31/20 14:44 Dextrose (Dextrose 50%) 50 ml Q30M PRN IV Hypoglycemia 05/02/20 14:45 07/31/20 14:44 Docusate Sodium (Colace) 100 mg TWICE A DAY ORAL 05/04/20 18:00 06/03/20 17:59 05/05/20 08:40 Epoetin Incholas (Epoetin Nicholas(ESRD on dialysis)) 10,000 unit WED-WED-WED SUBQ 05/08/20 21:00 08/06/20 20:59 05/08/20 20:28 Heparin Sodium (Porcine) (Heparin 5000 units/ml) 5,000 units EVERY 12 HOURS SUBQ 05/02/20 21:00 06/16/20 20:59 05/09/20 21:29 Heparin Sodium/ Sodium Chloride (Heparin 1000 units/500ml Premix) 1,000 unit ONCE PRN IV radiology procedure 05/10/20 08:00 05/12/20 07:59 Insulin Aspart (NovoLOG) BEFORE MEALS AND HS SUBQ 05/02/20 17:56 07/31/20 17:55 05/10/20 06:25 Lidocaine/ Epinephrine (Lidocaine 2%/ Epi 20ml) 40 ml ONCE PRN INJ radiology procedure 05/10/20 08:00 05/12/20 07:59 Ondansetron HCl (Zofran) 4 mg Q6H PRN IVP Nausea & Vomiting 05/02/20 14:45 06/01/20 14:44 05/10/20 04:30 Pantoprazole (Protonix) 40 mg EVERY 12 HOURS ORAL 05/03/20 11:00 06/02/20 10:59 05/10/20 08:44 Polyethylene Glycol (Miralax) 17 gm DAILYPRN PRN ORAL Constipation 05/02/20 14:45 06/01/20 14:44 Temazepam (Restoril) 15 mg HSPRN PRN ORAL Insomnia 05/02/20 14:45 05/13/20 14:44 Assessment/Plan Problems: (1) Sepsis (2) ATN (acute tubular necrosis) (3) JARET (acute kidney injury) (4) HTN (hypertension) (5) Diabetes mellitus (6) Anemia (7) Bacteremia (8) Morbid obesity Assessment/Plan wbc lower, normal now doing better all reviewed murillo culture, on Ceftriaxone nephrology to follow sliding scale diabetic diet dvt prophylaxis. dc planning in progress Umu Apple MD May 10, 2020 11:37
--- NOTE | 2020-05-10 13:50 | Surgery Progress Note ---
Surgery Progress Note Subjective Procedure Performed right femoral temporary hemodialysis line insertion Symptoms: improved, tolerating diet, passing flatus Objective Last 24 Hour Vital Signs Date Time Temp Pulse Resp B/P (MAP) Pulse Ox O2 Delivery O2 Flow Rate FiO2 05/10/20 12:00 97.6 84 16 143/66 (91) 95 05/10/20 09:00 Room Air 05/10/20 08:00 98.0 86 16 136/80 (98) 95 05/10/20 04:00 98.0 82 20 141/65 (90) 96 05/10/20 00:00 98.7 82 22 136/77 (96) 97 05/09/20 21:00 Room Air 05/09/20 20:00 98.2 90 20 120/71 (87) 96 05/09/20 16:00 97.9 85 20 151/71 (97) 96 I&O Intake and Output 05/09/20 05/10/20 19:00 07:00 Intake Total 800 ml 240 ml Output Total 3200 ml 500 ml Balance -2400 ml -260 ml Intake Oral 800 ml 240 ml Output Urine Total 700 ml 500 ml Hemodialysis UF 2500 ml # Bowel Movements 1 Dressing: saturated Cardiovascular: RSR Respiratory: decreased breath sounds Abdomen: non-tender, present bowel sounds Extremities: no edema, no tenderness, no cyanosis Laboratory Tests Test 05/09/20 16:39 05/09/20 16:40 05/09/20 20:57 05/10/20 05:01 POC Whole Blood Glucose 171 MG/DL (74-106) H 172 MG/DL (74-106) H White Blood Count 12.4 K/UL (4.8-10.8) H 9.9 K/UL (4.8-10.8) Red Blood Count 3.61 M/UL (4.20-5.40) L 3.44 M/UL (4.20-5.40) L Hemoglobin 9.1 G/DL (12.0-16.0) L 8.7 G/DL (12.0-16.0) L Hematocrit 27.9 % (37.0-47.0) L 26.8 % (37.0-47.0) L Mean Corpuscular Volume 77 FL (80-99) L 78 FL (80-99) L Mean Corpuscular Hemoglobin 25.3 PG (27.0-31.0) L 25.3 PG (27.0-31.0) L Mean Corpuscular Hemoglobin Concent 32.8 G/DL (32.0-36.0) 32.4 G/DL (32.0-36.0) Red Cell Distribution Width 17.8 % (11.6-14.8) H 17.0 % (11.6-14.8) H Platelet Count 155 K/UL (150-450) 136 K/UL (150-450) L Mean Platelet Volume 6.6 FL (6.5-10.1) 6.5 FL (6.5-10.1) Neutrophils (%) (Auto) 61.3 % (45.0-75.0) 50.5 % (45.0-75.0) Lymphocytes (%) (Auto) 29.3 % (20.0-45.0) 41.0 % (20.0-45.0) Monocytes (%) (Auto) 4.9 % (1.0-10.0) 4.9 % (1.0-10.0) Eosinophils (%) (Auto) 1.8 % (0.0-3.0) 1.7 % (0.0-3.0) Basophils (%) (Auto) 2.8 % (0.0-2.0) H 1.8 % (0.0-2.0) Erythrocyte Sedimentation Rate 82 MM/HR (0-30) H Prothrombin Time 11.4 SEC (9.30-11.50) Prothromb Time International Ratio 1.0 (0.9-1.1) Activated Partial Thromboplast Time 26 SEC (23-33) Sodium Level 141 MMOL/L (136-145) Potassium Level 4.5 MMOL/L (3.5-5.1) Chloride Level 107 MMOL/L (98-107) Carbon Dioxide Level 29 MMOL/L (21-32) Anion Gap 5 mmol/L (5-15) Blood Urea Nitrogen 34 mg/dL (7-18) H Creatinine 4.3 MG/DL (0.55-1.30) H Estimat Glomerular Filtration Rate 12.0 mL/min (>60) Glucose Level 161 MG/DL (74-106) H Calcium Level 8.1 MG/DL (8.5-10.1) L Phosphorus Level 3.8 MG/DL (2.5-4.9) Total Bilirubin 0.3 MG/DL (0.2-1.0) Aspartate Amino Transf (AST/SGOT) 30 U/L (15-37) Alanine Aminotransferase (ALT/SGPT) 22 U/L (12-78) Alkaline Phosphatase 89 U/L (46-116) Total Protein 5.9 G/DL (6.4-8.2) L Albumin 1.9 G/DL (3.4-5.0) L Globulin 4.0 g/dL Albumin/Globulin Ratio 0.5 (1.0-2.7) L Test 05/10/20 06:21 05/10/20 12:12 POC Whole Blood Glucose 141 MG/DL (74-106) H Pending Plan Problems: (1) Abdominal pain Assessment & Plan: leukocytosis anemia ct noted cramping pain likely constipated ct reviewed exam fairly benign okay for diet bowel regimen will follow with exam and recs Lower chest:: Bibasilar subsegmental atelectasis. There are peripheral patchy ground glass opacities. Hepatobiliary:: Unremarkable. Genitourinary:: Uterus is not visualized and may be surgically absent. Redemonstration of bilateral perinephric fat stranding. No hydronephrosis. Urinary bladder is under distended, limiting evaluation. Calcifications are noted in the right ovary along the course of the distal ureter. Adrenals:: Nonspecific bilateral adrenal gland thickening. Pancreas:: Mild pancreatic parenchymal atrophy. Gastrointestinal:: Appendix is normal. No evidence of obstruction. Spleen: : Unremarkable. Peritoneum:: No free air or free fluid. Moderate broad-based fat-containing umbilical hernia. Bones and soft tissues:: There are multilevel discogenic degenerative changes of the visualized spine. IMPRESSION: 1. Hyperdensities along the course of the distal ureter are felt more likely to represent ovarian calcifications as opposed to distal ureteral calculus given lack of associated hydronephrosis. 2. Peripheral patchy ground glass opacities in the visualized lung bases, which are nonspecific and may be related to infectious/inflammatory airways disease but atypical/viral pneumonia should also be considered. (2) UTI (urinary tract infection) (3) Diabetes mellitus (4) HTN (hypertension) (5) Sepsis (6) ATN (acute tubular necrosis) (7) JARET (acute kidney injury) (8) Anemia (9) Diabetic nephropathy (10) Morbid obesity (11) Bacteremia (12) Rash and other nonspecific skin eruption (13) Electrolyte disorder (14) Neck strain Edgardo Saavedra May 10, 2020 13:50
--- NOTE | 2020-05-10 14:08 | Internal Med Progress Note ---
Subjective Physician Name Daron Batres Attending Physician Daron Batres MD Current Medications Medications (Trade) Dose Ordered Sig/Gwendolyn Route PRN Reason Start Time Stop Time Status Last Admin Dose Admin Albuterol/ Ipratropium (Albuterol/ Ipratropium) 3 ml Q4H PRN HHN Shortness of Breath 05/06/20 15:03 05/11/20 15:02 Ceftriaxone Sodium 2 gm/ Dextrose 55 ml @ 110 mls/hr Q24H IVPB 05/07/20 14:00 05/14/20 13:59 05/09/20 13:57 Chlorhexidine Gluconate (Niki-Hex 2%) 1 applic DAILY@2000 TOPIC 05/05/20 20:00 08/03/20 19:59 05/09/20 21:28 Dextrose (Dextrose 50%) 25 ml Q30M PRN IV Hypoglycemia 05/02/20 14:45 07/31/20 14:44 Dextrose (Dextrose 50%) 50 ml Q30M PRN IV Hypoglycemia 05/02/20 14:45 07/31/20 14:44 Docusate Sodium (Colace) 100 mg TWICE A DAY ORAL 05/04/20 18:00 06/03/20 17:59 05/05/20 08:40 Epoetin Nicholas (Epoetin Nicholas(ESRD on dialysis)) 10,000 unit WED-WED-WED SUBQ 05/08/20 21:00 08/06/20 20:59 05/08/20 20:28 Heparin Sodium (Porcine) (Heparin 5000 units/ml) 5,000 units EVERY 12 HOURS SUBQ 05/02/20 21:00 06/16/20 20:59 05/09/20 21:29 Heparin Sodium/ Sodium Chloride (Heparin 1000 units/500ml Premix) 1,000 unit ONCE PRN IV radiology procedure 05/10/20 08:00 05/12/20 07:59 Insulin Aspart (NovoLOG) BEFORE MEALS AND HS SUBQ 05/02/20 17:56 07/31/20 17:55 05/10/20 12:14 Lidocaine/ Epinephrine (Lidocaine 2%/ Epi 20ml) 40 ml ONCE PRN INJ radiology procedure 05/10/20 08:00 05/12/20 07:59 Ondansetron HCl (Zofran) 4 mg Q6H PRN IVP Nausea & Vomiting 05/02/20 14:45 06/01/20 14:44 05/10/20 04:30 Pantoprazole (Protonix) 40 mg EVERY 12 HOURS ORAL 05/03/20 11:00 06/02/20 10:59 05/10/20 08:44 Polyethylene Glycol (Miralax) 17 gm DAILYPRN PRN ORAL Constipation 05/02/20 14:45 06/01/20 14:44 Temazepam (Restoril) 15 mg HSPRN PRN ORAL Insomnia 05/02/20 14:45 05/13/20 14:44 Allergies: Coded Allergies: ACETAMINOPHEN (Verified Allergy, Severe, Shortness of Breath, 11/25/17) HYDROMORPHONE (Verified Allergy, Severe, 11/25/17) PENICILLINS (Verified Allergy, Severe, 11/25/17) PROCAINE (Verified Allergy, Severe, 11/25/17) SHELLFISH DERIVED (Verified Allergy, Severe, 11/25/17) CODEINE (Verified Allergy, Unknown, 11/25/17) Cantaloupe (Verified Allergy, Unknown, 11/25/17) STRAWBERRY (Verified Allergy, Unknown, 11/25/17) Uncoded Allergies: DUST, POLLEN (Allergy, Unknown, 07/19/17) Subjective awake, alert, responsive, denies any chest pain or shortness of breath, denies any nausea or vomiting. Objective Last Vital Signs Date Time Temp Pulse Resp B/P (MAP) Pulse Ox O2 Delivery O2 Flow Rate FiO2 05/10/20 12:00 97.6 84 16 143/66 (91) 95 05/10/20 09:00 Room Air 05/02/20 23:00 99 Laboratory Tests Test 05/09/20 16:39 05/09/20 16:40 05/09/20 20:57 05/10/20 05:01 POC Whole Blood Glucose 171 MG/DL (74-106) H 172 MG/DL (74-106) H White Blood Count 12.4 K/UL (4.8-10.8) H 9.9 K/UL (4.8-10.8) Red Blood Count 3.61 M/UL (4.20-5.40) L 3.44 M/UL (4.20-5.40) L Hemoglobin 9.1 G/DL (12.0-16.0) L 8.7 G/DL (12.0-16.0) L Hematocrit 27.9 % (37.0-47.0) L 26.8 % (37.0-47.0) L Mean Corpuscular Volume 77 FL (80-99) L 78 FL (80-99) L Mean Corpuscular Hemoglobin 25.3 PG (27.0-31.0) L 25.3 PG (27.0-31.0) L Mean Corpuscular Hemoglobin Concent 32.8 G/DL (32.0-36.0) 32.4 G/DL (32.0-36.0) Red Cell Distribution Width 17.8 % (11.6-14.8) H 17.0 % (11.6-14.8) H Platelet Count 155 K/UL (150-450) 136 K/UL (150-450) L Mean Platelet Volume 6.6 FL (6.5-10.1) 6.5 FL (6.5-10.1) Neutrophils (%) (Auto) 61.3 % (45.0-75.0) 50.5 % (45.0-75.0) Lymphocytes (%) (Auto) 29.3 % (20.0-45.0) 41.0 % (20.0-45.0) Monocytes (%) (Auto) 4.9 % (1.0-10.0) 4.9 % (1.0-10.0) Eosinophils (%) (Auto) 1.8 % (0.0-3.0) 1.7 % (0.0-3.0) Basophils (%) (Auto) 2.8 % (0.0-2.0) H 1.8 % (0.0-2.0) Erythrocyte Sedimentation Rate 82 MM/HR (0-30) H Prothrombin Time 11.4 SEC (9.30-11.50) Prothromb Time International Ratio 1.0 (0.9-1.1) Activated Partial Thromboplast Time 26 SEC (23-33) Sodium Level 141 MMOL/L (136-145) Potassium Level 4.5 MMOL/L (3.5-5.1) Chloride Level 107 MMOL/L (98-107) Carbon Dioxide Level 29 MMOL/L (21-32) Anion Gap 5 mmol/L (5-15) Blood Urea Nitrogen 34 mg/dL (7-18) H Creatinine 4.3 MG/DL (0.55-1.30) H Estimat Glomerular Filtration Rate 12.0 mL/min (>60) Glucose Level 161 MG/DL (74-106) H Calcium Level 8.1 MG/DL (8.5-10.1) L Phosphorus Level 3.8 MG/DL (2.5-4.9) Total Bilirubin 0.3 MG/DL (0.2-1.0) Aspartate Amino Transf (AST/SGOT) 30 U/L (15-37) Alanine Aminotransferase (ALT/SGPT) 22 U/L (12-78) Alkaline Phosphatase 89 U/L (46-116) Total Protein 5.9 G/DL (6.4-8.2) L Albumin 1.9 G/DL (3.4-5.0) L Globulin 4.0 g/dL Albumin/Globulin Ratio 0.5 (1.0-2.7) L Test 05/10/20 06:21 05/10/20 12:12 POC Whole Blood Glucose 141 MG/DL (74-106) H Pending Intake and Output 05/09/20 05/10/20 19:00 07:00 Intake Total 800 ml 240 ml Output Total 3200 ml 500 ml Balance -2400 ml -260 ml Intake Oral 800 ml 240 ml Output Urine Total 700 ml 500 ml Hemodialysis UF 2500 ml # Bowel Movements 1 Objective General: No acute distress, awake and alert HEENT: NCAT, sclera anicteric, PERRL, EOMI. right IJ dialysis catheter. Neck: Supple, no significant jugular venous distention, Lungs: Good inspiratory effort, no accessory muscle use, clear to auscultation bilaterally, no Wheeze or Rales. Heart: Regular rate and rhythm, normal S1/S2, no murmurs/gallops Abdomen: soft, decreased lower quadrant tenderness, nondistended. Normoactive bowel sounds, morbid obesity. / Rectal: Refused and deferred. Extremities: No Cyanosis or clubbing , right greater than left lower extremity edema. Neuro: A&O x 3, Able to move all extremities Skin: warm, no rashes or lesions Psych: Normal mood and affect Assessment/Plan Assessment/Plan sepsis secondary to E. coli UTI Acute kidney injury on chronic kidney disease on hemodialysis Dehydration Morbid obesity Anemia of chronic disease Diabetic type II Hyperalbuminemia Anxiety disorder. Plan: Monitor blood culture and laboratory Antibiotics: Rocephin IV Follow up with renal ultrasound CODE STATUS: FULL CODE DVT prophylaxis: Heparin subcu PT mobility. Next hemodialysis tomorrow.. DC planning home with HH today after tunnel dialysis catheter placement. DC levofloxacin 250mg PO daily X 4 days. Daron Batres MD May 10, 2020 14:08
--- NOTE | 2020-05-10 14:34 | Pre-Procedure Note/Attestation ---
Pre-Procedure Note/Attestation Complete Prior to Procedure Planned Procedure: not applicable Procedure Narrative: permacath Indications for Procedure Pre-Operative Diagnosis: renal failure Attestation I attest that I discussed the nature of the procedure; its benefits; risks and complications; and alternatives (and the risks and benefits of such alternatives), prior to the procedure, with the patient (or the patient's legal agricultural sales representative). I attest that, if there was a reasonable possibility of needing a blood t ransfusion, the patient (or the patient's legal agricultural sales representative) was given the [facility] standardized written summary, pursuant to the Elijah Jacoby Blood Safety Act ([place] Health and Safety Code # 1645, as amended). I attest that I re-evaluated the patient just prior to the surgery and that there has been no change in the patient's H&P, except as documented below: Willian Velasquez MD May 10, 2020 14:33
--- NOTE | 2020-05-10 14:36 | Nephrology Progress Note ---
Assessment/Plan Problem List: (1) JARET (acute kidney injury) (2) Diabetic nephropathy (3) Anemia (4) Morbid obesity Assessment Acute renal failure Diabetes mellitus, diabetic nephropathy Hypoalbuminemia rule out nephrotic syndrome Anemia Sepsis History of hypertension History of anxiety disorder History of asthma/bronchitis Plan May 10: Patient due for insertion of a tunneled catheter today. Was dialyzed yesterday. DC planning and outpatient dialysis placement is in process. Next dialysis tomorrow. May 09: Currently on dialysis. Tolerating well. Due for placement of tunneled catheter. Hepatitis panel pending. Outpatient dialysis placement in process. Continue per consultants. May 08: Dialyzed yesterday. Due for dialysis tomorrow. Discussed with outpatient case manager. Will arrange for placement of tunneled catheter, and placement to an outpatient dialysis unit. Per orders. May 07: Due for dialysis today. Labs reviewed. Medication list reviewed. Continue per consultants. Epogen and iron ordered for anemia. May 06: Dialysis catheter is being replaced from the groin to the subclavian area today. We will attend dialysis tomorrow. Continue per consultants. May 05: Patient seen this morning during dialysis. Tolerating well. Continue to monitor renal parameters. May 04: Labs reviewed. Discussed with RN. Serum creatinine higher. Patient requires hemodialysis treatment for acute renal failure. Kidney ultrasound reviewed. Continue to monitor renal parameters and avoid nephrotoxic's. Patient consented for placement of temporary dialysis catheter May 03: Arriaza catheter Kidney ultrasound 2D echocardiogram Urine studies The blood pressure and blood sugar in check Avoid nephrotoxic's Antibiotics Subjective ROS Limited/Unobtainable: No Constitutional: Reports: malaise Objective Objective Last 24 Hour Vital Signs Date Time Temp Pulse Resp B/P (MAP) Pulse Ox O2 Delivery O2 Flow Rate FiO2 05/10/20 12:00 97.6 84 16 143/66 (91) 95 05/10/20 09:00 Room Air 05/10/20 08:00 98.0 86 16 136/80 (98) 95 05/10/20 04:00 98.0 82 20 141/65 (90) 96 05/10/20 00:00 98.7 82 22 136/77 (96) 97 05/09/20 21:00 Room Air 05/09/20 20:00 98.2 90 20 120/71 (87) 96 05/09/20 16:00 97.9 85 20 151/71 (97) 96 Intake and Output 05/09/20 05/10/20 19:00 07:00 Intake Total 800 ml 240 ml Output Total 3200 ml 500 ml Balance -2400 ml -260 ml Intake Oral 800 ml 240 ml Output Urine Total 700 ml 500 ml Hemodialysis UF 2500 ml # Bowel Movements 1 Current Medications Medications (Trade) Dose Ordered Sig/Gwendolyn Route PRN Reason Start Time Stop Time Status Last Admin Dose Admin Albuterol/ Ipratropium (Albuterol/ Ipratropium) 3 ml Q4H PRN HHN Shortness of Breath 05/06/20 15:03 05/11/20 15:02 Ceftriaxone Sodium 2 gm/ Dextrose 55 ml @ 110 mls/hr Q24H IVPB 05/07/20 14:00 05/14/20 13:59 05/09/20 13:57 Chlorhexidine Gluconate (Niki-Hex 2%) 1 applic DAILY@2000 TOPIC 05/05/20 20:00 08/03/20 19:59 05/09/20 21:28 Dextrose (Dextrose 50%) 25 ml Q30M PRN IV Hypoglycemia 05/02/20 14:45 07/31/20 14:44 Dextrose (Dextrose 50%) 50 ml Q30M PRN IV Hypoglycemia 05/02/20 14:45 07/31/20 14:44 Docusate Sodium (Colace) 100 mg TWICE A DAY ORAL 05/04/20 18:00 06/03/20 17:59 05/05/20 08:40 Epoetin Nicholas (Epoetin Nicholas(ESRD on dialysis)) 10,000 unit WED-WED-WED SUBQ 05/08/20 21:00 08/06/20 20:59 05/08/20 20:28 Heparin Sodium (Porcine) (Heparin 5000 units/ml) 5,000 units EVERY 12 HOURS SUBQ 05/02/20 21:00 06/16/20 20:59 05/09/20 21:29 Heparin Sodium/ Sodium Chloride (Heparin 1000 units/500ml Premix) 1,000 unit ONCE PRN IV radiology procedure 05/10/20 08:00 05/12/20 07:59 Insulin Aspart (NovoLOG) BEFORE MEALS AND HS SUBQ 05/02/20 17:56 07/31/20 17:55 05/10/20 12:14 Lidocaine/ Epinephrine (Lidocaine 2%/ Epi 20ml) 40 ml ONCE PRN INJ radiology procedure 05/10/20 08:00 05/12/20 07:59 Ondansetron HCl (Zofran) 4 mg Q6H PRN IVP Nausea & Vomiting 05/02/20 14:45 06/01/20 14:44 05/10/20 04:30 Pantoprazole (Protonix) 40 mg EVERY 12 HOURS ORAL 05/03/20 11:00 06/02/20 10:59 05/10/20 08:44 Polyethylene Glycol (Miralax) 17 gm DAILYPRN PRN ORAL Constipation 05/02/20 14:45 06/01/20 14:44 Temazepam (Restoril) 15 mg HSPRN PRN ORAL Insomnia 05/02/20 14:45 05/13/20 14:44 Laboratory Tests 05/09/20 16:39: POC Whole Blood Glucose 171H 05/09/20 16:40: White Blood Count 12.4H, Red Blood Count 3.61L, Hemoglobin 9.1L, Hematocrit 27.9L, Mean Corpuscular Volume 77L, Mean Corpuscular Hemoglobin 25.3L, Mean Corpuscular Hemoglobin Concent 32.8, Red Cell Distribution Width 17.8H, Platelet Count 155, Mean Platelet Volume 6.6, Neutrophils (%) (Auto) 61.3, Lymphocytes (%) (Auto) 29.3, Monocytes (%) (Auto) 4.9, Eosinophils (%) (Auto) 1.8, Basophils (%) (Auto) 2.8H, Erythrocyte Sedimentation Rate 82H 05/09/20 20:57: POC Whole Blood Glucose 172H 05/10/20 05:01: White Blood Count 9.9, Red Blood Count 3.44L, Hemoglobin 8.7L, Hematocrit 26.8L, Mean Corpuscular Volume 78L, Mean Corpuscular Hemoglobin 25.3L, Mean Corpuscular Hemoglobin Concent 32.4, Red Cell Distribution Width 17.0H, Platelet Count 136L, Mean Platelet Volume 6.5, Neutrophils (%) (Auto) 50.5, Lymphocytes (%) (Auto) 41.0, Monocytes (%) (Auto) 4.9, Eosinophils (%) (Auto) 1.7, Basophils (%) (Auto) 1.8, Prothrombin Time 11.4, Prothromb Time International Ratio 1.0, Activated Partial Thromboplast Time 26, Sodium Level 141, Potassium Level 4.5, Chloride Level 107, Carbon Dioxide Level 29, Anion Gap 5, Blood Urea Nitrogen 34H, Creatinine 4.3H, Estimat Glomerular Filtration Rate 12.0, Glucose Level 161H, Calcium Level 8.1L, Phosphorus Level 3.8, Total Bilirubin 0.3, Aspartate Amino Transf (AST/SGOT) 30, Alanine Aminotransferase (ALT/SGPT) 22, Alkaline Phosphatase 89, Total Protein 5.9L, Albumin 1.9L, Globulin 4.0, Albumin/Globulin Ratio 0.5L 05/10/20 06:21: POC Whole Blood Glucose 141H 05/10/20 12:12: POC Whole Blood Glucose [Pending] Height (Feet): 5 Height (Inches): 5.00 Weight (Pounds): 260 General Appearance: no apparent distress Cardiovascular: normal rate Respiratory/Chest: decreased breath sounds Abdomen: soft Perry Abernathy MD May 10, 2020 14:36
--- NOTE | 2020-05-10 14:56 | Brief Operative Note ---
Immediate Post Operative Note Operative Note Pre-op Diagnosis: renal failure Procedure: permacath R IJV Post-op Diagnosis: same as pre-op Anesthesia: local Specimen: none Complications: none Fluids: none Implant(s) used?: No Willian Velasquez MD May 10, 2020 14:56
[2020-05-10] MEDS: cefTRIAXone 2 GM in D5W 55 ML IVPB SCH (15:23)
--- NOTE | 2020-05-10 18:05 | Diagnostic Imaging Report ---
Indications: Renal failure Technique: Patient already on IV antibiotics. Total sterile technique, including sterile probe cover and sterile gel, sterile gloves, hand hygiene, hat, mask,, sterile gown, large sterile drape, and preparation with 2% chlorhexidine utilized. Local anesthesia with 1% lidocaine. Ultrasound demonstrated patent compressible right internal jugular vein. Under real-time ultrasound guidance and with real-time visualization of the needle entering the vein lumen, puncture right internal jugular vein using 21-gauge micropuncture needle, passage 0.018 guidewire, exchange for 4 Nepalese micropuncture introducer. The guidewire was used to measure the appropriate catheter length, and was removed. The sheath was left in place. The subcutaneous tract was then anesthetized with 1% lidocaine. A chest dermatotomy was made . The tunneling device was used to pull a 14.5 Nepalese 23 cm Palindrome catheter through the subcutaneous tunnel to the neck dermatotomy. A guidewire was passed through the neck introducer into the inferior vena cava, and serial dilators were passed over it, followed by the introduction of a 14.5 Nepalese AirGuard peel-away sheath. The catheter was then introduced into the sheath, the peel-away sheath was removed. Digital radiograph documents satisfactory catheter tip position in the high right atrium, no kinking at the insertion site. Both catheter ports aspirated and flushed. Catheter was fixed to the skin. Patient tolerated procedure well without immediate complication. Total fluoroscopy time 50.6 seconds. Total dose area product [id number] [id number] Total number of images-1 Comparison: None. Findings: Completion radiograph documents satisfactory position and course of the catheter, catheter tip at the high right atrium. Impression: Successful placement of right transjugular tunneled dialysis catheter, as described above
[2020-05-10] MEDS: Dyna-Hex 2% Top Sol 2oz TOPIC SCH (21:48)
[2020-05-10] MEDS: Epoetin Alfa-EPBX(ESRD on dialysis)10,000 unit/ml vial SUBQ SCH (21:50)
--- NOTE | 2020-05-12 10:55 | Discharge Summary ---
Discharge Summary Discharge Summary _ DATE OF ADMISSION: 05/02/2020 DATE OF DISCHARGE: 05/10/2020 ADMITTING MD: Dr. Daron Batres CONSULTANTS: Dr. Perry Enrique BRIEF HOSPITAL COURSE: The patient is an 79-year-old [place] -[place] female with past medical history significant for type 2 diabetes, CKD, tubal occlusion, and tonsillectomy, who presented to emergency department complaining of lower a bdominal pain on and off for past 10 days associated with nausea, vomiting and decreased appetite. She got progressively worse over the past 24 hours. The pain was sharp in nature, located mostly in the suprapubic area, radiated to bilateral lower quadrant and had multiple episodes of diarrhea for the past 3 days. She also felt nauseous and multiple episodes of vomiting, nonbloody bilious and nonbloody. Shortly after initial evaluation in the emergency department, the patient was admitted to the hospital due to sepsis secondary to UTI as well as acute kidney injury on chronic renal insufficiency with dehydration. WBC was 39. BUN 52 and creatinine 4.5. Rapid Covid test was negative. She was admitted to monitored unit. She was started on broad-spectrum antibiotic with vancomycin and cefepime. She was given Heparin for DVT prophylaxis. Electrolytes and kidney function were closely monitored. She was continued on IV hydration. Serum creatinine even went higher. Patient required hemodialysis for treatment of acute kidney failure. Kidney ultrasound showed normal kidney size and echogenicity. No hydronephrosis. On 05/04/2020, surgeon was consulted. A right femoral temporary hemodialysis catheter was inserted. She was started on hemodialysis. On 05/06, a Nic catheter was placed by IR on the right internal jugular vein. Urine culture showed growth of pansensitive E. coli. Blood culture with growth of staph epidermidis, likely skin contaminant. Antibiotic was narrowed down to ceftriaxone. The right temporal artery femoral HD line was eventually removed. Leukocytosis improved. On 05/10/2028, a permacath was inserted by IR to the right internal jugular vein. Patient was eventually cleared for discharge home with home health. To continue levofloxacin 250 mg p.o. daily x4 more days. FINAL DIAGNOSES: Sepsis secondary to E. coli UTI Acute kidney injury with initiation of hemodialysis Acute tubular necrosis Hypertension Dehydration Morbid obesity Anemia of chronic disease Diabetes type 2 Hypoalbuminemia Anxiety disorder DISPOSITION: DC home with home health. DISCHARGE MEDICATIONS: Refer to Discharge Medication List. DISCHARGE INSTRUCTIONS: Follow-up in a week. I have been assigned to complete a discharge summary on this account, I was not involved with the patient's management.--DREW Quintero Jacqueline Robles NP May 12, 2020 10:55
== END 2020-05-10 23:00 | disposition home health service (06) | DRG 871 ==
LOC: EMR 11:04 → EDBEDREQ 12:39 → 2E 12:50 → EDBEDREQ 21:19 → 2E 05-03 15:14 → 3E 05-08 23:16
PROC: 05HM33Z Insertion of Infusion Device into Right Internal Jugular Vein, Percutaneous Approach (ICD-10-PCS; principal; 2020-05-02)
PROC: 5A1D70Z Performance of Urinary Filtration, Intermittent, Less than 6 Hours Per Day (ICD-10-PCS; 2020-05-09)
PROC: 0JH63XZ Insertion of Tunneled Vascular Access Device into Chest Subcutaneous Tissue and Fascia, Percutaneous Approach (ICD-10-PCS; 2020-05-10)
PROC: 05HM33Z Insertion of Infusion Device into Right Internal Jugular Vein, Percutaneous Approach (ICD-10-PCS; 2020-05-10)
DX: A41.51 Sepsis due to Escherichia coli [E. coli] (principal); N17.0 Acute kidney failure with tubular necrosis; N39.0 Urinary tract infection, site not specified; N17.9 Acute kidney failure, unspecified; Z68.41 Body mass index [BMI] 40.0-44.9, adult; E86.0 Dehydration; E66.01 Morbid (severe) obesity due to excess calories; I12.9 Hypertensive chronic kidney disease with stage 1 through stage 4 chronic kidney disease, or unspecified chronic kidney disease; N18.9 Chronic kidney disease, unspecified; Z88.6 Allergy status to analgesic agent; Z88.0 Allergy status to penicillin; E11.22 Type 2 diabetes mellitus with diabetic chronic kidney disease; E88.09 Other disorders of plasma-protein metabolism, not elsewhere classified; F41.9 Anxiety disorder, unspecified; D63.8 Anemia in other chronic diseases classified elsewhere; S16.1XXA Strain of muscle, fascia and tendon at neck level, initial encounter; X58.XXXA Exposure to other specified factors, initial encounter
CPT/HCPCS: 36415; 36558; 36569; 71045; 74176; 76000; 76770; 76937; 80048; 80053; 80061; 80202; 81001; 82150; 82270; 82378; 82550; 82607; 82728; 82746; 82962; 82977; 83036; 83540; 83550; 83605; 83615; 83690; 83735; 83880; 84100; 84300; 84443; 84484; 84550; 85007; 85025; 85044; 85060; 85610; 85651; 85730; 86140; 86706; 86707; 86803; 87040; 87081; 87086; 87181; 93005; 93306; 96361; 96365; 96375; 99291; J1815; J2405; J7030; U0002

== ENCOUNTER 2020-06-23 11:11 | Inpatient (IN) | payer MEDICARE, OTHER ==
[~2020-06-23] VITALS: Ht 165.1 cm; Wt 108.9 kg
[2020-06-23] MEDS ORDERED: Bacitracin Oint UD TOPIC ONE (12:30)
--- NOTE | 2020-06-23 12:48 | NUR ---
ED Nurse Note: labs drawn & sent by rn. Osman subclav dressin gauze 2x2, 3 tegaderm, bacitracin, tape. no complications. dressing clean, dry, intact.
[2020-06-23 13:13] LABS: BASOPHILS % (AUTO) 1.5 % (0.0-2.0); EOSINOPHILS % (AUTO) 2.6 % (0.0-3.0); HEMATOCRIT 32.5 % (37.0-47.0); HEMOGLOBIN 9.5 G/DL (12.0-16.0); LYMPHOCYTES % (AUTO) 41.3 % (20.0-45.0); MEAN CORPUSCULAR VOLUME 82 FL (80-99); MONOCYTES % (AUTO) 5.3 % (1.0-10.0); NEUTROPHILS % (AUTO) 49.4 % (45.0-75.0); PLATELET COUNT 245 K/UL (150-450); RED BLOOD COUNT 3.97 M/UL (4.20-5.40); RED CELL DISTRIBUTION WIDTH 19.4 % (11.6-14.8); WHITE BLOOD COUNT 9.1 K/UL (4.8-10.8)
[2020-06-23 13:35] LABS: CALCIUM 8.9 MG/DL (8.5-10.1); CREATININE 4.2 MG/DL (0.55-1.30); POTASSIUM 5.3 MMOL/L (3.5-5.1)
[2020-06-23 13:36] VITALS: BP 123/76
[2020-06-23 13:48] LABS: ALBUMIN 2.5 G/DL (3.4-5.0); ALBUMIN/GLOBULIN RATIO 0.5 (1.0-2.7); BILIRUBIN,TOTAL 0.2 MG/DL (0.2-1.0)
--- NOTE | 2020-06-23 13:54 | Emergency Room Report ---
History of Present Illness General Chief Complaint: General Complaint Source: Patient Present Illness HPI Patient presents for evaluation of dialysis catheter. This was placed just prior to discharge May 10. She was supposed to have outpatient dialysis however even though she has had visiting nurses and people follow-up with her no one arrange for dialysis. She had to have dialysis 3x1 in the hospital. She was admitted for urinary tract infection and renal failure was discovered. The patient denies any orthopnea, dyspnea on exertion, chest pain, palpitations fevers or chills or drainage from around the permacath site. She still makes urine at this time. She denies any dysuria. She denies any flank pain. Patient denies any edema. This is to discharge diagnoses in April: Sepsis secondary to E. coli UTI Acute kidney injury with initiation of hemodialysis Acute tubular necrosis Hypertension Dehydration Morbid obesity Anemia of chronic disease Diabetes type 2 Hypoalbuminemia Anxiety disorder The patient denies exposure to Covid positive contacts. No sore throat, abdominal pain, joint pain, rashes, visual changes, dizziness, headache. The patient suffers from anxiety. Allergies: Coded Allergies: ACETAMINOPHEN (Verified Allergy, Severe, Shortness of Breath, 11/25/17) HYDROMORPHONE (Verified Allergy, Severe, 11/25/17) PENICILLINS (Verified Allergy, Severe, 11/25/17) PROCAINE (Verified Allergy, Severe, 11/25/17) SHELLFISH DERIVED (Verified Allergy, Severe, 11/25/17) CODEINE (Verified Allergy, Unknown, 11/25/17) Cantaloupe (Verified Allergy, Unknown, 11/25/17) STRAWBERRY (Verified Allergy, Unknown, 11/25/17) Uncoded Allergies: DUST, POLLEN (Allergy, Unknown, 07/19/17) COVID-19 Screening Contact w/high risk pt: No Experienced COVID-19 symptoms?: No COVID-19 Testing performed TELEPHOTO INSTALLER: Yes COVID-19 Screening: Negative COVID-19 COVID-19 Testing Source: april 2020 Patient History Past Medical History: see triage record, old chart reviewed Past Surgical History: other - Permacath right chest Social History: Denies: smoking, alcohol use, drug use Social History Narrative With family Now: No Reviewed Nursing Documentation: PMH: Agreed; PSxH: Agreed Nursing Documentation-PMH Past Medical History: No History, Except For Hx Cardiac Problems: No Hx Hypertension: No Hx Pacemaker: No Hx Asthma: No Hx Diabetes: Yes Hx Cancer: No Hx Gastrointestinal Problems: No Hx Dialysis: Yes History Of Psychiatric Problem: No Hx Neurological Problems: No Hx Cerebrovascular Accident: Yes - april 2020 Hx Seizures: No Review of Systems All Other Systems: negative except mentioned in HPI Physical Exam Vital Signs Date Time Temp Pulse Resp B/P (MAP) Pulse Ox O2 Delivery O2 Flow Rate FiO2 06/23/20 11:28 98.4 95 20 124/63 (83) 94 06/23/20 11:58 Room Air 95 Sp02 EP Interpretation: reviewed, normal General Appearance: well appearing, no apparent distress, GCS 15 Head: normocephalic Eyes: bilateral eye PERRL, bilateral eye EOMI, bilateral eye conjunctivae pale ENT: moist mucus membranes Neck: supple Respiratory: chest non-tender, lungs clear, normal breath sounds, other - Permacath right Cardiovascular #1: regular rate, rhythm, no edema Cardiovascular #2: 2+ radial (R) Gastrointestinal: normal inspection, normal bowel sounds, non tender, no mass, non-distended Genitourinary: no CVA tenderness Musculoskeletal: back normal, normal range of motion, no calf tenderness, gait/station normal Neurologic: alert, oriented x3, grossly normal Psychiatric: mood/affect normal Skin: no rash, warm/dry, pallor, other - Permacath site without erythema Medical Decision Making Diagnostic Impression: Primary Impression: Hyperkalemia Additional Impressions: Transient bradycardia Chronic renal failure Qualified Codes: N18.4 - Chronic kidney disease, stage 4 (severe) ER Course Patient presents with permacath questioning the possible need for dialysis. Differential includes electrolyte imbalance, acute renal failure, acute on chronic renal failure amongst others. Patient evaluated with labs. Patient denies any chest pain. A chest x-ray is obtained. Labs with elevated BUN and creatinine. Also potassium was elevated. With elevated potassium Kayexalate and calcium given after IV established. Also discussed with electro optics engineer. He states that dialysis was supposed to continue as an outpatient. Given the patient's elevated potassium and renal dysfunction he advises admission to the hospital. In addition the patient is noted to have a heart rate of 48. At that time she had no symptoms. I advised that the patient be transferred to a place where she would have cardiac monitoring and requested an EKG be performed. When EKG finally done, patient with HR = 90. NSSTTW changes. Low voltage. Patient examined by electro optics engineer in the emergency department. Patient with occasional bouts of tachycardia. Patient in no distress and denies any chest pain or dizziness. Patient admitted to monitored bed. Laboratory Tests Test 06/23/20 12:50 06/23/20 15:40 06/23/20 16:00 White Blood Count 9.1 K/UL (4.8-10.8) Red Blood Count 3.97 M/UL (4.20-5.40) L Hemoglobin 9.5 G/DL (12.0-16.0) L Hematocrit 32.5 % (37.0-47.0) L Mean Corpuscular Volume 82 FL (80-99) Mean Corpuscular Hemoglobin 24.0 PG (27.0-31.0) L Mean Corpuscular Hemoglobin Concent 29.4 G/DL (32.0-36.0) L Red Cell Distribution Width 19.4 % (11.6-14.8) H Platelet Count 245 K/UL (150-450) Mean Platelet Volume 6.5 FL (6.5-10.1) Neutrophils (%) (Auto) 49.4 % (45.0-75.0) Lymphocytes (%) (Auto) 41.3 % (20.0-45.0) Monocytes (%) (Auto) 5.3 % (1.0-10.0) Eosinophils (%) (Auto) 2.6 % (0.0-3.0) Basophils (%) (Auto) 1.5 % (0.0-2.0) Sodium Level 145 MMOL/L (136-145) Potassium Level 5.3 MMOL/L (3.5-5.1) H Chloride Level 115 MMOL/L (98-107) H Carbon Dioxide Level 21 MMOL/L (21-32) Anion Gap 9 mmol/L (5-15) Blood Urea Nitrogen 47 mg/dL (7-18) H Creatinine 4.2 MG/DL (0.55-1.30) H Estimated Glomerular Filtration Rate 12.4 mL/min (>60) Glucose Level 107 MG/DL (74-106) H Calcium Level 8.9 MG/DL (8.5-10.1) Total Bilirubin 0.2 MG/DL (0.2-1.0) Aspartate Amino Transferase (AST) 13 U/L (15-37) L Alanine Aminotransferase (ALT) 14 U/L (12-78) Alkaline Phosphatase 90 U/L (46-116) Troponin I 0.002 ng/mL (0.000-0.056) Pro-B-Type Natriuretic Peptide 685 pg/mL (0-125) H Total Protein 7.2 G/DL (6.4-8.2) Albumin 2.5 G/DL (3.4-5.0) L Globulin 4.7 g/dL Albumin/Globulin Ratio 0.5 (1.0-2.7) L Urine Color Pale yellow Urine Appearance Cloudy Urine pH 6 (4.5-8.0) Urine Specific [place] 1.010 (1.005-1.035) Urine Protein 2+ (NEGATIVE) H Urine Glucose (UA) Negative (NEGATIVE) Urine Ketones Negative (NEGATIVE) Urine Blood 2+ (NEGATIVE) H Urine Nitrite Negative (NEGATIVE) Urine Bilirubin Negative (NEGATIVE) Urine Urobilinogen Normal MG/DL (0.0-1.0) Urine Leukocyte Esterase 3+ (NEGATIVE) H Urine RBC 10-15 /HPF (0 - 2) H Urine WBC Tntc /HPF (0 - 2) H Urine Squamous Epithelial Cells Many /LPF (NONE/OCC) H Urine Bacteria Many /HPF (NONE) H Prothrombin Time 10.7 SEC (9.30-11.50) Prothrombin Time INR 1.0 (0.9-1.1) Activated Partial Thromboplast Time 25 SEC (23-33) EKG Diagnostic Results Rate: normal Rhythm: NSR ST Segments: no acute changes Rhythm Strip Diag. Results EP Interpretation: yes Rhythm: NSR, no PVC's, no ectopy Chest X-Ray Diagnostic Results Chest X-Ray Diagnostic Results : Chest X-Ray Ordered: Yes # of Views/Limited/Complete: 1 View Indication: Other EP Interpretation: Yes Interpretation: no consolidation, no effusion, no pneumothorax, other - Right permacath Impression: No acute disease Electronically Signed by: Electronically signed by Farhat Durand MD Last Vital Signs Date Time Temp Pulse Resp B/P (MAP) Pulse Ox O2 Delivery O2 Flow Rate FiO2 06/23/20 13:36 48 18 123/76 100 Room Air 06/23/20 11:58 95 06/23/20 11:28 98.4 Status: improved Disposition: ADMITTED INPATIENT Condition: Serious Referrals: NOT CHOSEN IPA/,REFERRING (PCP) Farhat Durand MD Jun 23, 2020 13:54
[2020-06-23] MEDS ORDERED: Calcium Gluconate 1gm/10ml vial IVP ONE (14:00)
[2020-06-23] MEDS ORDERED: Sodium Polystyrene Sulfonate 15gm Powder ORAL ONE (14:00)
--- NOTE | 2020-06-23 14:30 | NUR ---
denies any chest pain and shortness of breath waiting for lab results
--- NOTE | 2020-06-23 15:00 | NUR ---
admit to hospital for observation
--- NOTE | 2020-06-23 15:00 | Diagnostic Imaging Report ---
EXAM: XR Chest, 1 View CLINICAL HISTORY: CP TECHNIQUE: Frontal view of the chest. COMPARISON: Chest radiograph On 05/02/2020 FINDINGS: Hardware: Right dual-lumen central venous catheter terminates in the region of the SVC. Lungs/pleura: Similar atelectasis or scarring in the midlungs. No other focal consolidation. No pleural effusion or pneumothorax. Probable small calcified granuloma in the left upper lobe. Heart/mediastinum: Atherosclerotic calcifications in the aorta. Stable mild enlargement of the cardiac silhouette. Soft tissues: Unremarkable. Bones: No acute fracture. Degenerative changes of the shoulders and spine. Upper abdomen: Normal. IMPRESSION: 1. Right dual-lumen central venous catheter terminates in the region of the SVC. 2. Similar atelectasis or scarring in the midlungs. No other focal consolidation.
--- NOTE | 2020-06-23 15:18 | Consultation ---
Consult Note Consult Note I am asked to evaluate the patient for renal failure and dialysis treatment I received a call from ER physician that patient is in the ER to check her dialysis catheter I saw the patient last mid April 2020. Upon discharge the patient was supposed to continue dialysis treatment as an outpatient. Patient states that she never received dialysis. Patient is in emergency room with weakness, found to have hyperkalemia and bradycardia Patient is being admitted for further management Old record reviewed Medication list reviewed Previous echo: Normal left ventricular chamber size, systolic function and wall motion. Left ventricular ejection fraction estimated to be 60-65 %. No evidence of left ventricular hypertrophy. Previous kidney ultrasound: No hydronephrosis. Normal size kidneys Allergies: Coded Allergies: ACETAMINOPHEN (Verified Allergy, Severe, Shortness of Breath, 11/25/17) HYDROMORPHONE (Verified Allergy, Severe, 11/25/17) PENICILLINS (Verified Allergy, Severe, 11/25/17) PROCAINE (Verified Allergy, Severe, 11/25/17) SHELLFISH DERIVED (Verified Allergy, Severe, 11/25/17) CODEINE (Verified Allergy, Unknown, 11/25/17) Cantaloupe (Verified Allergy, Unknown, 11/25/17) STRAWBERRY (Verified Allergy, Unknown, 11/25/17) Uncoded Allergies: DUST, POLLEN (Allergy, Unknown, 07/19/17) COVID-19 Screening Contact w/high risk pt: No Experienced COVID-19 symptoms?: Yes COVID-19 Testing performed SIGN MANUFACTURER: No Past Medical History: No History, Except For Hx Hypertension: Yes Hx Asthma: Yes Hx Diabetes: Yes - DM type 2 Vital Signs Date Time Temp Pulse Resp B/P (MAP) Pulse Ox O2 Delivery O2 Flow Rate FiO2 05/02/20 10:37 98.2 97 20 142/75 (97) 95 Room Air 05/02/20 10:50 99 PHYSICAL EXAMINATION: VITAL SIGNS: Temperature 98.4, respirations 20, pulse 95, blood pressure 124/63. GENERAL: The patient is a well-developed, well-nourished obese female, in no apparent distress. HEENT: Eyes, pupils equal, responsive to light and accommodation. Extraocular movements are intact. NECK: Supple without lymphadenopathy. CHEST: Lungs are clear to auscultation bilaterally without wheezes or rales. CARDIOVASCULAR: Regular rate. S1, S2 are normal without murmurs, rubs, or gallops. ABDOMEN: Soft, nontender, nondistended. Positive bowel sounds. No evidence of hepatosplenomegaly. Currently no rebound or guarding noted. EXTREMITIES: Negative for clubbing, cyanosis, or edema. RECTAL/GENITALIA: Not performed. NEUROLOGIC: Cranial nerves II through XII are grossly intact without focal deficits. Motor strength is 5/5 bilaterally. Deep tendon reflexes are 2+ plantar. LABORATORY STUDIES: WBC 9.1, hemoglobin 9.5, hematocrit 32.5, platelets 245,000. Sodium 145, potassium 5.3, chloride 115, CO2 21, BUN 47, creatinine 4.2, glucose 107, BNP elevated at 685. Troponin 0.002. ProTime 10.7, INR 1.0, PTT 25. Urinalysis showed 2+ protein, 2+ blood, 3+ leukocyte esterase, 10-15 rbc's, and wbc's too numerous to count. . Assessment/Plan 79-year-old female presents with weakness, bradycardia, hyperkalemia Has acute on chronic kidney disease, has a right chest permacath in place Diabetic nephropathy Anemia Obesity Last dialyzed May 10 Previous medication list reviewed Admit to monitor bed Renal diet Stool softener, Ecotrin Blood sugar check Keep the blood pressure in check Per orders Dialysis as needed Perry Abernathy MD Jun 23, 2020 15:18
[2020-06-23] MEDS ORDERED: HydrALAZINE 25mg tab ORAL PRN (15:30)
[2020-06-23] MEDS ORDERED: Aspirin EC 81mg tab ORAL PRN (15:30)
--- NOTE | 2020-06-23 15:30 | NUR ---
dr healy at bedside
[2020-06-23 16:00] VITALS: BP 144/82
--- NOTE | 2020-06-23 16:00 | NUR ---
call to give report, RN not available
[2020-06-23 16:02] LABS: APPEARANCE,URINE CLOUDY; BILIRUBIN, URINE NEGATIVE (NEGATIVE); COLOR,URINE PALE YELLOW; GLUCOSE, URINE (UA) NEGATIVE (NEGATIVE); KETONES,URINE NEGATIVE (NEGATIVE); LEUKOCYTE ESTERASE ,URINE 3+ (NEGATIVE); NITRITE,URINE NEGATIVE (NEGATIVE); PH,URINE 6 (4.5-8.0); PROTEIN,URINE 2+ (NEGATIVE); UROBILINOGEN,URINE NORMAL MG/DL (0.0-1.0)
--- NOTE | 2020-06-23 16:22 | NUR ---
call for second time to give report, RN not avileble at this time
--- NOTE | 2020-06-23 17:18 | NUR ---
repoert given to naomy patient is to be transferd to room 212-2 via [facility]
--- NOTE | 2020-06-23 17:42 | NUR ---
NURSE NOTES: Patient received from ER from ELLEN Walls at 1730. Patient is awake, alert and oriented x 4, verbal and able to make needs known, skin warm and dry to touch, no SOB, bed set in lowest position with breaks engaged and alarm on, side rails up x 2, on room air, right IJ permacath in place, intact and dry. IV line on left AC patent. Skin assessment done, skin is intact and free of any wounds. All belongings completed, inventory checked. Denies any pain or discomfort at this time. Will continue to monitor for any changes. Patient was oriented to room and staff. Will continue to monitor and proceed with plan of care. Call light placed within reach. Addendum: 06/23/20 at 1827 by Christina Paulson RN Dr Batres and Dr De Los Santos both made aware or patient's arrival to unit, awaiting further admission orders.
[2020-06-23] MEDS: Docusate 100mg cap ORAL SCH (18:04)
--- NOTE | 2020-06-23 19:12 | NUR ---
NURSE HAND-OFF REPORT: Important Events on Shift:[new admission from ER, monitoring VS, I and O, safety and comfort] Patient Status: [stable] Diet: [renal] Pending Orders: [] Pending Results/Labs:[] Pending MD notification:[] Latest Vital Signs: Temperature 98.0 , Pulse 87 , B/P 144 /82 , Respiratory Rate 16 , O2 SAT 100 , Nasal Cannula, O2 Flow Rate 2.0 . Vital Sign Comment: [] EKG Rhythm: Sinus Rhythm Rhythm change?: MD Notified?: - MD Response: Latest [place] Fall Score: 20 Fall Risk: Low Risk Safety Measures: Call light , Bed Alarm , Side Rails Side Rails x2, Bed position . Fall Precautions: Report given to [ELLEN Garcia].
--- NOTE | 2020-06-23 19:51 | NUR ---
NURSE NOTES: Received report from ELLEN Vasquez. AAO x4 on RA. Able to make needs known. Permacath on RIJ intact. Code status and DVT order missing, left message Dr. Batres and awaiting for call back. Denies pain or discomfort. IV site intact and patent. No SOB or labored breathing noted. Bed locked,lowest position, alarm on, side rails up, call light within reach. Will continue to monitor.
[2020-06-23 20:00] VITALS: BP 123/66
--- NOTE | 2020-06-23 23:00 | NUR ---
NURSE NOTES: Pt feels dizzy when getting up to go to restroom. Fall education given and encouraged to use call light for help. Verbally understanding.
[2020-06-24] VITALS: BP 152/71
--- NOTE | 2020-06-24 01:00 | NUR ---
NURSE NOTES: Pt has low grade fever 99.[address] Batres. Per MD, apply cooling measure due to her renal function and allergy to acetaminophen. Received order blood culture and UA. Order entered. Made aware of PAC rhythm earlier on cardiac care nurse.
[2020-06-24 04:00] VITALS: BP 132/55
--- NOTE | 2020-06-24 06:43 | NUR ---
NURSE HAND-OFF REPORT: Important Events on Shift:cooling measure for fever, dizziness, notified PVC rhythm MD Batres Patient Status: Diet: renal Pending Orders: Pending Results/Labs: Pending MD notification: Latest Vital Signs: Temperature 98.6 , Pulse 87 , B/P 132 /55 , Respiratory Rate 18 , O2 SAT 98 , Nasal Cannula, O2 Flow Rate 2.0 . Vital Sign Comment: [] EKG Rhythm: Sinus Rhythm Rhythm change?: N MD Notified?: - MD Response: Latest [place] Fall Score: 20 Fall Risk: Low Risk Safety Measures: Call light Within Reach, Bed Alarm Zone 1, Side Rails Side Rails x2, Bed position Low and Locked. Fall Precautions: Yellow Socks Yellow Gown Door Sign Patient Fall Education Addendum: 06/24/20 at 0724 by MARTIR LINDO RN RN NURSE NOTES: Report given to Jenifer
--- NOTE | 2020-06-24 07:37 | NUR ---
CASE MANAGEMENT:REVIEW 79YR OLD FEMALE PRESENTED TO ER CC: DIALYSIS CATH EVALUATION SI: BRADYCARDIA. ESRD 98.4 95 20 124/63 94% ON RA K+5.3 BUN+47 CR+4.2 IS: IV CA GLUCONATE X1 KAYEXALATE PO X1 CHEST XRAY : TO TELEMETRY
--- NOTE | 2020-06-24 07:47 | NUR ---
NURSE NOTES: Report received from Radha HUGHES. Patient seen on rounds, awake and up in bed, AxOx4, not in distress or pain. Permacath over right IJ for dialysis access patent and intact. PIV on left AC patent and saline locked. Pt is ambulatory with standby assistance. Bed low and locked, siderails up x2, call light placed within reach and instructed to call nurse for assistance. Will continue to monitor.
[2020-06-24 07:50] LABS: APPEARANCE,URINE CLOUDY; BILIRUBIN, URINE NEGATIVE (NEGATIVE); COLOR,URINE PALE YELLOW; GLUCOSE, URINE (UA) NEGATIVE (NEGATIVE); KETONES,URINE NEGATIVE (NEGATIVE); LEUKOCYTE ESTERASE ,URINE 3+ (NEGATIVE); NITRITE,URINE NEGATIVE (NEGATIVE); PH,URINE 6 (4.5-8.0); PROTEIN,URINE 2+ (NEGATIVE); UROBILINOGEN,URINE NORMAL MG/DL (0.0-1.0)
--- NOTE | 2020-06-24 07:50 | NUR ---
NURSE NOTES: Urine specimen collected and sent to lab.
[2020-06-24 08:00] VITALS: BP 119/59
[2020-06-24] MEDS: Docusate 100mg cap ORAL SCH ×2 (08:21→17:08)
[2020-06-24] MEDS: Heparin 5000 units/ml inj SUBQ SCH ×2 (08:24→21:04)
[2020-06-24 08:51] LABS: BASOPHILS % (AUTO) 1.5 % (0.0-2.0); EOSINOPHILS % (AUTO) 3.3 % (0.0-3.0); HEMATOCRIT 29.4 % (37.0-47.0); HEMOGLOBIN 8.8 G/DL (12.0-16.0); LYMPHOCYTES % (AUTO) 36.6 % (20.0-45.0); MEAN CORPUSCULAR VOLUME 81 FL (80-99); MONOCYTES % (AUTO) 6.5 % (1.0-10.0); PLATELET COUNT 232 K/UL (150-450); RED BLOOD COUNT 3.61 M/UL (4.20-5.40); RED CELL DISTRIBUTION WIDTH 19.3 % (11.6-14.8); WHITE BLOOD COUNT 7.4 K/UL (4.8-10.8)
[2020-06-24 09:40] LABS: ALANINE AMINOTRANSFERASE 12 U/L (12-78); ALBUMIN 2.3 G/DL (3.4-5.0); ALBUMIN/GLOBULIN RATIO 0.5 (1.0-2.7); ALKALINE PHOSPHATASE 70 U/L (46-116); ANION GAP 11 mmol/L (5-15); ASPARTATE AMINO TRANSFERASE 10 U/L (15-37); BILIRUBIN,TOTAL 0.4 MG/DL (0.2-1.0); BLOOD UREA NITROGEN 43 mg/dL (7-18); CALCIUM 8.9 MG/DL (8.5-10.1); CARBON DIOXIDE 20 MMOL/L (21-32); CHLORIDE 114 MMOL/L (98-107); CHOLESTEROL 158 MG/DL (< 200); CREATININE 4.1 MG/DL (0.55-1.30); FERRITIN 363 NG/ML (8-388); GAMMA GLUTAMYL TRANSPEPTIDASE 20 U/L (5-85); HDL CHOLESTEROL 42 MG/DL (40-60); LACTATE DEHYDROGENASE 213 U/L (81-234); PHOSPHORUS 4.4 MG/DL (2.5-4.9); POTASSIUM 4.3 MMOL/L (3.5-5.1); SODIUM 145 MMOL/L (136-145); TRIGLYCERIDES 110 MG/DL (30-150)
[2020-06-24 10:02] LABS: % IRON SATURATION 26 % (15-50); IRON 53 ug/dL (50-175); TOTAL IRON BINDING CAPACITY 205 ug/dL (250-450)
[2020-06-24 12:00] VITALS: BP 133/67
--- NOTE | 2020-06-24 15:00 | NUR ---
pt has right permac catheter with ok to used by dr akers on 10/05/20.pt did not received hd since discharged hospital permac has problems with poor blood flow 30minutes hd stop hd then tpa 2mg each port by dr healy.
--- NOTE | 2020-06-24 15:50 | Nephrology Progress Note ---
Assessment/Plan Problem List: (1) Chronic renal failure (2) Hyperkalemia (3) Bradycardia (4) Diabetic nephropathy (5) Anemia (6) Obesity Assessment 79-year-old female presents with weakness, bradycardia, hyperkalemia Has acute on chronic kidney disease, has a right chest permacath in place Diabetic nephropathy Anemia Obesity Last dialyzed May 10 Plan June 24: Labs reviewed. Dialysis ordered for today. Medication list re viewed. Previous medication list reviewed Admit to monitor bed Renal diet Stool softener, Ecotrin Blood sugar check Keep the blood pressure in check Per orders Dialysis as needed Subjective ROS Limited/Unobtainable: No Constitutional: Reports: malaise Objective Objective Last 24 Hour Vital Signs Date Time Temp Pulse Resp B/P (MAP) Pulse Ox O2 Delivery O2 Flow Rate FiO2 06/24/20 12:00 99.3 80 20 133/67 (89) 100 06/24/20 12:00 92 06/24/20 09:00 Room Air 06/24/20 08:00 97.5 90 18 119/59 (79) 98 06/24/20 08:00 111 06/24/20 04:00 94 06/24/20 04:00 98.6 87 18 132/55 (80) 98 06/24/20 00:00 98.8 87 16 152/71 (98) 98 06/24/20 00:00 101 06/23/20 21:00 Room Air 06/23/20 21:00 91 06/23/20 20:00 140 06/23/20 20:00 98.2 82 22 123/66 (85) 97 06/23/20 17:49 Room Air 06/23/20 16:00 98.0 87 16 144/82 100 Nasal Cannula 2.0 Intake and Output 06/23/20 06/24/20 19:00 07:00 Intake Total 0 ml 360 ml Output Total 600 ml Balance 0 ml -240 ml Intake Oral 0 ml 360 ml Output Urine Total 600 ml # Voids 2 Current Medications Medications (Trade) Dose Ordered Sig/Gwendolyn Route PRN Reason Start Time Stop Time Status Last Admin Dose Admin Aspirin (Ecotrin) 81 mg Q12H PRN ORAL For Pain 06/23/20 15:30 08/07/20 15:29 Chlorhexidine Gluconate (Niki-Hex 2%) 1 applic DAILY@1999 TOPIC 06/24/20 20:00 5/2/21 19:59 Docusate Sodium (Colace) 100 mg TWICE A DAY ORAL 06/23/20 18:00 07/23/20 17:59 06/24/20 08:21 Heparin Sodium (Porcine) (Heparin 5000 units/ml) 5,000 units EVERY 12 HOURS SUBQ 06/24/20 09:00 08/08/20 08:59 06/24/20 08:24 Hydralazine HCl (Apresoline) 25 mg Q4H PRN ORAL Blood pressure over 160 systol 06/23/20 15:30 09/21/20 15:29 Pantoprazole (Protonix) 40 mg DAILY ORAL 06/24/20 09:00 07/24/20 08:59 06/24/20 08:21 Laboratory Tests 06/23/20 16:00: Prothrombin Time 10.7, Prothromb Time International Ratio 1.0, Activated Partial Thromboplast Time 25 06/24/20 07:43: Urine Color Pale yellow, Urine Appearance Cloudy, Urine pH 6, Urine Specific [place] 1.005, Urine Protein 2+H, Urine Glucose (UA) Negative, Urine Ketones Negative, Urine Blood 2+H, Urine Nitrite Negative, Urine Bilirubin Negative, Urine Urobilinogen Normal, Urine Leukocyte Esterase 3+H, Urine RBC 2-4H, Urine WBC 60-80H, Urine Squamous Epithelial Cells Few, Urine Bacteria ModerateH 06/24/20 08:40: White Blood Count 7.4, Red Blood Count 3.61L, Hemoglobin 8.8L, Hematocrit 29.4L, Mean Corpuscular Volume 81, Mean Corpuscular Hemoglobin 24.3L, Mean Corpuscular Hemoglobin Concent 29.8L, Red Cell Distribution Width 19.3H, Platelet Count 232, Mean Platelet Volume 6.6, Neutrophils (%) (Auto) 52.0, Lymphocytes (%) (Auto) 36.6, Monocytes (%) (Auto) 6.5, Eosinophils (%) (Auto) 3.3H, Basophils (%) (Auto) 1.5, Sodium Level 145, Potassium Level 4.3, Chloride Level 114H, Carbon Dioxide Level 20L, Anion Gap 11, Blood Urea Nitrogen 43H, Creatinine 4.1H, Est imat Glomerular Filtration Rate 12.7, Glucose Level 126H, Hemoglobin A1c 6.3H, Uric Acid 6.9, Calcium Level 8.9, Phosphorus Level 4.4, Magnesium Level 2.0, Iron Level 53, Total Iron Binding Capacity 205L, Percent Iron Saturation 26, Unsaturated Iron Binding 152, Ferritin 363, Total Bilirubin 0.4, Gamma Glutamyl Transpeptidase 20, Aspartate Amino Transf (AST/SGOT) 10L, Alanine Aminotransferase (ALT/SGPT) 12, Alkaline Phosphatase 70, Lactate Dehydrogenase 213, Troponin I 0.001, C-Reactive Protein, Quantitative 3.6H, Pro-B-Type Natriuretic Peptide 762H, Total Protein 6.5, Albumin 2.3L, Globulin 4.2, Albumi n/Globulin Ratio 0.5L, Triglycerides Level 110, Cholesterol Level 158, LDL Cholesterol 99, HDL Cholesterol 42, Cholesterol/HDL Ratio 3.8, Vitamin B12 Level 743, Folate 7.8L, Thyroid Stimulating Hormone (TSH) 1.933, Hepatitis B Surface Antigen [Pending] Height (Feet): 5 Height (Inches): 5.00 Weight (Pounds): 240 General Appearance: no apparent distress Cardiovascular: tachycardia Respiratory/Chest: decreased breath sounds Abdomen: distended Perry Abernathy MD Jun 24, 2020 15:49
[2020-06-24 16:00] VITALS: BP 125/59
[2020-06-24] MEDS ORDERED: Cathflo Alteplase 2mg Inj INJ ONE (16:00)
--- NOTE | 2020-06-24 19:15 | NUR ---
NURSE HAND-OFF REPORT: Important Events on Shift: Dialysis stopped due to flow issues per dialysis nurse, received orders to administer Alteplase per Dr. Abernathy, dialysis nurse will attempt to re-access and dialyze tomorrow Patient Status: Stable Diet: Renal Pending Orders: N Pending Results/Labs: N Pending MD notification: N Latest Vital Signs: Temperature 99.1 , Pulse 106 , B/P 125 /59 , Respiratory Rate 20 , O2 SAT 98 , Nasal Cannula, O2 Flow Rate 2.0 . Vital Sign Comment: EKG Rhythm: Sinus Tachycardia Rhythm change?: N MD Notified?: - MD Response: Latest [place] Fall Score: 35 Fall Risk: Medium Risk Safety Measures: Call light Within Reach, Bed Alarm Zone 1, Side Rails Side Rails x2, Bed position Low and Locked. Fall Precautions: Yellow Socks Yellow Gown Door Sign Patient Fall Education Report given to Sushil HUGHES.
--- NOTE | 2020-06-24 19:20 | History & Physical ---
History and Physical History & Physicial Dictated for Int med-DR Batres no. [id number] Garett De Los Santos MD Jun 24, 2020 19:20
--- NOTE | 2020-06-24 19:27 | NUR ---
NURSE NOTES: Pt. received from ELLEN Burgess. Pt. AAOx4, on room air, breathing even and unlabored, no indications of respiratory distress, no complaints of pain at this time. IV noted L AC 20g saline locked. Endorsed pt. was receiving dialysis 06/24, stopped early by [employer] administrator, and will attempt to complete dialysis 06/25; endorsed [employer] administrator notified Dr. Abernathy. Bed low and locked, side rails x3 up, bed alarm active, and call light in reach.
[2020-06-24 20:00] VITALS: BP 104/50
--- NOTE | 2020-06-24 20:14 | History and Physical Report ---
DATE OF ADMISSION: 06/23/2020 CHIEF COMPLAINT: The patient is an 79-year-old female who presents with a chief complaint of hemodialysis catheter evaluation. HISTORY OF PRESENT ILLNESS: The patient was admitted to [facility] on May 02, 2020 through May 10, 2020. The patient had a PermCath placed in the right chest during that hospitalization. The patient presented to [place] [facility]. The patient apparently has not had dialysis since discharge on May 10, 2020. The patient presented for hemodialysis catheter evaluation. The patient was found to have urinary tract infection. The patient is admitted with malfunction of hemodialysis catheter and urinary tract infection to rule out sepsis. REVIEW OF SYSTEMS: Unable to assess secondary to the patient's mental status. PAST MEDICAL HISTORY: Significant for: 1. End-stage renal disease, on hemodialysis. 2. Hypertension. 3. Diabetes type 2. PAST SURGICAL HISTORY: Significant for: 1. Hemodialysis catheter placement in the right chest as above. 2. Bilateral tubal ligation. 3. Tonsillectomy. CURRENT MEDICATIONS: 1. Aspirin 81 mg 1 tablet p.o. daily. 2. Regular insulin 7 units subcutaneously 3 times daily. 3. NPH insulin 20 units subcutaneously daily. ALLERGIES: 1. Acetaminophen. 2. Codeine. 3. Cantaloupe. 4. Dust. 5. Pollen. 6. Hydromorphone. 7. Penicillin. 8. Procaine. 9. Shellfish. 10. Strawberries. SOCIAL HISTORY: The patient is single and lives with family members. The patient denies tobacco use having quit 35 years ago. The patient denies alcohol use. PHYSICAL EXAMINATION: VITAL SIGNS: Temperature 98.4, respirations 20, pulse 95, blood pressure 124/63. GENERAL: The patient is a well-developed, well-nourished obese female, in no apparent distress. HEENT: Eyes, pupils equal, responsive to light and accommodation. Extraocular movements are intact. NECK: Supple without lymphadenopathy. CHEST: Lungs are clear to auscultation bilaterally without wheezes or rales. CARDIOVASCULAR: Regular rate. S1, S2 are normal without murmurs, rubs, or gallops. ABDOMEN: Soft, nontender, nondistended. Positive bowel sounds. No evidence of hepatosplenomegaly. Currently no rebound or guarding noted. EXTREMITIES: Negative for clubbing, cyanosis, or edema. RECTAL/GENITALIA: Not performed. NEUROLOGIC: Cranial nerves II through XII are grossly intact without focal deficits. Motor strength is 5/5 bilaterally. Deep tendon reflexes are 2+ plantar. LABORATORY STUDIES: WBC 9.1, hemoglobin 9.5, hematocrit 32.5, platelets 245,000. Sodium 145, potassium 5.3, chloride 115, CO2 21, BUN 47, creatinine 4.2, glucose 107, BNP elevated at 685. Troponin 0.002. ProTime 10.7, INR 1.0, PTT 25. Urinalysis showed 2+ protein, 2+ blood, 3+ leukocyte esterase, 10-15 rbc's, and wbc's too numerous to count. ASSESSMENT: This is an 79-year-old female. 1. Hemodialysis catheter malfunction. 2. End-stage renal disease, on hemodialysis. 3. Urinary tract infection. 4. Hypertension. 5. Diabetes type 2. TREATMENT: 1. Hemodialysis catheter malfunction/end-stage renal disease. A nephrology consultation has been obtained with Dr. Perry Abernathy. The patient is scheduled for dialysis on June 24, 2020. Follow recommendations of Nephrology. 2. Hypertension. The patient is currently hypotensive. 3. Diabetes type 2. NovoLog sliding scale has been instituted. Garett De Los Santos M.D. DR: CARMELITA JOB#: [id number] CC:
[2020-06-24] MEDS: Epoetin Alfa-EPBX(ESRD on dialysis)10,000 unit/ml vial SUBQ SCH (21:00)
[2020-06-24] MEDS: Dyna-Hex 2% Top Sol 2oz TOPIC SCH (21:00)
--- NOTE | 2020-06-24 23:48 | NUR ---
NURSE HAND-OFF REPORT: Important Events on Shift:[pt. ambulatory] Patient Status: stable, sleeping Diet: renal Pending Orders: na Pending Results/Labs:na Pending MD notification:na Latest Vital Signs: Temperature 98.2 , Pulse 89 , B/P 104 /50 , Respiratory Rate 21 , O2 SAT 100 , Nasal Cannula, O2 Flow Rate 2.0 . Vital Sign Comment: stable EKG Rhythm: Sinus Rhythm Rhythm change?: N MD Notified?: - MD Response: Latest [place] Fall Score: 35 Fall Risk: Medium Risk Safety Measures: Call light Within Reach, Bed Alarm Zone 1, Side Rails Side Rails x3, Bed position Low and Locked. Fall Precautions: Patient Fall Education Report given to ELLEN Diane.
[2020-06-25] VITALS: BP 126/50
[2020-06-25 04:00] VITALS: BP 131/59
--- NOTE | 2020-06-25 07:30 | NUR ---
NURSE NOTES: Received patient in bed. Awake, A/O x4. On room air, respirations unlabored. Patient denies pain. IV in the left AC, site intact. Right upper chest permacath, site intact. Bed low and locked, side rails up x2, call light within reach with return demonstration.
--- NOTE | 2020-06-25 07:31 | NUR ---
NURSE HAND-OFF REPORT: Important Events on Shift:[NA] Patient Status: [Full code] Diet: [Renal] Pending Orders: [] Pending Results/Labs:[] Pending MD notification:[] Latest Vital Signs: Temperature 97.0 , Pulse 89 , B/P 131 /59 , Respiratory Rate 20 , O2 SAT 98 , Nasal Cannula, O2 Flow Rate 2.0 . Vital Sign Comment: [] EKG Rhythm: Sinus Rhythm Rhythm change?: N MD Notified?: - MD Response: Latest [place] Fall Score: 35 Fall Risk: Medium Risk Safety Measures: Call light Within Reach, Bed Alarm Zone 1, Side Rails Side Rails x3, Bed position Low and Locked. Fall Precautions: Patient Fall Education Report given to [ELLEN Chiu].
[2020-06-25 08:00] VITALS: BP 122/53
[2020-06-25] MEDS: Docusate 100mg cap ORAL SCH ×2 (08:14→17:20)
[2020-06-25] MEDS: Heparin 5000 units/ml inj SUBQ SCH ×2 (08:17→20:10)
[2020-06-25 09:33] LABS: BASOPHILS % (AUTO) 6.1 % (0.0-2.0); EOSINOPHILS % (AUTO) 2.8 % (0.0-3.0); HEMOGLOBIN 9.2 G/DL (12.0-16.0); LYMPHOCYTES % (AUTO) 40.7 % (20.0-45.0); MEAN CORPUSCULAR VOLUME 82 FL (80-99); MONOCYTES % (AUTO) 4.8 % (1.0-10.0); NEUTROPHILS % (AUTO) 45.7 % (45.0-75.0); PLATELET COUNT 214 K/UL (150-450); RED BLOOD COUNT 3.79 M/UL (4.20-5.40); RED CELL DISTRIBUTION WIDTH 19.3 % (11.6-14.8); WHITE BLOOD COUNT 7.8 K/UL (4.8-10.8)
[2020-06-25 09:51] LABS: ALBUMIN 2.4 G/DL (3.4-5.0); ALBUMIN/GLOBULIN RATIO 0.6 (1.0-2.7); BILIRUBIN,TOTAL 0.3 MG/DL (0.2-1.0); CALCIUM 8.6 MG/DL (8.5-10.1); CREATININE 4.1 MG/DL (0.55-1.30); POTASSIUM 4.6 MMOL/L (3.5-5.1)
[2020-06-25 12:00] VITALS: BP 114/40
[2020-06-25] MEDS ORDERED: Heparin Sod 1000 units/ml 10ml INJ PRN (12:00)
--- NOTE | 2020-06-25 12:48 | Nephrology Progress Note ---
Assessment/Plan Problem List: (1) Chronic renal failure (2) Hyperkalemia (3) Bradycardia (4) Diabetic nephropathy (5) Anemia (6) Obesity Assessment 79-year-old female presents with weakness, bradycardia, hyperkalemia Has acute on chronic kidney disease, has a right chest permacath in place Diabetic nephropathy Anemia Obesity Last dialyzed May 10 Plan June 25: Received only 30 minutes dialysis yesterday. The permacath had poor flow and need to be flushed with TPA. Will receive dialysis again today. Continue rest. June 24: Labs reviewed. Dialysis ordered for today. Medication list reviewed. Previous medication list reviewed Admit to monitor bed Renal diet Stool softener, Ecotrin Blood sugar check Keep the blood pressure in check Per orders Dialysis as needed Subjective ROS Limited/Unobtainable: No Constitutional: Reports: malaise Objective Objective Last 24 Hour Vital Signs Date Time Temp Pulse Resp B/P (MAP) Pulse Ox O2 Delivery O2 Flow Rate FiO2 06/25/20 12:00 80 06/25/20 12:00 97.9 78 18 114/40 (64) 98 06/25/20 09:00 Room Air 06/25/20 08:00 98.6 87 18 122/53 (76) 100 06/25/20 08:00 87 06/25/20 04:00 95 06/25/20 04:00 97.0 89 20 131/59 (83) 98 06/25/20 00:00 98.4 76 19 126/50 (75) 98 06/25/20 00:00 83 06/24/20 21:00 Room Air 06/24/20 20:00 89 06/24/20 20:00 98.2 89 21 104/50 (68) 100 06/24/20 16:00 99.1 80 20 125/59 (81) 98 06/24/20 16:00 106 Intake and Output 06/24/20 06/25/20 19:00 07:00 Intake Total 360 ml 200 ml Output Total 0 ml Balance 360 ml 200 ml Intake Oral 360 ml 200 ml Hemodialysis UF 0 ml # Voids 2 3 # Bowel Movements 1 Current Medications Medications (Trade) Dose Ordered Sig/Gwendolyn Route PRN Reason Start Time Stop Time Status Last Admin Dose Admin Aspirin (Ecotrin) 81 mg Q12H PRN ORAL For Pain 06/23/20 15:30 08/07/20 15:29 Chlorhexidine Gluconate (Niki-Hex 2%) 1 applic DAILY@2000 TOPIC 06/24/20 20:00 09/22/20 19:59 06/24/20 21:00 Docusate Sodium (Colace) 100 mg TWICE A DAY ORAL 06/23/20 18:00 07/23/20 17:59 06/25/20 08:14 Epoetin Nicholas (Epoetin Nicholas(ESRD on dialysis)) 10,000 unit WED-WED-WED SUBQ 06/24/20 21:00 09/22/20 20:59 06/24/20 21:00 Heparin Sodium (Porcine) (Heparin 5000 units/ml) 5,000 units EVERY 12 HOURS SUBQ 06/24/20 09:00 08/08/20 08:59 06/25/20 08:17 Heparin Sodium (Porcine) (Heparin Sod 1000 units/ml 10ml) 1,000 unit ONCE PRN INJ FOR HD use only 06/25/20 12:00 06/25/20 13:00 Hydralazine HCl (Apresoline) 25 mg Q4H PRN ORAL Blood pressure over 160 systol 06/23/20 15:30 09/21/20 15:29 Pantoprazole (Protonix) 40 mg DAILY ORAL 06/24/20 09:00 07/24/20 08:59 06/25/20 08:14 Laboratory Tests 06/25/20 08:45: White Blood Count 7.8, Red Blood Count 3.79L, Hemoglobin 9.2L, Hematocrit 31.0L, Mean Corpuscular Volume 82, Mean Corpuscular Hemoglobin 24.4L, Mean Corpuscular Hemoglobin Concent 29.8L, Red Cell Distribution Width 19.3H, Platelet Count 214, Mean Platelet Volume 6.7, Neutrophils (%) (Auto) 45.7, Lymphocytes (%) (Auto) 40.7, Monocytes (%) (Auto) 4.8, Eosinophils (%) (Auto) 2.8, Basophils (%) (Auto) 6.1H, Sodium Level 141, Potassium Level 4.6, Chloride Level 110H, Carbon Dioxide Level 21, Anion Gap 11, Blood Urea Nitrogen 44H, Creatinine 4.1H, Estimat Glomerular Filtration Rate 12.7, Glucose Level 212H, Calcium Level 8.6, Total Bilirubin 0.3, Aspartate Amino Transf (AST/SGOT) 14L, Alanine Aminotransferase (ALT/SGPT) 10L, Alkaline Phosphatase 83, Total Protein 6.6, Albumin 2.4L, Globulin 4.2, Albumin/Globulin Ratio 0.6L Height (Feet): 5 Height (Inches): 5.00 Weight (Pounds): 240 General Appearance: no apparent distress Cardiovascular: normal rate Respiratory/Chest: decreased breath sounds Abdomen: soft Perry Abernathy MD Jun 25, 2020 12:48
--- NOTE | 2020-06-25 12:51 | NUR ---
NURSE NOTES: RN spoke with Dr Abernathy regarding HD of only 30 minutes on 06/24/20. New order to dialyze patient today. [facility] nephrology contacted, spoke with Young RN.
[2020-06-25 16:00] VITALS: BP 100/42
--- NOTE | 2020-06-25 17:25 | Internal Med Progress Note ---
Subjective Date of Service: Jun 25, 2020 Physician Name Garett De Los Santos Attending Physician Daron Batres MD Current Medications Medications (Trade) Dose Ordered Sig/Gwendolyn Route PRN Reason Start Time Stop Time Status Last Admin Dose Admin Aspirin (Ecotrin) 81 mg Q12H PRN ORAL For Pain 06/23/20 15:30 08/07/20 15:29 Chlorhexidine Gluconate (Niki-Hex 2%) 1 applic DAILY@2000 TOPIC 06/24/20 20:00 09/22/20 19:59 06/24/20 21:00 Docusate Sodium (Colace) 100 mg TWICE A DAY ORAL 06/23/20 18:00 07/23/20 17:59 06/25/20 08:14 Epoetin Nicholas (Epoetin Nicholas(ESRD on dialysis)) 10,000 unit WED-WED-WED SUBQ 06/24/20 21:00 09/22/20 20:59 06/24/20 21:00 Heparin Sodium (Porcine) (Heparin 5000 units/ml) 5,000 units EVERY 12 HOURS SUBQ 06/24/20 09:00 08/08/20 08:59 06/25/20 08:17 Hydralazine HCl (Apresoline) 25 mg Q4H PRN ORAL Blood pressure over 160 systol 06/23/20 15:30 09/21/20 15:29 Pantoprazole (Protonix) 40 mg DAILY ORAL 06/24/20 09:00 07/24/20 08:59 06/25/20 08:14 Allergies: Coded Allergies: ACETAMINOPHEN (Verified Allergy, Severe, Shortness of Breath, 11/25/17) HYDROMORPHONE (Verified Allergy, Severe, 11/25/17) PENICILLINS (Verified Allergy, Severe, 11/25/17) PROCAINE (Verified Allergy, Severe, 11/25/17) SHELLFISH DERIVED (Verified Allergy, Severe, 11/25/17) CODEINE (Verified Allergy, Unknown, 11/25/17) Cantaloupe (Verified Allergy, Unknown, 11/25/17) STRAWBERRY (Verified Allergy, Unknown, 11/25/17) Uncoded Allergies: DUST, POLLEN (Allergy, Unknown, 07/19/17) ROS Limited/Unobtainable: Yes Subjective 79 YO F admitted with missed hemodialysis and HD cath malfunction. Now UTI. Cover for Int Med-DR Batres Objective Last Vital Signs Date Time Temp Pulse Resp B/P (MAP) Pulse Ox O2 Delivery O2 Flow Rate FiO2 06/25/20 16:00 90 06/25/20 16:00 97.5 18 100/42 (61) 100 06/25/20 09:00 Room Air 06/23/20 16:00 2.0 06/23/20 11:58 95 Laboratory Tests Test 06/25/20 08:45 White Blood Count 7.8 K/UL (4.8-10.8) Red Blood Count 3.79 M/UL (4.20-5.40) L Hemoglobin 9.2 G/DL (12.0-16.0) L Hematocrit 31.0 % (37.0-47.0) L Mean Corpuscular Volume 82 FL (80-99) Mean Corpuscular Hemoglobin 24.4 PG (27.0-31.0) L Mean Corpuscular Hemoglobin Concent 29.8 G/DL (32.0-36.0) L Red Cell Distribution Width 19.3 % (11.6-14.8) H Platelet Count 214 K/UL (150-450) Mean Platelet Volume 6.7 FL (6.5-10.1) Neutrophils (%) (Auto) 45.7 % (45.0-75.0) Lymphocytes (%) (Auto) 40.7 % (20.0-45.0) Monocytes (%) (Auto) 4.8 % (1.0-10.0) Eosinophils (%) (Auto) 2.8 % (0.0-3.0) Basophils (%) (Auto) 6.1 % (0.0-2.0) H Sodium Level 141 MMOL/L (136-145) Potassium Level 4.6 MMOL/L (3.5-5.1) Chloride Level 110 MMOL/L (98-107) H Carbon Dioxide Level 21 MMOL/L (21-32) Anion Gap 11 mmol/L (5-15) Blood Urea Nitrogen 44 mg/dL (7-18) H Creatinine 4.1 MG/DL (0.55-1.30) H Estimat Glomerular Filtration Rate 12.7 mL/min (>60) Glucose Level 212 MG/DL (74-106) H Calcium Level 8.6 MG/DL (8.5-10.1) Total Bilirubin 0.3 MG/DL (0.2-1.0) Aspartate Amino Transf (AST/SGOT) 14 U/L (15-37) L Alanine Aminotransferase (ALT/SGPT) 10 U/L (12-78) L Alkaline Phosphatase 83 U/L (46-116) Total Protein 6.6 G/DL (6.4-8.2) Albumin 2.4 G/DL (3.4-5.0) L Globulin 4.2 g/dL Albumin/Globulin Ratio 0.6 (1.0-2.7) L Microbiology Date/Time Source Procedure Growth Status 06/24/20 08:40 Blood Blood Culture - Preliminary NO GROWTH AFTER 24 HOURS Resulted 06/24/20 08:30 Blood Blood Culture - Preliminary NO GROWTH AFTER 24 HOURS Resulted 06/24/20 07:43 Urine,Clean Catch Urine Culture - Preliminary Gram Negative Luis Resulted Intake and Output 06/24/20 06/25/20 19:00 07:00 Intake Total 360 ml 200 ml Output Total 0 ml Balance 360 ml 200 ml Intake Oral 360 ml 200 ml Hemodialysis UF 0 ml # Voids 2 3 # Bowel Movements 1 Objective PHYSICAL EXAMINATION: GENERAL: The patient is a well-developed, well-nourished obese female, in no apparent distress. HEENT: Eyes, pupils equal, responsive to light and accommodation. Extraocular movements are intact. NECK: Supple without lymphadenopathy. CHEST: Lungs are clear to auscultation bilaterally without wheezes or rales. CARDIOVASCULAR: Regular rate. S1, S2 are normal without murmurs, rubs, or gallops. ABDOMEN: Soft, nontender, nondistended. Positive bowel sounds. No evidence of hepatosplenomegaly. Currently no rebound or guarding noted. EXTREMITIES: Negative for clubbing, cyanosis, or edema. RECTAL/GENITALIA: Not performed. NEUROLOGIC: Cranial nerves II through XII are grossly intact without focal deficits. Motor strength is 5/5 bilaterally. Deep tendon reflexes are 2+ plantar. Assessment/Plan Problem List: (1) ESRD (end stage renal disease) on dialysis Assessment & Plan: Nephrology=Dr Abernathy. Hemodialysis 06/24/20-cath malfunction. Repeat dialysis today 06/25/20 (2) UTI (urinary tract infection) Assessment & Plan: Gram neg luis. Start levaquin; await ID and sens (3) HTN (hypertension) (4) Diabetes mellitus (5) Dialysis catheter clot or failure Assessment & Plan: S/P TPA; now functioning Garett De Los Santos MD Jun 25, 2020 17:25
[2020-06-25] MEDS ORDERED: Levofloxacin 750mg tab ORAL SCH (17:30)
--- NOTE | 2020-06-25 19:15 | NUR ---
NURSE NOTES: Received report from Charito Gay. Pt awake in bed, able to communicate and smiling when introduce myself, afebrile and has no respiratory distress noted. Pt saturating at 100% on RA. With right upper chest dialysis catheter intact, clean wihtotu any bleeding. with Left AC 20 g Iv line intact, patent and asymptomatic. Needs were attended. HD done today 1L out per AM nurse. HOB elevated. Call light within reach. Bed rail are up and wheels are locked. Continue plan of care.
--- NOTE | 2020-06-25 19:26 | NUR ---
NURSE HAND-OFF REPORT: Important Events on Shift:[HD, PO levaquin] Patient Status: [FULL CODE] Diet: [renal] Pending Orders: [] Pending Results/Labs:[] Pending MD notification:[] Latest Vital Signs: Temperature 97.5 , Pulse 90 , B/P 100 /42 , Respiratory Rate 18 , O2 SAT 100 , Nasal Cannula, O2 Flow Rate 2.0 . Vital Sign Comment: [] EKG Rhythm: Sinus Rhythm Rhythm change?: N MD Notified?: - MD Response: Latest [place] Fall Score: 35 Fall Risk: Medium Risk Safety Measures: Call light Within Reach, Bed Alarm Zone 1, Side Rails Side Rails x2, Bed position Low and Locked. Fall Precautions: Patient Fall Education Report given to [Juan HUGHES].
[2020-06-25 20:00] VITALS: BP 135/54
[2020-06-25] MEDS: Dyna-Hex 2% Top Sol 2oz TOPIC SCH (20:08)
[2020-06-26] VITALS: BP 127/53
--- NOTE | 2020-06-26 00:30 | NUR ---
NURSE NOTES: Pt asleep in bed. No respiratory distress noted. Needs were attended. Continue to monitor
[2020-06-26 04:00] VITALS: BP 104/52
--- NOTE | 2020-06-26 07:05 | NUR ---
NURSE HAND-OFF REPORT: Important Events on Shift: stable Patient Status: stable Diet: renal Pending Orders: n Pending Results/Labs:n Pending MD notification:n Latest Vital Signs: Temperature 98.5 , Pulse 85 , B/P 104 /52 , Respiratory Rate 17 , O2 SAT 100 , Nasal Cannula, O2 Flow Rate 2.0 . Vital Sign Comment: n EKG Rhythm: Sinus Rhythm Rhythm change?: N MD Notified?: - MD Response: Latest [place] Fall Score: 35 Fall Risk: Medium Risk Safety Measures: Call light Within Reach, Bed Alarm Zone 1, Side Rails Side Rails x2, Bed position Low and Locked. Fall Precautions: Patient Fall Education Report given to ELLEN Gay. Pt stable in bed.
[2020-06-26 07:13] LABS: EOSINOPHILS % (AUTO) 2.5 % (0.0-3.0); HEMATOCRIT 28.9 % (37.0-47.0); HEMOGLOBIN 8.8 G/DL (12.0-16.0); LYMPHOCYTES % (AUTO) 41.9 % (20.0-45.0); MEAN CORPUSCULAR VOLUME 80 FL (80-99); MONOCYTES % (AUTO) 7.1 % (1.0-10.0); NEUTROPHILS % (AUTO) 47.4 % (45.0-75.0); PLATELET COUNT 171 K/UL (150-450); RED CELL DISTRIBUTION WIDTH 18.6 % (11.6-14.8); WHITE BLOOD COUNT 8.2 K/UL (4.8-10.8)
--- NOTE | 2020-06-26 07:30 | NUR ---
NURSE NOTES: Received patient in bed. Awake, A/Ox4. On room air, Patient denies pain. IV in the Left AC, site intact. HD permacath in Right chest, site intact. Bed low and locked, side rails up x2, call light within reach with return demonstration.
[2020-06-26 07:37] LABS: ALBUMIN 2.1 G/DL (3.4-5.0); ALBUMIN/GLOBULIN RATIO 0.5 (1.0-2.7); BILIRUBIN,TOTAL 0.3 MG/DL (0.2-1.0); CALCIUM 8.2 MG/DL (8.5-10.1); CREATININE 3.4 MG/DL (0.55-1.30); PHOSPHORUS 3.1 MG/DL (2.5-4.9); POTASSIUM 3.7 MMOL/L (3.5-5.1)
[2020-06-26 08:00] VITALS: BP 102/54
[2020-06-26] MEDS: Heparin 5000 units/ml inj SUBQ SCH ×2 (08:25→20:46)
[2020-06-26] MEDS: Docusate 100mg cap ORAL SCH ×2 (09:00→17:33)
--- NOTE | 2020-06-26 09:21 | NUR ---
NURSE NOTES: KIMBERLYN garcía held d/t loose BM per patient's report.
--- NOTE | 2020-06-26 11:59 | NUR ---
RD ASSESSMENT & RECOMMENDATIONS SEE CARE ACTIVITY FOR COMPLETE ASSESSMENT DAILY ESTIMATED NEEDS: Needs based on Obesity, esrd+ HD/ 70kg abw 25-30 kcals/kg [id number] total kcals 1.2-1.8 g protein/kg 84-126 g total protein Fluid per MD, on HD NUTRITION DIAGNOSIS: * Increased pro needs r/t renal dysfunction as evidenced by dx esrd on HD. CURRENT DIET: renal PO DIET RECOMMENDATIONS: CCHO MED + RENAL ADDITIONAL RECOMMENDATIONS: * Daily calibrated bedscale wt * Monitor renal fxn and lytes * BG variable Rec bed side BG checks w/ niss for management
[2020-06-26 12:00] VITALS: BP 109/45
--- NOTE | 2020-06-26 13:04 | Internal Med Progress Note ---
Subjective Date of Service: Jun 26, 2020 Physician Name Garett De Los Santos Attending Physician Daron Batres MD Current Medications Medications (Trade) Dose Ordered Sig/Gwendolyn Route PRN Reason Start Time Stop Time Status Last Admin Dose Admin Aspirin (Ecotrin) 81 mg Q12H PRN ORAL For Pain 06/23/20 15:30 08/07/20 15:29 Chlorhexidine Gluconate (Niki-Hex 2%) 1 applic DAILY@2000 TOPIC 06/24/20 20:00 09/22/20 19:59 06/25/20 20:08 Docusate Sodium (Colace) 100 mg TWICE A DAY ORAL 06/23/20 18:00 07/23/20 17:59 06/25/20 17:20 Epoetin Nicholas (Epoetin Nicholas(ESRD on dialysis)) 10,000 unit WED-WED-WED SUBQ 06/24/20 21:00 09/22/20 20:59 06/24/20 21:00 Heparin Sodium (Porcine) (Heparin 5000 units/ml) 5,000 units EVERY 12 HOURS SUBQ 06/24/20 09:00 08/08/20 08:59 06/26/20 08:25 Hydralazine HCl (Apresoline) 25 mg Q4H PRN ORAL Blood pressure over 160 systol 06/23/20 15:30 09/21/20 15:29 Levofloxacin (Levaquin) 500 mg Q48H ORAL 06/27/20 17:30 07/04/20 17:29 Pantoprazole (Protonix) 40 mg DAILY ORAL 06/24/20 09:00 07/24/20 08:59 06/26/20 08:22 Allergies: Coded Allergies: ACETAMINOPHEN (Verified Allergy, Severe, Shortness of Breath, 11/25/17) HYDROMORPHONE (Verified Allergy, Severe, 11/25/17) PENICILLINS (Verified Allergy, Severe, 11/25/17) PROCAINE (Verified Allergy, Severe, 11/25/17) SHELLFISH DERIVED (Verified Allergy, Severe, 11/25/17) CODEINE (Verified Allergy, Unknown, 11/25/17) Cantaloupe (Verified Allergy, Unknown, 11/25/17) STRAWBERRY (Verified Allergy, Unknown, 11/25/17) Uncoded Allergies: DUST, POLLEN (Allergy, Unknown, 07/19/17) ROS Limited/Unobtainable: No Constitutional: Reports: no symptoms HEENT: Reports: no symptoms Cardiovascular: Reports: no symptoms Respiratory: Reports: no symptoms Gastrointestinal/Abdominal: Reports: no symptoms Genitourinary: Reports: no symptoms Neurologic/Psychiatric: Reports: no symptoms Subjective 79 YO F admitted with missed hemodialysis and HD cath malfunction. Now UTI. Cover for Int [facility]-DR Batres Objective Last Vital Signs Date Time Temp Pulse Resp B/P (MAP) Pulse Ox O2 Delivery O2 Flow Rate FiO2 06/26/20 12:00 97.3 74 20 109/45 (66) 98 06/26/20 09:00 Room Air 06/23/20 16:00 2.0 06/23/20 11:58 95 Laboratory Tests Test 06/26/20 06:08 White Blood Count 8.2 K/UL (4.8-10.8) Red Blood Count 3.60 M/UL (4.20-5.40) L Hemoglobin 8.8 G/DL (12.0-16.0) L Hematocrit 28.9 % (37.0-47.0) L Mean Corpuscular Volume 80 FL (80-99) Mean Corpuscular Hemoglobin 24.5 PG (27.0-31.0) L Mean Corpuscular Hemoglobin Concent 30.5 G/DL (32.0-36.0) L Red Cell Distribution Width 18.6 % (11.6-14.8) H Platelet Count 171 K/UL (150-450) Mean Platelet Volume 7.3 FL (6.5-10.1) Neutrophils (%) (Auto) 47.4 % (45.0-75.0) Lymphocytes (%) (Auto) 41.9 % (20.0-45.0) Monocytes (%) (Auto) 7.1 % (1.0-10.0) Eosinophils (%) (Auto) 2.5 % (0.0-3.0) Basophils (%) (Auto) 1.0 % (0.0-2.0) Sodium Level 141 MMOL/L (136-145) Potassium Level 3.7 MMOL/L (3.5-5.1) Chloride Level 105 MMOL/L (98-107) Carbon Dioxide Level 28 MMOL/L (21-32) Anion Gap 8 mmol/L (5-15) Blood Urea Nitrogen 30 mg/dL (7-18) H Creatinine 3.4 MG/DL (0.55-1.30) H Estimat Glomerular Filtration Rate 15.8 mL/min (>60) Glucose Level 129 MG/DL (74-106) H Calcium Level 8.2 MG/DL (8.5-10.1) L Phosphorus Level 3.1 MG/DL (2.5-4.9) Total Bilirubin 0.3 MG/DL (0.2-1.0) Aspartate Amino Transf (AST/SGOT) 13 U/L (15-37) L Alanine Aminotransferase (ALT/SGPT) 9 U/L (12-78) L Alkaline Phosphatase 69 U/L (46-116) Total Protein 6.3 G/DL (6.4-8.2) L Albumin 2.1 G/DL (3.4-5.0) L Globulin 4.2 g/dL Albumin/Globulin Ratio 0.5 (1.0-2.7) L Microbiology Date/Time Source Procedure Growth Status 06/24/20 08:40 Blood Blood Culture - Preliminary NO GROWTH AFTER 24 HOURS Resulted 06/24/20 08:30 Blood Blood Culture - Preliminary NO GROWTH AFTER 24 HOURS Resulted 06/24/20 07:43 Urine,Clean Catch Urine Culture - Preliminary Gram Negative Luis Resulted Intake and Output 06/25/20 06/26/20 19:00 07:00 Intake Total 630 ml 790 ml Output Total 1000 ml Balance -370 ml 790 ml Intake Oral 630 ml 240 ml Other 550 ml Hemodialysis UF 1000 ml # Voids 2 2 Objective PHYSICAL EXAMINATION: GENERAL: The patient is a well-developed, well-nourished obese female, in no apparent distress. HEENT: Eyes, pupils equal, responsive to light and accommodation. Extraocular movements are intact. NECK: Supple without lymphadenopathy. CHEST: Lungs are clear to auscultation bilaterally without wheezes or rales. CARDIOVASCULAR: Regular rate. S1, S2 are normal without murmurs, rubs, or gallops. ABDOMEN: Soft, nontender, nondistended. Positive bowel sounds. No evidence of hepatosplenomegaly. Currently no rebound or guarding noted. EXTREMITIES: Negative for clubbing, cyanosis, or edema. RECTAL/GENITALIA: Not performed. NEUROLOGIC: Cranial nerves II through XII are grossly intact without focal deficits. Motor strength is 5/5 bilaterally. Deep tendon reflexes are 2+ plantar. Assessment/Plan Problem List: (1) ESRD (end stage renal disease) on dialysis Assessment & Plan: Nephrology=Dr Abernathy. Hemodialysis 06/24/20-cath malfunction. Repeat dialysis today 06/25/20 (2) UTI (urinary tract infection) Assessment & Plan: Gram neg luis; await ID and sens. Start levaquin 500 mg q 48 hr (renal dose). (3) HTN (hypertension) Assessment & Plan: Continue hydralazine (4) Diabetes mellitus (5) Dialysis catheter clot or failure Assessment & Plan: S/P TPA; now functioning Garett De Los Santos MD Jun 26, 2020 13:04
--- NOTE | 2020-06-26 13:50 | Nephrology Progress Note ---
Assessment/Plan Problem List: (1) Chronic renal failure (2) Hyperkalemia (3) Bradycardia (4) Diabetic nephropathy (5) Anemia (6) Obesity Assessment 79-year-old female presents with weakness, bradycardia, hyperkalemia Has acute on chronic kidney disease, has a right chest permacath in place Diabetic nephropathy Anemia Obesity Last dialyzed May 10 Plan June 26: Dialyzed yesterday. Labs reviewed. Vital signs stable. Hemodi alysis as needed. DC planning in process. June 25: Received only 30 minutes dialysis yesterday. The permacath had poor flow and need to be flushed with TPA. Will receive dialysis again today. Continue rest. June 24: Labs reviewed. Dialysis ordered for today. Medication list reviewed. Previous medication list reviewed Admit to monitor bed Renal diet Stool softener, Ecotrin Blood sugar check Keep the blood pressure in check Per orders Dialysis as needed Subjective ROS Limited/Unobtainable: No Constitutional: Reports: malaise, weakness Objective Objective Last 24 Hour Vital Signs Date Time Temp Pulse Resp B/P (MAP) Pulse Ox O2 Delivery O2 Flow Rate FiO2 06/26/20 12:00 97.3 74 20 109/45 (66) 98 06/26/20 12:00 89 06/26/20 09:00 Room Air 06/26/20 08:00 80 06/26/20 08:00 97.7 76 20 102/54 (70) 97 06/26/20 04:00 98.5 85 17 104/52 (69) 100 06/26/20 03:21 88 06/26/20 00:00 98.6 96 18 127/53 (77) 100 06/25/20 23:01 89 06/25/20 21:00 Room Air 06/25/20 20:00 98.0 95 18 135/54 (81) 100 06/25/20 19:46 88 06/25/20 16:00 90 06/25/20 16:00 97.5 87 18 100/42 (61) 100 Intake and Output 06/25/20 06/26/20 19:00 07:00 Intake Total 630 ml 790 ml Output Total 1000 ml Balance -370 ml 790 ml Intake Oral 630 ml 240 ml Other 550 ml Hemodialysis UF 1000 ml # Voids 2 2 Current Medications Medications (Trade) Dose Ordered Sig/Gwendolyn Route PRN Reason Start Time Stop Time Status Last Admin Dose Admin Aspirin (Ecotrin) 81 mg Q12H PRN ORAL For Pain 06/23/20 15:30 08/07/20 15:29 Chlorhexidine Gluconate (Niki-Hex 2%) 1 applic DAILY@2000 TOPIC 06/24/20 20:00 09/22/20 19:59 06/25/20 20:08 Docusate Sodium (Colace) 100 mg TWICE A DAY ORAL 06/23/20 18:00 07/23/20 17:59 06/25/20 17:20 Epoetin Nicholas (Epoetin Nicholas(ESRD on dialysis)) 10,000 unit WED-WED-WED SUBQ 06/24/20 21:00 09/22/20 20:59 06/24/20 21:00 Heparin Sodium (Porcine) (Heparin 5000 units/ml) 5,000 units EVERY 12 HOURS SUBQ 06/24/20 09:00 08/08/20 08:59 06/26/20 08:25 Hydralazine HCl (Apresoline) 25 mg Q4H PRN ORAL Blood pressure over 160 systol 06/23/20 15:30 09/21/20 15:29 Levofloxacin (Levaquin) 500 mg Q48H ORAL 06/27/20 17:30 07/04/20 17:29 Pantoprazole (Protonix) 40 mg DAILY ORAL 06/24/20 09:00 07/24/20 08:59 06/26/20 08:22 Laboratory Tests 06/26/20 06:08: White Blood Count 8.2, Red Blood Count 3.60L, Hemoglobin 8.8L, Hematocrit 28.9L, Mean Corpuscular Volume 80, Mean Corpuscular Hemoglobin 24.5L, Mean Corpuscular Hemoglobin Concent 30.5L, Red Cell Distribution Width 18.6H, Platelet Count 171, Mean Platelet Volume 7.3, Neutrophils (%) (Auto) 47.4, Lymphocytes (%) (Auto) 41.9, Monocytes (%) (Auto) 7.1, Eosinophils (%) (Auto) 2.5, Basophils (%) (Auto) 1.0, Sodium Level 141, Potassium Level 3.7, Chloride Level 105, Carbon Dioxide Level 28, Anion Gap 8, Blood Urea Nitrogen 30H, Creatinine 3.4H, Estimat Glomerular Filtration Rate 15.8, Glucose Level 129H, Calcium Level 8.2L, Phosphorus Level 3.1, Total Bilirubin 0.3, Aspartate Amino Transf (AST/SGOT) 13L , Alanine Aminotransferase (ALT/SGPT) 9L, Alkaline Phosphatase 69, Total Protein 6.3L, Albumin 2.1L, Globulin 4.2, Albumin/Globulin Ratio 0.5L Height (Feet): 5 Height (Inches): 5.00 Weight (Pounds): 240 General Appearance: no apparent distress Cardiovascular: normal rate Respiratory/Chest: decreased breath sounds Abdomen: soft Perry Abernathy MD Jun 26, 2020 13:50
[2020-06-26 16:00] VITALS: BP 121/59
--- NOTE | 2020-06-26 19:10 | NUR ---
NURSE HAND-OFF REPORT: Important Events on Shift:[] Patient Status: [FULL CODE] Diet: [renal] Pending Orders: [] Pending Results/Labs:[] Pending MD notification:[] Latest Vital Signs: Temperature 97.7 , Pulse 78 , B/P 121 /59 , Respiratory Rate 20 , O2 SAT 98 , Nasal Cannula, O2 Flow Rate 2.0 . Vital Sign Comment: [] EKG Rhythm: Sinus Rhythm Rhythm change?: N MD Notified?: - MD Response: Latest [place] Fall Score: 35 Fall Risk: Medium Risk Safety Measures: Call light Within Reach, Bed Alarm Zone 1, Side Rails Side Rails x2, Bed position Low and Locked. Fall Precautions: Patient Fall Education Report given to [Hanh Jaimes RN].
--- NOTE | 2020-06-26 19:30 | NUR ---
NURSE NOTES: Receive a report from ELLEN Chiu. Round is made. Pt is awake and alert. No acute distress noted. Denies pain. RUC perma catheter site intact. Afebrile. IV site left AC HL. Ambulatory. Provide fall precautions. Call light within reach. Will continue to monitor.
[2020-06-26 20:00] VITALS: BP 113/47
[2020-06-26] MEDS: Dyna-Hex 2% Top Sol 2oz TOPIC SCH (20:43)
[2020-06-26] MEDS: Epoetin Alfa-EPBX(ESRD on dialysis)10,000 unit/ml vial SUBQ SCH (20:43)
[2020-06-27] VITALS: BP 137/72
[2020-06-27 03:58] VITALS: BP 125/52
[2020-06-27 06:28] LABS: BASOPHILS % (AUTO) 0.9 % (0.0-2.0); EOSINOPHILS % (AUTO) 3.1 % (0.0-3.0); HEMATOCRIT 29.2 % (37.0-47.0); HEMOGLOBIN 8.7 G/DL (12.0-16.0); LYMPHOCYTES % (AUTO) 41.5 % (20.0-45.0); MEAN CORPUSCULAR VOLUME 81 FL (80-99); MONOCYTES % (AUTO) 7.1 % (1.0-10.0); NEUTROPHILS % (AUTO) 47.5 % (45.0-75.0); PLATELET COUNT 176 K/UL (150-450); RED CELL DISTRIBUTION WIDTH 18.6 % (11.6-14.8); WHITE BLOOD COUNT 7.8 K/UL (4.8-10.8)
[2020-06-27 06:50] LABS: CALCIUM 8.7 MG/DL (8.5-10.1); CREATININE 4.1 MG/DL (0.55-1.30); POTASSIUM 3.8 MMOL/L (3.5-5.1)
--- NOTE | 2020-06-27 06:50 | NUR ---
NURSE HAND-OFF REPORT: Important Events on Shift:No distress noted. Tachycardia after using bathroom. No chest discomfort/palpitation noted. Done EKG. Patient Status: stable] Diet: [renal diet] Pending Orders: [] Pending Results/Labs:[] Pending MD notification:[] Latest Vital Signs: Temperature 97.3 , Pulse 89 , B/P 125 /52 , Respiratory Rate 20 , O2 SAT 96 , Nasal Cannula, O2 Flow Rate 2.0 . Vital Sign Comment: [] EKG Rhythm: Sinus Rhythm Rhythm change?: N MD Notified?: - MD Response: Latest [place] Fall Score: 35 Fall Risk: Medium Risk Safety Measures: Call light Within Reach, Bed Alarm Zone 1, Side Rails Side Rails x2, Bed position Low and Locked. Fall Precautions: Patient Fall Education
--- NOTE | 2020-06-27 07:27 | NUR ---
NURSE NOTES: Given report to ELLEN Burgess.
--- NOTE | 2020-06-27 07:32 | NUR ---
NURSE NOTES: Report received from [facility] RN. Patient seen on rounds, awake and up in bed, AxOx4, not in distress or pain. Permacath over right IJ for dialysis access patent and intact. PIV on left AC patent and saline locked. Pt is ambulatory with standby assistance. Bed low and locked, siderails up x2, call light placed within reach and instructed to call nurse for assistance. Will continue to monitor.
--- NOTE | 2020-06-27 07:47 | NUR ---
CASE MANAGEMENT:REVIEW 06/27/20 SI: DIALYSIS CATHETER MALFUNCTION UTI. HTN 97.3 91 20 125/52 96% ON RA H/H-8.7/29.2 BUN+34 CR+4.1 IS:LEVAQUIN PO Q48 EPOETIN SQ MWF HEPARIN SQ Q12 PROTONIX PO QD : TELEMETRY STATUS DCP: FROM HOME WITH OUTPATIENT DIALYSIS PLAN: DIALYZE NEEDED LAST HD 06/25/20
[2020-06-27 08:00] VITALS: BP 124/66
[2020-06-27] MEDS: Docusate 100mg cap ORAL SCH ×2 (08:58→17:50)
[2020-06-27] MEDS: Heparin 5000 units/ml inj SUBQ SCH ×2 (08:58→20:45)
--- NOTE | 2020-06-27 09:17 | NUR ---
NURSE NOTES: PIV infiltrated on left AC and removed. Pt has no IV meds or fluids, wishes to defer PIV access for now. Dr. Batres informed and is aware.
--- NOTE | 2020-06-27 11:45 | Nephrology Progress Note ---
Assessment/Plan Problem List: (1) Chronic renal failure (2) Hyperkalemia (3) Bradycardia (4) Diabetic nephropathy (5) Anemia (6) Obesity Assessment 79-year-old female presents with weakness, bradycardia, hyperkalemia Has acute on chronic kidney disease, has a right chest permacath in place Diabetic nephropathy Anemia Obesity Last dialyzed May 10 Plan June 27: Labs reviewed. Medication list reviewed. Hemodialysis in a.m. Outpatient dialysis placement. Discussed with mattress spring encaser. June 26: Dialyzed yesterday. Labs reviewed. Vital signs stable. Hemodialysis as needed. DC planning in process. June 25: Received only 30 minutes dialysis yesterday. The permacath had poor flow and need to be flushed with TPA. Will receive dialysis again today. Continue rest. June 24: Labs reviewed. Dialysis ordered for today. Medication list reviewed. Previous medication list reviewed Admit to monitor bed Renal diet Stool softener, Ecotrin Blood sugar check Keep the blood pressure in check Per orders Dialysis as needed Subjective ROS Limited/Unobtainable: No Constitutional: Reports: malaise Objective Objective Last 24 Hour Vital Signs Date Time Temp Pulse Resp B/P (MAP) Pulse Ox O2 Delivery O2 Flow Rate FiO2 06/27/20 09:00 Room Air 06/27/20 08:00 92 06/27/20 08:00 97.9 87 18 124/66 (85) 97 06/27/20 04:00 89 06/27/20 03:58 97.3 91 20 125/52 (76) 96 90 06/27/20 00:00 94 06/27/20 00:00 98.7 90 20 137/72 (93) 95 06/26/20 21:00 Room Air 06/26/20 20:00 93 06/26/20 20:00 98.7 86 20 113/47 (69) 98 06/26/20 16:00 78 06/26/20 16:00 97.7 83 20 121/59 (79) 98 06/26/20 12:00 97.3 74 20 109/45 (66) 98 06/26/20 12:00 89 Intake and Output 06/26/20 06/27/20 19:00 07:00 Intake Total 400 ml Balance 400 ml Intake Oral 400 ml # Voids 1 2 # Bowel Movements 2 Current Medications Medications (Trade) Dose Ordered Sig/Gwendolyn Route PRN Reason Start Time Stop Time Status Last Admin Dose Admin Aspirin (Ecotrin) 81 mg Q12H PRN ORAL For Pain 06/23/20 15:30 08/07/20 15:29 Chlorhexidine Gluconate (Niki-Hex 2%) 1 applic DAILY@2000 TOPIC 06/24/20 20:00 09/22/20 19:59 06/26/20 20:43 Docusate Sodium (Colace) 100 mg TWICE A DAY ORAL 06/23/20 18:00 07/23/20 17:59 06/25/20 17:20 Epoetin Nicholas (Epoetin Nicholas(ESRD on dialysis)) 10,000 unit WED-WED-WED SUBQ 06/24/20 21:00 09/22/20 20:59 06/26/20 20:43 Heparin Sodium (Porcine) (Heparin 5000 units/ml) 5,000 units EVERY 12 HOURS SUBQ 06/24/20 09:00 08/08/20 08:59 06/27/20 08:58 Hydralazine HCl (Apresoline) 25 mg Q4H PRN ORAL Blood pressure over 160 systol 06/23/20 15:30 09/21/20 15:29 Levofloxacin (Levaquin) 500 mg Q48H ORAL 06/27/20 17:30 07/04/20 17:29 Pantoprazole (Protonix) 40 mg DAILY ORAL 06/24/20 09:00 07/24/20 08:59 06/27/20 08:57 Laboratory Tests 06/27/20 05:55: White Blood Count 7.8, Red Blood Count 3.60L, Hemoglobin 8.7L, Hematocrit 29.2L, Mean Corpuscular Volume 81, Mean Corpuscular Hemoglobin 24.3L, Mean Corpuscular Hemoglobin Concent 29.9L, Red Cell Distribution Width 18.6H, Platelet Count 176, Mean Platelet Volume 7.2, Neutrophils (%) (Auto) 47.5, Lymphocytes (%) (Auto) 41.5, Monocytes (%) (Auto) 7.1, Eosinophils (%) (Auto) 3.1H, Basophils (%) (Auto) 0.9, Sodium Level 142, Potassium Level 3.8, Chloride Level 107, Carbon Di oxide Level 26, Anion Gap 9, Blood Urea Nitrogen 34H, Creatinine 4.1H, Estimat Glomerular Filtration Rate 12.7, Glucose Level 124H, Calcium Level 8.7 Height (Feet): 5 Height (Inches): 5.00 Weight (Pounds): 240 General Appearance: no apparent distress Cardiovascular: tachycardia Respiratory/Chest: decreased breath sounds Abdomen: soft Objective No change Perry Abernathy MD Jun 27, 2020 11:44
[2020-06-27 12:00] VITALS: BP 137/73
[2020-06-27 16:00] VITALS: BP 133/88
--- NOTE | 2020-06-27 16:30 | NUR ---
NURSE NOTES: Received patient in bed awake. No SOB or acute distress. No IV access, aware as per ELLEN Burgess. Right upper chest access for dialysis. For dialysis tomorrow, nurse Lele previously made aware. HOB elevated. Bed locked in low position. Call [facility] within reach. Will continue plan of care.
--- NOTE | 2020-06-27 17:29 | Internal Med Progress Note ---
Subjective Physician Name Daron Batres Attending Physician Daron Batres MD Current Medications Medications (Trade) Dose Ordered Sig/Gwendolyn Route PRN Reason Start Time Stop Time Status Last Admin Dose Admin Aspirin (Ecotrin) 81 mg Q12H PRN ORAL For Pain 06/23/20 15:30 08/07/20 15:29 Chlorhexidine Gluconate (Niki-Hex 2%) 1 applic DAILY@2000 TOPIC 06/24/20 20:00 09/22/20 19:59 06/26/20 20:43 Docusate Sodium (Colace) 100 mg TWICE A DAY ORAL 06/23/20 18:00 07/23/20 17:59 06/25/20 17:20 Epoetin Nicholas (Epoetin Nicholas(ESRD on dialysis)) 10,000 unit WED-WED-WED SUBQ 06/24/20 21:00 09/22/20 20:59 06/26/20 20:43 Heparin Sodium (Porcine) (Heparin 5000 units/ml) 5,000 units EVERY 12 HOURS SUBQ 06/24/20 09:00 08/08/20 08:59 06/27/20 08:58 Hydralazine HCl (Apresoline) 25 mg Q4H PRN ORAL Blood pressure over 160 systol 06/23/20 15:30 09/21/20 15:29 Levofloxacin (Levaquin) 500 mg Q48H ORAL 06/27/20 17:30 07/04/20 17:29 Pantoprazole (Protonix) 40 mg DAILY ORAL 06/24/20 09:00 07/24/20 08:59 06/27/20 08:57 Allergies: Coded Allergies: ACETAMINOPHEN (Verified Allergy, Severe, Shortness of Breath, 11/25/17) HYDROMORPHONE (Verified Allergy, Severe, 11/25/17) PENICILLINS (Verified Allergy, Severe, 11/25/17) PROCAINE (Verified Allergy, Severe, 11/25/17) SHELLFISH DERIVED (Verified Allergy, Severe, 11/25/17) CODEINE (Verified Allergy, Unknown, 11/25/17) Cantaloupe (Verified Allergy, Unknown, 11/25/17) STRAWBERRY (Verified Allergy, Unknown, 11/25/17) Uncoded Allergies: DUST, POLLEN (Allergy, Unknown, 07/19/17) Subjective awake, alert, responsive, no acute distress. Ambulatory in the room. Objective Last Vital Signs Date Time Temp Pulse Resp B/P (MAP) Pulse Ox O2 Delivery O2 Flow Rate FiO2 06/27/20 16:00 98.8 87 19 133/88 (103) 98 06/27/20 09:00 Room Air 06/23/20 16:00 2.0 06/23/20 11:58 95 Laboratory Tests Test 06/27/20 05:55 White Blood Count 7.8 K/UL (4.8-10.8) Red Blood Count 3.60 M/UL (4.20-5.40) L Hemoglobin 8.7 G/DL (12.0-16.0) L Hematocrit 29.2 % (37.0-47.0) L Mean Corpuscular Volume 81 FL (80-99) Mean Corpuscular Hemoglobin 24.3 PG (27.0-31.0) L Mean Corpuscular Hemoglobin Concent 29.9 G/DL (32.0-36.0) L Red Cell Distribution Width 18.6 % (11.6-14.8) H Platelet Count 176 K/UL (150-450) Mean Platelet Volume 7.2 FL (6.5-10.1) Neutrophils (%) (Auto) 47.5 % (45.0-75.0) Lymphocytes (%) (Auto) 41.5 % (20.0-45.0) Monocytes (%) (Auto) 7.1 % (1.0-10.0) Eosinophils (%) (Auto) 3.1 % (0.0-3.0) H Basophils (%) (Auto) 0.9 % (0.0-2.0) Sodium Level 142 MMOL/L (136-145) Potassium Level 3.8 MMOL/L (3.5-5.1) Chloride Level 107 MMOL/L (98-107) Carbon Dioxide Level 26 MMOL/L (21-32) Anion Gap 9 mmol/L (5-15) Blood Urea Nitrogen 34 mg/dL (7-18) H Creatinine 4.1 MG/DL (0.55-1.30) H Estimat Glomerular Filtration Rate 12.7 mL/min (>60) Glucose Level 124 MG/DL (74-106) H Calcium Level 8.7 MG/DL (8.5-10.1) Intake and Output 2/3/21 2/4/21 19:00 07:00 Intake Total 400 ml Balance 400 ml Intake Oral 400 ml # Voids 1 2 # Bowel Movements 2 Objective GENERAL: The patient is a well-developed, well-nourished obese female, in no apparent distress. HEENT: Eyes, pupils equal, responsive to light and accommodation. Extraocular movements are intact. NECK: Supple without lymphadenopathy. LUNG: clear to auscultation bilaterally without wheezes or rales. CHEST WALL: Right side PermCath. CARDIOVASCULAR: Regular rate. S1, S2 are normal without murmurs or gallops. ABDOMEN: Soft, nontender, nondistended. Positive bowel sounds. Obesity, no rebound or guarding noted. EXTREMITIES: Negative for clubbing, cyanosis, or edema. RECTAL/GENITALIA: Not performed. NEUROLOGIC: Cranial nerves II through XII are grossly intact without focal deficits. Motor strength is 5/5 bilaterally. Assessment/Plan Assessment/Plan Problem List: (1) ESRD (end stage renal disease) on dialysis Assessment & Plan: Nephrology=Dr Abernathy. Hemodialysis 06/24/20-cath malfunction. Repeat dialysis today 06/25/20 (2) E. Coli UTI (urinary tract infection) Assessment & Plan: Gram neg kacie; await ID and sens. Start levaquin 500 mg q 48 hr (renal dose). (3) HTN (hypertension) Assessment & Plan: Continue hydralazine (4) Diabetes mellitus (5) Dialysis catheter clot or failure Assessment & Plan: for Hemodialysis in Daron Batres MD Jun 27, 2020 17:29
[2020-06-27] MEDS ORDERED: Levofloxacin 500mg tab ORAL SCH (17:30)
--- NOTE | 2020-06-27 18:36 | NUR ---
NURSE HAND-OFF REPORT: Important Events on Shift: Patient Status: alert, pleasant Diet: renal Pending Orders: for dialysis tomorrow 06/28, nurse Jose L aware Pending Results/Labs: Pending MD notification: Latest Vital Signs: Temperature 98.8 , Pulse 88 , B/P 133 /88 , Respiratory Rate 19 , O2 SAT 98 , Nasal Cannula, O2 Flow Rate 2.0 . Vital Sign Comment: EKG Rhythm: Sinus Rhythm Rhythm change?: N MD Notified?: - MD Response: Latest [place] Fall Score: 35 Fall Risk: Medium Risk Safety Measures: Call light Within Reach, Bed Alarm Zone 1, Side Rails Side Rails x2, Bed position Low and Locked. Fall Precautions: Patient Fall Education . Addendum: 06/27/20 at 1926 by Nohelia Mayen RN NURSE NOTES: Report given to Makayla HUGHES.
--- NOTE | 2020-06-27 19:05 | NUR ---
NURSE NOTES: Important Events on Shift: Received report from Nohelia Sotomayor RN. Pt in bed, A x O 4, pt denies pain. No signs or symptoms of pain or distress noted at this time. RADHA Royal RN, confirmed pt is to be dialyzed in AM. Will contiue to monitor closely. WIll continue plan of care. Patient Status: Full Code Diet: Renal Pending Orders: Dialysis (RADHA) Pending Results/Labs: none Pending MD notification: none Latest Vital Signs: Temperature 98.0 , Pulse 91 , B/P 129 /56 , Respiratory Rate 18 , O2 SAT 99 , Nasal Cannula, O2 Flow Rate 2.0 . Vital Sign Comment: stable throughout shift EKG Rhythm: Sinus Rhythm Rhythm change?: N MD Notified?: - MD Response: - Latest [place] Fall Score: 70 Fall Risk: High Risk Safety Measures: Call light Within Reach, Bed Alarm Zone 1, Side Rails Side Rails x2, Bed position Low and Locked. Fall Precautions: YES Yellow Socks YES Patient Fall Education YES
[2020-06-27 20:00] VITALS: BP 129/56
[2020-06-27] MEDS: Dyna-Hex 2% Top Sol 2oz TOPIC SCH (20:46)
[2020-06-28] VITALS: BP 118/58
[2020-06-28 04:00] VITALS: BP 109/65
--- NOTE | 2020-06-28 05:10 | NUR ---
NURSE HAND-OFF REPORT: Important Events on Shift: None. Patient Status: FC Diet: renal Pending Orders: Dialysis ([facility]) Pending Results/Labs: none Pending MD notification: none Latest Vital Signs: Temperature 98.1 , Pulse 98 , B/P 109 /65 , Respiratory Rate 19 , O2 SAT 98 , Nasal Cannula, O2 Flow Rate 2.0 . Vital Sign Comment: stable throughout shift. EKG Rhythm: Sinus Rhythm Rhythm change?: N MD Notified?: - MD Response: - Latest [place] Fall Score: 70 Fall Risk: High Risk Safety Measures: YES Call light Within Reach, Bed Alarm Zone 1, Side Rails Side Rails x2, Bed position Low and Locked. Fall Precautions: YES Yellow Socks YES Patient Fall Education YES Addendum: 06/28/20 at 0702 by Monik Alatorre RN REPORT TO BE GIVEN TO ROGER Cortez RN
--- NOTE | 2020-06-28 07:10 | NUR ---
NURSE NOTES: Received hand-off report from Makayla Alatorre RN. Patient sitting in semi-fowlers position, breathing even and unlabored on room air, alert and oriented x4. Bed in lowest and locked position, right permacath dual lumen intact, no pain or tenderness noted. Patient aware of dialysis today. Bed in lowest and locked position, bed alarm on, call light within reach, library monitor in place.
[2020-06-28 08:00] VITALS: BP 123/63
[2020-06-28] MEDS: Heparin 5000 units/ml inj SUBQ SCH ×2 (09:00→21:49)
[2020-06-28] MEDS: Docusate 100mg cap ORAL SCH ×2 (09:14→18:00)
--- NOTE | 2020-06-28 09:19 | Nephrology Progress Note ---
Assessment/Plan Problem List: (1) Chronic renal failure (2) Hyperkalemia (3) Bradycardia (4) Diabetic nephropathy (5) Anemia (6) Obesity Assessment 79-year-old female presents with weakness, bradycardia, hyperkalemia Has acute on chronic kidney disease, has a right chest permacath in place Diabetic nephropathy Anemia Obesity Last dialyzed May 10 Plan June 28: No labs drawn today. Due for dialysis today. Continue per current management. Low-dose of Lopressor started. June 27: Labs reviewed. Medication list reviewed. Hemodialysis in a.m. Out patient dialysis placement. Discussed with case investigator. June 26: Dialyzed yesterday. Labs reviewed. Vital signs stable. Hemodialysis as needed. DC planning in process. June 25: Received only 30 minutes dialysis yesterday. The permacath had poor flow and need to be flushed with TPA. Will receive dialysis again today. Continue rest. June 24: Labs reviewed. Dialysis ordered for today. Medication list reviewed. Previous medication list reviewed Admit to monitor bed Renal diet Stool softener, Ecotrin Blood sugar check Keep the blood pressure in check Per orders Dialysis as needed Subjective ROS Limited/Unobtainable: No Constitutional: Reports: malaise Objective Objective Last 24 Hour Vital Signs Date Time Temp Pulse Resp B/P (MAP) Pulse Ox O2 Delivery O2 Flow Rate FiO2 06/28/20 04:00 89 06/28/20 04:00 98.1 98 19 109/65 (80) 98 06/28/20 00:00 98.6 77 19 118/58 (78) 98 06/28/20 00:00 90 06/27/20 21:00 Room Air 06/27/20 20:00 98.0 91 18 129/56 (80) 99 06/27/20 20:00 94 06/27/20 16:00 98.8 87 19 133/88 (103) 98 06/27/20 16:00 88 06/27/20 12:00 85 06/27/20 12:00 98.2 89 18 137/73 (94) 96 Intake and Output 06/27/20 06/28/20 18:59 06:59 Intake Total 400 ml Balance 400 ml Intake Oral 400 ml # Voids 2 2 Current Medications Medications (Trade) Dose Ordered Sig/Gwendolyn Route PRN Reason Start Time Stop Time Status Last Admin Dose Admin Aspirin (Ecotrin) 81 mg Q12H PRN ORAL For Pain 06/23/20 15:30 08/07/20 15:29 Chlorhexidine Gluconate (Niki-Hex 2%) 1 applic DAILY@2000 TOPIC 06/24/20 20:00 09/22/20 19:59 06/27/20 20:46 Docusate Sodium (Colace) 100 mg TWICE A DAY ORAL 06/23/20 18:00 07/23/20 17:59 06/28/20 09:14 Epoetin Nicholas (Epoetin Nicholas(ESRD on dialysis)) 10,000 unit WED-WED-WED SUBQ 06/24/20 21:00 09/22/20 20:59 06/26/20 20:43 Heparin Sodium (Porcine) (Heparin 5000 units/ml) 5,000 units EVERY 12 HOURS SUBQ 06/24/20 09:00 08/08/20 08:59 06/27/20 20:45 Hydralazine HCl (Apresoline) 25 mg Q4H PRN ORAL Blood pressure over 160 systol 06/23/20 15:30 09/21/20 15:29 Levofloxacin (Levaquin) 500 mg Q48H ORAL 06/27/20 17:30 07/04/20 17:29 06/27/20 17:50 Pantoprazole (Protonix) 40 mg DAILY ORAL 06/24/20 09:00 07/24/20 08:59 06/28/20 09:14 Height (Feet): 5 Height (Inches): 5.00 Weight (Pounds): 240 General Appearance: no apparent distress Cardiovascular: normal rate Respiratory/Chest: decreased breath sounds Abdomen: soft Objective No change Perry Abernathy MD Jun 28, 2020 09:19
--- NOTE | 2020-06-28 11:00 | NUR ---
NURSE NOTES: Dialysis nurse notified and Lele explained she will arrive to dialyze patient when she arrived at 17:00.
[2020-06-28 12:00] VITALS: BP 141/73
--- NOTE | 2020-06-28 13:23 | NUR ---
ENVIRONMENTAL EDUCATOR NOTE SW met w/ pt and discussed the concern/needs of food preparation and renal diet compliance. Pt presents as A&O4x. PT resides w/ two sons. PT shares her oldest child has dx of Dementia and her youngest son, Efrem Licona has been providing assistance as needed. PT does not have a caregiver. Pt's last admission at [facility] was 05/02/2020-05/10/2020. Pt reports she received the first dialysis in her last admission at [facility] and she did not have any knowledge of renal diet and the importance of dialysis. SW asked if pt wants to be referred to the [facility] senior meal assistance program. PT declined to referral, stating that she would like to get information on such programs first before being referred. PT also stated that she will be able to prepare food for herself once she has more information on renal diet. PT reported that her son is aware that she needs renal diet. Pt declined this SW to speak to her son in regards to her renal diet. This SW provided the list of senior food programs, and the renal diet resources. SW and pt discussed and went through the renal diet resource together. SW encouraged pt to ask for any assistance while IP. PT verbalized understanding. SW to F/U as needed. Efrem Licona (son) [phone]
--- NOTE | 2020-06-28 14:29 | NUR ---
TANK BUILDER SUPERVISOR NOTES PT ACCEPTED TO [facility], WEDNESDAY,WEDNESDAY AND WEDNESDAY WITH A CHAIR TIME 1630.TRANSPORTATION TO BE SET UP ONCE PT IS BEING DISCHARGED. [facility] [address] [place] [address]
--- NOTE | 2020-06-28 15:13 | NUR ---
CASE MANAGEMENT:REVIEW 06/28/20 SI: DIALYSIS CATHETER MALFUNCTION. UTI. HTN 97.7 91 20 123/63 99% ON RA NO LABS FOR TODAY IS:LOPRESSOR PO Q12 LEVAQUIN PO Q48 EPOETIN SQ MWF HEPARIN SQ Q12 PROTONIX PO QD ASA PO Q12HRS PRN : TELEMETRY STATUS DCP: FROM HOME WITH OUTPATIENT DIALYSIS PLAN: DIALYZE NEEDED LAST HD 06/25/20 SEE DRAWER WAXER NOTE FROM 06/28 @9603 REGARDING OUTPATIENT DIALYSIS
[2020-06-28 16:00] VITALS: BP 119/70
--- NOTE | 2020-06-28 16:27 | NUR ---
NURSE NOTES: Notified Dialysis nurse, Lele RN regarding whether she will arrive at prior stated time, awaiting response.
--- NOTE | 2020-06-28 16:30 | NUR ---
NURSE NOTES: Called and left a message for [facility] regarding patient order of dialysis today and the hospital aides and assistants teacher stated that they will call back. Noted and awaiting response.
--- NOTE | 2020-06-28 16:54 | NUR ---
NURSE NOTES: floor care technicianLele stated that she will arrive 20:00. Noted and patient made aware.
--- NOTE | 2020-06-28 18:37 | Internal Med Progress Note ---
Subjective Physician Name Daron Batres Attending Physician Daron Batres MD Current Medications Medications (Trade) Dose Ordered Sig/Gwendolyn Route PRN Reason Start Time Stop Time Status Last Admin Dose Admin Aspirin (Ecotrin) 81 mg Q12H PRN ORAL For Pain 06/23/20 15:30 08/07/20 15:29 Chlorhexidine Gluconate (Niki-Hex 2%) 1 applic DAILY@2000 TOPIC 06/24/20 20:00 09/22/20 19:59 06/27/20 20:46 Docusate Sodium (Colace) 100 mg TWICE A DAY ORAL 06/23/20 18:00 07/23/20 17:59 06/28/20 09:14 Epoetin Nicholas (Epoetin Nicholas(ESRD on dialysis)) 10,000 unit WED-WED-WED SUBQ 06/24/20 21:00 09/22/20 20:59 06/26/20 20:43 Heparin Sodium (Porcine) (Heparin 5000 units/ml) 5,000 units EVERY 12 HOURS SUBQ 06/24/20 09:00 08/08/20 08:59 06/27/20 20:45 Hydralazine HCl (Apresoline) 25 mg Q4H PRN ORAL Blood pressure over 160 systol 06/23/20 15:30 09/21/20 15:29 Levofloxacin (Levaquin) 500 mg Q48H ORAL 06/27/20 17:30 07/04/20 17:29 06/27/20 17:50 Metoprolol Tartrate (Lopressor) 12.5 mg Q12HR ORAL 06/28/20 09:30 09/26/20 09:29 Pantoprazole (Protonix) 40 mg DAILY ORAL 06/24/20 09:00 07/24/20 08:59 06/28/20 09:14 Allergies: Coded Allergies: ACETAMINOPHEN (Verified Allergy, Severe, Shortness of Breath, 11/25/17) HYDROMORPHONE (Verified Allergy, Severe, 11/25/17) PENICILLINS (Verified Allergy, Severe, 11/25/17) PROCAINE (Verified Allergy, Severe, 11/25/17) SHELLFISH DERIVED (Verified Allergy, Severe, 11/25/17) CODEINE (Verified Allergy, Unknown, 11/25/17) Cantaloupe (Verified Allergy, Unknown, 11/25/17) STRAWBERRY (Verified Allergy, Unknown, 11/25/17) Uncoded Allergies: DUST, POLLEN (Allergy, Unknown, 07/19/17) Subjective awake, alert, responsive, no acute distress. Ambulatory in the room. Objective Last Vital Signs Date Time Temp Pulse Resp B/P (MAP) Pulse Ox O2 Delivery O2 Flow Rate FiO2 06/28/20 16:00 98.2 93 18 119/70 (86) 97 06/28/20 10:25 Room Air 06/23/20 16:00 2.0 06/23/20 11:58 95 Intake and Output 06/27/20 06/28/20 19:00 07:00 Intake Total 400 ml Balance 400 ml Intake Oral 400 ml # Voids 2 2 Objective GENERAL: The patient is a well-developed, well-nourished obese female, in no apparent distress. HEENT: Eyes, pupils equal, responsive to light and accommodation. Extraocular movements are intact. NECK: Supple without lymphadenopathy. LUNG: clear to auscultation bilaterally without wheezes or rales. CHEST WALL: Right side PermCath. CARDIOVASCULAR: Regular rate. S1, S2 are normal without murmurs or gallops. ABDOMEN: Soft, nontender, nondistended. Positive bowel sounds. Obesity, no rebound or guarding noted. EXTREMITIES: Negative for clubbing, cyanosis, or edema. RECTAL/GENITALIA: Not performed. NEUROLOGIC: Cranial nerves II through XII are grossly intact without focal deficits. Motor strength is 5/5 bilaterally. Assessment/Plan Assessment/Plan Problem List: (1) ESRD (end stage renal disease) on dialysis Assessment & Plan: Nephrology=Dr Abernathy. Hemodialysis 06/24/20-cath malfunction. Repeat dialysis today 06/25/20 (2) E. Coli UTI (urinary tract infection) Assessment & Plan: Gram neg kacie; await ID and sens. Start levaquin 500 mg q 48 hr (renal dose). (3) HTN (hypertension) Assessment & Plan: Continue hydralazine (4) Diabetes mellitus (5) Dialysis catheter clot or failure Assessment & Plan: for Hemodialysis tonight discharge planning for AM. outpatient hemodialysis already set up. Daron Batres MD Jun 28, 2020 18:37
--- NOTE | 2020-06-28 19:26 | NUR ---
NURSE HAND-OFF REPORT: Important Events on Shift: dialysis not done yet, Young RN to be arriving shortly Patient Status: full code, stable condition Diet: renal Pending Orders: [] Pending Results/Labs:[] Pending MD notification:[] Latest Vital Signs: Temperature 98.2 , Pulse 88 , B/P 119 /70 , Respiratory Rate 18 , O2 SAT 97 , Nasal Cannula, O2 Flow Rate 2.0 . Vital Sign Comment: [] EKG Rhythm: Sinus Rhythm Rhythm change?: N MD Notified?: - MD Response: Latest [place] Fall Score: 70 Fall Risk: High Risk Safety Measures: Call light Within Reach, Bed Alarm Zone 1, Side Rails Side Rails x2, Bed position Low and Locked. Fall Precautions: Yellow Socks Patient Fall Education Report given to ELLEN Hoffman.
--- NOTE | 2020-06-28 19:40 | NUR ---
NURSE NOTES: Pt. received from ELLEN Morrow. Pt. AAOx4, on room air, breathing even and unlabored, no indications of respiratory distress, no complaints of pain. Pt. scheduled to received dialysis today. No IV access, pt. refusing, will attempt to reinsert. Bed low and locked, side rails x3 up, and call light in reach.
[2020-06-28 20:00] VITALS: BP 133/68
[2020-06-28] MEDS: Metoprolol Tartrate 12.5mg TAB ORAL SCH ×2 (20:34→22:00)
[2020-06-28] MEDS: Epoetin Alfa-EPBX(ESRD on dialysis)10,000 unit/ml vial SUBQ SCH (20:41)
[2020-06-28] MEDS: Dyna-Hex 2% Top Sol 2oz TOPIC SCH (20:41)
[2020-06-29] VITALS: BP 139/58
[2020-06-29] MEDS ORDERED: Cathflo Alteplase 2mg Inj INJ ONE (00:30)
[2020-06-29 04:00] VITALS: BP 112/55
--- NOTE | 2020-06-29 06:54 | NUR ---
NURSE HAND-OFF REPORT: Important Events on Shift:[pt. with dialysis 1L out, needs dialysis nurse to return to give cathflow in [facility]] Patient Status: stable Diet: renal Pending Orders: na Pending Results/Labs:na Pending notification:jacklyn Latest Vital Signs: Temperature 98.5 , Pulse 93 , B/P 112 /55 , Respiratory Rate 20 , O2 SAT 98 , Nasal Cannula, O2 Flow Rate 2.0 . Vital Sign Comment: stable EKG Rhythm: Sinus Rhythm Rhythm change?: N MD Notified?: - MD Response: Latest [place] Fall Score: 70 Fall Risk: High Risk Safety Measures: Call light Within Reach, Bed Alarm Zone 1, Side Rails Side Rails x3, Bed position Low and Locked. Fall Precautions: Yellow Socks Patient Fall Education Report given to . Addendum: 06/29/20 at 0757 by Sushil Hoffman RN Hand off given to LVN. Eusebia
--- NOTE | 2020-06-29 07:35 | NUR ---
NURSE NOTES: Recevied patient awake, alert and orientedx4 sitting on the edge of the bed. no apparent distress or pain noted. Permacath over right upperchest for HD access patent and intact. s/p HD last night with 1L out. awaiting for HD nurse to admnister cathflow prior d/c home. PIV on left AC patent and saline locked. ambulatory with standby assistance. Bed lowest position and locked, siderails up x2, call light placed within reach and instructed to call nurse for assistance. Will continue to monitor.
[2020-06-29 08:02] VITALS: BP 124/64
[2020-06-29] MEDS: Metoprolol Tartrate 12.5mg TAB ORAL SCH (08:08)
[2020-06-29] MEDS: Docusate 100mg cap ORAL SCH (08:08)
[2020-06-29] MEDS: Heparin 5000 units/ml inj SUBQ SCH (08:13)
[2020-06-29 11:46] VITALS: BP 125/63
--- NOTE | 2020-06-29 13:28 | NUR ---
CASE MANAGEMENT:REVIEW 06/29/20 SI: DIALYSIS CATHETER MALFUNCTION. UTI. HTN VS: T 98.2 HR 878 RR 20 B/P 125/63 SATS 98% ON RA LABS: NONE TODAY IS:LOPRESSOR PO Q12H LEVAQUIN PO Q48H EPOETIN SQ MWF HEPARIN SUBQ Q12 PROTONIX PO QD ASA PO Q12HRS PRN : TELEMETRY STATUS DCP: FROM HOME WITH OUTPATIENT DIALYSIS PLAN: DC TO HOME
--- NOTE | 2020-06-29 13:30 | NUR ---
NURSE NOTES: D/C HOME WITH INSTRUCTIONS GIVEN. CATHFLOW GIVEN PRIOR DISCHARGE BY HD NURSEVIKTOR. VERIFIED HOME ADDRESS. IN STABLE CONDITION. NO PIV ACCESS. D/C HOME WITH PERMACATH ON RIGHT UPPER CHEST FOR HD ACCESS. VSS. PERSONAL BELONGINGS NOTED. PICKED BY SONRAFAL. VERBALIZED UNDERSTANDING.
--- NOTE | 2020-06-29 14:31 | NUR ---
SCHOOL OF NURSING DIRECTOR NOTES SPOKE WITH PT'S SON RAFAL, HE WILL TRANSPORT PT TO AND FROM .
--- NOTE | 2020-07-02 15:36 | Discharge Summary ---
Discharge Summary Discharge Summary _ DATE OF ADMISSION: 06/23/2020 DATE OF DISCHARGE: 06/29/2020 DISCHARGED BY: Dr. Batres REASON FOR ADMISSION: 79 years old female with past medical history of hypertension, anemia of chronic disease, diabetes mellitus, anxiety disorder , acute kidney injury , requiring initiation of hemodialysis, presented for evaluation of dialysis catheter. Perma-catheter was placed during the prior admission in April. Patient was last dialyzed on May 10. Patient denied chest pain or shortness of breath , no dyspnea on exertion. No fever or chills. No drainage around the Perma-cath. No leg edema. Laboratory work-up revealed hyperkalemia and elevated BUN and creatinine. Patient received Kayexalate along with calcium p. Patient was also bradycardic with heart rate of 48 , but when EKG was done , the heart rate was already in 90s. No no acute ischemic changes on ECG. Troponin negative , pro BNP 685 . Chest x-ray revealed no acute process. No leukocytosis , hemoglobin 9.5 , hematocrit 32.5. Patient subsequently admitted for further management . CONSULTANTS: metal sprayer machined parts Dr. Abernathy [facility] COURSE: Patient admitted to telemetry floor. Hemodialysis was arranged as per metal sprayer machined parts with close monitoring of volumes , renal parameters and electrolytes. Perma,cath had a poor flow during the initial dialysis and required to be flushed with TPA/ Patient received 2 dialysis in 2 consecutive days. After flushing with TPA, Perma-cath flow improved. No need for another dialysis access. Electrolytes corrected as needed. SNF medication resumed. Urine culture revealed E. coli. Blood cultures were negative. Ppatient was treated received treatment for UTI. DVT and GI prophylaxis provided. Hemoglobin and hematocrit were closely monitored with goal to keep hemoglobin above 7. Blood sugar was managed with sliding scale of insulin. Outpatient hemodialysis was arranged. Patient was stable for discharge home with outpatient hemodialysis FINAL DIAGNOSES: Acute on chronic kidney disease, on hemodialysis Diabetic nephropathy Obesity Hemodialysis catheter malfunctioning UTI with E. coli Hypertension Diabetes mellitus DISCHARGE MEDICATIONS: See Medication Reconciliation list. DISCHARGE INSTRUCTIONS: Patient was discharged home. Follow-up with a primary care provider in 1 week. Follow-up with outpatient hemodialysis as arranged. I have been assigned to dictate discharge summary for this account. I was not involved in the patient's management. Bisi Wong NP Jul 02, 2020 15:36
== END 2020-06-29 13:30 | disposition home or self-care (01) | DRG 698 ==
LOC: EMR 12:35 → 2E 14:49 → EDBEDREQ 15:09
PROC: 5A1D70Z Performance of Urinary Filtration, Intermittent, Less than 6 Hours Per Day (ICD-10-PCS; principal; 2020-06-24)
DX: T82.41XA Breakdown (mechanical) of vascular dialysis catheter, initial encounter (principal); N18.6 End stage renal disease; N17.9 Acute kidney failure, unspecified; I12.0 Hypertensive chronic kidney disease with stage 5 chronic kidney disease or end stage renal disease; N39.0 Urinary tract infection, site not specified; E87.5 Hyperkalemia; E11.22 Type 2 diabetes mellitus with diabetic chronic kidney disease; Z88.6 Allergy status to analgesic agent; Z88.0 Allergy status to penicillin; Z79.82 Long term (current) use of aspirin; Z79.4 Long term (current) use of insulin; Z88.8 Allergy status to other drugs, medicaments and biological substances; R00.1 Bradycardia, unspecified; E66.9 Obesity, unspecified; D64.9 Anemia, unspecified; Y84.1 Kidney dialysis as the cause of abnormal reaction of the patient, or of later complication, without mention of misadventure at the time of the procedure; B96.20 Unspecified Escherichia coli [E. coli] as the cause of diseases classified elsewhere
CPT/HCPCS: 36415; 71045; 80048; 80053; 80061; 81001; 81003; 82607; 82728; 82746; 82962; 82977; 83036; 83540; 83550; 83615; 83735; 83880; 84100; 84443; 84484; 84550; 85025; 85610; 85730; 86140; 86706; 87040; 87086; 87181; 93005; 96374; 99285